=== PATIENT | male | born 1955 | race Two or more races ===

== ENCOUNTER 2020-05-23 16:06 | Outpatient (REF) | payer OTHER, SELFPAY ==
[2020-05-23 16:48] LABS: MANUAL DIFF FLAG NO
[2020-05-23 16:53] LABS: Basophils Absolute Auto 0.1 X10*3/uL (0.0-0.2); Basophils Percent Auto 0.4 % (0-2); Eosinophils Absolute Auto 0.1 X10*3/uL (0.0-0.4); Eosinophils Percent Auto 0.8 % (0-4); Hematocrit 44.2 % (42-52); Hemoglobin 14.9 g/dl (14.0-18.0); Imm Gran Abs Auto 0.06 X10*3/uL (0.00-0.03); Imm Gran Pct Auto 0.5 % (0.0-0.4); Lymphocytes Absolute Auto 2.3 X10*3/uL (1.2-4.9); Lymphocytes Percent Auto 17.1 % (20-40); Mean Corpuscular HGB Conc 33.7 g/dl (31.0-36.0); Mean Corpuscular Hemoglobin 30.5 pg (27.0-33.0); Mean Corpuscular Volume 90.4 fL (80-98); Mean Platelet Volume 10.2 fL (9.4-12.4); Monocytes Percent Auto 7.3 % (2-11); Neutrophils Absolute Auto 9.8 X10*3/uL (2.0-8.3); Neutrophils Percent Auto 73.9 % (45-73); Platelet Count 326 X10*3/uL (160-400); Red Blood Count 4.89 X10*6/uL (4.60-5.80); Red Cell Distribution Width 13.3 % (11.0-16.0); White Blood Count 13.2 X10*3/uL (4.8-10.8)
[2020-05-23 17:26] LABS: Alanine Aminotransferase 66 U/L (0-40); Albumin Level 4.1 g/dL (3.5-5.0); Alkaline Phosphatase 103 U/L (39-117); Anion Gap 11 (12-20); Aspartate Amino Transferase 59 U/L (5-37); Bilirubin Total 0.5 mg/dL (0.0-1.0); Blood Urea Nitrogen 14 mg/dL (9-16); Carbon Dioxide 25 mmol/L (22-29); Chloride 105 mmol/L (96-108); Cholesterol 221 mg/dL; Estimated Glomerular Filt Rate 52; Glucose Random 133 mg/dL (60-115); HDL Cholesterol 43 mg/dL; LDL Cholesterol Calculated 147 mg/dl; Potassium 4.6 mmol/l (3.3-5.1); Sodium 136 mmol/L (135-145); Total Protein 7.5 g/dL (6.5-8.0); Triglycerides 157 mg/dL
[2020-05-23 17:51] LABS: Estimated Average Glucose 137 mg/dL; Hemoglobin A1c % 6.4 %
== END 2020-05-23 16:07 | disposition home or self-care (01) ==
LOC: HO.LAB 16:06
PROVIDERS: PCP Internal Medicine Medical Oncology; Visit Provider Internal Medicine Medical Oncology
DX: E78.01 Familial hypercholesterolemia (principal); N40.1 Benign prostatic hyperplasia with lower urinary tract symptoms; E11.39 Type 2 diabetes mellitus with other diabetic ophthalmic complication; Z12.5 Encounter for screening for malignant neoplasm of prostate
CPT/HCPCS: 36415; 80053; 80061; 83036; 85025

== ENCOUNTER 2020-06-08 09:49 | Outpatient (REF) | payer OTHER, SELFPAY | END 2020-06-08 09:50 | disposition home or self-care (01) | LOC: HO.LAB 09:49 | PROVIDERS: Visit Provider Internal Medicine | DX: Z20.828 Contact with and (suspected) exposure to other viral communicable diseases (principal) | CPT/HCPCS: C9803; U0003 ==

== ENCOUNTER 2020-07-23 10:24 | Outpatient (REF) | payer OTHER, SELFPAY ==
[2020-07-23 11:50] LABS: MANUAL DIFF FLAG NO
[2020-07-23 11:52] LABS: Basophils Percent Auto 0.2 % (0-2); Eosinophils Absolute Auto 0.1 X10*3/uL (0.0-0.4); Eosinophils Percent Auto 0.4 % (0-4); Hematocrit 43.7 % (42-52); Hemoglobin 14.5 g/dl (14.0-18.0); Imm Gran Abs Auto 0.05 X10*3/uL (0.00-0.03); Imm Gran Pct Auto 0.4 % (0.0-0.4); Lymphocytes Absolute Auto 1.3 X10*3/uL (1.2-4.9); Lymphocytes Percent Auto 10.4 % (20-40); Mean Corpuscular HGB Conc 33.2 g/dl (31.0-36.0); Mean Corpuscular Volume 90.5 fL (80-98); Monocytes Absolute Auto 0.8 X10*3/uL (0.1-1.2); Monocytes Percent Auto 6.4 % (2-11); Neutrophils Absolute Auto 10.3 X10*3/uL (2.0-8.3); Neutrophils Percent Auto 82.2 % (45-73); Platelet Count 317 X10*3/uL (160-400); Red Blood Count 4.83 X10*6/uL (4.60-5.80); Red Cell Distribution Width 14.1 % (11.0-16.0); White Blood Count 12.6 X10*3/uL (4.8-10.8)
[2020-07-23 12:11] LABS: Estimated Average Glucose 137 mg/dL; Hemoglobin A1c % 6.4 %
[2020-07-23 12:16] LABS: Alanine Aminotransferase 76 U/L (0-40); Alkaline Phosphatase 87 U/L (39-117); Anion Gap 12 (12-20); Aspartate Amino Transferase 41 U/L (5-37); Bilirubin Total 0.5 mg/dL (0.0-1.0); Blood Urea Nitrogen 16 mg/dL (9-16); Calcium 9.7 mg/dL (8.4-10.2); Carbon Dioxide 28 mmol/L (22-29); Chloride 108 mmol/L (96-108); Cholesterol 202 mg/dL; Estimated Glomerular Filt Rate 60; Glucose Random 139 mg/dL (60-115); HDL Cholesterol 45 mg/dL; LDL Cholesterol Calculated 138 mg/dl; Potassium 4.8 mmol/l (3.3-5.1); Sodium 143 mmol/L (135-145); Total Protein 7.3 g/dL (6.5-8.0); Triglycerides 95 mg/dL
== END 2020-07-23 10:25 | disposition home or self-care (01) ==
LOC: HO.LAB 10:24
PROVIDERS: Absent Provider Internal Medicine Medical Oncology; PCP Internal Medicine Medical Oncology; Visit Provider Internal Medicine
DX: J44.9 Chronic obstructive pulmonary disease, unspecified (principal); G47.33 Obstructive sleep apnea (adult) (pediatric); E78.01 Familial hypercholesterolemia; N40.1 Benign prostatic hyperplasia with lower urinary tract symptoms; E11.39 Type 2 diabetes mellitus with other diabetic ophthalmic complication; Z87.891 Personal history of nicotine dependence; Z79.52 Long term (current) use of systemic steroids; Z79.899 Other long term (current) drug therapy
CPT/HCPCS: 36415; 80053; 80061; 83036; 85025; 99212

== ENCOUNTER → 2020-09-19 15:09 | Outpatient (BNVA) | payer OTHER, SELFPAY | PROVIDERS: PCP Internal Medicine Medical Oncology; Visit Provider Internal Medicine | DX: J44.9 Chronic obstructive pulmonary disease, unspecified (principal); J40 Bronchitis, not specified as acute or chronic; G47.33 Obstructive sleep apnea (adult) (pediatric); Z79.51 Long term (current) use of inhaled steroids; Z79.899 Other long term (current) drug therapy; Z87.891 Personal history of nicotine dependence | CPT/HCPCS: 99212 ==

== ENCOUNTER 2020-10-26 19:34 | Emergency (ER) | payer OTHER, SELFPAY ==
[2020-10-26 20:05] VITALS: BP 113/70; PULSE 60; RESP 24; TEMP 35.8; O2SAT 96; BMI 34.4
== END 2020-10-26 20:57 | disposition left against medical advice (07) ==
PROVIDERS: Emergency Provider Emergency Medicine; PCP Internal Medicine Medical Oncology
DX: R06.02 Shortness of breath (principal)
CPT/HCPCS: 99282

== ENCOUNTER 2020-11-01 16:50 | Emergency (ER) | payer OTHER, SELFPAY ==
--- NOTE | ~2020-11-01 | XR_ITS ---
EXAMINATION: XR CHEST CLINICAL INFORMATION: Shortness of breath COMPARISON: 06/09/2018 TECHNIQUE: Frontal view of the chest was obtained. FINDINGS: The lungs are mildly hypoinflated compared to the prior study. Some bibasilar atelectasis is seen. Heart size within normal limits. No consolidations or effusions or lung masses are seen. XR/XR chest 1V IMPRESSION: Mildly hypoinflated lungs with bibasilar atelectasis
[2020-11-01 17:07] VITALS: BP 131/51; PULSE 60; RESP 18; TEMP 36.6; O2SAT 96
[2020-11-01 17:26] VITALS: BP 114/64; PULSE 57; RESP 20; TEMP 36.7; O2SAT 95; BMI 36.1
[2020-11-01 17:34] LABS: Glucose, Whole Blood 194 mg/dL (60-115)
[2020-11-01 18:59] VITALS: BP 118/57; PULSE 55; RESP 15; TEMP 36.7; O2SAT 95
[2020-11-01 19:04] LABS: MANUAL DIFF FLAG NO
[2020-11-01 19:06] LABS: Basophils Percent Auto 0.2 % (0-2); Eosinophils Absolute Auto 0.3 X10*3/uL (0.0-0.4); Eosinophils Percent Auto 2.3 % (0-4); Hematocrit 43.3 % (42-52); Hemoglobin 14.7 g/dl (14.0-18.0); Imm Gran Abs Auto 0.05 X10*3/uL (0.00-0.03); Imm Gran Pct Auto 0.4 % (0.0-0.4); Lymphocytes Absolute Auto 3.3 X10*3/uL (1.2-4.9); Lymphocytes Percent Auto 26.1 % (20-40); Mean Corpuscular HGB Conc 33.9 g/dl (31.0-36.0); Mean Corpuscular Hemoglobin 29.7 pg (27.0-33.0); Mean Corpuscular Volume 87.5 fL (80-98); Mean Platelet Volume 10.1 fL (9.4-12.4); Monocytes Absolute Auto 1.1 X10*3/uL (0.1-1.2); Monocytes Percent Auto 8.8 % (2-11); Neutrophils Absolute Auto 7.9 X10*3/uL (2.0-8.3); Neutrophils Percent Auto 62.2 % (45-73); Platelet Count 305 X10*3/uL (160-400); Red Blood Count 4.95 X10*6/uL (4.60-5.80); Red Cell Distribution Width 13.7 % (11.0-16.0); White Blood Count 12.6 X10*3/uL (4.8-10.8)
[2020-11-01 19:07] LABS: Glucose Urine UA NEG (NEG); Leukocyte Esterase Urine NEG (NEG); Nitrite Urine NEG (NEG); Specific Gravity - Urine <= 1.005 (1.005-1.025); Urine Blood TRACE (NEG); Urine Ketones NEG (NEG); Urine Protein NEG (NEG-TRACE)
[2020-11-01 19:08] LABS: Appearance Urine CLEAR; Color Urine STRAW
[2020-11-01 19:18] LABS: RBC Urine 0-2 /HPF (0); Squamous Epithelial Cell Urine TRACE /LPF; WBC Urine 0-2 /HPF (0-4)
--- NOTE | 2020-11-01 19:19 | ED.GENADULT ---
HPI - General Adult General Chief complaint: General Medical Stated complaint: HBS - SOB Time Seen by Provider: 11/01/20 18:24 Source: patient Mode of arrival: ambulatory Limitations: no limitations History of Present Illness HPI narrative: Patient with multiple complaints complaining of cough shortness of breath sore throat headache body aches chest pain off and on joint pain back pain no fever no chills symptoms going on for last few days received 1 dose of COVID vaccine few weeks ago no other family member is sick Related Data Home Medications Medication Instructions Recorded Confirmed albuterol sulfate 90 mcg/actuation 2 puff PO Q6H PRN 03/31/20 aerosol inhaler fluticasone 500 mcg-salmeterol 50 ea INHALATION 03/31/20 mcg/dose blistr powdr for inhalation gabapentin 300 mg capsule 300 mg PO TID 03/31/20 ipratropium 0.5 mg-albuterol 3 mg 3 ml INHALATION TID PRN 03/31/20 (2.5 mg base)/3 mL nebulization soln sitagliptin 100 mg tablet 100 mg PO DAILY 03/31/20 tamsulosin 0.4 mg capsule 0.8 mg PO DAILY 03/31/20 trazodone 100 mg tablet 100 mg PO BEDTIME 03/31/20 azithromycin 250 mg tablet 250 mg PO .qod caplet 09/19/20 Previous Rx's Medication Instructions Recorded azithromycin 250 mg tablet 250 mg PO .on alternate days 30 09/19/20 Days #18 tab azithromycin [Zithromax] 250 mg PO DAILY 4 Days #4 tab 11/01/20 tramadol 50 mg PO Q6H PRN #20 tab 11/01/20 Allergies Allergy/AdvReac Type Severity Reaction Status Date / Time No Known Allergies Allergy Verified 09/19/20 15:20 [No Known Allergies*] Review of Systems Review of Systems: Constitutional : No Weight loss, No Fever, No Chills ENT/Mouth : No sore throat, No Rhinorrhea Eyes: No Eye Pain, No Swelling Cardiovascular : No Chest Pain, no palpitations Respiratory : ++ Cough, No Sputum, no shortness of breath Gastrointestinal : no Nausea, No Vomiting, No Diarrhea, No abdominal Pain, no black stools Genitourinary : No Dysuria, No Urinary Frequency Musculoskeletal : No joint pain, No Myalgias, No Joint Swelling Skin : No Skin Lesions, No rash Neuro : ++Weakness, No Numbness, No Dizziness, No Headache Psych : No Anxiety/Panic, No Depression Heme/Lymph: No Bruising, No Lymphadenopathy Endocrine : No Polyuria, No Polydipsia All other systems reviewed and are negative [facility] Past Medical History Medical History Asthma Bronchitis COPD (chronic obstructive pulmonary disease) TITUS (obstructive sleep apnea) Social History Social History Smoking Status: Former smoker Packs Per Day: 2 Cigarettes Per Day: 40 Years Smoked: 50 years Advance Directives: No Advance Directives Information Provided: Yes Physical Exam Vital Signs: Vital Signs: Last Vital Signs Temp 97.9 F 11/01/20 19:57 Pulse 52 11/01/20 19:57 Resp 16 11/01/20 19:57 BP 131/57 L 11/01/20 19:57 Pulse Ox 96 11/01/20 19:57 Body Mass Index 36.1 Appearance: Alert. Oriented X3. No acute distress. Eyes: PERRLA, No Nystagmus ENT: Pharynx normal. Oral Mucosa moist Neck: Normal inspection. Neck supple. CVS: Normal heart rate and rhythm. Pulses normal. Respiratory: No respiratory distress. Equal air entry bilateral, no wheezing/rales/rhonchi prolonged expiration Abdomen: Soft and nontender. Bowel sounds are present, no mass palpable, no CVA tenderness Skin: Skin warm and dry. Normal skin color. Normal skin turgor. Extremities: No lower extremity edema. No calf tenderness Neuro: Oriented X 3. No motor deficit. No sensory deficit.No cerebellar signs , cranial nerves II-XII intact Medical Decision Making MDM Narrative Medical decision making narrative: Patient nonspecific complaints COVID-19 negative lab workup also negative chest x-ray also negative for any acute infiltrate will discharge patient home on tramadol and Zithromax for bronchitis and myalgia Lab Data Lab results reviewed: Yes I reviewed the patient's lab results. Result diagrams: 11/01/20 18:56 11/01/20 18:56 Labs: Lab Results 11/01/20 11/01/20 11/01/20 Range/Units 17:25 18:56 18:56 WBC 12.6 H (4.8-10.8) X10*3/uL RBC 4.95 (4.60-5.80) X10*6/uL Hgb 14.7 (14.0-18.0) g/dl Hct 43.3 (42-52) % MCV 87.5 (80-98) fL MCH 29.7 (27.0-33.0) pg MCHC 33.9 (31.0-36.0) g/dl RDW 13.7 (11.0-16.0) % Plt Count 305 (160-400) X10*3/uL MPV 10.1 (9.4-12.4) fL Immature Gran % (Auto) 0.4 (0.0-0.4) % Neut % (Auto) 62.2 (45-73) % Lymph % (Auto) 26.1 (20-40) % [place] % (Auto) 8.8 (2-11) % Eos % (Auto) 2.3 (0-4) % Baso % (Auto) 0.2 (0-2) % Lymph # (Auto) 3.3 (1.2-4.9) X10*3/uL [place] # (Auto) 1.1 (0.1-1.2) X10*3/uL Eos # (Auto) 0.3 (0.0-0.4) X10*3/uL Baso # (Auto) 0.0 (0.0-0.2) X10*3/uL Abs Immat Gran (auto) 0.05 H (0.00-0.03) X10*3/uL Absolute Neuts (auto) 7.9 (2.0-8.3) X10*3/uL Absolute Nucleated RBC 0.000 (0.0-0.012) X10*3/uL Nucleated RBC % (auto) 0.0 (0.0-0.2) /100WBC Sodium 139 (135-145) mmol/L Potassium 5.0 (3.3-5.1) mmol/L Chloride 102 (96-108) mmol/L Carbon Dioxide 29 (22-29) mmol/L Anion Gap 13 (12-20) BUN 16 (9-16) mg/dL Creatinine 1.13 (0.5-1.4) mg/dL Estim Creat Clear Calc 67.3 Estimated GFR > 60 POC Glucose 194 H (60-115) mg/dL Random Glucose 141 H (60-115) mg/dL Calcium 9.7 (8.4-10.2) mg/dL Total Bilirubin 0.5 (0.0-1.0) mg/dL Direct Bilirubin 0.2 (0.0-0.5) mg/dL AST 26 (5-37) U/L ALT 28 (0-40) U/L Alkaline Phosphatase 108 D (39-117) U/L Total Protein 7.7 (6.5-8.0) g/dL Albumin 4.1 (3.5-5.0) g/dL Urine Color Urine Appearance Urine pH (5.0-8.0) Ur Specific [place] (1.005-1.025) Urine Protein (NEG-TRACE) MG/DL Urine Glucose (UA) (NEG) MG/DL Urine Ketones (NEG) MG/DL Urine Blood (NEG) Urine Nitrite (NEG) Ur Leukocyte Esterase (NEG) Urine RBC (0) /HPF Urine WBC (0-4) /HPF Ur Squamous Epith Cells /LPF Urine Bacteria /LPF COVID-19 ([facility]) (Negative) COVID-19 Clin Com 11/01/20 11/01/20 Range/Units 18:56 18:56 WBC (4.8-10.8) X10*3/uL RBC (4.60-5.80) X10*6/uL Hgb (14.0-18.0) g/dl Hct (42-52) % MCV (80-98) fL MCH (27.0-33.0) pg MCHC (31.0-36.0) g/dl RDW (11.0-16.0) % Plt Count (160-400) X10*3/uL MPV (9.4-12.4) fL Immature Gran % (Auto) (0.0-0.4) % Neut % (Auto) (45-73) % Lymph % (Auto) (20-40) % [place] % (Auto) (2-11) % Eos % (Auto) (0-4) % Baso % (Auto) (0-2) % Lymph # (Auto) (1.2-4.9) X10*3/uL [place] # (Auto) (0.1-1.2) X10*3/uL Eos # (Auto) (0.0-0.4) X10*3/uL Baso # (Auto) (0.0-0.2) X10*3/uL Abs Immat Gran (auto) (0.00-0.03) X10*3/uL Absolute Neuts (auto) (2.0-8.3) X10*3/uL Absolute Nucleated RBC (0.0-0.012) X10*3/uL Nucleated RBC % (auto) (0.0-0.2) /100WBC Sodium (135-145) mmol/L Potassium (3.3-5.1) mmol/L Chloride (96-108) mmol/L Carbon Dioxide (22-29) mmol/L Anion Gap (12-20) BUN (9-16) mg/dL Creatinine (0.5-1.4) mg/dL Estim Creat Clear Calc Estimated GFR POC Glucose (60-115) mg/dL Random Glucose (60-115) mg/dL Calcium (8.4-10.2) mg/dL Total Bilirubin (0.0-1.0) mg/dL Direct Bilirubin (0.0-0.5) mg/dL AST (5-37) U/L ALT (0-40) U/L Alkaline Phosphatase (39-117) U/L Total Protein (6.5-8.0) g/dL Albumin (3.5-5.0) g/dL Urine Color STRAW Urine Appearance CLEAR Urine pH 7.0 (5.0-8.0) Ur Specific [place] <= 1.005 (1.005-1.025) Urine Protein NEG (NEG-TRACE) MG/DL Urine Glucose (UA) NEG (NEG) MG/DL Urine Ketones NEG (NEG) MG/DL Urine Blood TRACE (NEG) Urine Nitrite NEG (NEG) Ur Leukocyte Esterase NEG (NEG) Urine RBC 0-2 (0) /HPF Urine WBC 0-2 (0-4) /HPF Ur Squamous Epith Cells TRACE /LPF Urine Bacteria NONE /LPF COVID-19 ([facility]) Negative (Negative) COVID-19 Clin Com See Note Discharge Plan Discharge Clinical Impression: Bronchitis, Myalgia Patient Disposition: Home, Self-Care Instructions: Acute Bronchitis (ED), Musculoskeletal Pain (ED) Additional Instructions: Take medication as prescribed follow with PCP if not better Prescriptions: New azithromycin [Zithromax] 250 mg tablet 250 mg PO DAILY 4 Days Qty: 4 RF: 0 tramadol 50 mg tablet 50 mg PO Q6H PRN (Reason: pain) Qty: 20 RF: 0 No Action azithromycin 250 mg tablet 250 mg PO .qod RF: 0 azithromycin 250 mg tablet 250 mg PO .on alternate days 30 Days Qty: 18 RF: 5 Januvia 100 mg tablet 100 mg PO DAILY RF: 0 trazodone 100 mg tablet 100 mg PO BEDTIME RF: 0 tamsulosin 0.4 mg capsule 0.8 mg PO DAILY RF: 0 fluticasone propion-salmeterol 500-50 mcg/dose blister with device inhalation RF: 0 albuterol sulfate 90 mcg/actuation HFA aerosol inhaler 2 puff PO Q6H PRNRF: 0 ipratropium-albuterol 0.5 mg-3 mg(2.5 mg base)/3 mL solution for nebulization 3 ml inhalation TID PRNRF: 0 gabapentin 300 mg capsule 300 mg PO TID RF: 0 Interventions: ED Discharge Assessment Last Done: 11/01/20 20:41 Discharge Date/Time: 11/01/20 20:52
[2020-11-01 19:22] LABS: COVID-19 Test Negative (Negative)
[2020-11-01 19:28] LABS: Alanine Aminotransferase 28 U/L (0-40); Albumin Level 4.1 g/dL (3.5-5.0); Alkaline Phosphatase 108 U/L (39-117); Anion Gap 13 (12-20); Aspartate Amino Transferase 26 U/L (5-37); Bilirubin Direct 0.2 mg/dL (0.0-0.5); Bilirubin Total 0.5 mg/dL (0.0-1.0); Blood Urea Nitrogen 16 mg/dL (9-16); Calcium 9.7 mg/dL (8.4-10.2); Carbon Dioxide 29 mmol/L (22-29); Chloride 102 mmol/L (96-108); Creatinine Clr Calc Pharmacy 67.3; Estimated Glomerular Filt Rate > 60; Glucose Random 141 mg/dL (60-115); Sodium 139 mmol/L (135-145); Total Protein 7.7 g/dL (6.5-8.0)
[2020-11-01 19:57] VITALS: BP 131/57; PULSE 52; RESP 16; TEMP 36.6; O2SAT 96
[2020-11-01] MEDS: traMADoL HCL 50 MG TABLET PO (20:15)
[2020-11-01] MEDS: Azithromycin 500 MG TABLET PO (20:45)
== END 2020-11-01 20:52 | disposition home or self-care (01) ==
PROVIDERS: Emergency Provider Internal Medicine; PCP Internal Medicine Medical Oncology
DX: J40 Bronchitis, not specified as acute or chronic (principal); M79.10 Myalgia, unspecified site; R06.02 Shortness of breath; Z20.822 Contact with and (suspected) exposure to COVID-19; Z79.899 Other long term (current) drug therapy; Z87.891 Personal history of nicotine dependence
CPT/HCPCS: 36415; 71045; 80048; 80076; 81001; 82947; 85025; 87635; 99284

== ENCOUNTER → 2020-11-20 14:44 | Outpatient (BNVA) | payer OTHER, SELFPAY | PROVIDERS: PCP Internal Medicine Medical Oncology; Visit Provider Internal Medicine | DX: J44.9 Chronic obstructive pulmonary disease, unspecified (principal); J40 Bronchitis, not specified as acute or chronic; G47.33 Obstructive sleep apnea (adult) (pediatric) | CPT/HCPCS: 99212 ==

== ENCOUNTER 2020-12-27 09:13 | Outpatient (REF) | payer OTHER, SELFPAY ==
[2020-12-27 09:54] LABS: MANUAL DIFF FLAG NO
[2020-12-27 10:26] LABS: Basophils Percent Auto 0.3 % (0-2); Eosinophils Absolute Auto 0.2 X10*3/uL (0.0-0.4); Hematocrit 44.2 % (42-52); Hemoglobin 14.9 g/dl (14.0-18.0); Imm Gran Abs Auto 0.06 X10*3/uL (0.00-0.03); Imm Gran Pct Auto 0.5 % (0.0-0.4); Lymphocytes Absolute Auto 2.5 X10*3/uL (1.2-4.9); Lymphocytes Percent Auto 21.3 % (20-40); Mean Corpuscular HGB Conc 33.7 g/dl (31.0-36.0); Mean Corpuscular Hemoglobin 28.8 pg (27.0-33.0); Mean Corpuscular Volume 85.5 fL (80-98); Mean Platelet Volume 10.3 fL (9.4-12.4); Monocytes Absolute Auto 0.9 X10*3/uL (0.1-1.2); Neutrophils Percent Auto 67.9 % (45-73); Platelet Count 291 X10*3/uL (160-400); Red Blood Count 5.17 X10*6/uL (4.60-5.80); Red Cell Distribution Width 14.6 % (11.0-16.0); White Blood Count 11.7 X10*3/uL (4.8-10.8)
[2020-12-27 10:31] LABS: Estimated Average Glucose 166 mg/dL; Hemoglobin A1c % 7.4 %
[2020-12-27 10:57] LABS: Alanine Aminotransferase 35 U/L (0-40); Albumin Level 4.1 g/dL (3.5-5.0); Alkaline Phosphatase 100 U/L (39-117); Anion Gap 12 (12-20); Aspartate Amino Transferase 31 U/L (5-37); Bilirubin Total 0.8 mg/dL (0.0-1.0); Blood Urea Nitrogen 14 mg/dL (9-16); Calcium 9.8 mg/dL (8.4-10.2); Carbon Dioxide 28 mmol/L (22-29); Chloride 102 mmol/L (96-108); Cholesterol 238 mg/dL; Estimated Glomerular Filt Rate > 60; Glucose Fasting 176 mg/dL (60-99); HDL Cholesterol 44 mg/dL; LDL Cholesterol Calculated 169 mg/dl; Potassium 4.4 mmol/L (3.3-5.1); Sodium 138 mmol/L (135-145); Total Protein 7.5 g/dL (6.5-8.0); Triglycerides 125 mg/dL
[2020-12-27 11:08] LABS: Prostate Specific Antigen 1.09 ng/mL (<0.05-4.0)
== END 2020-12-27 09:14 | disposition home or self-care (01) ==
LOC: HO.LAB 09:13
PROVIDERS: PCP Internal Medicine Medical Oncology; Visit Provider Internal Medicine Medical Oncology
DX: Z12.5 Encounter for screening for malignant neoplasm of prostate (principal); J44.9 Chronic obstructive pulmonary disease, unspecified; N40.1 Benign prostatic hyperplasia with lower urinary tract symptoms; R35.1 Nocturia; E11.39 Type 2 diabetes mellitus with other diabetic ophthalmic complication; E78.01 Familial hypercholesterolemia; M47.16 Other spondylosis with myelopathy, lumbar region; M54.17 Radiculopathy, lumbosacral region; M51.37 Other intervertebral disc degeneration, lumbosacral region; G89.4 Chronic pain syndrome
CPT/HCPCS: 36415; 80053; 80061; 83036; 84153; 85025; 99202

== ENCOUNTER 2020-12-28 09:16 | Outpatient (REF) | payer OTHER, SELFPAY | END 2020-12-28 09:17 | disposition home or self-care (01) | LOC: HO.LAB 09:16 | PROVIDERS: PCP Internal Medicine Medical Oncology; Visit Provider Anesthesiology | DX: Z13.89 Encounter for screening for other disorder (principal) ==

== ENCOUNTER → 2021-01-14 09:55 | Outpatient (BNVA) | payer OTHER, SELFPAY | PROVIDERS: PCP Internal Medicine Medical Oncology; Visit Provider Anesthesiology | DX: M47.16 Other spondylosis with myelopathy, lumbar region (principal); M54.17 Radiculopathy, lumbosacral region; M51.37 Other intervertebral disc degeneration, lumbosacral region; G89.4 Chronic pain syndrome | CPT/HCPCS: 99212 ==

== ENCOUNTER → 2021-03-25 15:07 | Outpatient (BNVA) | payer OTHER, SELFPAY | PROVIDERS: PCP Internal Medicine Medical Oncology; Visit Provider Internal Medicine | DX: J44.9 Chronic obstructive pulmonary disease, unspecified (principal); J40 Bronchitis, not specified as acute or chronic; G47.33 Obstructive sleep apnea (adult) (pediatric); G89.4 Chronic pain syndrome; M51.37 Other intervertebral disc degeneration, lumbosacral region; M54.17 Radiculopathy, lumbosacral region; M47.16 Other spondylosis with myelopathy, lumbar region; F17.210 Nicotine dependence, cigarettes, uncomplicated; Z79.899 Other long term (current) drug therapy | CPT/HCPCS: 99212 ==

== ENCOUNTER 2021-04-01 09:29 | Emergency (ER) | payer OTHER, SELFPAY ==
--- NOTE | ~2021-04-01 | XR_ITS ---
EXAMINATION: XR CHEST CLINICAL INFORMATION: Cough COMPARISON: Previous chest x-rays most recent October 2020 TECHNIQUE: Frontal view of the chest was obtained. FINDINGS: Exam is limited due to apical lordotic technique. Taking this into account, the cardiac and mediastinal contours are stable. There are bullous changes seen in the upper lobes, left greater than right. The lungs are otherwise clear. There is no pleural effusion or pneumothorax. No acute bone abnormality is seen. XR/XR chest 1V IMPRESSION: No evidence for acute disease in the chest. Bullous changes seen in the upper lobes.
[2021-04-01 09:41] VITALS: BP 134/76; PULSE 71; RESP 22; TEMP 36.6; BMI 36.8
--- NOTE | 2021-04-01 09:45 | ED.SOB ---
HPI - SOB/Dyspnea General Chief Complaint: Dyspnea Stated Complaint: COUGH Time Seen by Provider: 04/01/21 09:44 Source: patient Mode of arrival: ambulatory Limitations: no limitations History of Present Illness HPI Narrative: 66-year-old male past medical history of COPD, asthma, TITUS presents to the emergency department with 3 days of increasing shortness of breath, and productive cough. He states he has been short of breath, especially with exertion. He states he has been using his rescue inhaler 5 times a day atleast. He also states that his cough is productive of white sputum. He also reports loss of taste, and smell X2 days. He also reports a frontal headache, for the past 2 days, free of radiation.He is not a smoker. He has his COVID vaccine. He denies chest pain, dizziness, abdominal pain, nausea, vomiting, weakness. He has never been intubated MD elicited complaint: shortness of breath Pertinent past history: COPD and asthma Onset (ago): day(s) (3) Timing: constant Severity: mild Exacerbating factors: exertion, movement and coughing Relieving factors: nothing Known history of: COPD and asthma Associated symptoms: cough, sputum production and other (Hedache ) Treatment prior to arrival: none Related Data Home Medications Medication Instructions Recorded Confirmed gabapentin 300 mg capsule 300 mg PO TID 03/31/20 03/25/21 sitagliptin 100 mg tablet 100 mg PO DAILY 03/31/20 03/25/21 tamsulosin 0.4 mg capsule 0.8 mg PO DAILY 03/31/20 03/25/21 trazodone 100 mg tablet 100 mg PO BEDTIME 03/31/20 03/25/21 Previous Rx's Medication Instructions Recorded tramadol 50 mg tablet 50 mg PO Q6H PRN #20 tab 11/01/20 azithromycin 250 mg tablet 250 mg PO .QOD 30 Days #15 tab 12/05/20 (Zithromax) albuterol sulfate 90 mcg/actuation 2 puff PO Q6H PRN #8.5 g 03/06/21 aerosol inhaler ipratropium 0.5 mg-albuterol 3 mg 3 ml INHALATION TID PRN #180 ml 03/07/21 (2.5 mg base)/3 mL nebulization soln fluticasone 500 mcg-salmeterol 50 1 ea INHALATION BID #180 ea 03/21/21 mcg/dose blistr powdr for inhalation (Wixela Inhub) doxycycline monohydrate 100 mg 100 mg PO BID 7 Days #14 cap 04/01/21 capsule prednisone 20 mg tablet 60 mg PO DAILY 4 Days #12 tab 04/01/21 Allergies Allergy/AdvReac Type Severity Reaction Status Date / Time No Known Allergies Allergy Verified 03/25/21 15:08 [No Known Allergies*] Review of Systems Review of Systems: Constitutional : No Fever, No Chills ENT/Mouth : No Hoarseness, No sore throat, No Rhinorrhea Eyes: No Redness, No Discharge, No Vision Changes Cardiovascular : No Chest Pain, positive SOB, positive Dyspnea on Exertion, No Edema Respiratory : positive Cough, positive Sputum, No Wheezing, Gastrointestinal : No Nausea, No Vomiting, No Diarrhea, No abdominal Pain Genitourinary : No Dysuria, No Hematuria Musculoskeletal : No joint pain, No Myalgias Skin : No rash Neuro : No Weakness, No Numbness, Positive Headache All other systems reviewed and are negative [facility] Past Medical History Medical History (Updated 04/01/21 @ 11:22 by Sherice Hernandez DO) Asthma Bronchitis Chronic pain syndrome COPD (chronic obstructive pulmonary disease) Disc degeneration, lumbosacral TITUS (obstructive sleep apnea) Radiculopathy of lumbosacral region Spondylosis, lumbar, with myelopathy Social History Social History Patient Tobacco Use Status: Former Tobacco user Cigarette Packs Per Day: 2 Cigarettes Per Day: 40 Years Smoked: 50 years Use of substances other than those prescribed or required for medical reasons: No Advance Directives: No Advance Directives Information Provided: No Physical Exam Vital Signs: Vital Signs: Last Vital Signs Temp 97.7 F 04/01/21 10:57 Pulse 70 04/01/21 10:57 Resp 18 04/01/21 10:57 BP 136/78 04/01/21 10:57 Pulse Ox 98 04/01/21 10:57 Body Mass Index 36.8 Appearance: Alert. Oriented X3. No acute distress. Eyes: Pupils equal, round and reactive to light. ENT: Pharynx normal. Neck: Normal inspection. Neck supple. CVS: Normal heart rate and rhythm. Pulses normal. Respiratory: Mild respiratory distress. + Decreased Breath sounds b/l. Abdomen: Soft and nontender. Skin: Skin warm and dry. Normal skin color. Normal skin turgor. Extremities: No lower extremity edema. No calf ttp Neuro: Oriented X 3. No motor deficit. No sensory deficit. Course Course Course Narrative: Upon re-evaluation the patient, he is feeling better at this time, hes is still coughing . He is saturating 98% on room air, he is not tachycardic or tachypneic. He has gotten ceftriaxone 1 g, Hycodan, dexamethasone, and an albuterol inhaler. MDM - SOB/Dyspnea MDM Narrative Medical decision making narrative: 66-year-old male pmhx COPD, asthma, former smoker TITUS presenting to the emergency department with 3 days of increasing shortness of breath, and cough productive of white sputum. He also states he lost his sense of taste and smell two days ago. Denies fevers, chills, CP Based off patient's history, and physical examination findings likely this patient has COVID-19. Will rule out pneumonia. Plan- EKG, CBC, BNP,BMP. Mag, lactic, COVID, LDH, Liver, Trop, chest xray. Will give albuterol, Dexamethasone, and Hycodan Patient's x-ray shows no evidence of acute disease, bullous changes are noted to the upper lobes. Labs show no acute infection. Likely bronchitis. However based off patient's history, and physical exam patient was started on ceftriaxone 1 g, and was given Hycodan for his cough. Dexamethasone was also given. Patient feels better at this time. He is safe for discharge home. He will be sent home on p.o. antibiotics, sterouds and antitussive medication. Lab Data Result diagrams: 04/01/21 10:24 04/01/21 10:24 Labs: Lab Results 04/01/21 04/01/21 04/01/21 Range/Units 10:24 10:24 10:24 WBC 9.9 (4.8-10.8) X10*3/uL RBC 4.76 (4.60-5.80) X10*6/uL Hgb 14.4 (14.0-18.0) g/dl Hct 41.8 L (42-52) % MCV 87.8 (80-98) fL MCH 30.3 (27.0-33.0) pg MCHC 34.4 (31.0-36.0) g/dl RDW 14.2 (11.0-16.0) % Plt Count 285 (160-400) X10*3/uL MPV 9.9 (9.4-12.4) fL Immature Gran % (Auto) 0.6 H (0.0-0.4) % Neut % (Auto) 67.3 (45-73) % Lymph % (Auto) 15.1 L (20-40) % [place] % (Auto) 11.3 H (2-11) % Eos % (Auto) 5.1 H (0-4) % Baso % (Auto) 0.6 (0-2) % Lymph # (Auto) 1.5 (1.2-4.9) X10*3/uL [place] # (Auto) 1.1 (0.1-1.2) X10*3/uL Eos # (Auto) 0.5 H (0.0-0.4) X10*3/uL Baso # (Auto) 0.1 (0.0-0.2) X10*3/uL Abs Immat Gran (auto) 0.06 H (0.00-0.03) X10*3/uL Absolute Neuts (auto) 6.7 (2.0-8.3) X10*3/uL Absolute Nucleated RBC 0.000 (0.0-0.012) X10*3/uL Nucleated RBC % (auto) 0.0 (0.0-0.2) /100WBC Sodium 134 L (135-145) mmol/L Potassium 4.2 (3.3-5.1) mmol/L Chloride 103 (96-108) mmol/L Carbon Dioxide 24 (22-29) mmol/L Anion Gap 11 L (12-20) BUN 8 L (9-16) mg/dL Creatinine 1.02 (0.5-1.4) mg/dL Estim Creat Clear Calc 77.1 Estimated GFR > 60 Random Glucose 203 H D (60-115) mg/dL Lactic Acid 1.3 (0.5-2.0) mmol/L Calcium 8.6 D (8.4-10.2) mg/dL Magnesium 1.9 (1.6-2.6) mg/dL Total Bilirubin 0.5 (0.0-1.0) mg/dL Direct Bilirubin 0.2 (0.0-0.5) mg/dL AST 65 H (5-37) U/L ALT 73 H (0-40) U/L Alkaline Phosphatase 113 (39-117) U/L Lactate Dehydrogenase 195 (118-273) U/L Troponin I High Sens (<3.5-35.0) ng/L B-Natriuretic Peptide (<100) pg/mL Total Protein 7.0 (6.5-8.0) g/dL Albumin 3.6 (3.5-5.0) g/dL COVID-19 ([facility]) (Negative) COVID-19 Clin Com 04/01/21 04/01/21 Range/Units 10:24 10:24 WBC (4.8-10.8) X10*3/uL RBC (4.60-5.80) X10*6/uL Hgb (14.0-18.0) g/dl Hct (42-52) % MCV (80-98) fL MCH (27.0-33.0) pg MCHC (31.0-36.0) g/dl RDW (11.0-16.0) % Plt Count (160-400) X10*3/uL MPV (9.4-12.4) fL Immature Gran % (Auto) (0.0-0.4) % Neut % (Auto) (45-73) % Lymph % (Auto) (20-40) % [place] % (Auto) (2-11) % Eos % (Auto) (0-4) % Baso % (Auto) (0-2) % Lymph # (Auto) (1.2-4.9) X10*3/uL [place] # (Auto) (0.1-1.2) X10*3/uL Eos # (Auto) (0.0-0.4) X10*3/uL Baso # (Auto) (0.0-0.2) X10*3/uL Abs Immat Gran (auto) (0.00-0.03) X10*3/uL Absolute Neuts (auto) (2.0-8.3) X10*3/uL Absolute Nucleated RBC (0.0-0.012) X10*3/uL Nucleated RBC % (auto) (0.0-0.2) /100WBC Sodium (135-145) mmol/L Potassium (3.3-5.1) mmol/L Chloride (96-108) mmol/L Carbon Dioxide (22-29) mmol/L Anion Gap (12-20) BUN (9-16) mg/dL Creatinine (0.5-1.4) mg/dL Estim Creat Clear Calc Estimated GFR Random Glucose (60-115) mg/dL Lactic Acid (0.5-2.0) mmol/L Calcium (8.4-10.2) mg/dL Magnesium (1.6-2.6) mg/dL Total Bilirubin (0.0-1.0) mg/dL Direct Bilirubin (0.0-0.5) mg/dL AST (5-37) U/L ALT (0-40) U/L Alkaline Phosphatase (39-117) U/L Lactate Dehydrogenase (118-273) U/L Troponin I High Sens < 3.5 (<3.5-35.0) ng/L B-Natriuretic Peptide 103 H (<100) pg/mL Total Protein (6.5-8.0) g/dL Albumin (3.5-5.0) g/dL COVID-19 ([facility]) Negative (Negative) COVID-19 Clin Com See Note ECG Data Attestation: I personally reviewed and interpreted this ECG as follows: ECG interpretation date: 04/01/21 ECG interpretation time: 10:13 Prior ECG tracings: available for review Interpretation: Rate:71 Rhythm: normal sins [place]: norml Normal P waves. Normal ANGELITA. Normal QRS complex. ST T wave : no GIRISH or T wave inversions qTC: normal prior studies: No significant changes when compared to 02/10/2019 The study has been interpreted contemporaneously by me. . Discharge Plan Discharge Clinical Impression: Bronchitis, COPD (chronic obstructive pulmonary disease) Patient Disposition: Home, Self-Care Instructions: Acute Bronchitis (ED), COPD (Chronic Obstructive Pulmonary Disease) (ED) Additional Instructions: You have been prescribed antibiotics today. It is important that you take them all, do not skip any doses. You have tested negative for COVID-19 in the emergency department today Please follow-up with your primary care provider within the next 2 days Return to the emergency department with new or worsening symptoms Prescriptions: New doxycycline monohydrate 100 mg capsule 100 mg PO BID 7 Days Qty: 14 RF: 0 prednisone 20 mg tablet 60 mg PO DAILY 4 Days Qty: 12 RF: 0 No Action azithromycin [Zithromax] 250 mg tablet 250 mg PO .QOD 30 Days Qty: 15 RF: 2 albuterol sulfate 90 mcg/actuation HFA aerosol inhaler 2 puff PO Q6H PRN (Reason: for wheezing) Qty: 8.5 RF: 0 ipratropium-albuterol 0.5 mg-3 mg(2.5 mg base)/3 mL solution for nebulization 3 ml inhalation TID PRN (Reason: for wheezing) Qty: 180 RF: 2 fluticasone propion-salmeterol [Wixela Inhub] 500-50 mcg/dose blister with device 1 ea inhalation BID Qty: 180 RF: 3 tramadol 50 mg tablet 50 mg PO Q6H PRN (Reason: pain) Qty: 20 RF: 0 Januvia 100 mg tablet 100 mg PO DAILY RF: 0 trazodone 100 mg tablet 100 mg PO BEDTIME RF: 0 tamsulosin 0.4 mg capsule 0.8 mg PO DAILY RF: 0 gabapentin 300 mg capsule 300 mg PO TID RF: 0 Referrals: Chin Zepeda MD [Primary Care Provider] - 2 days Stand Alone Forms: Work/School Release
--- NOTE | 2021-04-01 09:50 | ECG_ITS ---
Test Reason : DYSPNEA Blood Pressure : / mmHG Vent. Rate : 071 BPM Atrial Rate : 071 BPM P-R Int : 136 ms QRS Dur : 090 ms QT Int : 356 ms P-R-T Axes : 018 040 055 degrees QTc Int : 386 ms Normal sinus rhythm Normal ECG When compared with ECG of 10-FEB-2019 14:13, No significant change was found Referred By: Sherice Hernandez Electronically Signed By:LUKASZ WEINSTEIN
[2021-04-01] MEDS: Albuterol Sulfate 90 MCG 8 GM INHALER 4 PUFF INHALE (10:11)
[2021-04-01 10:13] VITALS: PULSE 72; O2SAT 98
--- NOTE | 2021-04-01 10:15 | PC.NURSE ---
pt alert and oriented x4, vss. pt reports he has been feeling sob for about 3 days and it has been getting worse daily. He also states he has a productive cough-white sputum. His sob is especially worse with exertion. Pt has history of COPD and asthma. He denies chest pain, dizziness, abdominal pain, nausea, vomiting, weakness. Pt also reports loss of taste and smell.
[2021-04-01 10:33] LABS: MANUAL DIFF FLAG NO
[2021-04-01] MEDS: dexAMETHasone sod phosphate 4 MG/ML VIAL 6 MG IVPUSH (10:34)
[2021-04-01] MEDS: HYDROcodone/Homat 5/1.5/5 ML 5 ML SYRUP PO (10:34)
[2021-04-01] MEDS: cefTRIAXone sodium 1 GM in 0.9 % Sodium Chloride 50 ML IV (10:35)
[2021-04-01 10:36] LABS: Basophils Absolute Auto 0.1 X10*3/uL (0.0-0.2); Basophils Percent Auto 0.6 % (0-2); Eosinophils Absolute Auto 0.5 X10*3/uL (0.0-0.4); Eosinophils Percent Auto 5.1 % (0-4); Hematocrit 41.8 % (42-52); Hemoglobin 14.4 g/dl (14.0-18.0); Imm Gran Abs Auto 0.06 X10*3/uL (0.00-0.03); Imm Gran Pct Auto 0.6 % (0.0-0.4); Lymphocytes Absolute Auto 1.5 X10*3/uL (1.2-4.9); Lymphocytes Percent Auto 15.1 % (20-40); Mean Corpuscular HGB Conc 34.4 g/dl (31.0-36.0); Mean Corpuscular Hemoglobin 30.3 pg (27.0-33.0); Mean Corpuscular Volume 87.8 fL (80-98); Mean Platelet Volume 9.9 fL (9.4-12.4); Monocytes Absolute Auto 1.1 X10*3/uL (0.1-1.2); Monocytes Percent Auto 11.3 % (2-11); Neutrophils Absolute Auto 6.7 X10*3/uL (2.0-8.3); Neutrophils Percent Auto 67.3 % (45-73); Platelet Count 285 X10*3/uL (160-400); Red Blood Count 4.76 X10*6/uL (4.60-5.80); Red Cell Distribution Width 14.2 % (11.0-16.0); White Blood Count 9.9 X10*3/uL (4.8-10.8)
[2021-04-01 10:53] LABS: COVID-19 Test Negative (Negative)
[2021-04-01 10:57] VITALS: BP 136/78; PULSE 70; RESP 18; TEMP 36.5; O2SAT 98
[2021-04-01 10:57] LABS: Lactic Acid 1.3 mmol/L (0.5-2.0)
[2021-04-01 10:58] LABS: Alanine Aminotransferase 73 U/L (0-40); Albumin Level 3.6 g/dL (3.5-5.0); Alkaline Phosphatase 113 U/L (39-117); Anion Gap 11 (12-20); Aspartate Amino Transferase 65 U/L (5-37); Bilirubin Direct 0.2 mg/dL (0.0-0.5); Bilirubin Total 0.5 mg/dL (0.0-1.0); Blood Urea Nitrogen 8 mg/dL (9-16); Calcium 8.6 mg/dL (8.4-10.2); Carbon Dioxide 24 mmol/L (22-29); Chloride 103 mmol/L (96-108); Creatinine Clr Calc Pharmacy 77.1; Estimated Glomerular Filt Rate > 60; Glucose Random 203 mg/dL (60-115); Lactate Dehydrogenase 195 U/L (118-273); Magnesium 1.9 mg/dL (1.6-2.6); Potassium 4.2 mmol/L (3.3-5.1); Sodium 134 mmol/L (135-145)
[2021-04-01 11:00] LABS: B Type Natriuretic Peptide 103 pg/mL (<100); Troponin-I High Sensitivity < 3.5 ng/L (<3.5-35.0)
--- NOTE | 2021-04-01 11:21 | PC.NURSE ---
Pt seen by respiratory therapist, Pt noted to have dry non-productive cough. iv established, meds given as documented. vss.
== END 2021-04-01 11:43 | disposition home or self-care (01) ==
PROVIDERS: Emergency Provider Emergency Medicine; PCP Internal Medicine Medical Oncology
DX: J44.9 Chronic obstructive pulmonary disease, unspecified (principal); R06.02 Shortness of breath; R05 Cough; G47.33 Obstructive sleep apnea (adult) (pediatric); R51.9 Headache, unspecified; Z20.822 Contact with and (suspected) exposure to COVID-19; Z79.899 Other long term (current) drug therapy; Z87.891 Personal history of nicotine dependence
CPT/HCPCS: 36415; 71045; 80048; 80076; 83605; 83615; 83735; 83880; 84484; 85025; 87040; 87635; 93005; 94640; 96365; 96375; 99284; J0696; J1100

== ENCOUNTER 2021-04-19 16:28 | Emergency (ER) | payer OTHER, SELFPAY ==
[2021-04-19] VITALS (8 sets, daily range): BP systolic 102–185; BP diastolic 60–101; PULSE 103–118; RESP 16–20; TEMP 36.3–36.8; O2SAT 96–99; BMI 34.0
--- NOTE | ~2021-04-19 | XR_ITS ---
EXAMINATION: XR CHEST CLINICAL INFORMATION: Chest pain COMPARISON: Chest x-ray April 01, 2021 TECHNIQUE: Frontal view of the chest was obtained. 5:30 PM FINDINGS: No significant abnormality is noted involving the heart, lungs, mediastinum, bony thorax or soft tissues. XR/XR chest 1V IMPRESSION: Unremarkable examination.
--- NOTE | 2021-04-19 17:11 | ECG_ITS ---
Test Reason : CHEST PAIN Blood Pressure : / mmHG Vent. Rate : 109 BPM Atrial Rate : 109 BPM P-R Int : 120 ms QRS Dur : 088 ms QT Int : 338 ms P-R-T Axes : -16 020 037 degrees QTc Int : 455 ms Sinus tachycardia Nonspecific ST abnormality Abnormal ECG Heart rate has increased Nonspecific ST abnormality is new Referred By: Generic ED Physician Electronically Signed By:MODE SALAS MD
[2021-04-19 19:11] LABS: MANUAL DIFF FLAG NO
[2021-04-19 19:13] LABS: Basophils Percent Auto 0.3 % (0-2); Eosinophils Absolute Auto 0.1 X10*3/uL (0.0-0.4); Eosinophils Percent Auto 0.5 % (0-4); Hematocrit 44.1 % (42-52); Hemoglobin 15.7 g/dl (14.0-18.0); Imm Gran Abs Auto 0.03 X10*3/uL (0.00-0.03); Imm Gran Pct Auto 0.3 % (0.0-0.4); Lymphocytes Absolute Auto 2.4 X10*3/uL (1.2-4.9); Lymphocytes Percent Auto 20.4 % (20-40); Mean Corpuscular HGB Conc 35.6 g/dl (31.0-36.0); Mean Corpuscular Hemoglobin 30.3 pg (27.0-33.0); Mean Corpuscular Volume 85.1 fL (80-98); Mean Platelet Volume 10.3 fL (9.4-12.4); Monocytes Absolute Auto 0.9 X10*3/uL (0.1-1.2); Monocytes Percent Auto 7.6 % (2-11); Neutrophils Absolute Auto 8.5 X10*3/uL (2.0-8.3); Neutrophils Percent Auto 70.9 % (45-73); Platelet Count 320 X10*3/uL (160-400); Red Blood Count 5.18 X10*6/uL (4.60-5.80); Red Cell Distribution Width 13.6 % (11.0-16.0); White Blood Count 11.9 X10*3/uL (4.8-10.8)
--- NOTE | 2021-04-19 19:18 | ED_ITS ---
HPI - Nausea/Vomiting/Diarrhea General Chief complaint: Chest Pain Stated complaint: ?FB in throat Time Seen by Provider: 04/19/21 18:47 Source: patient Mode of arrival: ambulatory Limitations: no limitations History of Present Illness HPI Narrative: 66 yo male with DM, COPD, TITUS hx of bouts of feeling food get stuck he has never had to have endoscopy comes in tonight with c/o having taco meat get stuck since yesterday unable to eat drink keep his saliva down elicited complaint: nausea, vomiting and abdominal pain (feels something is stuck) Pertinent past history: other (hx of similar in the past but he can usually pass it t home) Onset (ago): day(s) (yesterday for dinner) Description of vomiting: watery Associated nausea: Yes Associated abdominal pain: Yes Location of pain: epigastric Radiation: chest Pain consistency: constant Severity: moderate Quality: cramping Exacerbating factors: eating Relieving factors: vomiting Context: other (started after going to food truck) Associated symptoms: loss of appetite and nausea/vomiting Related Data Home Medications Medication Instructions Recorded Confirmed gabapentin 300 mg capsule 300 mg PO TID 03/31/20 03/25/21 sitagliptin 100 mg tablet 100 mg PO DAILY 03/31/20 03/25/21 tamsulosin 0.4 mg capsule 0.8 mg PO DAILY 03/31/20 03/25/21 trazodone 100 mg tablet 100 mg PO BEDTIME 03/31/20 03/25/21 Previous Rx's Medication Instructions Recorded tramadol 50 mg tablet 50 mg PO Q6H PRN #20 tab 11/01/20 azithromycin 250 mg tablet 250 mg PO .QOD 30 Days #15 tab 12/05/20 (Zithromax) albuterol sulfate 90 mcg/actuation 2 puff PO Q6H PRN #8.5 g 03/06/21 aerosol inhaler ipratropium 0.5 mg-albuterol 3 mg 3 ml INHALATION TID PRN #180 ml 03/07/21 (2.5 mg base)/3 mL nebulization soln fluticasone 500 mcg-salmeterol 50 1 ea INHALATION BID #180 ea 03/21/21 mcg/dose blistr powdr for inhalation (Wixela Inhub) doxycycline monohydrate 100 mg 100 mg PO BID 7 Days #14 cap 04/01/21 capsule prednisone 20 mg tablet 60 mg PO DAILY 4 Days #12 tab 04/01/21 pantoprazole 40 mg tablet,delayed 40 mg PO BID 90 Days #180 tab 04/19/21 release benzonatate 100 mg capsule 100 mg PO BID PRN #20 cap 04/20/21 (Galilea Caceres) Allergies Allergy/AdvReac Type Severity Reaction Status Date / Time No Known Allergies Allergy Verified 04/19/21 17:01 [No Known Allergies*] Review of Systems Review of Systems: Constitutional : No Weight loss, No Fever, No Chills ENT/Mouth : No sore throat, No Rhinorrhea Eyes: No Swelling, No Redness Cardiovascular : pos Chest Pain, No SOB, NoEdema Respiratory : No Cough, No Sputum, No Wheezing Gastrointestinal : Positive Nausea, Positive Vomiting, no Diarrhea, positive abdominal Pain, No Hematochezia, No Melena Genitourinary : No Dysuria, No Urinary Frequency, No Hematuria, No Urgency Musculoskeletal : No joint pain, No Myalgias, No Joint Swelling Skin : No Skin Lesions, No rash Neuro : No Weakness, No Numbness, No Dizziness, No Headache Psych : No Anxiety/Panic, No Depression Heme/Lymph: No Bruising, No Lymphadenopathy Endocrine : No Polyuria, No Polydipsia All other systems reviewed and are negative. Gastrointestinal: Gastrointestinal: Reports nausea PMFSH Past Medical History Attestation statement: The following information was validated with the patient. Medical History Asthma Bronchitis Chronic pain syndrome COPD (chronic obstructive pulmonary disease) Disc degeneration, lumbosacral TITUS (obstructive sleep apnea) Radiculopathy of lumbosacral region Spondylosis, lumbar, with myelopathy Social History Social History Patient Tobacco Use Status: Former Tobacco user Cigarette Packs Per Day: 2 Cigarettes Per Day: 40 Years Smoked: 50 years Advance Directives: No Advance Directives Information Provided: No Physical Exam Vital Signs: Vital Signs: Last Vital Signs Temp 97.3 F 04/20/21 00:05 Pulse 108 H 04/20/21 00:05 Resp 20 04/20/21 00:05 BP 120/80 04/20/21 00:05 Pulse Ox 96 04/20/21 00:05 Body Mass Index 34.0 Appearance: Alert. Oriented X3. mild acute distress. Cannot tolerate saliva at this time vomiting Eyes: Pupils equal, round and reactive to light. ENT: Pharynx normal. Neck: Normal inspection. Neck supple. CVS: Normal heart rate and rhythm. Pulses normal. Respiratory: No respiratory distress. Breath sounds normal. Abdomen: Soft and nontender. Skin: Skin warm and dry. Normal skin color. Normal skin turgor. Extremities: No lower extremity edema. No calf ttp Neuro: Oriented X 3. No motor deficit. No sensory deficit. Course Course Course Narrative: failed treatments will contact GI - Dr. Rao nitro tab 10cc of water sip it monitor BP BMP corrected can be DC home, doing well post anesthesia MDM - Nausea/Vomiting/Diarrhea MDM Narrative Medical decision making narrative: 66 yo male with DM, COPD, TITUS here with c/o F B sensation and unable to eat/drink saliva post taco truck - hx of bouts in past that he can usually resolve at home. At this time will obtain basic labs, hydrate, IV insulin/fluids, glucagon in attempts to pass bolus. Dispo per results and findings. Lab Data Result diagrams: 04/19/21 19:04 04/20/21 00:56 Labs: Lab Results 04/19/21 04/19/21 04/19/21 Range/Units 19:04 19:04 19:04 WBC 11.9 H (4.8-10.8) X10*3/uL RBC 5.18 (4.60-5.80) X10*6/uL Hgb 15.7 (14.0-18.0) g/dl Hct 44.1 (42-52) % MCV 85.1 (80-98) fL MCH 30.3 (27.0-33.0) pg MCHC 35.6 (31.0-36.0) g/dl RDW 13.6 (11.0-16.0) % Plt Count 320 (160-400) X10*3/uL MPV 10.3 (9.4-12.4) fL Immature Gran % (Auto) 0.3 (0.0-0.4) % Neut % (Auto) 70.9 (45-73) % Lymph % (Auto) 20.4 (20-40) % [place] % (Auto) 7.6 (2-11) % Eos % (Auto) 0.5 (0-4) % Baso % (Auto) 0.3 (0-2) % Lymph # (Auto) 2.4 (1.2-4.9) X10*3/uL [place] # (Auto) 0.9 (0.1-1.2) X10*3/uL Eos # (Auto) 0.1 (0.0-0.4) X10*3/uL Baso # (Auto) 0.0 (0.0-0.2) X10*3/uL Abs Immat Gran (auto) 0.03 (0.00-0.03) X10*3/uL Absolute Neuts (auto) 8.5 H (2.0-8.3) X10*3/uL Absolute Nucleated RBC 0.000 (0.0-0.012) X10*3/uL Nucleated RBC % (auto) 0.0 (0.0-0.2) /100WBC PT (9.9-13.0) SEC INR (0.9-1.1) APTT (24.1-38.0) SEC Sodium 140 (135-145) mmol/L Potassium 5.0 (3.3-5.1) mmol/L Chloride 101 (96-108) mmol/L Carbon Dioxide 26 (22-29) mmol/L Anion Gap 18 (12-20) BUN 14 D (9-16) mg/dL Creatinine 1.63 H (0.5-1.4) mg/dL Estim Creat Clear Calc 46.2 Estimated GFR 43 POC Glucose (60-115) mg/dL Random Glucose 485 H* (60-115) mg/dL Calcium 10.1 D (8.4-10.2) mg/dL Magnesium 2.6 (1.6-2.6) mg/dL Total Bilirubin 1.5 H (0.0-1.0) mg/dL Direct Bilirubin 0.4 (0.0-0.5) mg/dL AST 49 H (5-37) U/L ALT 72 H (0-40) U/L Alkaline Phosphatase 130 H (39-117) U/L Troponin I High Sens 8.7 D (<3.5-35.0) ng/L Total Protein 8.7 H D (6.5-8.0) g/dL Albumin 4.5 D (3.5-5.0) g/dL Lipase 26 (8-78) U/L COVID-19 ([facility]) (Negative) COVID-19 Clin Com 04/19/21 04/19/21 04/19/21 Range/Units 21:41 22:03 23:52 WBC (4.8-10.8) X10*3/uL RBC (4.60-5.80) X10*6/uL Hgb (14.0-18.0) g/dl Hct (42-52) % MCV (80-98) fL MCH (27.0-33.0) pg MCHC (31.0-36.0) g/dl RDW (11.0-16.0) % Plt Count (160-400) X10*3/uL MPV (9.4-12.4) fL Immature Gran % (Auto) (0.0-0.4) % Neut % (Auto) (45-73) % Lymph % (Auto) (20-40) % [place] % (Auto) (2-11) % Eos % (Auto) (0-4) % Baso % (Auto) (0-2) % Lymph # (Auto) (1.2-4.9) X10*3/uL [place] # (Auto) (0.1-1.2) X10*3/uL Eos # (Auto) (0.0-0.4) X10*3/uL Baso # (Auto) (0.0-0.2) X10*3/uL Abs Immat Gran (auto) (0.00-0.03) X10*3/uL Absolute Neuts (auto) (2.0-8.3) X10*3/uL Absolute Nucleated RBC (0.0-0.012) X10*3/uL Nucleated RBC % (auto) (0.0-0.2) /100WBC PT 13.2 H (9.9-13.0) SEC INR 1.2 H (0.9-1.1) APTT 25.0 (24.1-38.0) SEC Sodium (135-145) mmol/L Potassium (3.3-5.1) mmol/L Chloride (96-108) mmol/L Carbon Dioxide (22-29) mmol/L Anion Gap (12-20) BUN (9-16) mg/dL Creatinine (0.5-1.4) mg/dL Estim Creat Clear Calc Estimated GFR POC Glucose 329 H (60-115) mg/dL Random Glucose (60-115) mg/dL Calcium (8.4-10.2) mg/dL Magnesium (1.6-2.6) mg/dL Total Bilirubin (0.0-1.0) mg/dL Direct Bilirubin (0.0-0.5) mg/dL AST (5-37) U/L ALT (0-40) U/L Alkaline Phosphatase (39-117) U/L Troponin I High Sens (<3.5-35.0) ng/L Total Protein (6.5-8.0) g/dL Albumin (3.5-5.0) g/dL Lipase (8-78) U/L COVID-19 ([facility]) Negative (Negative) COVID-19 Clin Com See Note 04/20/21 Range/Units 00:56 WBC (4.8-10.8) X10*3/uL RBC (4.60-5.80) X10*6/uL Hgb (14.0-18.0) g/dl Hct (42-52) % MCV (80-98) fL MCH (27.0-33.0) pg MCHC (31.0-36.0) g/dl RDW (11.0-16.0) % Plt Count (160-400) X10*3/uL MPV (9.4-12.4) fL Immature Gran % (Auto) (0.0-0.4) % Neut % (Auto) (45-73) % Lymph % (Auto) (20-40) % [place] % (Auto) (2-11) % Eos % (Auto) (0-4) % Baso % (Auto) (0-2) % Lymph # (Auto) (1.2-4.9) X10*3/uL [place] # (Auto) (0.1-1.2) X10*3/uL Eos # (Auto) (0.0-0.4) X10*3/uL Baso # (Auto) (0.0-0.2) X10*3/uL Abs Immat Gran (auto) (0.00-0.03) X10*3/uL Absolute Neuts (auto) (2.0-8.3) X10*3/uL Absolute Nucleated RBC (0.0-0.012) X10*3/uL Nucleated RBC % (auto) (0.0-0.2) /100WBC PT (9.9-13.0) SEC INR (0.9-1.1) APTT (24.1-38.0) SEC Sodium 140 (135-145) mmol/L Potassium 4.4 (3.3-5.1) mmol/L Chloride 108 (96-108) mmol/L Carbon Dioxide 24 (22-29) mmol/L Anion Gap 12 (12-20) BUN 15 (9-16) mg/dL Creatinine 1.31 (0.5-1.4) mg/dL Estim Creat Clear Calc 57.5 Estimated GFR 55 POC Glucose (60-115) mg/dL Random Glucose 328 H (60-115) mg/dL Calcium 8.5 D (8.4-10.2) mg/dL Magnesium (1.6-2.6) mg/dL Total Bilirubin (0.0-1.0) mg/dL Direct Bilirubin (0.0-0.5) mg/dL AST (5-37) U/L ALT (0-40) U/L Alkaline Phosphatase (39-117) U/L Troponin I High Sens (<3.5-35.0) ng/L Total Protein (6.5-8.0) g/dL Albumin (3.5-5.0) g/dL Lipase (8-78) U/L COVID-19 ([facility]) (Negative) COVID-19 Clin Com Critical Care Time Critical Care Time Critical Care Time: Yes Total Critical Care Time: 35 Attestation: IVF multiple medications, medical consult I attest to this time spent taking care of the patient Discharge Plan Discharge Clinical Impression: MIRIAM (acute kidney injury), Acute hyperglycemia Food impaction of esophagus Qualifiers: Encounter type: initial encounter Qualified Code(s): T18.128A - Food in esophagus causing other injury, initial encounter Patient Disposition: Home, Self-Care Instructions: Dehydration (ED), Diabetic Hyperglycemia (ED) Additional Instructions: return to ED for any worsening symptoms or concerns avoid acidic foods and spicy foods for 2 weeks Prescriptions: New pantoprazole 40 mg tablet,delayed release (DR/EC) 40 mg PO BID 90 Days Qty: 180 RF: 1 benzonatate [Tessalon Perles] 100 mg capsule 100 mg PO BID PRN (Reason: cough) Qty: 20 RF: 0 No Action azithromycin [Zithromax] 250 mg tablet 250 mg PO .QOD 30 Days Qty: 15 RF: 2 albuterol sulfate 90 mcg/actuation HFA aerosol inhaler 2 puff PO Q6H PRN (Reason: for wheezing) Qty: 8.5 RF: 0 ipratropium-albuterol 0.5 mg-3 mg(2.5 mg base)/3 mL solution for nebulization 3 ml inhalation TID PRN (Reason: for wheezing) Qty: 180 RF: 2 fluticasone propion-salmeterol [Wixela Inhub] 500-50 mcg/dose blister with device 1 ea inhalation BID Qty: 180 RF: 3 tramadol 50 mg tablet 50 mg PO Q6H PRN (Reason: pain) Qty: 20 RF: 0 doxycycline monohydrate 100 mg capsule 100 mg PO BID 7 Days Qty: 14 RF: 0 prednisone 20 mg tablet 60 mg PO DAILY 4 Days Qty: 12 RF: 0 Januvia 100 mg tablet 100 mg PO DAILY RF: 0 trazodone 100 mg tablet 100 mg PO BEDTIME RF: 0 tamsulosin 0.4 mg capsule 0.8 mg PO DAILY RF: 0 gabapentin 300 mg capsule 300 mg PO TID RF: 0 Referrals: Chin Zepeda MD [Primary Care Provider] - 2 days Stand Alone Forms: Work/School Release
[2021-04-19 19:29] LABS: Anion Gap 18 (12-20); Blood Urea Nitrogen 14 mg/dL (9-16); Calcium 10.1 mg/dL (8.4-10.2); Carbon Dioxide 26 mmol/L (22-29); Chloride 101 mmol/L (96-108); Creatinine Clr Calc Pharmacy 46.2; Estimated Glomerular Filt Rate 43; Glucose Random 485 mg/dL (60-115); Sodium 140 mmol/L (135-145)
[2021-04-19 19:31] LABS: Troponin-I High Sensitivity 8.7 ng/L (<3.5-35.0)
[2021-04-19 19:44] LABS: Alanine Aminotransferase 72 U/L (0-40); Albumin Level 4.5 g/dL (3.5-5.0); Alkaline Phosphatase 130 U/L (39-117); Aspartate Amino Transferase 49 U/L (5-37); Bilirubin Direct 0.4 mg/dL (0.0-0.5); Bilirubin Total 1.5 mg/dL (0.0-1.0); Lipase 26 U/L (8-78); Magnesium 2.6 mg/dL (1.6-2.6); Total Protein 8.7 g/dL (6.5-8.0)
[2021-04-19] MEDS: Morphine Sulfate 4 MG/ML CARTRIDGE IVPUSH (20:43)
[2021-04-19] MEDS: 0.9 % Sodium Chloride 1,000 ML 999 ML IVCONT ×2 (20:43→20:52)
[2021-04-19] MEDS: Insulin Regular, Human 100 UNIT/ML 3 ML VIAL IVPUSH (20:45)
[2021-04-19] MEDS: Nitroglycerin 0.4 MG TAB.SUBL SUBLINGUAL ×2 (21:16→21:37)
[2021-04-19 21:51] LABS: INTERNATIONAL NORM RATIO 1.2 (0.9-1.1); Prothrombin Time 13.2 SEC (9.9-13.0)
[2021-04-19 22:26] LABS: COVID-19 Test Negative (Negative)
--- NOTE | 2021-04-19 22:56 | P.CONAN_ITS ---
[facility] Active Problems Active Problems: All Active Problems (Updated 04/19/21 @ 21:10 by Sherice humphrey DO) Food impaction of esophagus (Acute) MIRIAM (acute kidney injury) (Acute) Acute hyperglycemia (Acute) Disc degeneration, lumbosacral (Acute) Chronic pain syndrome (Acute) Radiculopathy of lumbosacral region (Acute) Spondylosis, lumbar, with myelopathy (Acute) Bronchitis (Acute) TITUS (obstructive sleep apnea) (Acute) COPD (chronic obstructive pulmonary disease) (Acute) Past Medical History Medical History Asthma Bronchitis Chronic pain syndrome COPD (chronic obstructive pulmonary disease) Disc degeneration, lumbosacral TITUS (obstructive sleep apnea) Radiculopathy of lumbosacral region Spondylosis, lumbar, with myelopathy Social History Social History Patient Tobacco Use Status: Former Tobacco user Cigarette Packs Per Day: 2 Cigarettes Per Day: 40 Years Smoked: 50 years Advance Directives: No Advance Directives Information Provided: No Meds Allergies Allergy/AdvReac Type Severity Reaction Status Date / Time No Known Allergies Allergy Verified 04/19/21 17:01 [No Known Allergies*] Active Medications: Current Medications Sodium Chloride (Ns) 1,000 mls @ 125 mls/hr IVCONT .Q8H [facility] Home Medications Medication Instructions Recorded Confirmed Last Taken Type gabapentin 300 mg capsule 300 mg PO TID 03/31/20 03/25/21 Unknown History sitagliptin 100 mg tablet 100 mg PO DAILY 03/31/20 03/25/21 Unknown History tamsulosin 0.4 mg capsule 0.8 mg PO DAILY 03/31/20 03/25/21 Unknown History trazodone 100 mg tablet 100 mg PO BEDTIME 03/31/20 03/25/21 Unknown History Exam Exam Date and Time: April 19, [id number] Height,Weight and Vital Signs: Height 5 ft 4 in Weight 89.811 kg Last Vital Signs Temp 97.9 F 04/19/21 21:33 Pulse 108 H 04/19/21 21:50 Resp 18 04/19/21 21:50 BP 145/88 H 04/19/21 21:50 Pulse Ox 97 04/19/21 21:50 Pertinent Lab Results Pertinent Lab Results: Laboratory Tests 04/19/21 04/19/21 04/19/21 19:04 19:04 19:04 WBC 11.9 H RBC 5.18 Hgb 15.7 Hct 44.1 MCV 85.1 MCH 30.3 MCHC 35.6 RDW 13.6 Plt Count 320 MPV 10.3 Immature Gran % (Auto) 0.3 Neut % (Auto) 70.9 Lymph % (Auto) 20.4 [place] % (Auto) 7.6 Eos % (Auto) 0.5 Baso % (Auto) 0.3 Lymph # (Auto) 2.4 [place] # (Auto) 0.9 Eos # (Auto) 0.1 Baso # (Auto) 0.0 Abs Immat Gran (auto) 0.03 Absolute Neuts (auto) 8.5 H Absolute Nucleated RBC 0.000 Nucleated RBC % (auto) 0.0 PT INR APTT Sodium 140 Potassium 5.0 Chloride 101 Carbon Dioxide 26 Anion Gap 18 BUN 14 D Creatinine 1.63 H Estim Creat Clear Calc 46.2 Estimated GFR 43 Random Glucose 485 H* Calcium 10.1 D Magnesium 2.6 Total Bilirubin 1.5 H Direct Bilirubin 0.4 AST 49 H ALT 72 H Alkaline Phosphatase 130 H Troponin I High Sens 8.7 D Total Protein 8.7 H D Albumin 4.5 D Lipase 26 COVID-19 ([facility]) COVID-[facility] Com 04/19/21 04/19/21 21:41 22:03 WBC RBC Hgb Hct MCV MCH MCHC RDW Plt Count MPV Immature Gran % (Auto) Neut % (Auto) Lymph % (Auto) [place] % (Auto) Eos % (Auto) Baso % (Auto) Lymph # (Auto) [place] # (Auto) Eos # (Auto) Baso # (Auto) Abs Immat Gran (auto) Absolute Neuts (auto) Absolute Nucleated RBC Nucleated RBC % (auto) PT 13.2 H INR 1.2 H APTT 25.0 Sodium Potassium Chloride Carbon Dioxide Anion Gap BUN Creatinine Estim Creat Clear Calc Estimated GFR Random Glucose Calcium Magnesium Total Bilirubin Direct Bilirubin AST ALT Alkaline Phosphatase Troponin I High Sens Total Protein Albumin Lipase COVID-19 ([facility]) Negative COVID-19 Clin Com See Note Airway TM Dist: >3cm Neck ROM: Full
--- NOTE | 2021-04-19 23:08 | PM.GICN ---
History of Present Illness Data of Consult Service Date: 04/19/21 Requesting physician: Sherice Hernandez Primary Care Provider: Chin Zepeda MD HPI Reason for consult: food bolus impaction 66 yo male with DM, COPD, TITUS who I am seeing for assessment for food bolus impaction of esophagus. Patient had Taco last night and since then felt it stuck in the esophagus. he had difficulty drinking and managing to swallow saliva. He has some nausea, and discomfort from the sticking sensation. He has had similar episodes of food getting stuck but never as bad as this, normally drinks soda and it goes down. He has reflux sx at baseline never taken any PPI. He si ex smoker, drinks beers frequently Review of Systems Review of Systems: Constitutional : No Weight loss, No Fever, No Chills ENT/Mouth : No sore throat, No Rhinorrhea Eyes: No Swelling, No Redness Cardiovascular : pos Chest Pain, No SOB, NoEdema Respiratory : No Cough, No Sputum, No Wheezing Gastrointestinal : Positive Nausea, Positive Vomiting, no Diarrhea, positive abdominal Pain, No Hematochezia, No Melena Genitourinary : No Dysuria, No Urinary Frequency, No Hematuria, No Urgency Musculoskeletal : No joint pain, No Myalgias, No Joint Swelling Skin : No Skin Lesions, No rash Neuro : No Weakness, No Numbness, No Dizziness, No Headache Psych : No Anxiety/Panic, No Depression Heme/Lymph: No Bruising, No Lymphadenopathy Endocrine : No Polyuria, No Polydipsia All other systems reviewed and are negative. Gastrointestinal: Gastrointestinal: Reports nausea PMFSH Past Medical History Medical History Asthma Bronchitis Chronic pain syndrome COPD (chronic obstructive pulmonary disease) Disc degeneration, lumbosacral TITUS (obstructive sleep apnea) Radiculopathy of lumbosacral region Spondylosis, lumbar, with myelopathy Social History Social History Patient Tobacco Use Status: Former Tobacco user Cigarette Packs Per Day: 2 Cigarettes Per Day: 40 Years Smoked: 50 years Advance Directives: No Advance Directives Information Provided: No Meds Allergies Allergy/AdvReac Type Severity Reaction Status Date / Time No Known Allergies Allergy Verified 04/19/21 17:01 [No Known Allergies*] Active Medications: Current Medications Sodium Chloride (Ns) 1,000 mls @ 125 mls/hr IVCONT .Q8H GURINDER Lactated Ringer's (Lr) 1,000 mls @ 100 mls/hr IVCONT .Q10H [facility] Home Medications Medication Instructions Recorded Confirmed Last Taken Type gabapentin 300 mg capsule 300 mg PO TID 03/31/20 03/25/21 Unknown History sitagliptin 100 mg tablet 100 mg PO DAILY 03/31/20 03/25/21 Unknown History tamsulosin 0.4 mg capsule 0.8 mg PO DAILY 03/31/20 03/25/21 Unknown History trazodone 100 mg tablet 100 mg PO BEDTIME 03/31/20 03/25/21 Unknown History Physical Exam Vital Signs: Vital Signs: Last Vital Signs Temp 97.4 F 04/19/21 22:59 Pulse 103 H 04/19/21 22:59 Resp 16 04/19/21 22:59 BP 185/101 H 04/19/21 22:59 Pulse Ox 97 04/19/21 22:59 Body Mass Index 34.0 EXAM: GENERAL: The patient is well developed and nontoxic. VITAL SIGNS:see workflow HEENT: Nonicteric sclerae, PERRLA, EOMI. Oropharynx clear. Moist mucous membranes. Conjunctivae appear well perfused. No thyroid mass. mildly enlarged tonsils CHEST: Chest wall is nontender. HEART: Regular rate and rhythm without murmurs. LUNGS: Clear to auscultation bilaterally. ABDOMEN: Soft, positive bowel sounds, nontender, no organomegaly.no flank tenderness SKIN: No rash, no excessive bruising, petechiae, or purpura. NEUROLOGIC: Cranial nerves II-XII intact without motor/sensory deficit. Psych- nml affect MS: normal Results Labs CBC & Chem 7: 04/19/21 19:04 04/19/21 19:04 Labs: Short CBC 04/19/21 Range/Units 19:04 WBC 11.9 H (4.8-10.8) X10*3/uL Hgb 15.7 (14.0-18.0) g/dl Hct 44.1 (42-52) % Plt Count 320 (160-400) X10*3/uL BMP 04/19/21 19:04 Sodium 140 Potassium 5.0 Chloride 101 Carbon Dioxide 26 BUN 14 D Creatinine 1.63 H Calcium 10.1 D Liver Function 10/15/21 Range/Units 19:04 Total Bilirubin 1.5 H (0.0-1.0) mg/dL Direct Bilirubin 0.4 (0.0-0.5) mg/dL AST 49 H (5-37) U/L ALT 72 H (0-40) U/L Alkaline Phosphatase 130 H (39-117) U/L Albumin 4.5 D (3.5-5.0) g/dL CXR-- normal Assessment and Plan (1) Food impaction of esophagus: Qualifiers: Encounter type: initial encounter Qualified Code(s): T18.128A - Food in esophagus causing other injury, initial encounter Status: Acute 1/ Food impaction, esophagus, may have schatzki ring or EoE less likely neoplasia PLAN: 1/ EGD today for further assessment and disimpaction Procedures Date of Service Date of Service: 04/19/21
--- NOTE | 2021-04-19 23:09 | PC.NURSE ---
LABS WERE ORDER AT 2216 , I WAS TOLD BY RN MINDY NOT TO GET IT UNTIL PATIENT COME BACK FROM OR
--- NOTE | 2021-04-19 23:14 | MHC.SHP ---
Pre-Procedural Eval Section A Date of Service: 04/19/21 The patient is an INPATIENT: No The History & Physical has been completed within 30 days and I have reviewed it.: Yes Section B Chief Complaint: ?FB in throat Allergies: Allergies Allergy/AdvReac Type Severity Reaction Status Date / Time No Known Allergies Allergy Verified 04/19/21 17:01 [No Known Allergies*] Plan Diagnosis/Plan: Unchanged I have reviewed the history and physical and performed a pertinent physical examination on my patient. No changes have occurred unless specified.
--- NOTE | 2021-04-19 23:41 | PM.OP ---
Brief Operative Note Date of Service: 04/19/21 Pre-op diagnosis: food impaction Post-op diagnosis: same Procedure: see op note Surgeon: Hilary Rao MD Anesthesia: GETA Was an Super[employer] used for this Procedure?: No Estimated blood loss (mL): 0 Condition: stable Disposition: PACU
--- NOTE | 2021-04-19 23:41 | W.PM.OPN ---
Operative Note Operative Note Date of Service: 04/19/21 Narrative: Procedure Description: EGD FLEXIBLE TRANSORAL UPPER GASTROINTESTINAL ENDOSCOPY UPPER ENDOSCOPY Consent: Indications for the procedure and potential complications of bleeding, perforation, reaction to medications and missed diagnosis were discussed with the patient and informed consent was obtained. Instrument: Olympus GIF H 190 J mid size upper endoscope Monitoring: Vital signs and clinical assessment, continuous EKG monitoring, Pulse oximetry, Carbon Dioxide monitoring and blood pressure monitoring were done throughout the procedure. Procedure: The patient was placed in the left lateral decubitis position and pre-procedure medications were administered and a bite block was placed. The endoscope was inserted into the mouth and advanced under direct vision to the third part of duodenum. A careful inspection was made as the upper endoscope was withdrawn including a retroflexed examination of the proximal stomach; Findings and interventions are described below. Findings: Larynx:normal Esophagus: GE junction at 40 cm, diaphragm hiatus at 340 cm, food bolus noted in distal esophagus. This was pushed with gentle pressure into the stomach. The surrounding mucosa was macerated and inflammed. A schatzki ring was noted. Biospies taken from esophagus just above the traumatized area to check for EoE Stomach: Patchy gastric erythema. Grade 2 flap valve on retroflexed examination of the cardia. No esophageal masses seen Duodenum: Normal bulb and descending duodenum, Intervention: Biopsies as noted above, food bolus disimpaction Impression/Findings: schatzki ring esophagitis food bolus impaction PLAN: commence pantoprazole 40 mg BID for 3 months then titrate down give dose of carafate tonight before going home chew food thoroughly and drink plenty of fluids avoid hard meats and fruits repeat EGD in 3-4 months
[2021-04-19 23:56] LABS: Glucose, Whole Blood 329 mg/dL (60-115)
[2021-04-20] VITALS: BP 116/85; PULSE 108; RESP 20; O2SAT 96
[2021-04-20 00:05] VITALS: BP 120/80; PULSE 108; RESP 20; TEMP 36.3; O2SAT 96
[2021-04-20] MEDS: oxyCODONE HCl Immed Release 5 MG TABLET PO (00:13)
[2021-04-20] MEDS: ondansetron HCL 4 MG/2 ML VIAL IVPUSH (01:10)
[2021-04-20] MEDS: HYDROcodone/Homat 5/1.5/5 ML 5 ML SYRUP PO (01:11)
[2021-04-20] MEDS: Lactated Ringers 1,000 ML 100 ML IVCONT (01:12)
[2021-04-20 01:16] LABS: Anion Gap 12 (12-20); Blood Urea Nitrogen 15 mg/dL (9-16); Calcium 8.5 mg/dL (8.4-10.2); Carbon Dioxide 24 mmol/L (22-29); Chloride 108 mmol/L (96-108); Creatinine Clr Calc Pharmacy 57.5; Estimated Glomerular Filt Rate 55; Glucose Random 328 mg/dL (60-115); Potassium 4.4 mmol/L (3.3-5.1); Sodium 140 mmol/L (135-145)
[2021-04-20 01:27] VITALS: BP 122/61; PULSE 100; RESP 16; TEMP 36.8; O2SAT 99
[2021-04-20] MEDS: Sucralfate Oral Suspension 1 GM/10 ML ORAL.SUSP PO (01:33)
[2021-04-20 01:37] LABS: Glucose, Whole Blood 380 mg/dL (60-115)
== END 2021-04-20 01:45 | disposition home or self-care (01) ==
PROVIDERS: Internal Medicine Gastroenterology; Emergency Provider Emergency Medicine; PCP Internal Medicine Medical Oncology
PROC: 0DJ08ZZ Inspection of Upper Intestinal Tract, Via Natural or Artificial Opening Endoscopic (ICD-10-PCS; CPT 43235; principal; 2021-04-19 23:00)
DX: T18.128A Food in esophagus causing other injury, initial encounter (principal); X58.XXXA Exposure to other specified factors, initial encounter; Y93.89 Activity, other specified; Y92.89 Other specified places as the place of occurrence of the external cause; Y99.8 Other external cause status; K22.2 Esophageal obstruction; K20.80 Other esophagitis without bleeding; N17.9 Acute kidney failure, unspecified; G89.4 Chronic pain syndrome; E11.9 Type 2 diabetes mellitus without complications; K44.9 Diaphragmatic hernia without obstruction or gangrene; J44.9 Chronic obstructive pulmonary disease, unspecified; G47.33 Obstructive sleep apnea (adult) (pediatric); Z79.899 Other long term (current) drug therapy; Z87.891 Personal history of nicotine dependence; Z20.822 Contact with and (suspected) exposure to COVID-19
CPT/HCPCS: 43247; 43239; 36415; 71045; 80048; 80076; 82947; 83690; 83735; 84484; 85025; 85610; 85730; 87635; 88305; 88312; 93005; 96361; 96374; 96375; 96376; 99284; 99291; J0330; J1100; J1610; J2250; J2270; J2405

== ENCOUNTER 2021-05-10 10:24 | Outpatient (REF) | payer OTHER, SELFPAY ==
[2021-05-10 10:40] LABS: MANUAL DIFF FLAG NO
[2021-05-10 10:50] LABS: Basophils Percent Auto 0.4 % (0-2); Eosinophils Absolute Auto 0.2 X10*3/uL (0.0-0.4); Eosinophils Percent Auto 1.8 % (0-4); Hematocrit 44.5 % (42.0-52.0); Hemoglobin 15.2 g/dl (14.0-18.0); Imm Gran Abs Auto 0.03 X10*3/uL (0.00-0.03); Imm Gran Pct Auto 0.3 % (0.0-0.4); Lymphocytes Absolute Auto 2.4 X10*3/uL (1.2-4.9); Lymphocytes Percent Auto 21.8 % (20-40); Mean Corpuscular HGB Conc 34.2 g/dl (31.0-36.0); Mean Corpuscular Hemoglobin 29.7 pg (27.0-33.0); Mean Corpuscular Volume 87.1 fL (80.0-98.0); Mean Platelet Volume 11.2 fL (9.4-12.4); Monocytes Absolute Auto 0.9 X10*3/uL (0.1-1.2); Monocytes Percent Auto 8.4 % (2-11); Neutrophils Absolute Auto 7.5 x10*3/uL (2.0-8.3); Neutrophils Percent Auto 67.3 % (45-73); Platelet Count 348 X10*3/uL (160-400); Red Blood Count 5.11 X10*6/uL (4.60-5.80); Red Cell Distribution Width 12.8 % (11.0-16.0); White Blood Count 11.1 X10*3/uL (4.8-10.8)
[2021-05-10 11:06] LABS: Estimated Average Glucose 341 mg/dL; Hemoglobin A1c % 13.5 %
[2021-05-10 11:19] LABS: Alanine Aminotransferase 82 U/L (0-40); Albumin Level 4.1 g/dL (3.5-5.0); Alkaline Phosphatase 108 U/L (39-117); Anion Gap 13 (12-20); Aspartate Amino Transferase 63 U/L (5-37); Bilirubin Total 0.8 mg/dL (0.0-1.0); Blood Urea Nitrogen 13 mg/dL (9-16); Calcium 9.3 mg/dL (8.4-10.2); Carbon Dioxide 27 mmol/L (22-29); Chloride 99 mmol/L (96-108); Estimated Glomerular Filt Rate 53; Glucose Random 421 mg/dL (60-115); Potassium 4.9 mmol/L (3.3-5.1); Sodium 134 mmol/L (135-145); Total Protein 7.5 g/dL (6.5-8.0)
[2021-05-10 11:34] LABS: Prostate Specific Antigen 0.83 ng/mL (<0.05-4.0)
== END 2021-05-10 10:25 | disposition home or self-care (01) ==
LOC: HO.LAB 10:24
PROVIDERS: PCP Internal Medicine Medical Oncology; Visit Provider Internal Medicine Medical Oncology
DX: E11.9 Type 2 diabetes mellitus without complications (principal); Z12.5 Encounter for screening for malignant neoplasm of prostate
CPT/HCPCS: 36415; 80053; 83036; 84153; 85025

== ENCOUNTER → 2021-05-28 13:59 | Outpatient (BNVA) | payer OTHER, SELFPAY | PROVIDERS: PCP Internal Medicine Medical Oncology; Visit Provider Internal Medicine Gastroenterology | DX: Z13.89 Encounter for screening for other disorder (principal) | CPT/HCPCS: 99212 ==

== ENCOUNTER → 2021-06-24 15:14 | Outpatient (BNVA) | payer OTHER, SELFPAY | PROVIDERS: PCP Internal Medicine Medical Oncology; Visit Provider Internal Medicine | DX: G47.33 Obstructive sleep apnea (adult) (pediatric) (principal); J44.9 Chronic obstructive pulmonary disease, unspecified; J40 Bronchitis, not specified as acute or chronic | CPT/HCPCS: 99212 ==

== ENCOUNTER 2021-08-05 09:26 | Outpatient (REF) | payer OTHER, SELFPAY ==
[2021-08-05 09:55] LABS: MANUAL DIFF FLAG NO
[2021-08-05 10:16] LABS: Basophils Percent Auto 0.4 % (0-2); Eosinophils Absolute Auto 0.4 X10*3/uL (0.0-0.4); Hematocrit 44.5 % (42.0-52.0); Hemoglobin 14.6 g/dl (14.0-18.0); Imm Gran Abs Auto 0.03 X10*3/uL (0.00-0.03); Imm Gran Pct Auto 0.3 % (0.0-0.4); Lymphocytes Absolute Auto 2.2 X10*3/uL (1.2-4.9); Lymphocytes Percent Auto 23.8 % (20-40); Mean Corpuscular HGB Conc 32.8 g/dl (31.0-36.0); Mean Corpuscular Hemoglobin 29.9 pg (27.0-33.0); Mean Platelet Volume 10.1 fL (9.4-12.4); Monocytes Absolute Auto 0.8 X10*3/uL (0.1-1.2); Monocytes Percent Auto 8.4 % (2-11); Neutrophils Absolute Auto 5.7 x10*3/uL (2.0-8.3); Neutrophils Percent Auto 63.1 % (45-73); Platelet Count 320 X10*3/uL (160-400); Red Blood Count 4.89 X10*6/uL (4.60-5.80); Red Cell Distribution Width 14.5 % (11.0-16.0); White Blood Count 9.1 X10*3/uL (4.8-10.8)
[2021-08-05 10:51] LABS: Alanine Aminotransferase 68 U/L (0-40); Albumin Level 3.8 g/dL (3.5-5.0); Alkaline Phosphatase 77 U/L (39-117); Anion Gap 15 (12-20); Aspartate Amino Transferase 57 U/L (5-37); Bilirubin Total 0.7 mg/dL (0.0-1.0); Blood Urea Nitrogen 9 mg/dL (9-16); Calcium 9.5 mg/dL (8.4-10.2); Carbon Dioxide 23 mmol/L (22-29); Chloride 109 mmol/L (96-108); Cholesterol 203 mg/dL; Estimated Glomerular Filt Rate > 60; Glucose Fasting 112 mg/dL (60-99); HDL Cholesterol 31 mg/dL; LDL Cholesterol Calculated 145 mg/dl; Potassium 4.5 mmol/L (3.3-5.1); Sodium 142 mmol/L (135-145); Total Protein 7.7 g/dL (6.5-8.0); Triglycerides 135 mg/dL
[2021-08-05 11:39] LABS: Estimated Average Glucose 126 mg/dL
== END 2021-08-05 09:27 | disposition home or self-care (01) ==
LOC: HO.LAB 09:26
PROVIDERS: PCP Internal Medicine Medical Oncology; Visit Provider Internal Medicine Medical Oncology
DX: E78.01 Familial hypercholesterolemia (principal); E11.9 Type 2 diabetes mellitus without complications
CPT/HCPCS: 36415; 80053; 80061; 83036; 85025

== ENCOUNTER 2021-08-07 07:24 | Day surgery (SDC) | payer OTHER, SELFPAY ==
[2021-08-01 14:02] VITALS: BMI 34.2
--- NOTE | 2021-08-06 10:42 | P.CONAN_ITS ---
Documented by User: Abi Mares NP 08/06/21 10:43 HPI - Anesthesia Eval Consult details Narrative: 66yo M for Upper Endoscopy and Colonoscopy s/p food bolus 04/2021 with GA-ETT 7.5 PMFSH Active Problems Active Problems: All Active Problems (Updated 08/01/21 @ 13:44 by Denise Pham RN) Esophagitis (Acute) Disc degeneration, lumbosacral (Acute) Chronic pain syndrome (Acute) Radiculopathy of lumbosacral region (Acute) Spondylosis, lumbar, with myelopathy (Acute) Bronchitis (Acute) TITUS (obstructive sleep apnea) (Acute) COPD (chronic obstructive pulmonary disease) (Acute) Past Medical History Medical History Anxiety and depression Asthma Bronchitis Chronic pain syndrome COPD (chronic obstructive pulmonary disease) Diabetes mellitus Disc degeneration, lumbosacral Elevated cholesterol GERD (gastroesophageal reflux disease) TITUS (obstructive sleep apnea) Radiculopathy of lumbosacral region Spondylosis, lumbar, with myelopathy Surgical History Surgical History History of cystoscopy History of esophagogastroduodenoscopy (EGD) History of prostate surgery Hx of colonoscopy Social History Social History Are you a primary complex care nurse to a significant other at home: No Do you presently have visiting nurse or other home services: No Patient Tobacco Use Status: Former Tobacco user Quit Date: 2018 Tobacco use type: Cigarette Cigarette Packs Per Day: 2 Cigarettes Per Day: 40 Years Smoked: 50 years Have you been hit, kicked, punched, or otherwise hurt by someone within the past year? If so, by whom?: No Are you DNR?: No Advance Directives: Yes Advance Directives Information Provided: No Advance Directives on File: Yes Advance Directives Date on File: 10/13/16 Recently lost weight without trying: No Eating poorly because of decreased appetite: No Nutrition Risks: No Nutritional Risk Meds Allergies Allergy/AdvReac Type Severity Reaction Status Date / Time No Known Allergies Allergy Verified 08/07/21 08:04 [No Known Allergies*] Home Medications Medication Instructions Recorded Confirmed Last Taken Type gabapentin 300 mg 300 mg PO TID 03/31/20 08/01/21 Unknown History capsule sitagliptin 100 100 mg PO DAILY 03/31/20 08/01/21 Unknown History mg tablet tamsulosin 0.4 mg 0.8 mg PO DAILY 03/31/20 08/01/21 Unknown History capsule trazodone 100 mg 100 mg PO 03/31/20 08/01/21 Unknown History tablet BEDTIME insulin #10 ea 05/28/21 Unknown History syringe-needle U-100 1 mL 31 gauge x 5/16 (BD Insulin Syringe Ultra-Fine) lisinopril 2.5 mg 2.5 mg PO DAILY 05/28/21 08/01/21 Unknown History tablet metformin 850 mg 850 mg PO BID 05/28/21 08/01/21 Unknown History tablet montelukast 10 mg 10 mg PO DAILY 05/28/21 08/01/21 Unknown History tablet propranolol 20 mg 20 mg PO BID 05/28/21 08/01/21 Unknown History tablet Exam Exam Date and Time: August 06, 2021 1042 Height,Weight and Vital Signs: Height 5 ft 3 in Weight 87.543 kg Pertinent Lab Results Pertinent Lab Results: Laboratory Tests 08/05/21 08/05/21 09:53 09:53 WBC 9.1 Hgb 14.6 Hct 44.5 Plt Count 320 Sodium 142 Potassium 4.5 Chloride 109 H Carbon Dioxide 23 BUN 9 Creatinine 1.00 Narrative Narrative: EKG 04/2021 Vent. Rate : 109 BPM ? ? Atrial Rate : 109 BPM ?? P-R Int : 120 ms? QRS Dur : 088 ms ? ? QT Int : 338 ms ? ? ? P-R-T Axes : -16 020 037 degrees ?? QTc Int : 455 ms ? Sinus tachycardia Nonspecific ST abnormality Abnormal ECG Heart rate has increased Nonspecific ST abnormality is new Assessment and Plan Assessment Anesthesia Assessment: Chart Reviewed Documented by User: Shelly Singleton MD 08/07/21 08:13 [facility] Past Medical History Medical History Anxiety and depression Asthma Bronchitis Chronic pain syndrome COPD (chronic obstructive pulmonary disease) Diabetes mellitus Disc degeneration, lumbosacral Elevated cholesterol GERD (gastroesophageal reflux disease) TITUS (obstructive sleep apnea) Radiculopathy of lumbosacral region Spondylosis, lumbar, with myelopathy Surgical History Surgical History History of cystoscopy History of esophagogastroduodenoscopy (EGD) History of prostate surgery Hx of colonoscopy History of Problems with Anesthesia: No Social History Social History Are you a primary complex care nurse to a significant other at home: No Do you presently have visiting nurse or other home services: No Patient Tobacco Use Status: Former Tobacco user Quit Date: 2018 Tobacco use type: Cigarette Cigarette Packs Per Day: 2 Cigarettes Per Day: 40 Years Smoked: 50 years Have you been hit, kicked, punched, or otherwise hurt by someone within the past year? If so, by whom?: No Are you DNR?: No Advance Directives: Yes Advance Directives Information Provided: No Advance Directives on File: Yes Advance Directives Date on File: 10/13/16 Recently lost weight without trying: No Eating poorly because of decreased appetite: No Nutrition Risks: No Nutritional Risk Meds Allergies Allergy/AdvReac Type Severity Reaction Status Date / Time No Known Allergies Allergy Verified 08/07/21 08:04 [No Known Allergies*] Home Medications Medication Instructions Recorded Confirmed Last Taken Type gabapentin 300 mg 300 mg PO TID 03/31/20 08/01/21 Unknown History capsule sitagliptin 100 100 mg PO DAILY 03/31/20 08/01/21 Unknown History mg tablet tamsulosin 0.4 mg 0.8 mg PO DAILY 03/31/20 08/01/21 Unknown History capsule trazodone 100 mg 100 mg PO 03/31/20 08/01/21 Unknown History tablet BEDTIME insulin #10 ea 05/28/21 Unknown History syringe-needle U-100 1 mL 31 gauge x 5/16 (BD Insulin Syringe Ultra-Fine) lisinopril 2.5 mg 2.5 mg PO DAILY 05/28/21 08/01/21 Unknown History tablet metformin 850 mg 850 mg PO BID 05/28/21 08/01/21 Unknown History tablet montelukast 10 mg 10 mg PO DAILY 05/28/21 08/01/21 Unknown History tablet propranolol 20 mg 20 mg PO BID 05/28/21 08/01/21 Unknown History tablet Exam Airway Mallampati Class: II (Edentulous upper) TM Dist: >3cm Neck ROM: Full Loose/Missing/Broken Teeth: Yes and Upper Heart: RRR Lungs: CTA Assessment and Plan Assessment Anesthesia Assessment: Anesthesia Plan Discussed Final Anesthetic Review History of Problems with Anesthesia: No NPO: Yes ASA Class: III Final Preanesthetic Review: Meds/Allgs Chart Reviewed, Consent Obtained/Reviewed and Anes Risks/Benef Reviewed Patient Risk: Intermediate Procedure Risk: Intermediate Anesthetic Plan Anesthetic Plan: MAC: Disposition: Standard PACU
[2021-08-07 07:57] VITALS: BP 132/76; PULSE 79; RESP 22; TEMP 36.2; O2SAT 96
[2021-08-07 08:20] LABS: Glucose, Whole Blood 96 mg/dL (60-115)
[2021-08-07] MEDS: Lactated Ringers 1,000 ML 100 ML IVCONT (08:26)
--- NOTE | 2021-08-07 08:27 | P.HPSUR_ITS ---
Pre-Procedural Eval Section A Date of Service: 08/07/21 Section B Chief Complaint: Stricture and Stenosis of esophagus Details of Present Illness: colonoscopy screening Relevant Family History (Specify if Yes): No Relevant Social History: None (ex smoker) Present Medications: see Short Stay Collaborative assessment Medical History: Significant History (Anxiety and depression Asthma Bronchitis Chronic pain syndrome COPD (chronic obstructive pulmonary disease) Diabetes mellitus Disc degeneration, lumbosacral Elevated cholesterol GERD (gastroesophageal reflux disease) TITUS (obstructive sleep apnea) Radiculopathy of lumbosacral region Spondylosis, lumb) History of Previous Operations: Relevant previous surgery/procedure and date(s) (History of cystoscopy History of esophagogastroduodenoscopy (EGD) History of prostate surgery Hx of colonoscopy) Allergies: Allergies Allergy/AdvReac Type Severity Reaction Status Date / Time No Known Allergies Allergy Verified 08/07/21 08:04 [No Known Allergies*] Review of Systems Sugical H&P ROS: Negative: Constitution, Cardiovascular, Respiratory, Neurological, Psychiatric, Hem-Onc, Allergic/Immunologic, Gastrointestinal, Genitourinary, Musculoskeletal, Integumentary, Endocrine and E yes/Ears/Nose/Throat Exam Surgical H&P Exam: Normal: HEENT, Normal: Heart, Normal: Lungs, Normal: Extremities, Normal: Abdomen, Normal: Skin and Normal: Neurological Plan Diagnosis/Plan: Unchanged I have reviewed the history and physical and performed a pertinent physical examination on my patient. No changes have occurred unless specified.
--- NOTE | 2021-08-07 08:32 | P.OP_ITS ---
Operative Note Operative Note Date of Service: 08/07/21 Narrative: Operative Information Procedure Description: EGD, Colonoscopy FLEXIBLE TRANSORAL UPPER GASTROINTESTINAL ENDOSCOPY AND COLONOSCOPY PROCEDURE NOTE UPPER ENDOSCOPY Consent: Indications for the procedure and potential complications of bleeding, perforation, reaction to medications and missed diagnosis were discussed with the patient and informed consent was obtained. Instrument: Olympus GIF H 190 J mid size upper endoscope Monitoring: Vital signs and clinical assessment, continuous EKG monitoring, Pulse oximetry, Carbon Dioxide monitoring and blood pressure monitoring were done throughout the procedure. Procedure: The patient was placed in the left lateral decubitis position and pre-procedure medications were administered and a bite block was placed. The endoscope was inserted into the mouth and advanced under direct vision to the third part of duodenum. A careful inspection was made as the upper endoscope was withdrawn including a retroflexed examination of the proximal stomach; Findings and interventions are described below. Findings: Larynx:normal Esophagus: GE junction at 40 cm, diaphragm hiatus at 40 cm, few islands of salmon pink tissue and mild inflammation, bx taken from GEJ and random esophagus Stomach: Patchy erythema. Biopsies were obtained. Grade 2 flap valve on retroflexed examination of the cardia. Duodenum: Normal bulb and descending duodenum, Intervention: Biopsies as noted above COLONOSCOPY Instrument: Olympus variable stiffness pediatric scope 190L Colonoscopy Monitoring: Vital signs and clinical assessment, continuous EKG monitoring, Pulse oximetry, Carbon Dioxide monitoring and blood pressure monitoring were done throughout the procedure. Colon withdrawal time was 11 minutes. Procedure: The patient was placed in the left lateral decubitis position and pre-procedure medications were administered. After a digital rectal examination of the ano-rectum, the video colonoscope was inserted into the rectum and advanced through the colon to the cecum/TI. The colonoscope was slowly withdrawn in a retrograde panoramic fashion and the colon mucosa was carefully examined including a retroflexed view of the rectum. Findings and interventions are described below. Procedure Difficulty:easy Findings: Terminal Ileum-- erosive ileitis , bx taken Cecum:normal, bx taken Ascending Colon: normal, bx taken Transverse Colon -normal Descending Colon: 4-6 mm sessile polyp removed with forceps Sigmoid Colon:moderate severe diverticulosis Rectum: Retroflexion with small internal hemorrhoids, grade I Anorectum - normal Colon preparation: [place] Bowel Preparation Scale Right colon; 2 Transverse colon: 2 Left colon; 2 (0 = Unprepared colon segment with mucosa not seen due to solid stool that cannot be cleared. 1 = Portion of mucosa of the colon segment seen, but other areas of the colon segment not well seen due to staining, residual stool and/or opaque liquid. 2 = Minor amount of residual staining, small fragments of stool and/or opaque liquid, but mucosa of colon segment seen well. 3 = Entire mucosa of colon segment seen well with no residual staining, small fragments of stool or opaque liquid) Impression and Post Procedure Diagnosis: Endoscopy Findings: gastritis esophagitis Colonoscopy Findings: polyp internal hemorrhoids diverticular disease erosive ileitis Plan: Await Pathology results Repeat Colonoscopy in 10 years if hyperplastic, 5 yrs if adenomatous or earlier if clinically indicated High fiber diet leaflet avoid straining at stool, epsom salts and sitz bath, anusol supps or cream cont with PPI check nsaid hx, if neg then consider CTe and further w/u for IBD Above findings were reviewed with the patient and relevant handouts were provided if indicated.
--- NOTE | 2021-08-07 08:32 | PM.OP ---
Brief Operative Note Date of Service: 08/07/21 Pre-op diagnosis: hx of dysphagia, colon screening Post-op diagnosis: same Procedure: see op note Surgeon: Hilary Rao MD Anesthesia: MAC Was an Materials Director used for this Procedure?: No Estimated blood loss (mL): 0 Condition: stable Disposition: PACU
[2021-08-07 09:28] VITALS: BP 96/58; PULSE 75; RESP 20; TEMP 37.3; O2SAT 98
[2021-08-07 09:43] VITALS: BP 131/92; PULSE 78; RESP 20; TEMP 37; O2SAT 97
== END 2021-08-07 10:15 | disposition home or self-care (01) ==
PROVIDERS: PCP Internal Medicine Medical Oncology; Visit Provider Internal Medicine Gastroenterology
PROC: (CPT 45380; principal; 2021-08-07 08:30)
DX: Z12.11 Encounter for screening for malignant neoplasm of colon (principal); K63.5 Polyp of colon; K57.30 Diverticulosis of large intestine without perforation or abscess without bleeding; K64.0 First degree hemorrhoids; K52.89 Other specified noninfective gastroenteritis and colitis; K22.2 Esophageal obstruction; K44.9 Diaphragmatic hernia without obstruction or gangrene; K29.50 Unspecified chronic gastritis without bleeding; K20.90 Esophagitis, unspecified without bleeding; J44.9 Chronic obstructive pulmonary disease, unspecified; G47.33 Obstructive sleep apnea (adult) (pediatric); E11.9 Type 2 diabetes mellitus without complications; Z79.4 Long term (current) use of insulin; Z79.51 Long term (current) use of inhaled steroids; Z79.899 Other long term (current) drug therapy; Z87.891 Personal history of nicotine dependence
CPT/HCPCS: 45380; 43239; 82947; 88305; 88342

== ENCOUNTER → 2021-08-23 11:37 | Outpatient (BNVA) | payer OTHER, SELFPAY | PROVIDERS: PCP Internal Medicine Medical Oncology; Visit Provider Internal Medicine Gastroenterology | DX: K20.90 Esophagitis, unspecified without bleeding (principal); K42.9 Umbilical hernia without obstruction or gangrene | CPT/HCPCS: 99212 ==

== ENCOUNTER 2021-10-15 12:54 | Outpatient (REF) | payer OTHER, SELFPAY | END 2021-10-15 12:55 | disposition home or self-care (01) | LOC: HO.US 12:54 | PROVIDERS: PCP Internal Medicine Medical Oncology; Visit Provider Internal Medicine Gastroenterology | DX: Z13.89 Encounter for screening for other disorder (principal) ==

== ENCOUNTER 2021-11-11 10:56 | Outpatient (REF) | payer OTHER, SELFPAY ==
[2021-11-11 11:27] LABS: MANUAL DIFF FLAG NO
[2021-11-11 11:50] LABS: Basophils Absolute Auto 0.1 X10*3/uL (0.0-0.2); Basophils Percent Auto 0.5 % (0-2); Eosinophils Absolute Auto 0.4 X10*3/uL (0.0-0.4); Eosinophils Percent Auto 3.5 % (0-4); Hematocrit 45.1 % (42.0-52.0); Hemoglobin 15.3 g/dl (14.0-18.0); Imm Gran Abs Auto 0.06 X10*3/uL (0.00-0.03); Imm Gran Pct Auto 0.6 % (0.0-0.4); Lymphocytes Absolute Auto 3.2 X10*3/uL (1.2-4.9); Lymphocytes Percent Auto 30.1 % (20-40); Mean Corpuscular HGB Conc 33.9 g/dl (31.0-36.0); Mean Corpuscular Hemoglobin 29.7 pg (27.0-33.0); Mean Corpuscular Volume 87.4 fL (80.0-98.0); Mean Platelet Volume 9.7 fL (9.4-12.4); Monocytes Absolute Auto 0.7 X10*3/uL (0.1-1.2); Neutrophils Absolute Auto 6.1 x10*3/uL (2.0-8.3); Neutrophils Percent Auto 58.3 % (45-73); Platelet Count 348 X10*3/uL (160-400); Red Blood Count 5.16 X10*6/uL (4.60-5.80); Red Cell Distribution Width 14.3 % (11.0-16.0); White Blood Count 10.5 X10*3/uL (4.8-10.8)
[2021-11-11 12:12] LABS: Estimated Average Glucose 140 mg/dL; Hemoglobin A1c % 6.5 %
[2021-11-11 12:15] LABS: Alanine Aminotransferase 51 U/L (0-40); Albumin Level 3.7 g/dL (3.5-5.0); Alkaline Phosphatase 101 U/L (39-117); Anion Gap 12 (12-20); Aspartate Amino Transferase 41 U/L (5-37); Bilirubin Total 0.6 mg/dL (0.0-1.0); Blood Urea Nitrogen 10 mg/dL (9-16); Calcium 9.6 mg/dL (8.4-10.2); Carbon Dioxide 25 mmol/L (22-29); Chloride 105 mmol/L (96-108); Cholesterol 202 mg/dL; Estimated Glomerular Filt Rate > 60; Glucose Fasting 119 mg/dL (60-99); HDL Cholesterol 39 mg/dL; LDL Cholesterol Calculated 146 mg/dl; Potassium 5.1 mmol/L (3.3-5.1); Sodium 137 mmol/L (135-145); Total Protein 7.8 g/dL (6.5-8.0); Triglycerides 85 mg/dL
== END 2021-11-11 10:57 | disposition home or self-care (01) ==
LOC: HO.LAB 10:56
PROVIDERS: Absent Provider Internal Medicine Gastroenterology; PCP Internal Medicine Medical Oncology; Visit Provider Internal Medicine Medical Oncology
DX: E66.9 Obesity, unspecified (principal); E78.01 Familial hypercholesterolemia; E11.9 Type 2 diabetes mellitus without complications
CPT/HCPCS: 36415; 80053; 80061; 83036; 85025

== ENCOUNTER → 2021-12-25 10:14 | Outpatient (BNVA) | payer OTHER, SELFPAY | PROVIDERS: PCP Internal Medicine Medical Oncology; Visit Provider Internal Medicine | DX: J44.9 Chronic obstructive pulmonary disease, unspecified (principal); G47.33 Obstructive sleep apnea (adult) (pediatric) | CPT/HCPCS: 99212 ==

== ENCOUNTER 2022-01-18 11:06 | Emergency (ER) | payer OTHER, SELFPAY ==
[2022-01-18 11:35] VITALS: BP 151/64; PULSE 79; RESP 18; TEMP 36.6; O2SAT 96; BMI 34.0
--- NOTE | 2022-01-18 12:40 | ED_ITS ---
HPI - General Adult General Chief complaint: General Medical Stated complaint: sore throat Time Seen by Provider: 01/18/22 12:32 Source: patient Mode of arrival: ambulatory Limitations: no limitations History of Present Illness HPI narrative: Food stuck in the throat. 66-year-old male came in for evaluation of food stuck in esophagus, patient was eating rice and pork last night feeling piece of pork was stuck in the middle of his chest, patient is unable to drink or swallow his saliva. No respiratory distress no shortness of breath. Happen twice in the past require GI upper endoscopy to push it down. Related Data Home Medications Medication Instructions Recorded Confirmed gabapentin 300 mg capsule 300 mg PO TID 03/31/20 08/01/21 sitagliptin 100 mg tablet 100 mg PO DAILY 03/31/20 08/01/21 tamsulosin 0.4 mg capsule 0.8 mg PO DAILY 03/31/20 08/01/21 trazodone 100 mg tablet 100 mg PO BEDTIME 03/31/20 08/01/21 insulin syringe-needle U-100 1 mL #10 ea 05/28/21 31 gauge x 5/16 (BD Insulin Syringe Ultra-Fine) lisinopril 2.5 mg tablet 2.5 mg PO DAILY 05/28/21 08/01/21 metformin 850 mg tablet 850 mg PO BID 05/28/21 08/01/21 propranolol 20 mg tablet 20 mg PO BID 05/28/21 08/01/21 Previous Rx's Medication Instructions Recorded tramadol 50 mg tablet 50 mg PO Q6H PRN pain #20 tabs 11/01/20 ipratropium 0.5 mg-albuterol 3 mg 3 ml inhalation TID PRN for 03/07/21 (2.5 mg base)/3 mL nebulization wheezing #180 mL soln fluticasone 500 mcg-salmeterol 50 1 ea inhalation BID #180 ea 03/21/21 mcg/dose blistr powdr for inhalation ([place]) pantoprazole 40 mg tablet,delayed 40 mg PO BID 3 months #180 tabs 04/19/21 release albuterol sulfate 90 mcg/actuation 2 puff PO Q6H PRN for wheezing 05/07/21 aerosol inhaler #8.5 ea sucralfate 100 mg/mL oral 10 ml PO BID #400 mL 09/17/21 suspension (Carafate) Allergies Allergy/AdvReac Type Severity Reaction Status Date / Time No Known Allergies Allergy Verified 01/18/22 11:35 [No Known Allergies*] Review of Systems Review of Systems: All other systems are reviewed and are negative Constitutional: Reports as per HPI and Reports no additional constitutional complaints Eyes: Reports as per HPI and Reports no additional eye complaints Reports system reviewed and no additional complaints, except as documented Cardiovascular: Reports as per HPI and Reports no additional cardiovascular complaints Respiratory: Reports as per HPI and Reports no additional respiratory complaints Gastrointestinal: Reports as per HPI and Reports no additional gastrointestinal complaints Genitourinary: Reports no additional female genitourinary complaints Musculoskeletal: Reports no additional musculoskeletal complaints Skin/Breast: Reports system reviewed and no additional complaints, except as docu Psychiatric: Reports no additional psychiatric complaints Endocrine: Reports no additional endocrine complaints Hematologic/Lymphatic: Reports no additional hematologic/lymphatic complaints Allergic/Immunologic: Reports no additional allergic/immunologic complaints Reports system reviewed and no additional complaints, except as documented and Reports Abnormal speech present [facility] Past Medical History Medical History Anxiety and depression Asthma Bronchitis Chronic pain syndrome COPD (chronic obstructive pulmonary disease) Diabetes mellitus Disc degeneration, lumbosacral Elevated cholesterol GERD (gastroesophageal reflux disease) TITUS (obstructive sleep apnea) Radiculopathy of lumbosacral region Spondylosis, lumbar, with myelopathy Surgical History History of cystoscopy History of esophagogastroduodenoscopy (EGD) History of prostate surgery Hx of colonoscopy Social History Social History Are you a primary medicare sales representative to a significant other at home: No Do you presently have visiting nurse or other home services: No Patient Tobacco Use Status: Former Tobacco user Quit Date: 2018 Tobacco use type: Cigarette Cigarette Packs Per Day: 2 Cigarettes Per Day: 40 Years Smoked: 50 years Advance Directives: No Advance Directives Information Provided: No Advance Directives Date on File: 10/13/16 Physical Exam ED Vital Signs: Vital Signs - 24 hr 01/18/22 11:35 01/18/22 13:17 Temperature 97.9 F Pulse Rate 79 82 Respiratory Rate 18 20 Blood Pressure 151/64 H 135/81 Pulse Oximetry 96 Oxygen Delivery Method Room Air BMI result Body Mass Index 34.0 Vital signs have been reviewed as appeared to be correct. Blood pressure normal. Heart rate normal. Respiration rate normal. Temperature normal. Oxygen saturation normal. Appearance: Alert. Oriented X3. No acute distress. Head: Normal external exam. Normocephalic. Atraumatic. No Sorto signs noted. No raccoon eyes noted Eyes: PERRLA. EOMI. Conjunctiva and sclera normal. Eyelids normal. ENT: TM's Normal. Pharynx normal. Uvula midline. Moist mucous membranes. No trismus noted. No drooling noted. No muffled voice noted. Neck: Normal inspection. Neck supple. FROM. No adenopathy. Thyroid Normal. No meningeal signs. No neck mass noted. CVS: Normal heart rate and rhythm. Heart sound normal. No murmurs noted. Pulses normal throughout. Respiratory: No respiratory distress. Painless inspiration. Breath sounds normal. No wheezes/rales/rhonchi noted. Chest nontender. No accessory muscle usage noted or decreased air movement noted. Abdomen: Soft and nontender. Bowel sounds normal in all 4 quadrants. No dist ention noted. No organomegaly noted. No visible injury noted. Back: No CVA tenderness. Full range of motion noted. Skin: Skin warm and dry. Normal skin color. Normal skin turgor. No rashes/lesi ons/lacerations noted. Extremities: No lower extremity edema. Extremities exhibit normal range of motion. Extremities nontender. Neuro: Oriented X 3. Cranial nerve exam: II-XII are grossly intact No motor deficit. No sensory deficit. Reflexes normal. Course Course Course Narrative: 66 years old male with food impaction in the esophagus, nitroglycerin was tried in the emergency department with no relief of patient's symptoms, Dr. Rao was contacted who evaluated the patient at the bedside in the emergency department, patient will be going to the OR for upper EGD. Discharge Plan Discharge Clinical Impression: Esophagitis, Esophageal obstruction due to food impaction Patient Disposition: Admitted As Inpatient Prescriptions: No Action ipratropium-albuterol 0.5 mg-3 mg(2.5 mg base)/3 mL solution for nebulization 3 ml inhalation TID PRN (Reason: for wheezing) Qty: 180 2RF fluticasone propion-salmeterol [Wixela Inhub] 500-50 mcg/dose blister with device 1 ea inhalation BID Qty: 180 3RF albuterol sulfate 90 mcg/actuation HFA aerosol inhaler 2 puff PO Q6H PRN (Reason: for wheezing) Qty: 8.5 0RF sucralfate [Carafate] 100 mg/mL suspension 10 ml PO BID Qty: 400 0RF tramadol 50 mg tablet 50 mg PO Q6H PRN (Reason: pain) Qty: 20 0RF pantoprazole 40 mg tablet,delayed release (DR/EC) 40 mg PO BID 90 Days Qty: 180 1RF Januvia 100 mg tablet 100 mg PO DAILY trazodone 100 mg tablet 100 mg PO BEDTIME tamsulosin 0.4 mg capsule 0.8 mg PO DAILY gabapentin 300 mg capsule 300 mg PO TID (DME) insulin syringe-needle U-100 [BD Insulin Syringe Ultra-Fine] 1 mL 31 gauge x 5/16 syringe See Rx Instructions .ROUTE .MEDSUPPLY Qty: 10 Rx Instructions: As directed metformin 850 mg tablet 850 mg PO BID lisinopril 2.5 mg tablet 2.5 mg PO DAILY propranolol 20 mg tablet 20 mg PO BID
[2022-01-18] MEDS: Nitroglycerin 0.4 MG TAB.SUBL SUBLINGUAL ×2 (12:42→13:12)
[2022-01-18 13:17] VITALS: BP 135/81; PULSE 82; RESP 20
--- NOTE | 2022-01-18 13:36 | PM.GICN ---
History of Present Illness Data of Consult Service Date: 01/18/22 Requesting physician: Nicole Valencia Primary Care Provider: Chin Zepeda MD HPI Reason for consult: food impaction 6 yo male with DM, COPD, TITUS who I am seeing for assessment for food bolus impaction of esophagus. Patient had rice and pork last night and since then felt it stuck in the esophagus. he had difficulty drinking and managing to swallow saliva. He has some nausea, and discomfort from the sticking sensation. He has had similar episodes of food getting stuck and had an EGD for disimpaction ,04/25 Repeat EGD 08/27 with active esophagitis at [facility], no obvious stricture or masses He was doing well with PPI but has not been taking this for some time now. Review of Systems Review of Systems: Constitutional : No Weight loss, No Fever, No Chills ENT/Mouth : No sore throat, No Rhinorrhea Eyes: No Swelling, No Redness Cardiovascular : No Chest Pain, No SOB, No Edema Respiratory : No Cough, No Sputum, No Wheezing Gastrointestinal : see HPI Genitourinary : NO Dysuria, No Urinary Frequency, No Hematuria, No Urgency Musculoskeletal : No joint pain, No Myalgias, No Joint Swelling Skin : No Skin Lesions, No rash Neuro : No Weakness, No Numbness, No Dizziness, No Headache Psych : No Anxiety/Panic, No Depression Heme/Lymph: No Bruising, No Lymphadenopathy Endocrine : No Polyuria, No Polydipsia All other systems reviewed and are negative. [facility] Past Medical History Medical History Anxiety and depression Asthma Bronchitis Chronic pain syndrome COPD (chronic obstructive pulmonary disease) Diabetes mellitus Disc degeneration, lumbosacral Elevated cholesterol GERD (gastroesophageal reflux disease) TITUS (obstructive sleep apnea) Radiculopathy of lumbosacral region Spondylosis, lumbar, with myelopathy Family History Pertinent family history: no Fh of esophgeal cancer or masses Surgical History Surgical History History of cystoscopy History of esophagogastroduodenoscopy (EGD) History of prostate surgery Hx of colonoscopy Social History Social History Are you a primary healthcare economics consultant to a significant other at home: No Do you presently have visiting nurse or other home services: No Patient Tobacco Use Status: Former Tobacco user Quit Date: 2018 Tobacco use type: Cigarette Cigarette Packs Per Day: 2 Cigarettes Per Day: 40 Years Smoked: 50 years Advance Directives: No Advance Directives Information Provided: No Advance Directives Date on File: 10/13/16 Meds Allergies Allergy/AdvReac Type Severity Reaction Status Date / Time No Known Allergies Allergy Verified 01/18/22 11:35 [No Known Allergies*] Home Medications Medication Instructions Recorded Confirmed Last Taken Type gabapentin 300 mg capsule 300 mg PO TID 03/31/20 08/01/21 Unknown History sitagliptin 100 mg tablet 100 mg PO DAILY 03/31/20 08/01/21 Unknown History tamsulosin 0.4 mg capsule 0.8 mg PO DAILY 03/31/20 08/01/21 Unknown History trazodone 100 mg tablet 100 mg PO BEDTIME 03/31/20 08/01/21 Unknown History insulin syringe-needle U-100 1 mL #10 ea 05/28/21 Unknown History 31 gauge x 5/16 (BD Insulin Syringe Ultra-Fine) lisinopril 2.5 mg tablet 2.5 mg PO DAILY 05/28/21 08/01/21 Unknown History metformin 850 mg tablet 850 mg PO BID 05/28/21 08/01/21 Unknown History propranolol 20 mg tablet 20 mg PO BID 05/28/21 08/01/21 Unknown History Physical Exam Vital Signs: Vital Signs: Last Vital Signs Temp 97.9 F 01/18/22 11:35 Pulse 82 01/18/22 13:17 Resp 20 01/18/22 13:17 BP 135/81 01/18/22 13:17 Pulse Ox 96 01/18/22 11:35 O2 Del Method 01/18/22 11:35 BMI result Body Mass Index 34.0 EXAM: GENERAL: The patient is well developed and nontoxic, uncomfortable, spitting a lot VITAL SIGNS:see workflow HEENT: Nonicteric sclerae, PERRLA, EOMI. Oropharynx clear. Moist mucous membranes. Conjunctivae appear well perfused. No thyroid mass. CHEST: Chest wall is nontender. HEART: Regular rate and rhythm without murmurs. LUNGS: Clear to auscultation bilaterally. ABDOMEN: Soft, positive bowel sounds, nontender, no organomegaly.no flank tenderness SKIN: No rash, no excessive bruising, petechiae, or purpura. NEUROLOGIC: Cranial nerves II-XII intact without motor/sensory deficit. Psych --normal Assessment and Plan (1) Esophageal obstruction due to food impaction: Status: Acute Plan 1/ food impaction, due to stricture or esophagitis, has not been on PPI for a while but was helping, not responding to nitrate tab PLAN: 1/ EGD for disimpaction 2/ will need to restart PPI thereafter Procedures Date of Service Date of Service: 01/18/22
--- NOTE | 2022-01-18 14:57 | MHC.SHP ---
Pre-Procedural Eval Section A Date of Service: 01/18/22 The patient is an INPATIENT: Yes The History & Physical has been completed within 30 days and I have reviewed it.: Yes Section B Chief Complaint: sore throat Allergies: Allergies Allergy/AdvReac Type Severity Reaction Status Date / Time No Known Allergies Allergy Verified 01/18/22 11:35 [No Known Allergies*] Plan Diagnosis/Plan: Unchanged I have reviewed the history and physical and performed a pertinent physical examination on my patient. No changes have occurred unless specified.
--- NOTE | 2022-01-18 14:57 | W.PM.OPN ---
Operative Note Operative Note Date of Service: 01/18/22 Narrative: Procedure Description: EGD Indication: [] Anesthesia: MAC FLEXIBLE TRANSORAL UPPER GASTROINTESTINAL ENDOSCOPY UPPER ENDOSCOPY Consent: Indications for the procedure and potential complications of bleeding, perforation, reaction to medications and missed diagnosis were discussed with the patient and informed consent was obtained. Instrument: Olympus GIF H 190 J mid size upper endoscope Monitoring: Vital signs and clinical assessment, continuous EKG monitoring, Pulse oximetry, Carbon Dioxide monitoring and blood pressure monitoring were done throughout the procedure. Procedure: The patient was placed in the left lateral decubitis position and pre-procedure medications were administered and a bite block was placed. The endoscope was inserted into the mouth and advanced under direct vision to the third part of duodenum. A careful inspection was made as the upper endoscope was withdrawn including a retroflexed examination of the proximal stomach; Findings and interventions are described below. Findings: Larynx:normal Esophagus: GE junction at 40? cm, diaphragm hiatus at 40 cm, food bolus noted in distal esophagus. This was pushed with gentle pressure into the stomach. The surrounding mucosa was macerated and inflammed. Stomach: Patchy gastric erythema. Grade 2 flap valve on retroflexed examination of the cardia. No esophageal masses seen Duodenum: Normal bulb and descending duodenum, Intervention:food bolus disimpaction Impression/Findings: food bolus impaction esophagitis PLAN: needs to resume PPI, pantoprazole 40 mg BID can titrate down after 3 months f/u in office in few months chew food thoroughly
[2022-01-18 15:39] VITALS: BP 111/57; PULSE 86; RESP 18; TEMP 36.4; O2SAT 100
--- NOTE | 2022-01-18 15:42 | HO.ANESPROP2 ---
[facility] Active Problems Active Problems: All Active Problems (Updated 01/18/22 @ 13:37 by Nicole Valencia MD) Esophageal obstruction due to food impaction (Acute) Umbilical hernia (Acute) Esophagitis (Acute) Disc degeneration, lumbosacral (Acute) Chronic pain syndrome (Acute) Radiculopathy of lumbosacral region (Acute) Spondylosis, lumbar, with myelopathy (Acute) Bronchitis (Acute) TITUS (obstructive sleep apnea) (Acute) COPD (chronic obstructive pulmonary disease) (Acute) Past Medical History Medical History Anxiety and depression Asthma Bronchitis Chronic pain syndrome COPD (chronic obstructive pulmonary disease) Diabetes mellitus Disc degeneration, lumbosacral Elevated cholesterol GERD (gastroesophageal reflux disease) TITUS (obstructive sleep apnea) Radiculopathy of lumbosacral region Spondylosis, lumbar, with myelopathy Family History Family history of problems with anesthesia: No Surgical History Surgical History History of cystoscopy History of esophagogastroduodenoscopy (EGD) History of prostate surgery Hx of colonoscopy History of Problems with Anesthesia: No Social History Social History Are you a primary patient care provider to a significant other at home: No Do you presently have visiting nurse or other home services: No Patient Tobacco Use Status: Former Tobacco user Quit Date: 2018 Tobacco use type: Cigarette Cigarette Packs Per Day: 2 Cigarettes Per Day: 40 Years Smoked: 50 years Advance Directives: No Advance Directives Information Provided: No Advance Directives Date on File: 10/13/16 Meds Allergies Allergy/AdvReac Type Severity Reaction Status Date / Time No Known Allergies Allergy Verified 01/18/22 11:35 [No Known Allergies*] Home Medications Medication Instructions Recorded Confirmed Last Taken Type gabapentin 300 mg capsule 300 mg PO TID 03/31/20 08/01/21 Unknown History sitagliptin 100 mg tablet 100 mg PO DAILY 03/31/20 08/01/21 Unknown History tamsulosin 0.4 mg capsule 0.8 mg PO DAILY 03/31/20 08/01/21 Unknown History trazodone 100 mg tablet 100 mg PO BEDTIME 03/31/20 08/01/21 Unknown History insulin syringe-needle U-100 1 mL #10 ea 05/28/21 Unknown History 31 gauge x 5/16 (BD Insulin Syringe Ultra-Fine) lisinopril 2.5 mg tablet 2.5 mg PO DAILY 05/28/21 08/01/21 Unknown History metformin 850 mg tablet 850 mg PO BID 05/28/21 08/01/21 Unknown History propranolol 20 mg tablet 20 mg PO BID 05/28/21 08/01/21 Unknown History Exam Exam Date and Time: January 18, 2022 1542 Height,Weight and Vital Signs: Height 5 ft 3 in Weight 87.09 kg Last Vital Signs Temp 97.9 F 01/18/22 11:35 Pulse 82 01/18/22 13:17 Resp 20 01/18/22 13:17 BP 135/81 01/18/22 13:17 Pulse Ox 96 01/18/22 11:35 O2 Del Method 01/18/22 11:35 Airway Mallampati Class: II TM Dist: >3cm Neck ROM: Full Assessment and Plan Assessment Anesthesia Assessment: Anesthesia Plan Discussed, Smoking Cess. Discussed and Chart Reviewed Final Anesthetic Review Family History of Problems with Anesthesia: No History of Problems with Anesthesia: No NPO: Yes ASA Class: III and Emergency Final Preanesthetic Review: No Changes in Pt Med Stat, Meds/Allgs Chart Reviewed, Consent Obtained/Reviewed and Anes Risks/Benef Reviewed Patient Risk: Low Procedure Risk: Low Anesthetic Plan Anesthetic Plan: GA Disposition: Standard PACU
[2022-01-18 15:44] VITALS: BP 114/83; PULSE 87; RESP 20; O2SAT 96
[2022-01-18 15:49] VITALS: BP 118/74; PULSE 89; RESP 20; O2SAT 97
[2022-01-18 15:54] VITALS: BP 134/74; PULSE 80; RESP 20; TEMP 36.4; O2SAT 97
== END 2022-01-18 17:14 | disposition home or self-care (01) ==
PROVIDERS: Internal Medicine Gastroenterology; Emergency Provider Emergency Medicine; PCP Internal Medicine Medical Oncology
PROC: 0DJ08ZZ Inspection of Upper Intestinal Tract, Via Natural or Artificial Opening Endoscopic (ICD-10-PCS; CPT 43235; principal; 2022-01-18 14:40)
DX: T18.128A Food in esophagus causing other injury, initial encounter (principal); X58.XXXA Exposure to other specified factors, initial encounter; K20.90 Esophagitis, unspecified without bleeding; J02.9 Acute pharyngitis, unspecified; E11.9 Type 2 diabetes mellitus without complications; E78.5 Hyperlipidemia, unspecified; K21.9 Gastro-esophageal reflux disease without esophagitis; Z79.4 Long term (current) use of insulin; Z79.899 Other long term (current) drug therapy; Z87.891 Personal history of nicotine dependence; Y93.89 Activity, other specified; Y92.9 Unspecified place or not applicable; Y99.9 Unspecified external cause status
CPT/HCPCS: 43235; 99283; 99285; J1100; J2250; J2405

== ENCOUNTER 2022-03-13 09:35 | Outpatient (REF) | payer OTHER, SELFPAY ==
[2022-03-13 10:03] LABS: MANUAL DIFF FLAG NO
[2022-03-13 10:29] LABS: Basophils Absolute Auto 0.1 X10*3/uL (0.0-0.2); Basophils Percent Auto 0.5 % (0-2); Eosinophils Absolute Auto 0.3 X10*3/uL (0.0-0.4); Eosinophils Percent Auto 2.9 % (0-4); Hematocrit 45.7 % (42.0-52.0); Hemoglobin 15.5 g/dl (14.0-18.0); Imm Gran Abs Auto 0.06 X10*3/uL (0.00-0.03); Imm Gran Pct Auto 0.5 % (0.0-0.4); Lymphocytes Absolute Auto 3.3 X10*3/uL (1.2-4.9); Lymphocytes Percent Auto 27.8 % (20-40); Mean Corpuscular HGB Conc 33.9 g/dl (31.0-36.0); Mean Corpuscular Hemoglobin 29.1 pg (27.0-33.0); Mean Corpuscular Volume 85.9 fL (80.0-98.0); Mean Platelet Volume 10.2 fL (9.4-12.4); Monocytes Absolute Auto 0.9 X10*3/uL (0.1-1.2); Monocytes Percent Auto 7.3 % (2-11); Neutrophils Absolute Auto 7.2 x10*3/uL (2.0-8.3); Platelet Count 312 X10*3/uL (160-400); Red Blood Count 5.32 X10*6/uL (4.60-5.80); Red Cell Distribution Width 13.8 % (11.0-16.0); White Blood Count 11.8 X10*3/uL (4.8-10.8)
[2022-03-13 10:53] LABS: Estimated Average Glucose 160 mg/dL; Hemoglobin A1c % 7.2 %
[2022-03-13 11:20] LABS: Alanine Aminotransferase 68 U/L (0-40); Alkaline Phosphatase 105 U/L (39-117); Anion Gap 18 (12-20); Aspartate Amino Transferase 75 U/L (5-37); Bilirubin Total 0.8 mg/dL (0.0-1.0); Blood Urea Nitrogen 13 mg/dL (9-16); Calcium 9.5 mg/dL (8.4-10.2); Carbon Dioxide 22 mmol/L (22-29); Chloride 103 mmol/L (96-108); Estimated Glomerular Filt Rate > 60; Glucose Fasting 136 mg/dL (60-99); Potassium 4.4 mmol/L (3.3-5.1); Sodium 139 mmol/L (135-145); Total Protein 8.5 g/dL (6.5-8.0)
[2022-03-13 11:23] LABS: Erythrocyte Sedimentation Rate 25 MM/HR (0-15)
[2022-03-13 12:43] LABS: Creatinine Urine 202.33 mg/dL; Microalbum/Creatinine Ratio Ur 20.7 ug/mg cr
== END 2022-03-13 09:36 | disposition home or self-care (01) ==
LOC: HO.LAB 09:35
PROVIDERS: PCP Internal Medicine Medical Oncology; Visit Provider Internal Medicine Medical Oncology
DX: N40.1 Benign prostatic hyperplasia with lower urinary tract symptoms (principal); E11.9 Type 2 diabetes mellitus without complications; E78.01 Familial hypercholesterolemia
CPT/HCPCS: 36415; 80053; 82043; 83036; 85025; 85652

== ENCOUNTER 2022-03-21 09:20 | Outpatient (REF) | payer OTHER, SELFPAY ==
[2022-03-21 09:56] LABS: MANUAL DIFF FLAG NO
[2022-03-21 10:29] LABS: Basophils Absolute Auto 0.1 X10*3/uL (0.0-0.2); Basophils Percent Auto 0.5 % (0-2); Eosinophils Absolute Auto 0.3 X10*3/uL (0.0-0.4); Eosinophils Percent Auto 2.3 % (0-4); Hematocrit 44.9 % (42.0-52.0); Hemoglobin 15.4 g/dl (14.0-18.0); Imm Gran Abs Auto 0.04 X10*3/uL (0.00-0.03); Imm Gran Pct Auto 0.4 % (0.0-0.4); Lymphocytes Absolute Auto 2.6 X10*3/uL (1.2-4.9); Lymphocytes Percent Auto 24.3 % (20-40); Mean Corpuscular HGB Conc 34.3 g/dl (31.0-36.0); Mean Corpuscular Hemoglobin 29.4 pg (27.0-33.0); Mean Corpuscular Volume 85.7 fL (80.0-98.0); Monocytes Absolute Auto 0.8 X10*3/uL (0.1-1.2); Monocytes Percent Auto 7.9 % (2-11); Neutrophils Absolute Auto 6.9 x10*3/uL (2.0-8.3); Neutrophils Percent Auto 64.6 % (45-73); Platelet Count 320 X10*3/uL (160-400); Red Blood Count 5.24 X10*6/uL (4.60-5.80); Red Cell Distribution Width 13.8 % (11.0-16.0); White Blood Count 10.6 X10*3/uL (4.8-10.8)
[2022-03-21 10:40] LABS: Blood Urea Nitrogen 15 mg/dL (9-16); Estimated Glomerular Filt Rate > 60
[2022-03-21 10:43] LABS: Cholesterol 218 mg/dL; Gamma Glutamyl Transpeptidase 56 U/L (11-51); HDL Cholesterol 45 mg/dL; LDL Cholesterol Calculated 153 mg/dl; Triglycerides 104 mg/dL
[2022-03-24 14:56] LABS: Prot Elec - Alpha1 0.3 g/dL (0.2-0.3); Prot Elec - Alpha2 0.8 g/dL (0.5-0.9); Prot Elec - Beta 1 0.6 g/dL (0.4-0.6); Prot Elec - Beta 2 0.6 g/dL (0.2-0.5); Prot Elec - Gamma 1.5 g/dL (0.8-1.7); Prot Elec - Total Protein 7.7 g/dL (6.1-8.1)
[2022-03-25 16:36] LABS: IgA 677 mg/dL (70-320); IgG 1651 mg/dL (600-1540); IgM 47 mg/dL (50-300)
[2022-03-27 11:47] LABS: Testosterone, Total 354 ng/dL (250-1100)
== END 2022-03-21 09:21 | disposition home or self-care (01) ==
LOC: HO.LAB 09:20
PROVIDERS: Internal Medicine Gastroenterology; PCP Internal Medicine Medical Oncology; Visit Provider Internal Medicine Medical Oncology
DX: K20.90 Esophagitis, unspecified without bleeding (principal); K22.2 Esophageal obstruction; J44.9 Chronic obstructive pulmonary disease, unspecified; E66.9 Obesity, unspecified; E78.01 Familial hypercholesterolemia; N40.1 Benign prostatic hyperplasia with lower urinary tract symptoms; G47.30 Sleep apnea, unspecified; G47.00 Insomnia, unspecified
CPT/HCPCS: 36415; 80061; 82565; 82784; 82977; 84165; 84403; 84520; 85025; 86334

== ENCOUNTER → 2022-06-26 13:58 | Outpatient (BNVA) | payer OTHER, SELFPAY | PROVIDERS: PCP Internal Medicine Medical Oncology; Visit Provider Student in an Organized Health Care Education/Training Program | DX: M15.9 Polyosteoarthritis, unspecified (principal); M25.521 Pain in right elbow | CPT/HCPCS: 99202 ==

== ENCOUNTER 2022-07-28 08:53 | Outpatient (REF) | payer OTHER, SELFPAY ==
--- NOTE | ~2022-07-28 | XR_ITS ---
EXAMINATION: X-RAY RIGHT ELBOW X-RAY LEFT ELBOW CLINICAL INFORMATION: Pain. COMPARISON: No similar priors. TECHNIQUE: 3 views of each elbow. FINDINGS: Right elbow: No acute fracture or malalignment. No joint effusion. No significant soft tissue abnormality. Left elbow: No acute fracture or malalignment. No joint effusion. No significant soft tissue abnormality. XR/XR elbow RT min 3V IMPRESSION: No acute fracture or malalignment. No significant degenerative changes. No joint effusion.
--- NOTE | ~2022-07-28 | XR_ITS ---
EXAMINATION: X-RAY RIGHT ELBOW X-RAY LEFT ELBOW CLINICAL INFORMATION: Pain. COMPARISON: No similar priors. TECHNIQUE: 3 views of each elbow. FINDINGS: Right elbow: No acute fracture or malalignment. No joint effusion. No significant soft tissue abnormality. Left elbow: No acute fracture or malalignment. No joint effusion. No significant soft tissue abnormality. XR/XR elbow LT min 3V IMPRESSION: No acute fracture or malalignment. No significant degenerative changes. No joint effusion.
--- NOTE | ~2022-07-28 | XR_ITS ---
EXAMINATION: XR BOTH KNEES AP STANDING XR KNEE, LEFT XR KNEE, RIGHT CLINICAL INFORMATION: M17.0 - Bilateral primary osteoarthritis of knee COMPARISON: 08/13/2018 TECHNIQUE: Standing AP view of both knees and lateral and sunrise views of both knees. FINDINGS: LEFT KNEE: Ill-defined regions of sclerosis at the distal femoral and proximal tibial metaphyses demonstrated an undulating rim of sclerosis, most consistent with bone infarcts. These appear more pronounced as compared to prior. Osseous prominence at the medial femoral epicondyle may correspond to periosteal bone formation from an old MCL injury. Tiny patellar osteophytes. No fracture or joint effusion. Alignment is anatomic. Joint spaces are well maintained. No abnormal soft tissue calcification. RIGHT KNEE: Medullary bone infarcts at the distal femoral metaphysis and proximal tibial metaphysis appear slightly more pronounced as compared to the contralateral side. No fractures. No aggressive osseous lesions. Joint spaces appear well-preserved. No effusion. Tiny patellar osteophytes. Subtle articular cortical irregularity in the central trochlea on the sunrise view. XR/XR knee LT 3V IMPRESSION: 1. Bilateral medullary bone infarcts, slightly more pronounced as compared to prior. No acute osseous findings. 2. Minimal patellofemoral arthrosis in the knees, right greater than left. No significant joint space narrowing or joint effusion at either knee. 3. Probable old MCL injury at the left knee.
--- NOTE | ~2022-07-28 | XR_ITS ---
EXAMINATION: XR BOTH KNEES AP STANDING XR KNEE, LEFT XR KNEE, RIGHT CLINICAL INFORMATION: M17.0 - Bilateral primary osteoarthritis of knee COMPARISON: 08/13/2018 TECHNIQUE: Standing AP view of both knees and lateral and sunrise views of both knees. FINDINGS: LEFT KNEE: Ill-defined regions of sclerosis at the distal femoral and proximal tibial metaphyses demonstrated an undulating rim of sclerosis, most consistent with bone infarcts. These appear more pronounced as compared to prior. Osseous prominence at the medial femoral epicondyle may correspond to periosteal bone formation from an old MCL injury. Tiny patellar osteophytes. No fracture or joint effusion. Alignment is anatomic. Joint spaces are well maintained. No abnormal soft tissue calcification. RIGHT KNEE: Medullary bone infarcts at the distal femoral metaphysis and proximal tibial metaphysis appear slightly more pronounced as compared to the contralateral side. No fractures. No aggressive osseous lesions. Joint spaces appear well-preserved. No effusion. Tiny patellar osteophytes. Subtle articular cortical irregularity in the central trochlea on the sunrise view. XR/XR knee RT 3V IMPRESSION: 1. Bilateral medullary bone infarcts, slightly more pronounced as compared to prior. No acute osseous findings. 2. Minimal patellofemoral arthrosis in the knees, right greater than left. No significant joint space narrowing or joint effusion at either knee. 3. Probable old MCL injury at the left knee.
--- NOTE | ~2022-07-28 | XR_ITS ---
EXAMINATION: XR BOTH KNEES AP STANDING XR KNEE, LEFT XR KNEE, RIGHT CLINICAL INFORMATION: M17.0 - Bilateral primary osteoarthritis of knee COMPARISON: 08/13/2018 TECHNIQUE: Standing AP view of both knees and lateral and sunrise views of both knees. FINDINGS: LEFT KNEE: Ill-defined regions of sclerosis at the distal femoral and proximal tibial metaphyses demonstrated an undulating rim of sclerosis, most consistent with bone infarcts. These appear more pronounced as compared to prior. Osseous prominence at the medial femoral epicondyle may correspond to periosteal bone formation from an old MCL injury. Tiny patellar osteophytes. No fracture or joint effusion. Alignment is anatomic. Joint spaces are well maintained. No abnormal soft tissue calcification. RIGHT KNEE: Medullary bone infarcts at the distal femoral metaphysis and proximal tibial metaphysis appear slightly more pronounced as compared to the contralateral side. No fractures. No aggressive osseous lesions. Joint spaces appear well-preserved. No effusion. Tiny patellar osteophytes. Subtle articular cortical irregularity in the central trochlea on the sunrise view. XR/XR knee standing BI IMPRESSION: 1. Bilateral medullary bone infarcts, slightly more pronounced as compared to prior. No acute osseous findings. 2. Minimal patellofemoral arthrosis in the knees, right greater than left. No significant joint space narrowing or joint effusion at either knee. 3. Probable old MCL injury at the left knee.
--- NOTE | ~2022-07-28 | CT_ITS ---
EXAMINATION: CT ENTEROGRAPHY ABDOMEN AND PELVIS WITH CONTRAST CLINICAL INFORMATION: R10.33 - Periumbilical pain COMPARISON: CT abdomen without and with contrast 08/13/2017, CT abdomen and pelvis without and with contrast 11/21/2015. TECHNIQUE: Study performed with oral Breeza (1500 mL) and approximately 15 oz of water to distend the abdomen. The patient was injected with 100 mL Omnipaque 350 intravenous contrast which was administered without adverse effect. Coronal and sagittal reformatted images were obtained at the technologist's workstation. This CT examination was performed using dose optimization techniques as appropriate, variously including the following: *Automated exposure control *Adjustment of mA and/or kV according to patient size (this includes techniques or standardized protocols for targeted exams where dose is matched to indication/reason for exam; i.e. extremities or head) *Use of iterative reconstruction technique DLP: 536 mGy-cm FINDINGS: LUNG BASES: Dependent atelectasis. Cyst anterior medial left chest 3.7 x 8.8 cm and small subpleural cyst left posterior medial base 0.8 x 1.6 cm. LIVER, GALLBLADDER, AND BILIARY TREE: Normal in size and smooth in contour. Diffuse hepatic steatosis. No focal hepatic parenchymal lesion or intrahepatic ductal dilatation. The gallbladder is unremarkable with no evidence of radiopaque gallstones, gallbladder wall thickening, or obvious pericholecystic inflammatory changes. PANCREAS: Unremarkable. SPLEEN: Normal in size, homogeneous. Incidental splenules left upper quadrant again seen under 1 cm. ADRENAL GLANDS: Unremarkable. KIDNEYS AND URETERS: The kidneys are normal in size and enhance symmetrically. Right kidney has a 2 cm cyst mid to lower pole, water attenuation. Punctate lower pole cyst under 1 cm. No additional imaging follow-up recommended. There is a nonobstructing calculus under 5 mm right lower pole and smaller nonobstructing calculus left lower pole. No ureteral calculi or perinephric stranding. BLADDER: Unremarkable. GASTROINTESTINAL TRACT: No bowel obstruction or thickening of the small large bowel. Distal esophagus and stomach and duodenum unremarkable. No bowel thickening and pneumatosis or free air. No ascites or fluid collection. Appendix unremarkable. ABDOMINAL WALL: Small stable fat containing umbilical hernia, under 3 cm. Small stable bilateral fat-containing inguinal hernias. LYMPH NODES: There are several mildly enlarged nodes representing change from prior exams, largest portal caval space measuring 1.4 cm short axis; previous measurement 0.9 cm. There is a 0.7 cm node adjacent to the main portal vein and 2 mildly enlargement nodes around the proximal SMA measuring 0.8 and 0.7 cm short axis. No retroperitoneal, pelvic, or inguinal lymphadenopathy. VASCULAR: Unremarkable. PELVIC VISCERA: Unremarkable. OSSEUS STRUCTURES: There are chronic serpiginous sclerotic changes bilateral superior femoral heads, suspect avascular necrosis. No acute bony abnormality. CT/CT enterography IMPRESSION: -No bowel obstruction or bowel wall thickening. No ascites. -Nonspecific central right mesenteric/portal nodes, largest 1.4 cm short axis. 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
[2022-07-28] MEDS: Sorbitol/Mannit/Xanth Imaging 500 ML LIQUID 1500 ML PO (10:49)
[2022-07-28] MEDS: iohexoL 350 MG/ML 100 ML INFUS..BTL IV (10:50)
[2022-07-30 08:24] LABS: GFR POC > 60
== END 2022-07-28 08:54 | disposition home or self-care (01) ==
LOC: HO.CT 08:53
PROVIDERS: PCP Internal Medicine Medical Oncology; Visit Provider Internal Medicine Gastroenterology
DX: R10.33 Periumbilical pain (principal); M17.0 Bilateral primary osteoarthritis of knee; M25.521 Pain in right elbow; M25.522 Pain in left elbow
CPT/HCPCS: 73080; 73562; 73564; 73565; 74177; 82565; Q9967

== ENCOUNTER → 2022-11-20 10:41 | Outpatient (BNVA) | payer OTHER, SELFPAY | PROVIDERS: PCP Internal Medicine Medical Oncology; Visit Provider Internal Medicine | DX: J44.9 Chronic obstructive pulmonary disease, unspecified (principal); G47.33 Obstructive sleep apnea (adult) (pediatric); Z87.891 Personal history of nicotine dependence | CPT/HCPCS: 99212 ==

== ENCOUNTER 2022-11-21 09:11 | Outpatient (REF) | payer OTHER, SELFPAY ==
[2022-11-21 10:42] LABS: MANUAL DIFF FLAG NO
[2022-11-21 10:51] LABS: Basophils Percent Auto 0.3 % (0-2); Eosinophils Absolute Auto 0.2 X10*3/uL (0.0-0.4); Eosinophils Percent Auto 1.6 % (0-4); Hemoglobin 14.7 g/dl (14.0-18.0); Imm Gran Abs Auto 0.08 X10*3/uL (0.00-0.03); Imm Gran Pct Auto 0.6 % (0.0-0.4); Lymphocytes Percent Auto 23.4 % (20-40); Mean Corpuscular HGB Conc 33.4 g/dl (31.0-36.0); Mean Corpuscular Hemoglobin 29.2 pg (27.0-33.0); Mean Corpuscular Volume 87.3 fL (80.0-98.0); Mean Platelet Volume 10.2 fL (9.4-12.4); Monocytes Percent Auto 7.5 % (2-11); Neutrophils Absolute Auto 8.4 x10*3/uL (2.0-8.3); Neutrophils Percent Auto 66.6 % (45-73); Platelet Count 351 X10*3/uL (160-400); Red Blood Count 5.04 X10*6/uL (4.60-5.80); Red Cell Distribution Width 14.8 % (11.0-16.0); White Blood Count 12.6 X10*3/uL (4.8-10.8)
[2022-11-21 11:00] LABS: Estimated Average Glucose 151 mg/dL; Hemoglobin A1c % 6.9 %
[2022-11-21 11:12] LABS: Alanine Aminotransferase 71 U/L (0-40); Albumin Level 3.9 g/dL (3.5-5.0); Alkaline Phosphatase 87 U/L (39-117); Anion Gap 11 (12-20); Aspartate Amino Transferase 57 U/L (5-37); Bilirubin Total 0.9 mg/dL (0.0-1.0); Blood Urea Nitrogen 17 mg/dL (9-16); Calcium 9.9 mg/dL (8.4-10.2); Carbon Dioxide 29 mmol/L (22-29); Chloride 106 mmol/L (96-108); Cholesterol 181 mg/dL; Estimated Glomerular Filt Rate > 60; Glucose Fasting 107 mg/dL (60-99); HDL Cholesterol 44 mg/dL; LDL Cholesterol Calculated 121 mg/dl; Potassium 4.6 mmol/L (3.3-5.1); Sodium 141 mmol/L (135-145); Total Protein 7.2 g/dL (6.5-8.0); Triglycerides 81 mg/dL
[2022-11-21 11:13] LABS: Creatinine Urine 147.42 mg/dL; Microalbum/Creatinine Ratio Ur 12.2 ug/mg cr
== END 2022-11-21 09:12 | disposition home or self-care (01) ==
LOC: HO.10HDL 09:11
PROVIDERS: Visit Provider Internal Medicine Medical Oncology
DX: E11.9 Type 2 diabetes mellitus without complications (principal); E78.2 Mixed hyperlipidemia; I48.20 Chronic atrial fibrillation, unspecified
CPT/HCPCS: 36415; 80053; 80061; 82043; 83036; 85025

== ENCOUNTER 2023-02-19 11:35 | Outpatient (REF) | payer OTHER, SELFPAY ==
[2023-02-19 12:00] LABS: MANUAL DIFF FLAG NO
[2023-02-19 12:20] LABS: Basophils Absolute Auto 0.1 X10*3/uL (0.0-0.2); Basophils Percent Auto 0.4 % (0-2); Eosinophils Absolute Auto 0.4 X10*3/uL (0.0-0.4); Eosinophils Percent Auto 3.4 % (0-4); Hematocrit 43.8 % (42.0-52.0); Hemoglobin 14.8 g/dl (14.0-18.0); Imm Gran Abs Auto 0.05 X10*3/uL (0.00-0.03); Imm Gran Pct Auto 0.4 % (0.0-0.4); Lymphocytes Absolute Auto 2.7 X10*3/uL (1.2-4.9); Mean Corpuscular HGB Conc 33.8 g/dl (31.0-36.0); Mean Corpuscular Hemoglobin 28.8 pg (27.0-33.0); Mean Corpuscular Volume 85.4 fL (80.0-98.0); Mean Platelet Volume 9.8 fL (9.4-12.4); Monocytes Absolute Auto 0.9 X10*3/uL (0.1-1.2); Monocytes Percent Auto 7.5 % (2-11); Neutrophils Absolute Auto 7.3 x10*3/uL (2.0-8.3); Neutrophils Percent Auto 64.3 % (45-73); Platelet Count 329 X10*3/uL (160-400); Red Blood Count 5.13 X10*6/uL (4.60-5.80); Red Cell Distribution Width 14.2 % (11.0-16.0); White Blood Count 11.3 X10*3/uL (4.8-10.8)
[2023-02-19 12:31] LABS: Estimated Average Glucose 137 mg/dL; Hemoglobin A1c % 6.4 %
[2023-02-19 13:14] LABS: Alanine Aminotransferase 53 U/L (0-40); Albumin Level 3.8 g/dL (3.5-5.0); Alkaline Phosphatase 85 U/L (39-117); Anion Gap 11 (12-20); Aspartate Amino Transferase 58 U/L (5-37); Bilirubin Total 0.7 mg/dL (0.0-1.0); Blood Urea Nitrogen 10 mg/dL (9-16); Calcium 9.5 mg/dL (8.4-10.2); Carbon Dioxide 24 mmol/L (22-29); Chloride 108 mmol/L (96-108); Cholesterol 147 mg/dL; Estimated Glomerular Filt Rate > 60; Glucose Fasting 119 mg/dL (60-99); HDL Cholesterol 41 mg/dL; LDL Cholesterol Calculated 91 mg/dl; Potassium 4.2 mmol/L (3.3-5.1); Sodium 139 mmol/L (135-145); Total Protein 7.6 g/dL (6.5-8.0); Triglycerides 76 mg/dL
== END 2023-02-19 11:36 | disposition home or self-care (01) ==
LOC: HO.LAB 11:35
PROVIDERS: PCP Internal Medicine Medical Oncology; Visit Provider Internal Medicine Medical Oncology
DX: J44.9 Chronic obstructive pulmonary disease, unspecified (principal); E66.9 Obesity, unspecified; E78.01 Familial hypercholesterolemia; N40.1 Benign prostatic hyperplasia with lower urinary tract symptoms; E11.9 Type 2 diabetes mellitus without complications
CPT/HCPCS: 36415; 80053; 80061; 83036; 85025

== ENCOUNTER 2023-05-20 11:20 | Outpatient (REF) | payer MEDICARE, MEDICAID, SELFPAY ==
--- NOTE | ~2023-05-20 | XR_ITS ---
EXAMINATION: XR CHEST CLINICAL INFORMATION: Chronic obstructive pulmonary disease COMPARISON: 04/19/2021, 04/01/2021 and 07/23/2017 chest radiographs. TECHNIQUE: 2 views of the chest were obtained. FINDINGS: The lungs are well-inflated. There is no gross pneumothorax. Cardiac silhouette is borderline enlarged with similar cardiac contour. Mild biapical bullous changes. Mild bibasilar linear opacities redemonstrated, likely representing subsegmental atelectasis/scar versus less likely pneumonia. Mild degenerative changes in the thoracic spine. XR/XR chest 2V IMPRESSION: Mild bibasilar linear opacities redemonstrated, likely representing subsegmental atelectasis/scar versus less likely pneumonia. This study was presented today May 20, 2023 at 1:01 PM for interpretation. Stat results provided at this time as requested by referring provider.
== END 2023-05-20 11:21 | disposition home or self-care (01) ==
LOC: HO.XRAY 11:20
PROVIDERS: PCP Internal Medicine Medical Oncology; Visit Provider Internal Medicine Medical Oncology
DX: J44.9 Chronic obstructive pulmonary disease, unspecified (principal); R06.02 Shortness of breath
CPT/HCPCS: 71046

== ENCOUNTER 2023-05-21 10:24 | Outpatient (AMB) | payer MEDICARE, MEDICAID, SELFPAY ==
--- NOTE | 2023-05-21 10:30 | MHC.OFFVIS ---
Intake Vital Signs 05/21/23 10:31 Height 5 ft 3 in Weight 201 lb 11.567 oz BMI 35.7 BP 110/70 Blood Pressure Location Lt brachial Pulse 80 Pulse Source Pulse Oximeter Pulse Oximetry (%) 94 Oxygen Delivery Method Room Air Intake Visit Reasons: copd Intake Note: pt is here for follow up and states his breathing is not good, coughing, up all night with coughing, using inhaler a lot during the night and daytime. pt is also using his nebulizer prior to going to bed but still not much help, advair hfa is not helping either. Allergies No Known Allergies [No Known Allergies*] Allergy (Verified 05/21/23 10:55) Medication List - Last Reconciled 05/21/23 by Asher Tuttle MD albuterol sulfate 90 mcg/actuation 2 puffs PO Q6H PRN bupropion HCl 100 mg PO QAM diclofenac sodium 1% 4 grams topical QID fluticasone propion-salmeterol 115-21 mcg/actuation (Advair HFA) 2 puffs inhalation Q12H 30 days gabapentin 600 mg PO TID ipratropium-albuterol 0.5 mg-3 mg(2.5 mg base)/3 mL 3 mL inhalation TID PRN lisinopril 2.5 mg PO DAILY metformin 850 mg PO BID pantoprazole 40 mg PO BID propranolol 20 mg PO BID sitagliptin phosphate 100 mg PO DAILY sucralfate 10 mL PO BID tamsulosin 0.8 mg PO DAILY Do you need a note to return to daycare/school/sports/work: No HPI copd HPI Details This 68 years old gentleman, with chronic bronchial asthma/COPD. Has past history of smoking but quit since 4 years ago. After quitting smoking his respiratory symptoms were down to minimal. He also was found to have sleep apnea but could not use the CPAP so returned the device. He was sleeping good . Now since about 1 month he is having increased cough with wheezing, and has to use. The nebulizer sometime during the night He has had no fever or chills. No recent infection. Had a chest x-ray on , and it did not show any infiltrates or masses [facility] Medical History Left elbow pain Right tennis elbow Diabetes mellitus GERD (gastroesophageal reflux disease) Anxiety and depression Elevated cholesterol Disc degeneration, lumbosacral Chronic pain syndrome Radiculopathy of lumbosacral region Spondylosis, lumbar, with myelopathy Asthma Bronchitis TITUS (obstructive sleep apnea) COPD (chronic obstructive pulmonary disease) Surgical History History of cystoscopy History of prostate surgery Hx of colonoscopy History of esophagogastroduodenoscopy (EGD) Family History Mother Hypertension Father Medical history unknown Social History Are you a primary home health care case manager to a significant other at home: No Do you presently have visiting nurse or other home services: No Alcohol intake: current Alcohol intake frequency: a few times a month Alcohol type: beer Patient Tobacco Use Status: Former Tobacco user Quit Date: 2018 Tobacco use type: Cigarette Cigarette Packs Per Day: 2 Cigarettes Per Day: 40 Years Smoked: 50 years Advance Directives Date on File: 10/13/16 Current occupational status: retired Current occupation: [employer] Review of Systems Const All systems reviewed & are unremarkable except as noted in HPI and below Reports headache(s) Eyes Reports no additional complaints ENT Reports headache(s) and Reports hoarseness Card Reports chest pain and Reports dyspnea Resp Reports dyspnea and Reports wheezing GI Reports heartburn Reports nocturia Musc Reports arthralgias, Reports joint swelling and Reports muscle weakness Neuro Reports headache(s) Psych Reports abnormal sleep pattern, Reports anxiety and Reports depression Endo Reports polydipsia Aller/Immun Reports wheezing Physical Exam Vital Signs: Last Vital Signs Pulse 80 05/21/23 10:31 BP 110/70 05/21/23 10:31 Pulse Ox 94 05/21/23 10:31 Oxygen Delivery Method Room Air 05/21/23 10:31 BMI result Body Mass Index 35.7 Const General: no acute distress, alert, awake and other (Continues to have frequent cough during conversation) Orientation/consciousness: patient oriented x3 HEENT Head: Yes normal to inspection General nose exam: No nasal polyps present and No nasal discharge present Face and sinus: Yes sinuses nontender Mouth: oropharynx abnormals (There is no obvious infection are any white spots in the throat.) Throat: Yes posterior oropharynx normal Eyes General: appearance normal, both eyes and all related structures Neck Neck: Yes normal visual inspection, Yes no lymphadenopathy, Yes trachea midline and Yes no JVD Thyroid: Thyroid normal Chest Chest palpation & inspection: normal inspection of the chest, normal palpation of entire chest wall and no tenderness Resp Other: Breath sounds are distant with prolonged expiratory phase. He has inspiratory and expiratory wheezes more so on the right side. And some on the left side as well. Cardio Palpation: normal PMI Rate: regular rate Rhythm: regular rhythm Heart sounds: no gallops and no murmurs Peripheral pulses: Peripheral pulses 2+ throughout GI Palpation (GI): Soft to palpation, nontender, No hepatosplenomegaly present and no masses Auscultation: normal bowel sounds Back/Spine/Pelvis Thoracic/Lumbar Spine: thoracic and lumbar spine normal to inspection and thoraco-lumbar ROM limited Skin General skin exam: no rashes or lesions noted Neuro General: patient oriented x3 and no focal motor deficits Cranial nerves: Yes CN's II-XII intact bilaterally Extrem General: Yes normal to inspection, Yes no clubbing, cyanosis or edema and Yes no calf tenderness Psych Appearance: grossly normal and well kempt Speech and movement: Normal speech and movement present Office Procedures Spirometry Testing Spirometry Comments: pre and post bronchodilator spirometry done in the office. Dr. Tuttle has the results results scanned to his chart. Test performed by Radha Alvarenga [employer] SAL[employer] REPRESENTATIVE [id number]- Spirometry Results Reviewed Results Reviewed: CHEST XRAY on 05/20/23 Mild bibasilar linear opacities redemonstrated, likely representing subsegmental atelectasis/scar versus less likely pneumonia. SPIROMETRY in office FVC FEV1 FEVI/FVC FEF 25-75 PRE 61 % 47 % 60 24 % POST ( NO IMPROVEMENT ) Assessment & Plan Assessment & Plan (1) COPD (chronic obstructive pulmonary disease): Comment: He has chronic and very severe degree of COPD/asthma. Has been relatively stable since he quit smoking. Advised that he should cont. using his meds regularly , ADVAIR 115-21 ONE INH BID Duo neb udS Q 6 HRS W/A (TID ) and PRN if he wakes up during the night . . Albuterol HFA 2 puffs q . hrs only PRN . AT PRESENT HE SEEMS TO HAVE MILD ACUTE EXACERBATION. TX : PREDNISONE 5 MG DAILY UNTIL NEXT VISIT Azithromycin 250 mg daily UNTILL NEXT VISIT Code(s): J44.9 - Chronic obstructive pulmonary disease, unspecified (2) TITUS (obstructive sleep apnea): Comment: He was not able to use the CPAP so had returned his CPAP device . He claims that he sleeps okay without CPAP Code(s): G47.33 - Obstructive sleep apnea (adult) (pediatric) (3) Bronchitis: Comment: He has had chronic and recurrent bronchitis as part of his COPD. PREVIOUSLY HE HAS BEEN TREATED WITH AZITHROMYCIN 250 MG FOR 3 DAYS A WEEK. I think his increased cough is due to recurrence of chronic bronchitis. I have prescribed azithromycin 250 mg daily for 1 week and then go back to Thursday and Fridays, as before. Code(s): J40 - Bronchitis, not specified as acute or chronic Orders: Orders AMB Spirometry Testing Today J44.9 - Chronic obstructive pulmonary disease, unspecified Medications: New prednisone 5 mg PO DAILY 30 days 30 tabs 2RF ASTHMA/COPD azithromycin 250 mg PO QDAY 30 days 30 tabs 0RF BRONCHITIS Coding Level of Care Code Est Pt Level 4 (80940) Diagnoses COPD (chronic obstructive pulmonary disease) J44.9 TITUS (obstructive sleep apnea) G47.33 Bronchitis J40 CPT Codes Spirometry - CPT: 97514- Spirometry ([id number])
[2023-05-21 10:31] VITALS: BP 110/70; PULSE 80; O2SAT 94; BMI 35.7
== END 2023-05-21 11:41 | disposition home or self-care (01) ==
PROVIDERS: PCP Internal Medicine Medical Oncology; Visit Provider Internal Medicine
DX: J44.9 Chronic obstructive pulmonary disease, unspecified (principal); G47.33 Obstructive sleep apnea (adult) (pediatric); J40 Bronchitis, not specified as acute or chronic
CPT/HCPCS: 94010; 99214

== ENCOUNTER → 2023-05-21 10:24 | Outpatient (BNVA) | payer MEDICARE, MEDICAID, SELFPAY | PROVIDERS: PCP Internal Medicine Medical Oncology; Visit Provider Internal Medicine | DX: J44.9 Chronic obstructive pulmonary disease, unspecified (principal); G47.33 Obstructive sleep apnea (adult) (pediatric); J40 Bronchitis, not specified as acute or chronic | CPT/HCPCS: 94010; 99212 ==

== ENCOUNTER 2023-08-14 08:25 | Outpatient (REF) | payer OTHER, SELFPAY | END 2023-08-14 08:26 | disposition home or self-care (01) | LOC: HO.LAB 08:25 | PROVIDERS: PCP Internal Medicine Medical Oncology; Visit Provider Physician Assistant Surgical | DX: Z13.89 Encounter for screening for other disorder (principal) ==

== ENCOUNTER 2023-08-20 08:43 | Outpatient (AMB) | payer OTHER, SELFPAY ==
--- NOTE | 2023-08-20 08:52 | A.OFFVIS_ITS ---
Intake Vital Signs 08/20/23 08:55 Height 5 ft 3 in Weight 201 lb 6 oz BMI 35.7 BP 126/80 Blood Pressure Location Lt brachial Position Sitting Respiration 18 Pulse 72 Pulse Source Pulse Oximeter Pulse Oximetry (%) 93 Oxygen Delivery Method Room Air Intake Visit Reasons: Back & Knee Pain Allergies No Known Allergies [No Known Allergies*] Allergy (Verified 08/20/23 08:51) HPI HPI Comments History of Present Illness Details Patient is a pleasant 68 years old male presents today for follow up for chronic low back pain and bilateral knee pain. He was last seen in our office by Dr. Heller in January 2021. Patient denies any recent trauma, injury or falls. He also reports multiple joint pain, including his bilateral elbow and hips and bilateral foot numbness and tingling due to diabetic neuropathy. Patient used to get oxycontin by his PCP and was referred to us in 2020 for pain management at which point he was entered into our opioid program but failed UDS screening. I have informed patient today that our opioid program is on hold and given last evaluation, he is not candidate for opioid program. Back pain is axial and also extends to his sacral and lateral hip regions. Pain is worse with movements, especially with lumbar extension. Bilateral knee pain, left worse than right, is worse with ascending and descending stairs and cold weather. He ambulates with cane. Patient has significant abdominal obesity. Patient denies previous spine surgery or injections but reports he received bilateral knee steroid injections x3 which provided him less than 3 days of pain relief. He has tried Tylenol, NSAIDs oral and topical, heat and ice applications with minimal pain relief. He was taking gabapentin last for the past 2 years but run out of refills. Patient reports gabapentin has been effective for his knee and diabetic neuropathy pain. Pain affects his daily functioning, mobility, sleep and quality of life. He is hesitant towards interventional treatments at this time, but is interested in peripheral nerve stimulation trial for his low back pain after course of physical therapy. I have informed patient for need of diagnostic lumbar medial branch blocks prior to Sprint PNS trial, patient states he will think about it. Denies any fever, abdominal or groin pain, foot drop, weakness, bladder or bowerl dysfunction or saddle anesthesia. PRIOR 01/14/21 Dr. Heller: Juan Diego is very pleasant 65 years old gentleman who presents in my office with complains on low back pain bilateral knees pain shoulder pain and neck pain. He reports that the pain in the lower lumbar spine radiates into the left lower extremity all the way down to his foot. he reports that he is suffering from this pains for 11 years. He was under care of primary care physician and he received OxyContin and tramadol. He reports that his last dose of OxyContin was 4 months ago. He reports that his last dose of tramadol was 3 weeks ago. He reports that he cannot sleep normally because of her pain cannot do activities of daily living cannot take care of himself and he cannot function normally. He reports that weather changes in movements aggravate his pain and nothing helps his pain. She reports that his pain is 10/10. He reports his pain is most severe when he wakes up. He reports his pain in terms of tissue damage is stabbing and sharp. He had an MRI of the lumbar spine which was done 2017. He was sent by me to perform urine drug screen a and his urine drug screen was positive for small concentration of fentanyl. Because this patient cannot bring any evidence that within the week before the date of UDS of any surgical or interventional procedure which might possibly involve fentanyl administration I would have to presume that the fentanyl is from illicit sources. He reports that he occasionally smokes cannabis which his son acquires illicitly. I explained to him that I cannot possibly consider prescribing opioids for him this is against the rule of established opioid program. I offered him 3 options. 1. we can try some injections for him in the attempt to alleviate his pain. He adamantly refused this option. 2. we can try some nonopioid medications including muscle relaxants tricyclic antidepressants, SSRIs, SNRIs, anti seizure medications. He refused to hear my explanations on this matter. 3. I told him that we can send him for Suboxone program with Dr. Rollins provided that Suboxone will be the only medicine this patient will receive. [facility] Medical History Left elbow pain Right tennis elbow Diabetes mellitus GERD (gastroesophageal reflux disease) Anxiety and depression Elevated cholesterol Disc degeneration, lumbosacral Chronic pain syndrome Radiculopathy of lumbosacral region Spondylosis, lumbar, with myelopathy Asthma Bronchitis TITUS (obstructive sleep apnea) COPD (chronic obstructive pulmonary disease) Surgical History History of cystoscopy History of prostate surgery Hx of colonoscopy History of esophagogastroduodenoscopy (EGD) Family History Mother Hypertension Father Medical history unknown Social History Are you a primary cardiac care unit nurse to a significant other at home: No Do you presently have visiting nurse or other home services: No Alcohol intake: current Alcohol intake frequency: a few times a month Alcohol type: beer Comment: medicated in pacu Patient Tobacco Use Status: Former Tobacco user Quit Date: 2018 Tobacco use type: Cigarette Cigarette Packs Per Day: 2 Cigarettes Per Day: 40 Years Smoked: 50 years Advance Directives Date on File: 10/13/16 Current occupational status: retired Current occupation: [employer] Review of Systems Const All systems reviewed & are unremarkable except as noted in HPI and below Physical Exam Vital Signs: Last Vital Signs Pulse 72 08/20/23 08:55 Resp 18 08/20/23 08:55 BP 126/80 08/20/23 08:55 Pulse Ox 93 08/20/23 08:55 Oxygen Delivery Method Room Air 08/20/23 08:55 BMI result Body Mass Index 35.7 General: Appears afebrile. Alert and oriented. Mood and affect appropriate. Follows and participates in conversation appropriately. Respiratory effort is unlabored. No cough. Able to transition from sit to stand unassisted. Uses cane with ambulation. Ambulates with bilaterally normal heel strike and toe off. Back/Spine/Pelvis Other: Limited lumbosacral ROM due to pain. Antalgic gait with mild limping. Can flex forward to 60-65 degrees and extend to 5-10 degrees before experiencing lumbar pain. Demonstrates 5/5 strength of quadriceps bilaterally as well as flexion/dorsiflexion of bilateral feet against resistance. 2+ pedal pulses bilaterally. Seated straight leg rise with dorsiflexion negative bilaterally. Diminished patellar and achilles reflexes bilaterally. Facet loading test positive bilaterally. La sign, Tj?s, Pelvic compression and Stinchfield tests are positive bilaterally. No groin pain with I/E hip rotations. Mild TTP to bilateral GTB. Valsalva maneuver negative. Cervical Spine: cervical ROM normal and No Cervical spine tenderness Thoracic/Lumbar Spine: thoracic and lumbar spine normal to inspection, No Thoracic/lumbar spine scar(s), Lasegue's sign negative, straight leg raise negative bilaterally, pain with thoraco-lumbar ROM, paraspinal muscle tenderness, thoraco-lumbar ROM limited, No thoracic spinal tenderness and lumbar spinal tenderness (L3-S1) Sacroiliac joints: bilaterally tender to palpation Skin General skin exam: no scars Lesions: no lesions Rashes: no rashes Trauma: abrasion (low back, midline, patient reports scratching it) Extrem General: Yes capillary refill normal, Yes no clubbing, cyanosis or edema and Yes no calf tenderness Right lower extremity: knee (Limited ROM due to pain.) Details: tenderness Location: of the patella and of the medial joint line and crepitus; no ecchymosis and no unusual warmth Left lower extremity: knee (limited ROM due to pain.) Details: tenderness Location: of the patella, of the medial joint line and of the lateral joint line and crepitus; no ecchymosis and no unusual warmth Results Reviewed Results Reviewed: MRI of the lumbar spine 06/24/2018 Findings: Vertebral bodies in paraspinal structures: 5 lumbar type vertebral bodies are present normal in height alignment in marrow signal. The previously noted do rotation of the right ureter is no longer identified. Right kidney is only partially included in the images. No gross right hydronephrosis. Conus medullaris and cauda equina normal terminating at the level T12. Spinal levels: N48-M5-L0-I9 L2-L3-L3-L4 and L4-5 normal. L5-S1 minimal left parasagittal disc protrusion is present measuring less than 3 mm in radial extension. No associated nerve root impingement is present. Moderate concentric lipomatosis is present at this level and results in mild central stenosis and mild posterior displacement of the left and right S1 nerve root unchanged compared to 11/06/2015. XR BOTH KNEES AP STANDING XR KNEE, LEFT XR KNEE, RIGHT 07/28/22 CLINICAL INFORMATION: M17.0 - Bilateral primary osteoarthritis of knee COMPARISON: 08/13/2018 FINDINGS: LEFT KNEE: Ill-defined regions of sclerosis at the distal femoral and proximal tibial metaphyses demonstrated an undulating rim of sclerosis, most consistent with bone infarcts. These appear more pronounced as compared to prior. Osseous prominence at the medial femoral epicondyle may correspond to periosteal bone formation from an old MCL injury. Tiny patellar osteophytes. No fracture or joint effusion. Alignment is anatomic. Joint spaces are well maintained. No abnormal soft tissue calcification. RIGHT KNEE: Medullary bone infarcts at the distal femoral metaphysis and proximal tibial metaphysis appear slightly more pronounced as compared to the contralateral side. No fractures. No aggressive osseous lesions. Joint spaces appear well-preserved. No effusion. Tiny patellar osteophytes. Subtle articular cortical irregularity in the central trochlea on the sunrise view. IMPRESSION: 1. Bilateral medullary bone infarcts, slightly more pronounced as compared to prior. No acute osseous findings. 2. Minimal patellofemoral arthrosis in the knees, right greater than left. No significant joint space narrowing or joint effusion at either knee. 3. Probable old MCL injury at the left knee. Assessment & Plan Assessment & Plan (1) Disc degeneration, lumbosacral: Code(s): M51.37 - Other intervertebral disc degeneration, lumbosacral region (2) Bilateral primary osteoarthritis of knee: Code(s): M17.0 - Bilateral primary osteoarthritis of knee (3) Bilateral knee pain: Code(s): M25.561 - Pain in right knee; M25.562 - Pain in left knee (4) Chronic painful diabetic neuropathy: Code(s): E11.40 - Type 2 diabetes mellitus with diabetic neuropathy, unspecified (5) Chronic pain syndrome: Code(s): G89.4 - Chronic pain syndrome (6) Low back pain: Code(s): M54.50 - Low back pain, unspecified Plan Lumbar spine imaging to assess degree of degenerative changes, any subluxation, listhesis, compression fractures or pars defects. Discussed interventional treatments for low back pain and bilateral knee pain. Patient is interested in Sprint PNS trial for low back pain after PT course. Script for PT provided today. He is hesitant towards diagnostic injections, but will consider this. Informational pamphlet provided. Orthopedic Referral for bilateral knee pain. PT script submitted today. Recent knee xray report as noted above. Refill provided for gabapentin. Side effects and precautions reviewed with patient. Script sent for lidocaine patches as well. All questions and concerns have been answered and patient agreed with the plan. Follow up for xray results/after PT and sooner if needed. Orders: Orders XR lumbar spine 6V w bending Today M51.37 - Other intervertebral disc degeneration, lumbosacral region, M54.17 - Radiculopathy, lumbosacral region PT Evaluation and Treatment Today M17.0 - Bilateral primary osteoarthritis of knee, M25.561 - Pain in right knee, M25.562 - Pain in left knee, M51.37 - Other intervertebral disc degeneration, lumbosacral region, M54.50 - Low back pain, u nspecified Referrals Orthopedics Referral M17.0 - Bilateral primary osteoarthritis of knee, M25.561 - Pain in right knee, M25.562 - Pain in left knee Medications: New lidocaine 5% 2 patches topical DAILY 30 days 60 ea 3RF pain M25.561 - Pain in right knee, M25.562 - Pain in left knee, M51.37 - Other intervertebral disc degeneration, lumbosacral region Changed From gabapentin 600 mg PO TID E11.40 - Type 2 diabetes mellitus with diabetic neuropathy, unspecified, G89.4 - Chronic pain syndrome To gabapentin 600 mg PO TID 30 days 90 tabs 0RF pain E11.40 - Type 2 diabetes mellitus with diabetic neuropathy, unspecified, G89.4 - Chronic pain syndrome Coding Level of Care Code Est Pt Level 4 (06269) Diagnoses Disc degeneration, lumbosacral M51.37 Bilateral primary osteoarthritis of knee M17.0 Bilateral knee pain M25.561; M25.562 Chronic painful diabetic neuropathy E11.40 Chronic pain syndrome G89.4 Low back pain M54.50
[2023-08-20 08:55] VITALS: BP 126/80; PULSE 72; RESP 18; O2SAT 93; BMI 35.7
== END 2023-08-20 09:08 | disposition home or self-care (01) ==
PROVIDERS: PCP Internal Medicine Medical Oncology; Referring Provider Internal Medicine Medical Oncology; Visit Provider Nurse Practitioner Family
DX: M25.562 Pain in left knee (principal); E11.40 Type 2 diabetes mellitus with diabetic neuropathy, unspecified; G89.4 Chronic pain syndrome; M54.50 Low back pain, unspecified
CPT/HCPCS: 99214

== ENCOUNTER → 2023-08-20 08:43 | Outpatient (BNVA) | payer OTHER, SELFPAY | PROVIDERS: PCP Internal Medicine Medical Oncology; Referring Provider Internal Medicine Medical Oncology; Visit Provider Nurse Practitioner Family | DX: M51.37 Other intervertebral disc degeneration, lumbosacral region (principal); M17.0 Bilateral primary osteoarthritis of knee; M25.561 Pain in right knee; M25.562 Pain in left knee; M54.50 Low back pain, unspecified; E11.40 Type 2 diabetes mellitus with diabetic neuropathy, unspecified; G89.4 Chronic pain syndrome | CPT/HCPCS: 99212 ==

== ENCOUNTER 2023-09-02 09:23 | Outpatient (REF) | payer OTHER, SELFPAY ==
[2023-09-02 09:46] LABS: MANUAL DIFF FLAG NO
[2023-09-02 10:28] LABS: Basophils Absolute Auto 0.1 X10*3/uL (0.0-0.2); Basophils Percent Auto 0.4 % (0-2); Eosinophils Absolute Auto 0.2 X10*3/uL (0.0-0.4); Eosinophils Percent Auto 1.6 % (0-4); Hematocrit 43.6 % (42.0-52.0); Imm Gran Pct Auto 0.7 % (0.0-0.4); Lymphocytes Absolute Auto 3.6 X10*3/uL (1.2-4.9); Mean Corpuscular HGB Conc 34.4 g/dl (31.0-36.0); Mean Corpuscular Hemoglobin 29.2 pg (27.0-33.0); Mean Platelet Volume 10.9 fL (9.4-12.4); Monocytes Absolute Auto 1.2 X10*3/uL (0.1-1.2); Monocytes Percent Auto 8.6 % (2-11); Neutrophils Absolute Auto 8.3 x10*3/uL (2.0-8.3); Neutrophils Percent Auto 61.7 % (45-73); Platelet Count 337 X10*3/uL (160-400); Red Blood Count 5.13 X10*6/uL (4.60-5.80); Red Cell Distribution Width 14.4 % (11.0-16.0); White Blood Count 13.4 X10*3/uL (4.8-10.8)
[2023-09-02 11:04] LABS: Alanine Aminotransferase 41 U/L (0-40); Alkaline Phosphatase 79 U/L (39-117); Anion Gap 12 (12-20); Aspartate Amino Transferase 41 U/L (5-37); Bilirubin Total 0.6 mg/dL (0.0-1.0); Blood Urea Nitrogen 16 mg/dL (9-16); Calcium 9.7 mg/dL (8.4-10.2); Carbon Dioxide 28 mmol/L (22-29); Chloride 102 mmol/L (96-108); Cholesterol 193 mg/dL (<200); Estimated Glomerular Filt Rate > 60; Glucose Fasting 101 mg/dL (60-99); HDL Cholesterol 46 mg/dL (>40); LDL Cholesterol Calculated 122 mg/dL (<100); Potassium 4.1 mmol/L (3.3-5.1); Sodium 138 mmol/L (135-145); Total Protein 7.8 g/dL (6.5-8.0); Triglycerides 125 mg/dL (<150)
[2023-09-02 11:13] LABS: Creatinine Urine 86.78 mg/dL; Microalbum/Creatinine Ratio Ur 10.3 ug/mg cr (<30)
[2023-09-02 12:05] LABS: Estimated Average Glucose 134 mg/dL; Hemoglobin A1c % 6.3 % (<6.0)
== END 2023-09-02 09:24 | disposition home or self-care (01) ==
LOC: HO.LAB 09:23
PROVIDERS: PCP Internal Medicine Medical Oncology; Visit Provider Internal Medicine Medical Oncology
DX: E66.9 Obesity, unspecified (principal); E78.01 Familial hypercholesterolemia; E11.9 Type 2 diabetes mellitus without complications
CPT/HCPCS: 36415; 80053; 80061; 82043; 82570; 83036; 85025

== ENCOUNTER 2023-09-08 14:18 | Outpatient (AMB) | payer MEDICARE, MEDICAID, SELFPAY ==
--- NOTE | 2023-09-08 14:22 | MHC.OFFVIS ---
Intake Vital Signs 09/08/23 14:23 Height 5 ft 3 in Weight 199 lb BMI 35.2 BP 122/60 Blood Pressure Location Lt brachial Position Sitting Pulse 75 Pulse Source Doppler Pulse Oximetry (%) 96 Oxygen Delivery Method Room Air Intake Visit Reasons: copd Intake Note: Patient is here for a follow up on COPD, patient c/o SOB on exertion Allergies No Known Allergies [No Known Allergies*] Allergy (Verified 09/08/23 14:29) Medication List - Last Reconciled 09/08/23 by Asher Tuttle MD albuterol sulfate 90 mcg/actuation 2 puffs PO Q6H PRN azithromycin 250 mg PO QDAY 30 days bupropion HCl 100 mg PO QAM diclofenac sodium 1% 4 grams topical QID fluticasone propion-salmeterol 115-21 mcg/actuation (Advair HFA) 2 puffs inhalation Q12H gabapentin 600 mg PO TID 30 days ipratropium-albuterol 0.5 mg-3 mg(2.5 mg base)/3 mL 3 mL inhalation TID PRN lidocaine 5% 2 patches topical DAILY 30 days lisinopril 2.5 mg PO DAILY metformin 850 mg PO BID pantoprazole 40 mg PO BID prednisone 5 mg PO DAILY 30 days propranolol 20 mg PO BID sitagliptin phosphate 100 mg PO DAILY sucralfate 10 mL PO BID tamsulosin 0.8 mg PO DAILY HPI copd HPI Details THIS 68 YEARS OLD GENTLEMAN IS HERE FOR FOLLOW-UP. SINCE HIS LAST VISIT AFTER TREATMENT WITH A COURSE OF Z-DENNYS AND PREDNISONE HIS BREATHING HAS BECOME MUCH BETTER, AND BACK TO HIS BASELINE. HE STILL HAS INTERMITTENT. COUGH BUT NOT MUCH EXPECTORATION DOES NOT HAVE ANY WHEEZING BUT HE DOES GET SHORT OF BREATH ON CLIMBING STAIRS OR WALKING FAST. HE DENIES ANY SMOKING. HE USES ADVAIR HFA, TWICE A DAY BUT ALSO MISSES USING IT ON SOME DAYS. HE IS USING VENTOLIN WHEN OUTDOORS AND DUONEB UPDRAFTS WHEN IN THE HOUSE BUT ONLY NEEDED. [facility] Medical History Left elbow pain Right tennis elbow Diabetes mellitus GERD (gastroesophageal reflux disease) Anxiety and depression Elevated cholesterol Disc degeneration, lumbosacral Chronic pain syndrome Radiculopathy of lumbosacral region Spondylosis, lumbar, with myelopathy Asthma Bronchitis ITTUS (obstructive sleep apnea) COPD (chronic obstructive pulmonary disease) Surgical History History of cystoscopy History of prostate surgery Hx of colonoscopy History of esophagogastroduodenoscopy (EGD) Family History Mother Hypertension Father Medical history unknown Social History Are you a primary critical care transport nurse to a significant other at home: No Do you presently have visiting nurse or other home services: No Alcohol intake: current Alcohol intake frequency: a few times a month Alcohol type: beer Comment: medicated in pacu Patient Tobacco Use Status: Former Tobacco user Quit Date: 2018 Tobacco use type: Cigarette Cigarette Packs Per Day: 2 Cigarettes Per Day: 40 Years Smoked: 50 years Advance Directives Date on File: 10/13/16 Current occupational status: retired Current occupation: [employer] Review of Systems Const All systems reviewed & are unremarkable except as noted in HPI and below Reports headache(s) Eyes Reports no additional complaints ENT Reports headache(s) and Reports hoarseness Card Reports chest pain and Reports dyspnea Resp Reports dyspnea and Reports wheezing GI Reports heartburn Reports nocturia Musc Reports arthralgias, Reports joint swelling and Reports muscle weakness Neuro Reports headache(s) Psych Reports abnormal sleep pattern, Reports anxiety and Reports depression Endo Reports polydipsia Aller/Immun Reports wheezing Physical Exam Vital Signs: Last Vital Signs Pulse 75 09/08/23 14:23 BP 122/60 09/08/23 14:23 Pulse Ox 96 09/08/23 14:23 Oxygen Delivery Method Room Air 09/08/23 14:23 BMI result Body Mass Index 35.2 Const General: no acute distress, alert, awake and other (Continues to have frequent cough during conversation) Orientation/consciousness: patient oriented x3 HEENT Head: Yes normal to inspection General nose exam: No nasal polyps present and No nasal discharge present Face and sinus: Yes sinuses nontender Mouth: oropharynx abnormals (There is no obvious infection are any white spots in the throat.) Throat: Yes posterior oropharynx normal Eyes General: appearance normal, both eyes and all related structures Neck Neck: Yes normal visual inspection, Yes no lymphadenopathy, Yes trachea midline and Yes no JVD Thyroid: Thyroid normal Chest Chest palpation & inspection: normal inspection of the chest, normal palpation of entire chest wall and no tenderness Resp Other: Percussion note is resonant. Breath sounds are distant with prolonged expiratory phase. No wheezes or crepitations are heard today. Cardio Palpation: normal PMI Rate: regular rate Rhythm: regular rhythm Heart sounds: no gallops and no murmurs Peripheral pulses: Peripheral pulses 2+ throughout GI Palpation (GI): Soft to palpation, nontender, No hepatosplenomegaly present and no masses Auscultation: normal bowel sounds Back/Spine/Pelvis Thoracic/Lumbar Spine: thoracic and lumbar spine normal to inspection and thoraco-lumbar ROM limited Skin General skin exam: no rashes or lesions noted Neuro General: patient oriented x3 and no focal motor deficits Cranial nerves: Yes CN's II-XII intact bilaterally Extrem General: Yes normal to inspection, Yes no clubbing, cyanosis or edema and Yes no calf tenderness Psych Appearance: grossly normal and well kempt Speech and movement: Normal speech and movement present Assessment & Plan Assessment & Plan (1) COPD (chronic obstructive pulmonary disease): Comment: He has chronic and very severe degree of COPD/asthma. Has been relatively stable since he quit smoking. He is doing well except for his complaint of dyspnea on exertion. Code(s): J44.9 - Chronic obstructive pulmonary disease, unspecified Plan: TX : ADVAIR 115-21 ONE INH BID Duo neb udS Q 6 HRS W/A (TID ) and PRN if he wakes up during the night . . Albuterol HFA 2 puffs q . hrs only PRN . (2) TITUS (obstructive sleep apnea): Comment: He was not able to use the CPAP so had returned his CPAP device . He claims that he sleeps okay without CPAP Code(s): G47.33 - Obstructive sleep apnea (adult) (pediatric) Plan: Sleep hygiene measures explained (3) Bronchitis: Comment: Acute bronchitis for which patient was seen on last visit is gone, Today his lungs are clear though his breath sounds are distant due to COPD. Code(s): J40 - Bronchitis, not specified as acute or chronic Plan: Will need to be treated with a short course of prednisone and Z-Dennys when he gets acute bronchitis Coding Level of Care Code Est Pt Level 3 (47396) Diagnoses COPD (chronic obstructive pulmonary disease) J44.9 TITUS (obstructive sleep apnea) G47.33 Bronchitis J40
[2023-09-08 14:23] VITALS: BP 122/60; PULSE 75; O2SAT 96; BMI 35.2
== END 2023-09-08 14:35 | disposition home or self-care (01) ==
PROVIDERS: PCP Internal Medicine Medical Oncology; Visit Provider Internal Medicine
DX: J44.9 Chronic obstructive pulmonary disease, unspecified (principal); G47.33 Obstructive sleep apnea (adult) (pediatric); J40 Bronchitis, not specified as acute or chronic
CPT/HCPCS: 99213

== ENCOUNTER → 2023-09-08 14:18 | Outpatient (BNVA) | payer MEDICARE, MEDICAID, SELFPAY | PROVIDERS: PCP Internal Medicine Medical Oncology; Visit Provider Internal Medicine | DX: J44.9 Chronic obstructive pulmonary disease, unspecified (principal); J40 Bronchitis, not specified as acute or chronic; G47.33 Obstructive sleep apnea (adult) (pediatric) | CPT/HCPCS: 99212 ==

== ENCOUNTER 2023-10-02 09:36 | Outpatient (REF) | payer MEDICARE, MEDICAID, SELFPAY | END 2023-10-02 09:37 | disposition home or self-care (01) | LOC: HO.HOSX 09:36 | PROVIDERS: Visit Provider Orthopaedic Surgery | DX: Z13.89 Encounter for screening for other disorder (principal) ==

== ENCOUNTER 2024-02-02 09:30 | Outpatient (AMB) | payer MEDICARE, MEDICAID, SELFPAY ==
[2024-02-02 09:42] VITALS: BP 130/68; PULSE 90; O2SAT 95; BMI 35.8
--- NOTE | 2024-02-02 09:42 | A.OFFVIS_ITS ---
Vital Signs 02/02/24 09:42 Height 5 ft 3 in Weight 202 lb BMI 35.8 BP 130/68 Blood Pressure Location Lt brachial Position Sitting Pulse 90 Pulse Source Pulse Oximeter Pulse Oximetry (%) 95 Oxygen Delivery Method Room Air Intake Visit Reasons: COPD Intake Note: pt is here for follow up and states he is having issues with his breathing, and needs a replacement for his everyday inhaler, all he has is the emergency inhaler. Joint Yarner Required: No Allergies No Known Allergies [No Known Allergies*] Allergy (Verified 02/02/24 09:54) Medication List - Last Reconciled 02/02/24 by Asher Tuttle MD albuterol sulfate 90 mcg/actuation 2 puffs PO Q6H PRN azithromycin 250 mg PO QDAY 30 days bupropion HCl SR 100 mg PO QAM diclofenac sodium 1% 4 grams topical QID fluticasone propion-salmeterol 115-21 mcg/actuation (Advair HFA) 2 puffs inhalation Q12H gabapentin 600 mg PO TID 30 days ipratropium-albuterol 0.5 mg-3 mg(2.5 mg base)/3 mL 3 mL inhalation TID PRN lidocaine 5% 2 patches topical DAILY 30 days lisinopril 2.5 mg PO DAILY metformin 850 mg PO BID pantoprazole 40 mg PO BID prednisone 5 mg PO DAILY 30 days propranolol 20 mg PO BID sitagliptin phosphate 100 mg PO DAILY sucralfate 10 mL PO BID tamsulosin 0.8 mg PO DAILY Do you need a note to return to daycare/school/sports/work: No HPI HPI COPD: Details: MARILEE MISSED A FEW APPOINTMENTS BUT HAS COME TODAY FOR FOLLOW-UP. HE SAY IS THAT HE FORGETS ABOUT HIS APPOINTMENTS, AND NOW WILL WRITE IT DOWN. HE IS HAVING INCREASED BOUTS OF COUGH AND WHEEZING, SINCE HE IS OUT OF ADVAIR. HE IS NOT TAKING ANY PREDNISONE OR AZITHROMYCIN AT THIS TIME. HE SAY IS HE FEELS BETTER WHEN HE IS TAKING AZITHROMYCIN AND PREDNISONE. DENIES SMOKING FOR. THE LAST 5 YEARS HE DOES USE MARIJUANA ONLY ONCE IN A WHILE. [facility] Medical History (Updated 02/02/24 @ 10:12 by Asher Tuttle MD) Asthma-COPD overlap syndrome Left elbow pain Right tennis elbow Diabetes mellitus GERD (gastroesophageal reflux disease) Anxiety and depression Elevated cholesterol Disc degeneration, lumbosacral Chronic pain syndrome Radiculopathy of lumbosacral region Spondylosis, lumbar, with myelopathy Asthma Bronchitis TITUS (obstructive sleep apnea) COPD (chronic obstructive pulmonary disease) Surgical History History of cystoscopy History of prostate surgery Hx of colonoscopy History of esophagogastroduodenoscopy (EGD) Family History Mother Hypertension Father Medical history unknown Social History Are you a primary gericare aide to a significant other at home: No Do you presently have visiting nurse or other home services: No Alcohol intake: current Alcohol intake frequency: a few times a month Alcohol type: beer Comment: medicated in pacu Patient Tobacco Use Status: Former Tobacco user Tobacco use type: Cigarette Cigarette Packs Per Day: 2 Cigarettes Per Day: 40 Years Smoked: 50 years Advance Directives Date on File: 10/13/16 Current occupational status: retired Current occupation: [employer] Review of Systems Const All systems reviewed & are unremarkable except as noted in HPI and below Reports headache(s) Eyes Reports no additional complaints ENT Reports headache(s) and Reports hoarseness Card Reports chest pain and Reports dyspnea Resp Reports dyspnea and Reports wheezing GI Reports heartburn Reports nocturia Musc Reports arthralgias, Reports joint swelling and Reports muscle weakness Neuro Reports headache(s) Psych Reports abnormal sleep pattern, Reports anxiety and Reports depression Endo Reports polydipsia Aller/Immun Reports wheezing Physical Exam Vital Signs: Last Vital Signs Pulse 90 02/02/24 09:42 BP 130/68 02/02/24 09:42 Pulse Ox 95 02/02/24 09:42 Oxygen Delivery Method Room Air 02/02/24 09:42 BMI result Body Mass Index 35.8 Const General: no acute distress, alert, awake and other (Continues to have frequent cough during conversation) Orientation/consciousness: patient oriented x3 HEENT Head: Yes normal to inspection General nose exam: No nasal polyps present and No nasal discharge present Face and sinus: Yes sinuses nontender Mouth: oropharynx abnormals (There is no obvious infection are any white spots in the throat.) Throat: Yes posterior oropharynx normal Eyes General: appearance normal, both eyes and all related structures Neck Neck: Yes normal visual inspection, Yes no lymphadenopathy, Yes trachea midline and Yes no JVD Thyroid: Thyroid normal Chest Chest palpation & inspection: normal inspection of the chest, normal palpation of entire chest wall and no tenderness Resp Other: Percussion note is resonant. Breath sounds are distant with prolonged expiratory phase. Has a few scattered wheezes on both sides, no crepitations. Cardio Palpation: normal PMI Rate: regular rate Rhythm: regular rhythm Heart sounds: no gallops and no murmurs Peripheral pulses: Peripheral pulses 2+ throughout GI Palpation (GI): Soft to palpation, nontender, No hepatosplenomegaly present and no masses Auscultation: normal bowel sounds Back/Spine/Pelvis Thoracic/Lumbar Spine: thoracic and lumbar spine normal to inspection and thoraco-lumbar ROM limited Skin General skin exam: no rashes or lesions noted Neuro General: patient oriented x3 and no focal motor deficits Cranial nerves: Yes CN's II-XII intact bilaterally Extrem General: Yes normal to inspection, Yes no clubbing, cyanosis or edema and Yes no calf tenderness Psych Appearance: grossly normal and well kempt Speech and movement: Normal speech and movement present Assessment & Plan Assessment & Plan (1) Asthma-COPD overlap syndrome: Comment: MARILEE HAS CHRONIC ASTHMA/COPD SYNDROME. HE IS PRONE TO HAVE FREQUENT ACUTE EXACERBATIONS. HE HAS BEEN RELATIVELY STABLE SINCE HE QUIT SMOKING A FEW YEARS AGO. HE HAS BEEN DEPENDENT ON ORAL PREDNISONE FOR MANY YEARS BUT NOW WE HAVE BEEN ABLE TO TAKE HIM OFF THAT. Code(s): J44.89 - Other specified chronic obstructive pulmonary disease Category: Medical Plan: CONTINUE TO USE ADVAIR HFA 115-212 PUFFS B.I.D. IPRATROPIUM-ALBUTEROL SOLUTION IN THE NEBULIZER Q 4-6 HOURS P.R.N., WHEN AT HOME VENTOLIN HFA 2 PUFFS Q 4-6 HOURS P.R.N. WHEN OUTDOORS. (2) Bronchitis: Comment: NO ACTIVE BRONCHITIS AT THIS TIME. BUT HE IS PRONE TO HAVE FREQUENT ACUTE BOUTS OF BRONCHITIS/CAUSING ACUTE EXACERBATION. Code(s): J40 - Bronchitis, not specified as acute or chronic Category: Medical Plan: HE SHOULD BE ON AZITHROMYCIN 250 MG P.O. 3 TIMES A WEEK ON AN ONGOING BASIS. USE OF DUONEB UPDRAFTS AND VENTOLIN NOTED ABOVE ABOVE (3) TITUS (obstructive sleep apnea): Comment: He was not able to use the CPAP so had returned his CPAP device . He claims that he sleeps okay without CPAP Code(s): G47.33 - Obstructive sleep apnea (adult) (pediatric) Category: Medical Plan: NO FURTHER ACTION, BUT I STRESS THAT HE NEEDS TO KEEP HIS WEIGHT UNDER CONTROL Medications: New azithromycin 250 mg PO 3XW 6 tabs 4RF ASTHMA/COPD 14 days J40 - Bronchitis, not specified as acute or chronic, J44.89 - Other specified chronic obstructive pulmonary disease Changed From fluticasone propion-salmeterol 115-21 mcg/actuation (Advair HFA) 2 puffs inhalation Q12H 12 ea 5RF J44.89 - Other specified chronic obstructive pulmonary disease To fluticasone propion-salmeterol 115-21 mcg/actuation (Advair HFA) 2 puffs inhalation Q12H 12 ea 5RF ASTHMA/COPD 30 days J44.89 - Other specified chronic obstructive pulmonary disease Coding Level of Care Code Est Pt Level 3 (14388) Diagnoses Asthma-COPD overlap syndrome J44.89 Bronchitis J40 TITUS (obstructive sleep apnea) G47.33
== END 2024-02-02 10:05 | disposition home or self-care (01) ==
PROVIDERS: PCP Internal Medicine Medical Oncology; Visit Provider Internal Medicine
DX: J44.89 Other specified chronic obstructive pulmonary disease (principal); J40 Bronchitis, not specified as acute or chronic; G47.33 Obstructive sleep apnea (adult) (pediatric)
CPT/HCPCS: 99213

== ENCOUNTER → 2024-02-02 09:30 | Outpatient (BNVA) | payer MEDICARE, MEDICAID, SELFPAY | PROVIDERS: PCP Internal Medicine Medical Oncology; Visit Provider Internal Medicine | DX: J44.89 Other specified chronic obstructive pulmonary disease (principal); J40 Bronchitis, not specified as acute or chronic; G47.33 Obstructive sleep apnea (adult) (pediatric) | CPT/HCPCS: 99212 ==

== ENCOUNTER 2024-02-09 11:09 | Outpatient (REF) | payer MEDICARE, MEDICAID, SELFPAY ==
--- NOTE | ~2024-02-09 | XR_ITS ---
EXAMINATION: XR FOREARM, LEFT CLINICAL INFORMATION: Pain COMPARISON: Left elbow 07/28/2022 TECHNIQUE: AP and lateral views of the left forearm were obtained. FINDINGS: The bones and soft tissues are normal. No fracture. Imaged portions of the elbow and wrist are unremarkable. XR/XR forearm LT 2V IMPRESSION: Normal left forearm.
[2024-02-09 11:23] LABS: MANUAL DIFF FLAG NO
[2024-02-09 11:43] LABS: Basophils Percent Auto 0.4 % (0-2); Eosinophils Absolute Auto 0.3 X10*3/uL (0.0-0.4); Hemoglobin 15.4 g/dl (14.0-18.0); Imm Gran Abs Auto 0.04 X10*3/uL (0.00-0.03); Imm Gran Pct Auto 0.4 % (0.0-0.4); Lymphocytes Absolute Auto 2.2 X10*3/uL (1.2-4.9); Lymphocytes Percent Auto 22.8 % (20-40); Mean Corpuscular HGB Conc 34.2 g/dl (31.0-36.0); Mean Corpuscular Hemoglobin 29.7 pg (27.0-33.0); Mean Corpuscular Volume 86.9 fL (80.0-98.0); Mean Platelet Volume 9.9 fL (9.4-12.4); Monocytes Absolute Auto 0.7 X10*3/uL (0.1-1.2); Monocytes Percent Auto 7.3 % (2-11); Neutrophils Absolute Auto 6.4 x10*3/uL (2.0-8.3); Neutrophils Percent Auto 66.1 % (45-73); Platelet Count 328 X10*3/uL (160-400); Red Blood Count 5.18 X10*6/uL (4.60-5.80); Red Cell Distribution Width 14.3 % (11.0-16.0); White Blood Count 9.6 X10*3/uL (4.8-10.8)
[2024-02-09 11:58] LABS: Estimated Average Glucose 148 mg/dL; Hemoglobin A1c % 6.8 % (<6.0)
[2024-02-09 12:12] LABS: Alanine Aminotransferase 35 U/L (0-40); Albumin Level 4.1 g/dL (3.5-5.0); Alkaline Phosphatase 83 U/L (39-117); Anion Gap 13 (12-20); Aspartate Amino Transferase 27 U/L (5-37); Bilirubin Total 0.5 mg/dL (0.0-1.0); Blood Urea Nitrogen 11 mg/dL (9-16); Calcium 9.6 mg/dL (8.4-10.2); Carbon Dioxide 29 mmol/L (22-29); Chloride 102 mmol/L (96-108); Cholesterol 217 mg/dL (<200); Estimated Glomerular Filt Rate > 60; Glucose Fasting 176 mg/dL (60-99); HDL Cholesterol 38 mg/dL (>40); LDL Cholesterol Calculated 149 mg/dL (<100); Potassium 4.4 mmol/L (3.3-5.1); Sodium 140 mmol/L (135-145); Total Protein 7.7 g/dL (6.5-8.0); Triglycerides 153 mg/dL (<150)
[2024-02-09 14:13] LABS: Creatinine Urine 145.71 mg/dL; Microalbum/Creatinine Ratio Ur 11.6 ug/mg cr (<30)
== END 2024-02-09 11:10 | disposition home or self-care (01) ==
LOC: HO.XRAY 11:09
PROVIDERS: PCP Internal Medicine Medical Oncology; Visit Provider Internal Medicine Medical Oncology
DX: E11.9 Type 2 diabetes mellitus without complications (principal); E66.9 Obesity, unspecified; E78.01 Familial hypercholesterolemia; M79.602 Pain in left arm
CPT/HCPCS: 36415; 73090; 80053; 80061; 82043; 82570; 83036; 85025

== ENCOUNTER 2024-03-23 08:57 | Outpatient (AMB) | payer MEDICARE, MEDICAID, SELFPAY ==
--- NOTE | 2024-03-23 09:05 | MHC.OFFVIS ---
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 Patient reports ongoing pain for 3 - 4 months, no hx of injury. He states that his elbow pain is tender to touch. Patient mentions that he has a numb sensation on his elbow that causes him to have a lot of pain. Pain is worse when he is laying down and brushing his arm up against an object. Patient hasn't tried any pain medications. [facility] Messenger Services: Court Messenger Offered & Declined Allergies No Known Allergies [No Known Allergies*] Allergy (Verified 03/23/24 09:10) Medication List - Last Reconciled 03/23/24 by Hyacinth Castañeda PA-C albuterol sulfate 90 mcg/actuation 2 puffs PO Q6H PRN azithromycin 250 mg PO 3XW 14 days azithromycin 250 mg PO QDAY 30 days bupropion HCl SR 100 mg PO QAM diclofenac sodium 1% 4 grams topical QID fluticasone propion-salmeterol 115-21 mcg/actuation (Advair HFA) 2 puffs inhalation Q12H 30 days fluticasone propion-salmeterol 250-50 mcg/dose (Wixela Inhub) 1 inh inhalation BID 30 days gabapentin 600 mg PO TID 30 days ipratropium-albuterol 0.5 mg-3 mg(2.5 mg base)/3 mL 3 mL inhalation TID PRN lidocaine 5% 2 patches topical DAILY 30 days lisinopril 2.5 mg PO DAILY metformin 850 mg PO BID pantoprazole 40 mg PO BID prednisone 5 mg PO DAILY 30 days propranolol 20 mg PO BID sitagliptin phosphate 100 mg PO DAILY sucralfate 10 mL PO BID tamsulosin 0.8 mg PO DAILY HPI HPI 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 He states the pain has been going on since 3-4 months and denies any injury or trauma. He did x-rays of the forearm, which did not show any injury. He gets some numbness in the elbow, which causes a lot of pain. His pain is worse while lying down or hitting against any object. He denies taking any medication for the pain. [facility] Medical History (Updated 03/23/24 @ 09:26 by Hyacinth Castañeda PA-C) Asthma-COPD overlap syndrome Left elbow pain Right tennis elbow Diabetes mellitus GERD (gastroesophageal reflux disease) Anxiety and depression Elevated cholesterol Disc degeneration, lumbosacral Chronic pain syndrome Radiculopathy of lumbosacral region Spondylosis, lumbar, with myelopathy Asthma Bronchitis TITUS (obstructive sleep apnea) COPD (chronic obstructive pulmonary disease) Surgical History History of cystoscopy History of prostate surgery Hx of colonoscopy History of esophagogastroduodenoscopy (EGD) Family History Mother Hypertension Father Medical history unknown Social History Are you a primary day care supervisor to a significant other at home: No Do you presently have visiting nurse or other home services: No Alcohol intake: current Alcohol intake frequency: a few times a month Alcohol type: beer Comment: medicated in pacu Patient Tobacco Use Status: Former Tobacco user Tobacco use type: Cigarette Cigarette Packs Per Day: 2 Cigarettes Per Day: 40 Years Smoked: 50 years Advance Directives Date on File: 10/13/16 Current occupational status: retired Current occupation: [employer] Review of Systems Const All systems reviewed & are unremarkable except as noted in HPI and below Physical Exam Vital Signs: BMI result Body Mass Index 35.8 Const General: cooperative and no acute distress Orientation/consciousness: patient oriented x3 Resp Effort & Inspection: normal respiratory effort and able to speak in complete sentences Cardio Peripheral pulses: Peripheral pulses 2+ throughout Neuro General: patient oriented x3 Extrem Other: Left elbow: Skin intact. No erythema or swelling. ROM full without pain. Tenderness over the lateral epicondyle and pain with resisted wrist extension. NVI. Assessment & Plan Assessment & Plan (1) Left lateral epicondylitis: Code(s): M77.12 - Lateral epicondylitis, left elbow Category: Medical Plan We discussed options which include PT, NSAIDs and injections. The patient will defer on the injection today and proceed with PT and NSAIDs. If symptoms persist, he will contact me for an injection, otherwise, PRN. I aso encouraged he void lifting or doing repetitive motions to help with resolution of symptoms. Scribed for Hyacinth Castañeda PA-C, by Kwabena Guerra medical radiation dosimetrist, on 03/23/2024 at 9:15 AM EST. I, Hyacinth Castañeda PA-C, have personally reviewed and agree with the information entered by the scribe. Orders: Orders OT Evaluation and Treatment Today M77.12 - Lateral epicondylitis, left elbow Coding Level of Care Code New Pt Level 3 (40621) Complex EM visit Add On G2211 Diagnoses Left lateral epicondylitis M77.12
[2024-03-23 09:11] VITALS: BMI 35.8
== END 2024-03-23 09:40 | disposition home or self-care (01) ==
PROVIDERS: PCP Internal Medicine Medical Oncology; Visit Provider Physician Assistant
DX: M77.12 Lateral epicondylitis, left elbow (principal)
CPT/HCPCS: 99203; G2211

== ENCOUNTER → 2024-03-23 08:57 | Outpatient (BNVA) | payer MEDICARE, MEDICAID, SELFPAY | PROVIDERS: PCP Internal Medicine Medical Oncology; Visit Provider Physician Assistant | DX: M77.12 Lateral epicondylitis, left elbow (principal) | CPT/HCPCS: 99202 ==

== ENCOUNTER 2024-04-05 09:39 | Outpatient (AMB) | payer MEDICARE, MEDICAID, SELFPAY ==
[2024-04-05 09:44] VITALS: BP 130/68; PULSE 66; O2SAT 93; BMI 35.7
--- NOTE | 2024-04-05 09:44 | MHC.OFFVIS ---
Vital Signs 04/05/24 09:44 Height 5 ft 3 in Weight 201 lb 11.567 oz BMI 35.7 BP 130/68 Blood Pressure Location Lt brachial Position Sitting Pulse 66 Pulse Source Pulse Oximeter Pulse Oximetry (%) 93 Oxygen Delivery Method Room Air Intake Visit Reasons: COPD Intake Note: pt is here for follow up and states only short of breath with stairs, Health Equipment Servicer Required: No Allergies No Known Allergies [No Known Allergies*] Allergy (Verified 04/05/24 09:49) Medication List - Last Reconciled 04/05/24 by Asher Tuttle MD albuterol sulfate 90 mcg/actuation 2 puffs PO Q6H PRN bupropion HCl SR 100 mg PO QAM diclofenac sodium 1% 4 grams topical QID fluticasone propion-salmeterol 250-50 mcg/dose (Wixela Inhub) 1 inh inhalation BID 30 days gabapentin 600 mg PO TID 30 days ipratropium-albuterol 0.5 mg-3 mg(2.5 mg base)/3 mL 3 mL inhalation TID PRN lidocaine 5% 2 patches topical DAILY 30 days lisinopril 2.5 mg PO DAILY metformin 850 mg PO BID pantoprazole 40 mg PO BID propranolol 20 mg PO BID sitagliptin phosphate 100 mg PO DAILY sucralfate 10 mL PO BID tamsulosin 0.8 mg PO DAILY Do you need a note to return to daycare/school/sports/work: No HPI HPI COPD: Details: Carroll 69 years old gentleman is doing fairly well at this time. He has usual intermittent cough mostly dry. He has had no wheezing attacks. Gets short of breath if he walks up hill or climbs stairs but not at rest. He is no longer taking azithromycin and has had no respiratory infection. HE IS NOT SMOKING. [facility] Medical History (Updated 04/05/24 @ 09:58 by Asher Tuttle MD) Current non-smoker but past smoking history unknown Asthma-COPD overlap syndrome Left elbow pain Right tennis elbow Diabetes mellitus GERD (gastroesophageal reflux disease) Anxiety and depression Elevated cholesterol Disc degeneration, lumbosacral Chronic pain syndrome Radiculopathy of lumbosacral region Spondylosis, lumbar, with myelopathy Asthma Bronchitis TITUS (obstructive sleep apnea) COPD (chronic obstructive pulmonary disease) Surgical History History of cystoscopy History of prostate surgery Hx of colonoscopy History of esophagogastroduodenoscopy (EGD) Family History Mother Hypertension Father Medical history unknown Social History Are you a primary intensive care specialist to a significant other at home: No Do you presently have visiting nurse or other home services: No Alcohol intake: current Alcohol intake frequency: a few times a month Alcohol type: beer Comment: medicated in pacu Patient Tobacco Use Status: Former Tobacco user Tobacco use type: Cigarette Cigarette Packs Per Day: 2 Cigarettes Per Day: 40 Years Smoked: 50 years Advance Directives Date on File: 10/13/16 Current occupational status: retired Current occupation: [employer] Review of Systems Const All systems reviewed & are unremarkable except as noted in HPI and below Reports headache(s) Eyes Reports no additional complaints ENT Reports headache(s) and Reports hoarseness Card Reports chest pain and Reports dyspnea Resp Reports dyspnea and Reports wheezing GI Reports heartburn Reports nocturia Musc Reports arthralgias, Reports joint swelling and Reports muscle weakness Neuro Reports headache(s) Psych Reports abnormal sleep pattern, Reports anxiety and Reports depression Endo Reports polydipsia Aller/Immun Reports wheezing Physical Exam Vital Signs: Last Vital Signs Pulse 66 04/05/24 09:44 BP 130/68 04/05/24 09:44 Pulse Ox 93 04/05/24 09:44 Oxygen Delivery Method Room Air 04/05/24 09:44 BMI result Body Mass Index 35.7 Const General: no acute distress, alert, awake and other (Continues to have frequent cough during conversation) Orientation/consciousness: patient oriented x3 HEENT Head: Yes normal to inspection General nose exam: No nasal polyps present and No nasal discharge present Face and sinus: Yes sinuses nontender Mouth: oropharynx abnormals (There is no obvious infection are any white spots in the throat.) Throat: Yes posterior oropharynx normal Eyes General: appearance normal, both eyes and all related structures Neck Neck: Yes normal visual inspection, Yes no lymphadenopathy, Yes trachea midline and Yes no JVD Thyroid: Thyroid normal Chest Chest palpation & inspection: normal inspection of the chest, normal palpation of entire chest wall and no tenderness Resp Other: Percussion note is resonant. Breath sounds are distant with prolonged expiratory phase. Has no crepitations or wheezes. Cardio Palpation: normal PMI Rate: regular rate Rhythm: regular rhythm Heart sounds: no gallops and no murmurs Peripheral pulses: Peripheral pulses 2+ throughout GI Palpation (GI): Soft to palpation, nontender, No hepatosplenomegaly present and no masses Auscultation: normal bowel sounds Back/Spine/Pelvis Thoracic/Lumbar Spine: thoracic and lumbar spine normal to inspection and thoraco-lumbar ROM limited Skin General skin exam: no rashes or lesions noted Neuro General: patient oriented x3 and no focal motor deficits Cranial nerves: Yes CN's II-XII intact bilaterally Extrem General: Yes normal to inspection, Yes no clubbing, cyanosis or edema and Yes no calf tenderness Psych Appearance: grossly normal and well kempt Speech and movement: Normal speech and movement present Assessment & Plan Assessment & Plan (1) Asthma-COPD overlap syndrome: Comment: MARILEE HAS CHRONIC ASTHMA/COPD SYNDROME. HE IS PRONE TO HAVE FREQUENT ACUTE EXACERBATIONS BUT NOT LATELY . HE HAS BEEN RELATIVELY STABLE SINCE HE QUIT SMOKING A FEW YEARS AGO. HE HAS BEEN DEPENDENT ON ORAL PREDNISONE FOR MANY YEARS BUT NOW WE HAVE BEEN ABLE TO TAKE HIM OFF THAT. Code(s): J44.89 - Other specified chronic obstructive pulmonary disease Category: Medical Plan: CONTINUE THE PRESENT REGIMEN WHICH IS FOLLOWS: WIXELA 250-51 INHALATION B.I.D.. IPRATROPIUM-ALBUTEROL SOLUTION IN THE NEBULIZER Q 6 HOURS WHILE AWAKE. VENTOLIN HFA 2 PUFFS Q 4-6 HOURS P.R.N. WHEN OUTDOORS. (2) TITUS (obstructive sleep apnea): Comment: He was not able to use the CPAP so had returned his CPAP device . He claims that he sleeps okay without CPAP Code(s): G47.33 - Obstructive sleep apnea (adult) (pediatric) Category: Medical Plan: CAUTIONED THAT HE SHOULD MAKE SURE NOT TO GAIN ANY WEIGHT. SLEEP HYGIENE EXPLAINED. (3) Current non-smoker but past smoking history unknown: Comment: PATIENT IS DETERMINED NOT TO GO BACK TO SMOKING. Code(s): Z78.9 - Other specified health status Category: Social Hx Plan: COMMENDED FOR NOT SMOKING. Coding Level of Care Code Est Pt Level 3 (07604) Diagnoses Asthma-COPD overlap syndrome J44.89 TITUS (obstructive sleep apnea) G47.33 Current non-smoker but past smoking history unknown Z78.9
== END 2024-04-05 09:54 | disposition home or self-care (01) ==
PROVIDERS: PCP Internal Medicine Medical Oncology; Visit Provider Internal Medicine
DX: J44.89 Other specified chronic obstructive pulmonary disease (principal); G47.33 Obstructive sleep apnea (adult) (pediatric); Z78.9 Other specified health status
CPT/HCPCS: 99213

== ENCOUNTER → 2024-04-05 09:39 | Outpatient (BNVA) | payer MEDICARE, MEDICAID, SELFPAY | PROVIDERS: PCP Internal Medicine Medical Oncology; Visit Provider Internal Medicine | DX: J44.89 Other specified chronic obstructive pulmonary disease (principal); G47.33 Obstructive sleep apnea (adult) (pediatric); Z78.9 Other specified health status; Z87.891 Personal history of nicotine dependence | CPT/HCPCS: 99212 ==

== ENCOUNTER 2024-06-16 11:47 | Outpatient (REF) | payer MEDICARE, MEDICAID, SELFPAY ==
[2024-06-16 12:01] LABS: MANUAL DIFF FLAG NO
[2024-06-16 12:22] LABS: Basophils Absolute Auto 0.1 X10*3/uL (0.0-0.2); Basophils Percent Auto 0.7 % (0-2); Eosinophils Absolute Auto 0.3 X10*3/uL (0.0-0.4); Eosinophils Percent Auto 2.8 % (0-4); Hematocrit 48.3 % (42.0-52.0); Hemoglobin 16.5 g/dl (14.0-18.0); Imm Gran Abs Auto 0.05 X10*3/uL (0.00-0.03); Imm Gran Pct Auto 0.4 % (0.0-0.4); Lymphocytes Absolute Auto 2.9 X10*3/uL (1.2-4.9); Lymphocytes Percent Auto 25.3 % (20-40); Mean Corpuscular HGB Conc 34.2 g/dl (31.0-36.0); Mean Corpuscular Hemoglobin 29.2 pg (27.0-33.0); Mean Corpuscular Volume 85.5 fL (80.0-98.0); Mean Platelet Volume 9.8 fL (9.4-12.4); Monocytes Absolute Auto 0.9 X10*3/uL (0.1-1.2); Neutrophils Absolute Auto 7.3 x10*3/uL (2.0-8.3); Neutrophils Percent Auto 62.8 % (45-73); Platelet Count 366 X10*3/uL (160-400); Red Blood Count 5.65 X10*6/uL (4.60-5.80); Red Cell Distribution Width 14.4 % (11.0-16.0); White Blood Count 11.6 X10*3/uL (4.8-10.8)
[2024-06-16 12:31] LABS: Estimated Average Glucose 120 mg/dL; Hemoglobin A1c % 5.8 % (<6.0); Total Hemoglobin (HGBA1C) 4115.7134 umol/L
[2024-06-16 12:38] LABS: Creatinine Urine 136.46 mg/dL; Microalbum/Creatinine Ratio Ur 11.7 ug/mg cr (<30)
[2024-06-16 12:49] LABS: Alanine Aminotransferase 63 U/L (0-40); Albumin Level 4.1 g/dL (3.5-5.0); Alkaline Phosphatase 87 U/L (39-117); Anion Gap 13 (12-20); Aspartate Amino Transferase 63 U/L (5-37); Bilirubin Total 0.8 mg/dL (0.0-1.0); Blood Urea Nitrogen 13 mg/dL (9-16); Calcium 10.1 mg/dL (8.4-10.2); Carbon Dioxide 29 mmol/L (22-29); Chloride 105 mmol/L (96-108); Cholesterol 207 mg/dL (<200); Estimated Glomerular Filt Rate > 60; Glucose Fasting 90 mg/dL (60-99); HDL Cholesterol 37 mg/dL (>40); LDL Cholesterol Calculated 147 mg/dL (<100); Potassium 4.5 mmol/L (3.3-5.1); Sodium 142 mmol/L (135-145); Triglycerides 116 mg/dL (<150)
== END 2024-06-16 11:48 | disposition home or self-care (01) ==
LOC: HO.LAB 11:47
PROVIDERS: PCP Internal Medicine Medical Oncology; Visit Provider Internal Medicine Medical Oncology
DX: E11.9 Type 2 diabetes mellitus without complications (principal); E66.9 Obesity, unspecified; E78.01 Familial hypercholesterolemia
CPT/HCPCS: 36415; 80053; 80061; 82043; 82570; 83036; 85025

== ENCOUNTER 2024-08-03 13:13 | Outpatient (AMB) | payer MEDICARE, MEDICAID, SELFPAY ==
[2024-08-03 13:18] VITALS: BP 130/64; PULSE 82; O2SAT 95; BMI 33.3
--- NOTE | 2024-08-03 13:18 | A.OFFVIS_ITS ---
Vital Signs 08/03/24 13:18 Height 5 ft 3 in Weight 188 lb BMI 33.3 BP 130/64 Blood Pressure Location Lt brachial Position Sitting Pulse 82 Pulse Source Pulse Oximeter Pulse Oximetry (%) 95 Oxygen Delivery Method Room Air Intake Visit Reasons: COPD Intake Note: pt is here for follow up and states he is feeling good, only short of breath with stairs. Pediatric Neurologist Required: No Allergies No Known Allergies [No Known Allergies*] Allergy (Verified 08/03/24 13:37) Medication List - Last Reconciled 08/03/24 by Asher Tuttle MD albuterol sulfate 90 mcg/actuation 2 puffs PO Q6H PRN bupropion HCl SR 100 mg PO QAM diclofenac sodium 1% 4 grams topical QID fluticasone propion-salmeterol 250-50 mcg/dose (Wixela Inhub) 1 inh inhalation BID 30 days gabapentin 600 mg PO TID 30 days ipratropium-albuterol 0.5 mg-3 mg(2.5 mg base)/3 mL 3 mL inhalation TID PRN lidocaine 5% 2 patches topical DAILY 30 days lisinopril 2.5 mg PO DAILY metformin 850 mg PO BID pantoprazole 40 mg PO BID propranolol 20 mg PO BID sitagliptin phosphate 100 mg PO DAILY sucralfate 10 mL PO BID tamsulosin 0.8 mg PO DAILY Do you need a note to return to daycare/school/sports/work: No HPI HPI COPD: Details: 69 years old gentleman is here for routine follow-up. During the last 3 months he just had flu symptoms at 1 time but has had no persistent respiratory infection. He has not smoked since 5 years ago He does have sleep apnea but has not been able to use CPAP. He has been serious about losing weight and since his last visit he has lost about 11 lb. He claims that he sleeps good at least for 5-6 hours every night. No daytime sleepiness. [facility] Medical History Current non-smoker but past smoking history unknown Asthma-COPD overlap syndrome Left elbow pain Right tennis elbow Diabetes mellitus GERD (gastroesophageal reflux disease) Anxiety and depression Elevated cholesterol Disc degeneration, lumbosacral Chronic pain syndrome Radiculopathy of lumbosacral region Spondylosis, lumbar, with myelopathy Asthma Bronchitis TITUS (obstructive sleep apnea) COPD (chronic obstructive pulmonary disease) Surgical History History of cystoscopy History of prostate surgery Hx of colonoscopy History of esophagogastroduodenoscopy (EGD) Family History Mother Hypertension Father Medical history unknown Social History Are you a primary health care liaison to a significant other at home: No Do you presently have visiting nurse or other home services: No Alcohol intake: current Alcohol intake frequency: a few times a month Alcohol type: beer Comment: medicated in pacu Patient Tobacco Use Status: Former Tobacco user Tobacco use type: Cigarette Cigarette Packs Per Day: 2 Cigarettes Per Day: 40 Years Smoked: 50 years Advance Directives Date on File: 10/13/16 Current occupational status: retired Current occupation: [employer] Review of Systems Const All systems reviewed & are unremarkable except as noted in HPI and below Reports headache(s) Eyes Reports no additional complaints ENT Reports headache(s) and Reports hoarseness Card Reports chest pain and Reports dyspnea Resp Reports dyspnea and Reports wheezing GI Reports heartburn Reports nocturia Musc Reports arthralgias, Reports joint swelling and Reports muscle weakness Neuro Reports headache(s) Psych Reports abnormal sleep pattern, Reports anxiety and Reports depression Endo Reports polydipsia Aller/Immun Reports wheezing Physical Exam Vital Signs: Last Vital Signs Pulse 82 08/03/24 13:18 BP 130/64 08/03/24 13:18 Pulse Ox 95 08/03/24 13:18 Oxygen Delivery Method Room Air 08/03/24 13:18 BMI result Body Mass Index 33.3 Const General: no acute distress, alert, awake and other (Continues to have frequent cough during conversation) Orientation/consciousness: patient oriented x3 HEENT Head: Yes normal to inspection General nose exam: No nasal polyps present and No nasal discharge present Face and sinus: Yes sinuses nontender Mouth: oropharynx abnormals (There is no obvious infection are any white spots in the throat.) Throat: Yes posterior oropharynx normal Eyes General: appearance normal, both eyes and all related structures Neck Neck: Yes normal visual inspection, Yes no lymphadenopathy, Yes trachea midline and Yes no JVD Thyroid: Thyroid normal Chest Chest palpation & inspection: normal inspection of the chest, normal palpation of entire chest wall and no tenderness Resp Other: Percussion note is resonant. Breath sounds are distant with prolonged expiratory phase. Has no crepitations or wheezes. Cardio Palpation: normal PMI Rate: regular rate Rhythm: regular rhythm Heart sounds: no gallops and no murmurs Peripheral pulses: Peripheral pulses 2+ throughout GI Palpation (GI): Soft to palpation, nontender, No hepatosplenomegaly present and no masses Auscultation: normal bowel sounds Back/Spine/Pelvis Thoracic/Lumbar Spine: thoracic and lumbar spine normal to inspection and thora co-lumbar ROM limited Skin General skin exam: no rashes or lesions noted Neuro General: patient oriented x3 and no focal motor deficits Cranial nerves: Yes CN's II-XII intact bilaterally Extrem General: Yes normal to inspection, Yes no clubbing, cyanosis or edema and Yes no calf tenderness Psych Appearance: grossly normal and well kempt Speech and movement: Normal speech and movement present Assessment & Plan Assessment & Plan (1) Asthma-COPD overlap syndrome: Comment: MARILEE HAS CHRONIC ASTHMA/COPD SYNDROME. HE IS PRONE TO HAVE FREQUENT ACUTE EXACERBATIONS BUT NOT LATELY . HE HAS BEEN RELATIVELY STABLE SINCE HE QUIT SMOKING 5 years AGO. HE HAS BEEN DEPENDENT ON ORAL PREDNISONE FOR MANY YEARS BUT NOW DOING OKAY WITHOUT PREDNISONE. Code(s): J44.89 - Other specified chronic obstructive pulmonary disease Category: Medical Plan: CONTINUE WIXELA 250-51 INHALATION B.I.D.. IPRATROPIUM-ALBUTEROL SOLUTION IN THE NEBULIZER Q.4-6 HOURS P.R.N.. ALBUTEROL HFA 2 PUFFS Q 4-6 HOURS P.R.N. WHEN OUTDOORS (2) TITUS (obstructive sleep apnea): Comment: HE DID HAVE OBSTRUCTIVE SLEEP APNEA, BUT WAS NOT ABLE TO USE CPAP SO HE RETURNED THE DEVICE. HE IS NOTED TO BE MORE SERIOUS ABOUT WEIGHT LOSS AND HAS LOST ABOUT 11 LB SINCE LAST VISIT. HE CLAIMS THAT HE SLEEPS GOOD WITHOUT MUCH PROBLEM. Code(s): G47.33 - Obstructive sleep apnea (adult) (pediatric) Category: Medical Plan: COMMENDED FOR LOSING WEIGHT AND ENCOURAGED TO KEEP ON LOSING WEIGHT AT A SLOW PACE (3) Bronchitis: Comment: NO ACTIVE BRONCHITIS AT THIS TIME. BUT HE IS PRONE TO HAVE FREQUENT ACUTE BOUTS OF BRONCHITIS/CAUSING ACUTE EXACERBATION. Code(s): J40 - Bronchitis, not specified as acute or chronic Category: Medical Plan: NEEDS TO BE MONITORED CLOSELY Coding Level of Care Code Est Pt Level 3 (89763) Diagnoses Asthma-COPD overlap syndrome J44.89 TITUS (obstructive sleep apnea) G47.33 Bronchitis J40
--- OUTSIDE RECORDS SUMMARY | 2024-08-03 15:18 | XMS_ITS | Clinical Summary ---
Author Organization [employer] [facility] Address [address] [place] [address] [address] [place] [address] Care Team Providers Care Setter Cold Rolling Machine Name Role Phone Unavailable Primary Care Provider Unavailabl e Allergies No known active allergies Medications No known medications Active Problems Problem Noted Date Diagnosed Date Periodontal disease 02/20/2023 Immunizations Name Administration Dates Next Due Influenza High-dose Quadrivalent Preservative Fr ee 03/28/2022 Influenza Injectable Quadriv alant Preservative Free IIV4 MDCK 04/20/2019 Influenza injectable quadrivalent preservative f ree 03/08/2021,03/09/2020 Influenza, IIV3, injectable 03/10/2017, 6 Pfizer Covid-19 Vaccine 12+ 09/06/2021 Pfizer Covid-19 Vaccine 12+ Bivalent 07/22/2022 Pneumococcal Polysaccharide PPSV23 06/24/2016 Zoster, Recombinant 03/09/2020 Social History Tobacco Use Types Packs/Day Years Used Date Smoking Tobacco: Never Passive Smoke Exposure: Never Smokeless Tobacco: Never Tobacco Cessation:Counseling Given: Not Answered Alcohol Use Standard Drinks/Week Comments Never 0 (1 standard drink = 0.6 oz pur e alcohol) Sex and Gender Information Value Date Recorded Sex Assigned at Male 05/05/2022 10:16 AM EDT Legal Sex Male 10:16 AM EDT Gender Identity Male 05/05/2022 10:16 AM EDT Sexual Orientation Don't know 05/05/2022 10 :16 AM EDT Plan of Treatment Health Maintenance Due Date Last Done Comments CT Colonography 1957 Colonoscopy 1957 Colorectal Cancer Screening 1955 Dental Prophylaxis 1957 Dental X-Ray: Bitewings 1957 Depression Screening 1955 FIT DNA/Cologuard 1957 FIT 1957 FOBT 1957 Lipid Panel 1957 SDOH Screening 1957 Sigmoidoscopy 1957 Alcohol/Substance Use Screening 1969 Hepatitis C Screening 1975 DTaP/Tdap/Td Vaccines (1 - Tdap) 1976 Zoster Vaccines (2 of 2) 05/04/2020 03/09/2020 Dental Oral Exam 10/01/2021 04/02/2021 Pneumococcal Vaccine: 50+ Years (2 of 2 - PCV) 2022 06/24/2016 Tobacco Screening 02/21/2024 02/20/2023 COVID-19 Vaccine ( season) 2024 07/22/2022, 09/06/2021, 10/02/2020, Additional history exists Influenza Vaccine (#1) 2024 , 03/28/2022, 03/08/2021, Additional history exists Dental X-Ray: Full Mouth 04/03/2024 04/02/2021 RSV Patients and Patients Aged 60 years or older (1 - 1-dose 75+ series) 2032 HIB Vaccines Aged Out No longer eligi ble based on patient's age to complete this topic HPV Vaccines Aged Out No longer eligi ble based on patient's age to complete this topic Hepatitis A Vaccines Aged Out No long er eligible based on patient's age to complete this topic Hepatitis B Vaccines Aged Out No long er eligible based on patient's age to complete this topic IPV Vaccines Aged Out No longer eligi ble based on patient's age to complete this topic Meningococcal Vaccine Aged Out No katelin julian eligible based on patient's age to complete this topic RSV under 20 months Aged Out No longe r eligible based on patient's age to complete this topic Rotavirus Vaccines Aged Out No longer eligible based on patient's age to complete this topic Procedures Procedure Name Priority Date/Time Associated Diagnosis Comments PANORAMIC RADIOGRAPHIC IMAGE Routine 04/02/2021 12:00 AM EDT COMPREHENSIVE ORAL EVALUATION - NEW OR ESTABLISHED PATIENT Routine 04/02/2021 12:00 AM EDT from Last 3 Months or Most Recently Relevant to Health Maintenance Insurance [facility] - [facility]
--- OUTSIDE RECORDS SUMMARY | 2024-08-03 15:18 | XMS_ITS ---
Author Organization Chin Zepeda III, MD Address [address] [place] [address] [place] [address] Care Team Providers Care Sales Enablement Lead Name Role Phone Chin Zepeda Primary Care Provider Medications Medication SIG (Take, Route, Frequency, Duration) Notes Start Date End Date Status Guaiatussin AC 100-10 MG/5ML 5 mL as needed Orally every 4 hrs for 7 days 07/12/2024 07/26/2024 Active Social History Sex Assigned At : Social History Observation Description Sex Assigned At Male Encounters Encounter Location Date Provider Diagnosis Chin Zepeda III, MD [address] [place] [address] [place] [address] 07/12/2024 Chin Zepeda Plan Of Treatment Medication Medication Name Sig Start Date Stop Date Notes Guaiatussin AC 100-10 MG/5ML 5 mL as nee ded Orally every 4 hrs for 7 days 07/12/2024 07/26/2024 Next Appt Details Provider Name:Chin Zepeda, 09/14/2024 11:00:00 AM, [address] [place] [address] [place], [address], Provider Name:Chin Zepeda, 11/14/2024 11:00:00 AM, [address] [place] [address] [place], [address], Progress Notes * Juan Diego BARRAZA ADOB:[birth year] (69 yo M)Acc No.[id number]:07/12/2024 Patient:?Juan Diego BARRAZA :1955???Age:69 Y???Sex:Male Address:[address] [place] [address], [place], [address] * Refills? Start Guaiatussin AC Syrup, 100-10 MG/5ML, Orally, 210 ML, 5 mL as needed, every 4 hrs, 7 days, Refills=1 * true * Date:? Generated for Alex crocker/Miguel A/eTransmitting on:?08/03/2024 03:18 PM EST
--- OUTSIDE RECORDS SUMMARY | 2024-08-03 15:19 | XMS_ITS | Patient Health Record ---
Author Organization [facility] Address [address] [place] [address] Care Team Providers Care Fuel Quality Tech Name Role Phone Chin Zepeda MD Primary Care Provider Unavailab Mauro Church Unavailable [phone] Allergies No Known Allergies Reason For Referral No Information Medications Medication SIG (Take, Route, Frequency, Duration) Notes Start Date End Date Status buPROPion HCl ER (SR) 200 MG 1 tablet in the morning Orally Once a day Active Extra Depth Orthopedic Shoes (1 Pair) with Customized Heat Molded Multidensity Innersoles (3 Pair) as directed Dx: NIDDM/Polyneuropathy (E11.42), Hammertoe Foot Deformity (M20.41,M20.42), Preulcerative Skin Lesion(s) (L85.1 02/08/2024 Active Albuterol Sulfate HFA 108 (90 Base) MCG/ACT 1 puff as needed Inhalation every 4 hrs Active Januvia 100 MG 1 tablet Orally Once a day Active Gabapentin 600 MG 1 tablet Orally Once a day Active predniSONE 5 MG 1 tablet Orally Once a day Active metFORMIN HCl 850 MG 1 tablet with a lakshmi l Orally Once a day Active Melatonin 5 MG 1 tablet in the even ing Orally Once a day Active Lisinopril 2.5 MG 1 tablet Orally Once a day Active Lantus SoloStar 100 UNIT/ML as directed Subcutaneous Act ladi Social History Tobacco Use: Social History Observation Description Date Details (start date - stop date) Never Smoker NA - NA Alcohol Screen Question Answer Notes Did you have a drink containing alcohol in the p ast year? Yes Points 0 Interpretation Negative Tobacco use other than smoking: Question Answer Notes Are you an other tobacco user? No Tobacco Control (Standard) Question Answer Notes Tobacco use: Nonsmoker Problems Problem Type SNOMED Code ICD Code Onset Dates Problem Status W/U Status Risk Notes Problem Acquired hammer toe of right foot (8741538072932917 ) Other hammer toe(s) (acquired), right foot (M20.41) Active confirmed Problem Acquired hammer toe of left foot (3140190928320829 ) Other hammer toe(s) (acquired), left foot (M20.42) Active confirmed Problem Polyneuropathy due to type 2 diabetes mellitus (590297021) Type 2 diabetes mellitus with diabetic polyneuropathy (E11.42) Active confirmed Vital Signs Height 5ft 3 in in 02/08/2024 Weight 201 lbs 02/08/2024 BMI 35.6 kg/m2 02/08/2024 Procedures Procedure Date Ordered Date Performed Result Body Sit e 22744-KZYBMFQ NAIL, 1-5 02/08/2024 N/A 04732-Cvaeugld Plate 02/08/2024 N/A 70388-AAZU SKIN LESIONS, OVER 4 02/08/2024 N/A [id number] DYSTROPHIC NAILS ANY # 02/08/2024 N/A Encounters Encounter Location Date Provider Diagnosis [facility] [address] 02/08/2024 Mauro Spangler Tinea unguium B35.1 ; Type 2 diabetes mellitus with diabetic polyneuropathy E11.42 ; Ingrown nail L60.0 ; Other hammer toe(s) (acquired), right foot M20.41 and Other hammer toe(s) (acquired), left foot M20.[address] [facility] [address] 05/09/2024 Mauro Spangler Assessments Encounter Date Diagnosis (ICD Code) Assessment Notes Treatment Notes Treatment Clinical Notes Section Notes 02/08/2024 Tinea unguium (ICD-10 - B35.1) 02/08/2024 Type 2 diabetes mellitus with diabetic polyneuropathy (ICD-10 - E11.42) 02/08/2024 Ingrown nail (ICD-10 - L60.0) 02/08/2024 Other hammer toe(s) (acquired), right foot (ICD-10 - M20.41) Patient Educated with: DIABETIC FOOT CARE INSTRUCTIONS. pdf (DIABETIC FOOT CARE INSTRUCTIONS. pdf) 02/08/2024 Other hammer toe(s) (acquired), left foot (ICD-10 - M20.42) Plan Of Treatment Pending Test Test Name Order Date [id number] NAIL, 1-5 02/08/2024 08290-Fwpfymcg Plate 02/08/2024 06628-PUWJ SKIN LESIONS, OVER 4 02/08/20 24 [id number] DYSTROPHIC NAILS ANY # Insurance Providers Payer Name Payer Address Payer Phone Subscriber Number Group Number Insured Name Patient Relationship to Insured Coverage Start Date Coverage End Date Medicare [employer] [address] [facility] [place] [address] [id number] Juan Diego Hogue Self - patient is the insured Medical (General) History Medical History History ICD Code Anxiety Arthritis asthma Back,Hip,and Knee pain Chicken pox covid-19 Depression Diabetes mellitus Numbness Hypertension Reflux ( GERD) Warts COPD Plantar fasciitis Prostate conditions Esophageal obstruction
--- OUTSIDE RECORDS SUMMARY | 2024-08-03 15:20 | XMS_ITS ---
Author Organization [facility] milagros [place] Address [address] [place] [address] Care Team Providers Care Chemical Radiation Technician Name Role Phone Chin Zepeda MD Primary Care Provider Unavailab Mauro Church Unavailable [phone] Allergies No Known Allergies REASON FOR VISIT At Risk Footcare, Toe Irritation, Ingrown nail(s) Medications Medication SIG (Take, Route, Frequency, Duration) Notes Start Date End Date Status Extra Depth Orthopedic Shoes (1 Pair) with Customized Heat Molded Multidensity Innersoles (3 Pair) as directed Dx: NIDDM/Polyneuropathy (E11.42), Hammertoe Foot Deformity (M20.41,M20.42), Preulcerative Skin Lesion(s) (L85.1 02/08/2024 Active predniSONE 5 MG 1 tablet Orally Once a day Active metFORMIN HCl 850 MG 1 tablet with a lakshmi l Orally Once a day Active Melatonin 5 MG 1 tablet in the even ing Orally Once a day Active Lisinopril 2.5 MG 1 tablet Orally Once a day Active buPROPion HCl ER (SR) 200 MG 1 tablet in the morning Orally Once a day Active Albuterol Sulfate HFA 108 (90 Base) [...] Problem Acquired hammer toe of right foot (4549108875914607 ) Other hammer toe(s) (acquired), right foot (M20.41) Active confirmed Problem Acquired hammer toe of left foot (2505410153725322 ) Other hammer toe(s) (acquired), left foot (M20.42) Active confirmed Problem Polyneuropathy due to type 2 diabetes mellitus (461103048) Type 2 diabetes mellitus with diabetic polyneuropathy (E11.42) Active confirmed Vital Signs Height 5ft 3 in in 02/08/2024 Weight 201 lbs 02/08/2024 BMI 35.6 kg/m2 02/08/2024 Procedures Procedure Date Ordered Date Performed Result Body Sit e 57199-RJPMSQK NAIL, 1-5 02/08/2024 N/A 98741-Spjmscsc Plate 02/08/2024 N/A 74777-NDDL SKIN LESIONS, OVER 4 02/08/2024 N/A U0527-IFOOLIHK DYSTROPHIC NAILS ANY # 02/08/2024 N/A Encounters Encounter Location Date Provider Diagnosis [facility] [address] [address] 02/08/2024 Mauro Spangler Tinea unguium B35.1 ; Type 2 diabetes mellitus with diabetic polyneuropathy E11.42 ; Ingrown nail L60.0 ; Other hammer toe(s) (acquired), right foot M20.41 and Other hammer toe(s) (acquired), left foot M20.42 Assessments Encounter Date Diagnosis (ICD Code) Assessment [...] foot (ICD-10 - M20.42) Plan Of Treatment Medication Medication Name Sig Start Date Stop Date Notes Extra Depth Orthopedic Shoes (1 Pair) with Customized Heat Molded Multidensity Innersoles (3 Pair) as directed Dx: NIDDM/Polyneuropathy (E11.42), Hammertoe Foot Deformity (M20.41,M20.42), Preulcerative Skin Lesion(s) (L85.1 02/08/2024 Treatment Notes Assessment Notes Other hammer toe(s) (acquired), right fo ot Patient Educated with: DIABETIC FOOT CARE INSTRUCTIONS.pdf (DIABETIC FOOT CARE INSTRUCTIONS.pdf) Pending Test Test Name Order Date 81069-IRBVWWQ NAIL, 1-5 02/08/2024 83069-Wlwjguto Plate 02/08/2024 70858-HDKN SKIN LESIONS, OVER 4 02/08/20 24 S2213-NZVEXUQO DYSTROPHIC NAILS ANY # Next Appt Details Follow Up: prn, Reason: Procedure Notes * Category Sub-Category Detail Notes Nail Avulsion Procedure A fine sterile e levator was placed between the eponychium, nail fold, and nail plate to separate the structures. A sterile nail splitter, and/or sterile 316 blade, was then used to longitudinally section the nail along its entire length through the eponychium to the area under the nail fold. The offending portion of nail was from the nail bed with a rolling action and then removed with a hemostat. No underlying bone was identified. There was minimal bleeding as hemostasis was achieved through the temporary use of either a digital tourniquet or the aforementioned local with epinephrine. A bacitracin sterile dressing was applied. Local wound aftercare instructions were discussed and dispensed. The patient was informed of both conservative and future surgical procedures to prevent recurrence. Tylenol or Motrin was recommended for pain or discomfort (29237) , DIABETES: Pt was advised as to the risk of delayed or nonhealing due to diabetes. Pt is to call the office with any questions, concerns, or complications Anesthesia was deferred - NEURO BEATRIZ: patient has medically documented neuropathic condition affecting sensation Location Medial nail border , T5 Keratoma Treatment Parring or Cutting o f Benign Hyperkeratotic Lesion(s) (-57) More than 4 Lesions - Due to the a t risk nature of the patients medical condition as documented in the exam findings, performance of this keratoderma treatment is medically necessary as its management by an unskilled/untrained nonprofessional would put this patients foot and overall health at risk. Therefore, the benign hyperkeratotic lesions, ( 8) in total, locations as stated and described in the exam ( Medial plantar , MTH (s) , 1 , B/L , SUB MTH (s) , 2 , B/L , SUB MTH (s) , 5 , B/L , Plantar, Heel(s) , B/L), were pared, and/or cut utilizing a sterile 15 blade, tissue nippers, and/or power dremel instrumentation by the physician of record - 40724 Debride Nails 1-5 Procedure: Due to the cli nical pathology outlined in the exam findings, performance of this nail treatment is medically necessary as its management by an unskilled/untrained nonprofessional would put this patients foot and overall health at risk. Therefore, debridement to affected nail(s), as described in exam ( TA , T5 ), was performed exclusively by the physician of record to reduce/remove overall nail length, girth, thickness, subungual debris, and necrotic tissue, by manual and/or electrical means through the use of a nail nipper and/or dremel stylegrinder, to a more viable healthy nail plate or bed tissue 5 nails or fewer in number. Silver nitrate was used for any petechial bleeding as necessary. Definitive antifungal treatment options, both pharmaceutical and surgical, have been reviewed and discussed with the patient. The patient solely prefers the use of intermittent/as needed professional debridement services for their nail condition and understands that additional periodic treatments may be required as necessary to maintain effective symptomatic relief - 59127 Nail Reduction Nail Reduction (-27) Trimming o f all dystrophic nails - Due to the at risk nature of the patients medical condition as documented in the exam findings, performance of this nail treatment is medically necessary as its management by an unskilled/untrained nonprofessional would put this patients foot and overall health at risk. Therefore, the dystrophic nails, in locations as stated and described in the exam ( T1, T2, T3, T4, T6, T7, T8, T9), were [facility] to reduce/remove overall nail length and girth, by manual and electrical means with use of a nail nipper and/or dremel, to more viable healthy nail plate or bed tissue - G0127 Progress Notes * Juan Diego BARRAZA JrDOB: (69 yo M)Acc No.[id number]:02/08/2024 Progress Notes Patient:?Juan Diego BARRAZA Jr Provider:?Mauro Spangler DPM :1955???Age:68 Y???Sex:Male Nicolas e:02/08/2024 Address:[address] [place], [place] [id number] Pcp:Chin Zepeda MD Subjective: * Chief Complaints: * ???At Risk FootcareToe Irrit ationIngrown nail(s) * HPI: ???At Risk footcare:?Pt States Last PCP Visit:?Date?11/12/2023 ???Toe pain:?Location:?B/L feet.?Duration:?several years.?Course:?worse.?Aggravated by:?shoes, any pressure.?Treatments:?change in shoes.? * ROS:?General/Constitutional:?Nausea?denies.?Vomiting?denies.?Hunger Thirst?denies.?Loss appetite?denies.?Chills?denies.?Fatigue?denies.?Fever?denies.?Night Sweats?denies.?Unexplained weight loss?denies.?Unexplained weight gain?denies.?HEENTM:?Dentures?admits.?Dizziness?denies.?Glasses/contacts?denies.?Retinopathy?de nies.?Blurred/double vision?denies.?TMJ?denies.?Discharge/drainage?denies.?Implants?denies.?Sore throat?denies.?Dental implants?denies.?Hard of hearing ?denies.?Difficulty chewing/swallowing/speaking?admits.?Nose bleeds?denies.?Sore mouth?denies.?Respiratory:?On Oxygen?denies.?Pneumonia/pleurisy?denies.?Bronchitis?admits.?Emphysema?denies.?C oughing?admits.?Cough blood?denies.?Shortness of breath?admits.?Wheezing?admits.?Cardiovascular:?Pacemaker?denies.?MVP?denies.?WPW?denies.?CHF?denies.?Heart attack?denies.?Septal defect?denies.?Rapid beat?denies.?Chest pain ?denies.?Atrial Fib.?denies.?Murmur/Palpitations?denies.?Gastrointestinal:?Hemorrhoids?denies.?Stomach/Abdominal pain?denies.?Dark blood stool?denies.?Irritable bowel ?denies.?Constipation?denies.?Diarrhea?denies.?Hematology:?Swelling?denies.?Clots?denies.?Varicose Veins?denies.?Bruising?denies.?Bleeding problem?denies.?Genitourinary:?Blood urine?denies.?Frequent/Painfu/urination/bladder control?admits.?Kidney stones?denies.?Infection (UTI)?denies.?Nephropathy?admits.?sex trans dis (STD)?denies.?Prostate?admits.?Musculoskeletal:?Hammertoes?admits.?Bunions?denies.?Back Pain?admits.?Muscle Cramps/ Resting?denies.?Muscle cramps / walking?denies.?Generalized aches and pains?admits.?Weakness?denies.?Integ.:?Rushing?denies.?Scars?denies.?Corns/calluses?admits.?Ingrown nails?admits.?Painful nails?denies.?Open Sores?denies.?Rashes?denies.?Neurologic:?Difficulty sleeping?admits.?Brain disorder?denies.?Numbness?admits.?Balance trouble?denies.?Confusion?denies.?Fainting/blackouts?denies.?Tingling?admits.?Tr emors?denies.? * Medical History:? * Surgical History:?No Surgica l History documented. * Hospitalization/Major Diagno stic Procedure:?No Hospitalization History. * Family History:?Mother: kimmie humphrey, Pacemaker, diagnosed with Family history of arthritis, Unspecified heart disease.?Father: alive.? * Social History:?Tobacco Use:?Tobacco use other than smoking?Are you an other tobacco user??No ?Tobacco Control (Standard)?Tobacco use:?Nonsmoker ???Drugs/Alcohol:?Drugs?Have you used drugs other than those for medical reasons in the past 12 months??No ?Alcohol Screen?Did you have a drink containing alcohol in the past year??Yes ?Points?0 ?Interpretation?Negative ???Miscellaneous:?Caffeine: yes, frequency:. ?Marital status: single. ?Occupation: Disabled. * Medications:?TakingAlbuterol Sulfate HFA 108 (90 Base) MCG/ACT Aerosol Solution 1 puff as needed Inhalation every 4 hrs buPROPion HCl ER (SR) 200 MG Tablet Extended Release 12 Hour 1 tablet in the morning Orally Once a day Gabapentin 600 MG Tablet 1 tablet Orally Once a day Januvia 100 MG Tablet 1 tablet Orally Once a day Lantus SoloStar 100 UNIT/ML Solution Pen-injector as directed Subcutaneous Lisinopril 2.5 MG Tablet 1 tablet Orally Once a day Melatonin 5 MG Tablet 1 tablet in the evening Orally Once a day metFORMIN HCl 850 MG Tablet 1 tablet with a meal Orally Once a day predniSONE 5 MG Tablet 1 tablet Orally Once a day Medication List reviewed and reconciled with the patientTaking Albuterol Sulfate HFA 108 (90 Base) MCG/ACT Aerosol Solution 1 puff as needed Inhalation every 4 hrs Taking buPROPion HCl ER (SR) 200 MG Tablet Extended Release 12 Hour 1 tablet in the morning Orally Once a day Taking Gabapentin 600 MG Tablet 1 tablet Orally Once a day Taking Januvia 100 MG Tablet 1 tablet Orally Once a day Taking Lantus SoloStar 100 UNIT/ML Solution Pen- injector as directed Subcutaneous Taking Lisinopril 2.5 MG Tablet 1 tablet Orally Once a day Taking Melatonin 5 MG Tablet 1 tablet in the evening Orally Once a day Taking metFORMIN HCl 850 MG Tablet 1 tablet with a meal Orally Once a day Taking predniSONE 5 MG Tablet 1 tablet Orally Once a day Medication List reviewed and reconciled with the patient * Allergies:?N.K.D.A.yes[Aller gabriel Verified] Objective: * Vitals:?Ht:5ft 3 in, Wt:201, BMI:35.6, Shoe size:7, BS:170, Ht-cm: 160.02 cm, Wt-k.17 kg. * Examination: ???Neurological: ?SENSORY:?Neurological exam reveals intact sensorium, pain sensation normal, vibration sensation intact, pinprick sensation is normal in the lower extremities, Pt denies, anesthesia, burning, paresthesia, tingling, B/L , Neurological exam demonstrates, reduced light touch sensation, reduced sharp/dull discrimination , reduced vibration sensation, in a stocking fashion, B/L, 5.07 monofilament test performed at plantar aspects of 5 varied sites per foot shows sensation, reduced, B/L.?Nails: ?NAILS are:?Elongated, overgrown, dystrophic, lytic, greater than 3mm thick, discolored and friable with crumbly malodorous subungual debris , TA , T5 , all other nails not described with characteristics as possessing mycosis are elongated, overgrown, and dystrophic ( T1, T2, T3, T4, T6, T7, T8, T9?).?Ingrown Nail: ?INSPECTION:?Reveals nail incurvation, dull pain on palpation due to neuropathy, groove hypertrophy , Medial nail border , T5.?Dermatologic: ?SKIN FINDINGS:?Skin exam reveals Keratotic lesion(s) located at , Medial plantar , MTH (s) , 1 , B/L , SUB MTH (s) , 2 , B/L , SUB MTH (s) , 5 , B/L , Plantar, Heel(s) , B/L.?Orthopedic: ?MUSCLE STRENGTH:?5/5 all groups in a symmetrical fashion, B/L.?FOOT MORPHOLOGY:?(-) Charcot collapse/destruction noted at MTJ.?DIGITAL DEFORMITIES:?Digital contracture, PIPJ, 2-5 B/L, incompl-reducible to push-up test, no over, nor underlapping, with evidence of shoe producing skin irritation.?FOOTWEAR:?worn, non-supportive, shoe gear properties exacerbate patient's foot/toe deformity.?Vascular: ?DP PULSES (B):?2/4, B/L.?PT PULSES (B):?2/4, B/L.?CAPILLARY FILL TIME:?immediate, all digits, B/L.?TROPHIC CONDITION-TEXTURE/ELASTICITY/TURGOR/HAIR GROWTH (B):?normal, B/L.?TEMPERTURE GRADIENT (C):?normal, warm to cool, proximal to distal, B/L, B/L.?PIGMENTATION:?normal, B/L.?EDEMA (C):?absent, B/L.?CLAUDICATION (C):?denies, B/L.?REST PAIN:?denies, B/L.?Ophthalmology Referral: ?DIABETES EYE EXAM?General Examination: ?GENERAL APPEARANCE:?Reveals a pleasant, alert, well nourished, well- developed, well hydrated individual, who demonstrates proper attention to hygiene/body habitus, and is in no acute distress, Pt serves as own historian for office visit today.?ORIENTED:?person, place, and time.?FOOT EXAM:?Footwear Evaluation? Assessment: * Assessment: 1.?Tinea unguium - B35.1???2 .?Type 2 diabetes mellitus with diabetic polyneuropathy - E11.42???3.?Ingrown nail - L60.0???Specify :Medial nail border , T5???4.?Other hammer toe(s) (acquired), right foot - M20.41???Specify :Chronic problem, Worse (4),Rx Management (4)???5.?Other hammer toe(s) (acquired), left foot - M20.42???Specify :Chronic problem, Worse (4),Rx Management (4)??? Plan: * Treatment: 2.?Type 2 diabetes mellitus with diabetic polyneuropathy?Procedure: 78134-LDVP SKIN LESIONS, OVER 4 ?Procedure: J8528-ZKARICWR DYSTROPHIC NAILS ANY # 3.?Ingrown nail?Procedure: 44654-Ntxvzgqd Plate 4.?Other hammer toe(s) (acqu ired), right foot? Start Extra Depth Orthopedic Shoes (1 Pair) with Customized Heat Molded Multidensity Innersoles (3 Pair), as directed, Dx: NIDDM/Polyneuropathy (E11.42), Hammertoe Foot Deformity (M20.41,M20.42), Preulcerative Skin Lesion(s) (L85.1, 1, Refills 0.?? Notes: Patient Educated with: DIABETIC FOOT CARE INSTRUCTIONS.pdf (DIABETIC FOOT CARE INSTRUCTIONS.pdf)?? * Procedures:?Debride Nails 1-5:?Procedure:?Due to the clinical pathology outlined in the exam findings, performance of this nail treatment is medically necessary as its management by an unskilled/untrained nonprofessional would put this patients foot and overall health at risk. Therefore, debridement to affected nail(s), as described in exam (?TA?,?T5?), was performed exclusively by the physician of record to reduce/remove overall nail length, girth, thickness, subungual debris, and necrotic tissue, by manual and/or electrical means through the use of a nail nipper and/or dremel stylegrinder, to a more viable healthy nail plate or bed tissue 5 nails or fewer in number. Silver nitrate was used for any petechial bleeding as necessary. Definitive antifungal treatment options, both pharmaceutical and surgical, have been reviewed and discussed with the patient. The patient solely prefers the use of intermittent/as needed professional debridement services for their nail condition and understands that additional periodic treatments may be required as necessary to maintain effective symptomatic relief - 66190.?Keratoma Treatment:?Parring or Cutting of Benign Hyperkeratotic Lesion(s)?(-57) More than 4 Lesions - Due to the at risk nature of the patients medical condition as documented in the exam findings, performance of this keratoderma treatment is medically necessary as its management by an unskilled/untrained nonprofessional would put this patients foot and overall health at risk. Therefore, the benign hyperkeratotic lesions, ( 8) in total, locations as stated and described in the exam (?Medial plantar?,?MTH (s)?,?1?,?B/L?,?SUB MTH (s)?,?2?,?B/L?,?SUB MTH (s)?,?5?,?B/L?,?Plantar,?Heel(s)?,?B/L), were pared, and/or cut utilizing a sterile 15 blade, tissue nippers, and/or power dremel instrumentation by the physician of record - 83798.?Nail Avulsion:?Location?Medial nail border?,?T5.?Anesthesia?was deferred - NEUROPATHY: patient has medically documented neuropathic condition affecting sensation.?Procedure?A fine sterile elevator was placed between the eponychium, nail fold, and nail plate to separate the structures. A sterile nail splitter, and/or sterile 316 blade, was then used to longitudinally section the nail along its entire length through the eponychium to the area under the nail fold. The offending portion of nail was from the nail bed with a rolling action and then removed with a hemostat. No underlying bone was identified. There was minimal bleeding as hemostasis was achieved through the temporary use of either a digital tourniquet or the aforementioned local with epinephrine. A bacitracin sterile dressing was applied. Local wound aftercare instructions were discussed and dispensed. The patient was informed of both conservative and future surgical procedures to prevent recurrence. Tylenol or Motrin was recommended for pain or discomfort (26737) , DIABETES: Pt was advised as to the risk of delayed or nonhealing due to diabetes. Pt is to call the office with any questions, concerns, or complications.?Nail Reduction:?Nail Reduction?(-27) Trimming of all dystrophic nails - Due to the at risk nature of the patients medical condition as documented in the exam findings, performance of this nail treatment is medically necessary as its management by an unskilled/untrained nonprofessional would put this patients foot and overall health at risk. Therefore, the dystrophic nails, in locations as stated and described in the exam (?T1, T2, T3, T4, T6, T7, T8, T9), were debrided by the phisician of record to reduce/remove overall nail length and girth, by manual and electrical means with use of a nail nipper and/or dremel, to more viable healthy nail plate or bed tissue - G0127.? * Procedure Codes:?03312 Avuls ion Plate, Modifiers: XS , L424002 DEBRIDE NAIL, 1- 5, Modifiers: XS 68788 TRIM SKIN LESIONS, OVER 4, Modifiers: XS G0127 TRIMMING DYSTROPHIC NAILS ANY #, Modifiers: XS * Preventive Medicine:? ??Counseling:?BMI Care goal follow-up plan:?BMI counseling provided to patient:?Lifestyle education ?Discussion:?-04: Office or other outpatient visit for the evaluation and management of a new patient, which required a medically appropriate history and/or examination and MODERATE level of DECISION MAKING for: 1 OR MORE CHRONIC PROBLEM(S) THATS WORSENING, 2 STABLE CHRONIC PROBLEMS, A NEWLY DIAGNOSED PROBLEM WITH UNCERTAIN PROGNOSIS, AN ACUTE COMPLICATED INJURY WITH MULTIPLE TREATMENT OPTIONS, OR AN ACUTE PROBLEM WITH ACCOMPANYING SYSTEMIC SYMPTOMS, THAT POSE(S) A MODERATE RISK OF MORBIDITY. THIS CONDITION MAY ALSO INCLUDE RX DRUG MANAGEMENT, OR A DECISON FOR MINOR SURGERY. The visit on the day of the encounter encompassed interpreting the data and educating the patient as to the nature of their condition, treatment options available according to their individual PMH, meds, allergies, and overall health/living conditions, as well as any potential risks or complications that may occur from a failure to adhere to, and participate in, the recommended course of therapy. The discussion included a complete verbal, and/or written explanation of the examination results, any x-rays taken, the proposed diagnosis, and outline of the treatment plan. A schedule for future care needs was also explained. The patient verbalized an understanding of the instructions at this time and agreed to be an active participant in their treatment. If the patient should think of any questions or concerns after the visit, I have encouraged the patient to call the office.?Digital Surgery:?Digital surgery was discussed with the patient, We elected to try conservative treatment at the present time, due to the patients medical history and increased asssociated post-operative risks.?Digital Treatment:?HT- I explained to the patient the possible etiologies of Hammertoes, including genetics/foot type/shoegear/activity level/exercise routine and the risks/benefits of all the different treatment options for their pain including: No treatment at all, Rest, Ice, New/supportive/wider/deeper Shoegear, Digital Padding/Strapping/Taping/Bracing/Gel protective sleeves, Foot/Ankle AFO Bracing, Stretching exercises, Deep Tissue Massage, Arch support/shoe inserts with splay metatarsal padding, and Custom orthoses. I insisted that any digital devices be removed daily and not worn overnight for safety. The patient is to carefully examine the toes daily for any skin irritation while using any splinting or padding device. The advantages and disadvantages of each option were discussed and the patients questions re: shoegear, padding, custom vs prefabricated inserts, activity level, and consistency in home treatment regimens for optimal success were answered to their verbally confirmed satisfaction.?Shoe Gear Counseling:?SHOE Rx - The patient was counseled in great detail on their muscoloskeletal foot and toe deformities which coincided with the dermatological presentations visualized on exam. We discussed how their deformities put the integrity of their feet at risk for potential pedal complications which makes the accomidative diabetic shoes and cutomizable inserts medically necessary. We discussed the different shoe and insert treatment types and options, as well as the important advantages for adhering to regularly wearing these accomidative devices daily. The patient was made aware of the fact that a failure to abide by these recommedations may be deleterious to their foot health as they are able to prevent many pedal complications such as skin irritation, skin ulceration, infection, and even loss of toe/foot/leg/or life. Time was also spent with the patient dispensing and discussing proper diabetic footcare techniques including daily skin moisturization, daily foot inspection for any interruption in skin integrity including open lesions, or sign of infection such as redness/malodor/drainage/swelling. Also discussed and recommended were procedures regarding daily shoe inspection for the presence of internal foreign bodies as well as any visualized irregular shoe or insert wear. Patient questions re: shoes, inserts, and self foot inspections were answered to their satisfaction as the patient verbally confirmed a full understanding of the above information. A Rx for Extra Depth Orthopedic Shoes with 3 pair of custom heat-molded inserts was dispensed.? ??Screening/Special Tests:?Fall Risk?Screening:?No falls in the past year ?FALLS: Screening for Future Fall Risk?Have you had any falls with injury in the past year??No * Follow Up:?prn * Images: * Sign off status: Completed true * Provider:?Mauro Spangler DPM Date:?2023 Generated for Alex crocker/Miguel A/Sia on:?08/03/2024 03:20 PM EST History and Physical Notes * HPI (History of Present Illness) Category Sub-Category Detail Notes Category Not es Toe pain Location: B/L feet Duration: several years Course: worse Aggravated by: shoes, any pressure Treatments: change in shoes At Risk footcare Pt States Last PCP Visit: Date: Examination Category Sub-Category Detail Notes Category Not es Ingrown Nail INSPECTION: Reveals nail inc urvation, dull pain on palpation due to neuropathy, groove hypertrophy , Medial nail border , T5 Neurological SENSORY: Neurological exa m reveals intact sensorium, pain sensation normal, vibration sensation intact, pinprick sensation is normal in the lower extremities, Pt denies, anesthesia, burning, paresthesia, tingling, B/L , Neurological exam demonstrates, reduced light touch sensation, reduced sharp/dull discrimination , reduced vibration sensation, in a stocking fashion, B/L, 5.07 monofilament test performed at plantar aspects of 5 varied sites per foot shows sensation, reduced, B/L Dermatologic SKIN FINDINGS: Skin exam reveal s Keratotic lesion(s) located at , Medial plantar , MTH (s) , 1 , B/L , SUB MTH (s) , 2 , B/L , SUB MTH (s) , 5 , B/L , Plantar, Heel(s) , B/L Orthopedic FOOT MORPHOLOGY: (-) 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 FOOTWEAR: worn, non-supportive , shoe gear properties exacerbate patient's foot/toe deformity DIGITAL DEFORMITIES: Digital contracture , PIPJ, 2-5 B/L, incompl-reducible to push-up test, no over, nor underlapping, with evidence of shoe producing skin irritation MUSCLE STRENGTH: 5/5 all groups in a symmetrical fashion, B/L General Examination GENERAL APPEARANCE: Reveals a pleasant, alert, well nourished, well-developed, well hydrated individual, who demonstrates proper attention to hygiene/body habitus, and is in no acute distress, Pt serves as own historian for office visit today FOOT EXAM: Lower Extremity Neurological Exa m performed:: Yes Visual exam of foot performed:: Yes Date: 02/08/2024 ORIENTED: person, place, and t willie Footwear Evaluation Footwear Evaluation performe d:: Yes Ophthalmology Referral DIABETES EYE EXAM Procedure Perform ed:: No Eye Exam not performed:: No reason speci fied Diabetic Retinopathy Screening:: No Vascular DP PULSES (B): 2/4, B/L PT PULSES (B): 2/4, B/L CAPILLARY FILL TIME: immediate, all digi ts, B/L TEMPERTURE GRADIENT (C): normal, warm to cool, proximal to distal, B/L, B/L TROPHIC CONDITION-TEXTURE/ELASTICITY/TURGOR/HAIR GROWTH (B): normal, B/L EDEMA (C): absent, B/L CLAUDICATION (C): denies, B/L REST PAIN: denies, B/L PIGMENTATION: normal, B/L Nails NAILS are: Elongated, overg rown, dystrophic, lytic, greater than 3mm thick, discolored and friable with crumbly malodorous subungual debris , TA , T5 , all other nails not described with characteristics as possessing mycosis are elongated, overgrown, and dystrophic ( T1, T2, T3, T4, T6, T7, T8, T9 )
--- OUTSIDE RECORDS SUMMARY | 2024-08-03 15:20 | XMS_ITS ---
Author Organization [facility] Address [address] [place] [address] Care Team Providers Care Box Toe Cementer Name Role Phone Katelyn HUA, Chin Primary Care Provider Unavailab Mauro Church Unavailable [phone] Encounters Encounter Location Date Provider [facility] [address] [address] 05/09/2024 Mauro Spangler Plan Of Treatment No Information Progress Notes * Juan Diego BARRAZA JrDOB: (69 yo M)Acc No.[id number]:05/09/2024 Progress Note Patient:Juan Diego TOLENTINO Jr Provider:?Mauro Spangler DPM :1955???Age:69 Y???Sex:Male Nicolas e:05/09/2024 Address:[address] [place] [address], [address] , [place], [place] Pcp:Chin Zepeda MD Subjective: * Chief Complaints: * ??? * Medical History:? Objective: * Vitals:? Assessment: Plan: * Treatment: * Images: * The named appointment provid er may or may not be the originator of this progress note, and it is not deemed complete until electronically signed by the appointment provider. Sign off status: Pending * Provider:?Mauro Spangler DPM Date:?2023 Generated for Alex crocker/Miguel A/eTransmitting on:?08/03/2024 03:19 PM EST
--- OUTSIDE RECORDS SUMMARY | 2024-08-03 15:20 | XMS_ITS ---
Author Organization Chin Zepeda III, MD Address [address] [place] [address] [place] [address] Care Team Providers Care Cpa Tax Name Role Phone Chin Zepeda Primary Care Provider [phone] Medications Medication SIG (Take, Route, Frequency, Duration) Notes Start Date End Date Status Dextromethorphan-guaiFENe sin 30-200 MG/5ML 5 mL as needed Orally every 8 hrs for 7 days 07/12/2024 08/09/2024 Active Social History Sex Assigned At : Social History Observation Description Sex Assigned At Male Encounters Encounter Location Date Provider Diagnosis Chin Zepeda III, MD [address] [place] [address] [place] [address] 07/12/2024 Chin Zepeda Plan Of Treatment Medication Medication Name Sig Start Date Stop Date Notes Dextromethorphan-guaiFENesin 30-200 MG/5ML 5 mL as needed Orally every 8 hrs for 7 days 07/12/2024 08/09/2024 Next Appt Details Provider Name:Chin Zepeda, 09/14/2024 11:00:00 AM, [address] [facility] [place], [address], Provider Name:Chin Zepeda, 11/14/2024 11:00:00 AM, [address] [place] [address] [place], [address], Progress Notes * Juan Diego BARRAZA ADOB:[birth year] (69 yo M)Acc No.[id number]:07/12/2024 Patient:?uJan Diego BARRAZA :1955???Age:69 Y???Sex:Male Address:[address] [place] [address], [place], [address] * Refills? Start Dextromethorphan-guaiFENesin Liquid, 30-200 MG/5ML, Orally, 105 ML, 5 mL as needed, every 8 hrs, 7 days, Refills=3 * true * Date:? Generated for Alex crocker/Miguel A/eTransmitting on:?08/03/2024 03:20 PM EST
--- OUTSIDE RECORDS SUMMARY | 2024-08-03 15:20 | XMS_ITS ---
Author Organization Chin Zepeda III, MD Address [address] [place] [address] [place] [address] Care Team Providers Care Radiation Oncologist Name Role Phone Chin Zepeda Primary Care Provider Medications Medication SIG (Take, Route, Frequency, Duration) Notes Start Date End Date Status Dextromethorphan-guaiFENe sin 10-100 MG/5ML 10 mL as needed Orally every 4 hrs for 7 days 07/12/2024 07/26/2024 Active Social History Sex Assigned At : Social History Observation Description Sex Assigned At Male Encounters Encounter Location Date Provider Diagnosis Chin Zepeda III, MD [address] [place] [address] [place] [address] 07/12/2024 Chin Zepeda Plan Of Treatment Medication Medication Name Sig Start Date Stop Date Notes Dextromethorphan-guaiFENesin 10-100 MG/5ML 10 mL as needed Orally every 4 hrs for 7 days 07/12/2024 07/26/2024 Next Appt Details Provider Name:Chin Zepeda, 09/14/2024 11:00:00 AM, [address] [facility], [address], Provider Name:Chin Zepeda, 11/14/2024 11:00:00 AM, [address] [place] [address] [place], [address], Progress Notes * Juan Diego BARRAZA ADOB:[birth year] (69 yo M)Acc No.[id number]:07/12/2024 Patient:?Juan Diego BARRAZA :1955???Age:69 Y???Sex:Male Address:[address] [place] [address], [place], [address] * Refills? Start Dextromethorphan-guaiFENesin Liquid, 10-100 MG/5ML, Orally, 420 ML, 10 mL as needed, every 4 hrs, 7 days, Refills=1 * true * Date:? Generated for Alex crocker/Migue lA/eTransmitting on:?08/03/2024 03:19 PM EST
--- OUTSIDE RECORDS SUMMARY | 2024-08-03 15:20 | XMS_ITS ---
[facility] Address [address] [place] [address] Care Team Providers Care Bilingual Hr Generalist Name Role Phone Chin Zepeda MD Primary Care Provider Unavailab Mauro Church Unavailable [phone] REASON FOR VISIT NS to 05/09/24 appt Encounters Encounter Location Date Provider Diagnosis [facility] [address] [address] 05/09/2024 Mauro Spangler Plan Of Treatment No Information Progress Notes * Juan Diego BARRAZA JrDOB: (69 yo M)Acc No.[id number]:05/09/2024 Patient:?Juan Diego BARRAZA Jr :1955???Age:69 Y???Sex:Male Address:[address] [place] [address], [address] , [place] [address] * true * Date:? Generated for Bennyi lizzette/Miguel A/eTransmitting on:?08/03/2024 03:19 PM EST
== END 2024-08-03 13:37 | disposition home or self-care (01) ==
PROVIDERS: PCP Internal Medicine Medical Oncology; Visit Provider Internal Medicine
DX: J44.89 Other specified chronic obstructive pulmonary disease (principal); G47.33 Obstructive sleep apnea (adult) (pediatric); J40 Bronchitis, not specified as acute or chronic
CPT/HCPCS: 99213

== ENCOUNTER → 2024-08-03 13:13 | Outpatient (BNVA) | payer MEDICARE, MEDICAID, SELFPAY | PROVIDERS: PCP Internal Medicine Medical Oncology; Visit Provider Internal Medicine | DX: J44.89 Other specified chronic obstructive pulmonary disease (principal); G47.33 Obstructive sleep apnea (adult) (pediatric); J40 Bronchitis, not specified as acute or chronic; Z87.891 Personal history of nicotine dependence | CPT/HCPCS: 99212 ==

== ENCOUNTER 2024-11-30 12:58 | Outpatient (AMB) | payer MEDICARE, MEDICAID, SELFPAY ==
[2024-11-30 13:24] VITALS: BP 130/62; PULSE 62; O2SAT 97; BMI 34.7
--- NOTE | 2024-11-30 13:24 | A.OFFVIS_ITS ---
Vital Signs 11/30/24 13:24 Height 5 ft 3 in Weight 196 lb BMI 34.7 BP 130/62 Blood Pressure Location Lt brachial Position Sitting Pulse 62 Pulse Source Pulse Oximeter Pulse Oximetry (%) 97 Oxygen Delivery Method Room Air Intake Visit Reasons: COPD Intake Note: pt is here for follow up, states some coughing Outpatient Admitting Clerk Required: No Allergies No Known Allergies [No Known Allergies*] Allergy (Verified 11/30/24 13:28) Medication List - Last Reconciled 11/30/24 by Asher Tuttle MD albuterol sulfate 90 mcg/actuation 2 puffs PO Q6H PRN bupropion HCl SR 100 mg PO QAM diclofenac sodium 1% 4 grams topical QID fluticasone propion-salmeterol 250-50 mcg/dose (Wixela Inhub) 1 ea PO BID gabapentin 600 mg PO TID 30 days ipratropium-albuterol 0.5 mg-3 mg(2.5 mg base)/3 mL 3 mL inhalation TID PRN lidocaine 5% 2 patches topical DAILY 30 days lisinopril 2.5 mg PO DAILY metformin 850 mg PO BID pantoprazole 40 mg PO BID propranolol 20 mg PO BID sitagliptin phosphate 100 mg PO DAILY sucralfate 10 mL PO BID tamsulosin 0.8 mg PO DAILY Do you need a note to return to daycare/school/sports/work: No HPI HPI COPD: Details: 69 YEARS OLD 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 HE HAS STAYED VERY WELL ON HIS CURRENT. REGIMEN WITHOUT ANY ACUTE EXACERBATION THIS IS ALL BECAUSE HE QUIT SMOKING, AND OTHER ILLICIT DRUGS, ALSO HE LOST SOME WEIGHT HIS SLEEP GOT BETTER AND HE DID NOT NEED TO USE THE CPAP. [facility] Medical History Current non-smoker but past smoking history unknown Asthma-COPD overlap syndrome Left elbow pain Right tennis elbow Diabetes mellitus GERD (gastroesophageal reflux disease) Anxiety and depression Elevated cholesterol Disc degeneration, lumbosacral Chronic pain syndrome Radiculopathy of lumbosacral region Spondylosis, lumbar, with myelopathy Asthma Bronchitis TITUS (obstructive sleep apnea) COPD (chronic obstructive pulmonary disease) Surgical History History of cystoscopy History of prostate surgery Hx of colonoscopy History of esophagogastroduodenoscopy (EGD) Family History Mother Hypertension Father Medical history unknown Social History Are you a primary healthcare translator to a significant other at home: No Do you presently have visiting nurse or other home services: No Alcohol intake: current Alcohol intake frequency: a few times a month Alcohol type: beer Comment: medicated in pacu Patient Tobacco Use Status: Former Tobacco user Tobacco use type: Cigarette Cigarette Packs Per Day: 2 Cigarettes Per Day: 40 Years Smoked: 50 years Advance Directives Date on File: 10/13/16 Current occupational status: retired Current occupation: [employer] Review of Systems Const All systems reviewed & are unremarkable except as noted in HPI and below Reports headache(s) Eyes Reports no additional complaints ENT Reports headache(s) and Reports hoarseness Card Reports chest pain and Reports dyspnea Resp Reports dyspnea and Reports wheezing GI Reports heartburn Reports nocturia Musc Reports arthralgias, Reports joint swelling and Reports muscle weakness Neuro Reports headache(s) Psych Reports abnormal sleep pattern, Reports anxiety and Reports depression Endo Reports polydipsia Aller/Immun Reports wheezing Physical Exam Vital Signs: Last Vital Signs Pulse 62 11/30/24 13:24 BP 130/62 11/30/24 13:24 Pulse Ox 97 11/30/24 13:24 Oxygen Delivery Method Room Air 11/30/24 13:24 BMI result Body Mass Index 34.7 Const General: no acute distress, alert, awake and other (Continues to have frequent cough during conversation) Orientation/consciousness: patient oriented x3 HEENT Head: Yes normal to inspection General nose exam: No nasal polyps present and No nasal discharge present Face and sinus: Yes sinuses nontender Mouth: oropharynx abnormals (There is no obvious infection are any white spots in the throat.) Throat: Yes posterior oropharynx normal Eyes General: appearance normal, both eyes and all related structures Neck Neck: Yes normal visual inspection, Yes no lymphadenopathy, Yes trachea midline and Yes no JVD Thyroid: Thyroid normal Chest Chest palpation & inspection: normal inspection of the chest, normal palpation of entire chest wall and no tenderness Resp Other: Percussion note is resonant. Breath sounds are distant with prolonged expiratory phase. Has no crepitations or wheezes. Cardio Palpation: normal PMI Rate: regular rate Rhythm: regular rhythm Heart sounds: no gallops and no murmurs Peripheral pulses: Peripheral pulses 2+ throughout GI Palpation (GI): Soft to palpation, nontender, No hepatosplenomegaly present and no masses Auscultation: normal bowel sounds Back/Spine/Pelvis Thoracic/Lumbar Spine: thoracic and lumbar spine normal to inspection and thoraco-lumbar ROM limited Skin General skin exam: no rashes or lesions noted Neuro General: patient oriented x3 and no focal motor deficits Cranial nerves: Yes CN's II-XII intact bilaterally Extrem General: Yes normal to inspection, Yes no clubbing, cyanosis or edema and Yes no calf tenderness Psych Appearance: grossly normal and well kempt Speech and movement: Normal speech and movement present Assessment & Plan Assessment & Plan (1) TITUS (obstructive sleep apnea): Comment: HE DID HAVE OBSTRUCTIVE SLEEP APNEA, BUT WAS NOT ABLE TO USE CPAP SO HE RETURNED THE DEVICE. HE IS NOTED TO BE MORE SERIOUS ABOUT WEIGHT. HE CLAIMS THAT HE SLEEPS GOOD WITHOUT MUCH PROBLEM. Code(s): G47.33 - Obstructive sleep apnea (adult) (pediatric) Category: Medical Plan: I STRESSED THAT HE HAS TO KEEP ON LOSING WEIGHT. SLEEP HYGIENE EXPLAINED. (2) Asthma-COPD overlap syndrome: Comment: MARILEE HAS CHRONIC ASTHMA/COPD SYNDROME. HE IS PRONE TO HAVE FREQUENT ACUTE EXACERBATIONS BUT NOT LATELY . HE HAS BEEN RELATIVELY STABLE SINCE HE QUIT SMOKING 5 years AGO. HE HAS BEEN DEPENDENT ON ORAL PREDNISONE FOR MANY YEARS BUT NOW DOING OKAY WITHOUT PREDNISONE. Code(s): J44.89 - Other specified chronic obstructive pulmonary disease Category: Medical Plan: CONTINUE TO USE WIXELA 250-51 INHALATION B.I.D. IPRATROPIUM-ALBUTEROL SOLUTION IN THE NEBULIZER Q 6 HOURS P.R.N. BUT NO MORE THAN 3 TIMES A DAY ALBUTEROL HFA 2 PUFFS Q 4-6 HOURS P.R.N. WHEN OUTDOORS (3) Current non-smoker but past smoking history unknown: Comment: NOTED ABOVE HE QUIT SMOKING MORE THAN 5 YEARS AGO. STILL SMOKES 1 OR 2 CIGARETTES A DAY EVERY NOW AND THEN. ON THE WHOLE HE IS DETERMINED NOT TO GO BACK TO SMOKING. Code(s): Z78.9 - Other specified health status Category: Social Hx Plan: AGAIN STRESS THAT HE SHOULD NOT GO BACK TO SMOKING AT ALL . Coding Level of Care Code Est Pt Level 3 (02606) Diagnoses TITUS (obstructive sleep apnea) G47.33 Asthma-COPD overlap syndrome J44.89 Current non-smoker but past smoking history unknown Z78.9
--- OUTSIDE RECORDS SUMMARY | 2024-11-30 13:42 | XMS_ITS | Clinical Summary ---
Author Organization [email or web address] Address [address] [place] [address] 7 [place] [address] Care Team Providers Care Solution Professional Name Role Phone Unavailable Primary Care Provider Unavailabl e Allergies No known active allergies Medications No known medications Active Problems Problem Noted Date Diagnosed Date Periodontal disease 02/20/2023 Immunizations Immunization Administration Dates Next Due Influenza High-dose Quadrivalent [...] 1975 DTaP/Tdap/Td Vaccines (1 - Tdap) 1976 Pneumococcal Vaccine: 50+ Years (2 of 2 - PCV) 06/24/2017 06/24/2016 Zoster Vaccines (2 of 2) 05/04/2020 03/09/2020 Dental Oral Exam 10/01/2021 04/02/2021 Tobacco Screening 02/21/2024 02/20/2023 COVID-19 Vaccine ( [...] patient's age to complete this topic Meningococcal B Vaccine Aged Out No l onger eligible based on patient's age to complete [...] Most Recently Relevant to Health Maintenance Insurance [facility] OPTIONS (HMO D-SNP) [facility]
== END 2024-11-30 13:42 | disposition home or self-care (01) ==
LOC: HO.HPS 12:59
PROVIDERS: PCP Internal Medicine Medical Oncology; Visit Provider Internal Medicine
DX: G47.33 Obstructive sleep apnea (adult) (pediatric) (principal); J44.89 Other specified chronic obstructive pulmonary disease; Z78.9 Other specified health status
CPT/HCPCS: 99213

== ENCOUNTER → 2024-11-30 12:58 | Outpatient (BNVA) | payer MEDICARE, MEDICAID, SELFPAY | PROVIDERS: PCP Internal Medicine Medical Oncology; Visit Provider Internal Medicine | DX: G47.33 Obstructive sleep apnea (adult) (pediatric) (principal); J44.89 Other specified chronic obstructive pulmonary disease; Z78.9 Other specified health status | CPT/HCPCS: 99212 ==

== ENCOUNTER 2024-12-07 09:00 | Outpatient (REF) | payer MEDICARE, MEDICAID, SELFPAY ==
[2024-12-07 09:11] LABS: MANUAL DIFF FLAG NO
--- OUTSIDE RECORDS SUMMARY | 2024-12-07 09:25 | XMS_ITS | Clinical Summary ---
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
[2024-12-07 09:39] LABS: Basophils Percent Auto 0.4 % (0-2); Eosinophils Absolute Auto 0.5 X10*3/uL (0.0-0.4); Eosinophils Percent Auto 4.7 % (0-4); Hematocrit 42.6 % (42.0-52.0); Hemoglobin 15.2 g/dl (14.0-18.0); Imm Gran Abs Auto 0.03 X10*3/uL (0.00-0.03); Imm Gran Pct Auto 0.3 % (0.0-0.4); Lymphocytes Absolute Auto 3.2 X10*3/uL (1.2-4.9); Lymphocytes Percent Auto 30.6 % (20-40); Mean Corpuscular HGB Conc 35.7 g/dl (31.0-36.0); Mean Corpuscular Hemoglobin 29.5 pg (27.0-33.0); Mean Corpuscular Volume 82.6 fL (80.0-98.0); Mean Platelet Volume 9.5 fL (9.4-12.4); Monocytes Percent Auto 9.8 % (2-11); Neutrophils Absolute Auto 5.7 x10*3/uL (2.0-8.3); Neutrophils Percent Auto 54.2 % (45-73); Platelet Count 325 X10*3/uL (160-400); Red Blood Count 5.16 X10*6/uL (4.60-5.80); Red Cell Distribution Width 14.6 % (11.0-16.0); White Blood Count 10.5 X10*3/uL (4.8-10.8)
[2024-12-07 09:40] LABS: Estimated Average Glucose 160 mg/dL; Hemoglobin A1c % 7.2 % (<6.0); Total Hemoglobin (HGBA1C) 3866.8715 umol/L
[2024-12-07 10:06] LABS: Creatinine Urine 138.38 mg/dL; Microalbum/Creatinine Ratio Ur 7.9 ug/mg cr (<30)
[2024-12-07 10:52] LABS: Alanine Aminotransferase 65 U/L (0-40); Albumin Level 4.2 g/dL (3.5-5.0); Anion Gap 12 (12-20); Aspartate Amino Transferase 58 U/L (5-37); Blood Urea Nitrogen 14 mg/dL (9-16); Calcium 9.5 mg/dL (8.4-10.2); Carbon Dioxide 28 mmol/L (22-29); Chloride 105 mmol/L (96-108); Cholesterol 212 mg/dL (<200); Estimated Glomerular Filt Rate > 60; Glucose Fasting 96 mg/dL (60-99); HDL Cholesterol 36 mg/dL (>40); LDL Cholesterol Calculated 152 mg/dL (<100); Potassium 4.3 mmol/L (3.3-5.1); Sodium 141 mmol/L (135-145); Total Protein 7.8 g/dL (6.5-8.0); Triglycerides 122 mg/dL (<150)
[2024-12-07 13:10] LABS: Alkaline Phosphatase 85 U/L (39-117)
== END 2024-12-07 09:01 | disposition home or self-care (01) ==
LOC: HO.LAB 09:00
PROVIDERS: PCP Internal Medicine Medical Oncology; Visit Provider Internal Medicine Medical Oncology
DX: E11.9 Type 2 diabetes mellitus without complications (principal); E78.01 Familial hypercholesterolemia; J44.9 Chronic obstructive pulmonary disease, unspecified
CPT/HCPCS: 36415; 80053; 80061; 82043; 82570; 83036; 85025

== ENCOUNTER 2025-05-26 10:25 | Emergency (ER) | payer MEDICARE, MEDICAID, SELFPAY ==
--- OUTSIDE RECORDS SUMMARY | 2024-05-09 06:15 | XMS_ITS ---
Author Organization [facility] Address [address] [place] [address] Care Team Providers Care Machine Set Up Technician Name Role Phone Katelyn HUA, Chin Primary Care Provider Unavailab Mauro Church Unavailable [phone] Encounters Encounter Location Date Provider Diagnosis [facility] [address] [address] 05/09/2024 Mauro Spangler Plan Of Treatment No Information Progress Notes * Juan Diego BARRAZA JrDOB: (70 yo M)Acc No.[id number]:05/09/2024 Progress Note Patient: Juan Diego PALOMARES Jr Provider: Hyacinth Spangler DPM :1955 A ge:69 Y S ex:Male Date:05/09/2024 Address:[address] [place] [address], [address] , [place], [place] Pcp:Chin Zepeda MD Subjective: * Chief Complaints: * * Medical History: Objective: * Vitals: Assessment: Plan: * Treatment: * Images: * The named appointment provid er may or may not be the originator of this progress note, and it is not deemed complete until electronically signed by the appointment provider. Sign off status: Pending * Provider: Hyacinth Spangler DPM Date: 07/09/2023 Generated for Bennyi lizzette/Miguel A/eTransmitting on: 07/26/2024 12:07 PM EST
--- OUTSIDE RECORDS SUMMARY | 2024-08-08 06:41 | XMS_ITS ---
Author Organization Chin Zepeda III, MD Address [address] [place] [address] [place] [address] Care Team Providers Care Dishwashing Machine Repairer Name Role Phone Dr. Chin Zepeda III Primary Care Provider [phone] REASON FOR VISIT Message Medications Medication SIG (Take, Route, Frequency, Duration) Notes Start Date End Date Status Basaglar KwikPen 100 UNIT/ML 35 units daily Subcutaneous use 35 units daily for 90 days DX: Diabetes E11.9 08/08/2024 Active Social History Sex Assigned At : Social History Observation Description Sex Assigned At Male Encounters Encounter Location Date Provider Diagnosis Chin Zepeda III, MD [address] [place] [address] [place] [address] 08/08/2024 Chin Zepeda Plan Of Treatment Medication Medication Name Sig Start Date Stop Date Notes Lantus SoloStar 100 UNIT/ML as directed Subcutaneous 35 units once a day 10/19/2023 Basaglar KwikPen 100 UNIT/ML 35 units daily Subcutaneous use 35 units daily for 90 days 08/08/2024 DX: Diabetes E11 .9 Next Appt Details Provider Name:Chin Zepeda , 07/17/2025 02:00:00 PM, [address] [place] [address] [place], [address], Provider Name:Chin Zepeda , 12/29/2025 02:00:00 PM, [address] [place] [address] [place], [address], Progress Notes * Juan Diego BARRAZA ADOB:[birth year] (69 yo M)Acc No.[id number]:08/08/2024 Patient: Juan Diego PALOMARES :1955 A ge:69 Y S ex:Male Address:[address] [place] [address], [address] * Refills Stop Lantus SoloStar Solution Pen-injector, 100 UNIT/ML, Subcutaneous, as directed, 35 units once a day Start Basaglar KwikPen Solution Pen-injector, 100 UNIT/ML, Subcutaneous, 40 Milliliter, 35 units daily, use 35 units daily, 90 days, Refills=3 Subjective: * Chief Complaints: * M essage * Medical History: * Surgical History: * Hospitalization/Major Diagno stic Procedure: * Medications: Objective: * Vitals: * Physical Examination: Assessment: Plan: * Treatment: * Procedure Codes: * true * Date: Generated for Alex crocker/Miguel A/Sia on: 07/26/2024 12:07 PM EST
--- OUTSIDE RECORDS SUMMARY | 2024-09-14 06:00 | XMS_ITS ---
Author Organization Chin Zepeda III, MD Address [address] [place] [address] [place] [address] Care Team Providers Care Pathology Tech Name Role Phone Dr. Chin Zepeda III Primary Care Provider [phone] Allergies Allergen (clinical drug ingredient) Drug/Non Drug Allergy documented on EMR Reaction Allergy Type Onset Date Status No Known Drug Allergy Unknown Drug Allergy Active REASON FOR VISIT COPD, Obesity, Sleep apnea, Depression, Lumbar radiculopathyHyperlipidemia, Asthma, Insulin-dependent diabetes, Chronic pain Medications Medication SIG (Take, Route, Frequency, Duration) Notes Start Date End Date Status buPROPion HCl ER (SR) 100 MG TAKE 1 TABLET BY MOUTH EVERY DAY IN THE MORNING Active metFORMIN HCl 850 MG TAKE 1 TABLET BY MOUTH TWICE A DAY Active Tadalafil 20 MG 1 tablet as needed Orally Once a day Active traZODone HCl 50 MG 1 tablet at bedtime as needed Orally Once a day 08/04/2023 Active Triamcinolone Acetonide 0.1 % 1 application Externally Twice a day 04/01/2022 Active Wixela Inhub 500-50 MCG/DOSE INHALE 1 PUFF TWICE A DAY Inhalation Active FreeStyle Lite - as directed as directed to use to test blood sugars three a day 05/01/2021 Active Albuterol Sulfate (2.5 MG/3ML) 0.083% 3 ml as needed Inhalation every 4 hrs 11/05/2022 Active Pantoprazole Sodium 40 MG 1 tablet Orally Once a day Active Atorvastatin Calcium 10 MG 1 tablet Orally Once a day 11/19/2022 Active Melatonin 5 MG 1 tablet in the evening Orally Once a day 11/19/2022 Active Albuterol Sulfate HFA 108 (90 Base) MCG/ACT 1 puff as needed Inhalation every 4 hrs 11/05/2022 Active Januvia 100 MG 1 tablet Orally Once a day 05/27/2022 Active Azithromycin 250 MG as directed Orally 2 tablets the first day, 1 tablet the other days 03/11/2024 Active Proventil HFA 108 (90 Base) MCG/ACT 1 puff as needed Inhalation every 4 hrs 08/03/2023 Active Basaglar KwikPen 100 UNIT/ML 35 units daily Subcutaneous use 35 units daily DX: Diabetes E11.9 08/08/2024 Active Triamcinolone Acetonide 0.1 % 1 application Externally Two times a day 06/16/2024 Active Alcohol Prep Pads 70 % as directed Externally 3 times a day 05/16/2021 Active Ozempic (0.25 or 0.5 MG/DOSE) 2 MG/3ML 0.25 mg as directed Subcutaneous weekly 02/16/2024 Active Lisinopril 2.5 MG TAKE 1 TABLET BY MOUTH EVERY DAY Active FreeStyle Lite Test - as directed In Vit ro 3 times a day Active Gabapentin 600 MG 1 tablet Orally three times a day 05/27/2022 Active FreeStyle Lancets - as directed as directed use to check blood sugars three times a day 05/01/2021 Active Lantus 100 UNIT/ML as directed Subcutaneous 35 Units once a day E11.9 DM (diabetes mellitus) Active buPROPion HCl ER (SR) 200 MG 1 tablet Orally Once a day 11/18/2023 Active Social History Tobacco Use: Social History Observation Description Date Details (start date - stop date) Former Smoker NA - NA Sex Assigned At : Social History Observation Description Sex Assigned At Male Tobacco Use/Smoking Question Answer Notes Patient is a former smoker How long has it been since you last smoked? 1-5 years Additional Findings: Tobacco Non-User Ex-cigaret te smoker Vital Signs Temperature 97.2 degrees Fahrenheit 09/15/19 25 Blood pressure systolic 130 mm Hg 09/15/19 25 Blood pressure diastolic 74 mm Hg 025 Heart Rate 77 /min 09/14/2024 Height 64 in 09/14/2024 Weight 190 lbs 09/14/2024 BMI 32.61 kg/m2 09/14/2024 Encounters Encounter Location Date Provider Diagnosis Chin Zepeda III, MD [address] [place] [address] [place] [id number] 09/14/2024 Chin Zepeda Chronic obstructive pulmonary disease, unspecified COPD type J44.9 ; Obesity (BMI 30.0-34.9) E66.9 ; Hyperlipidemia type II E78.01 ; Benign prostatic hyperplasia with lower urinary tract symptoms N40.1 ; Sleep apnea in adult G47.30 ; Insomnia, unspecified type G47.00 ; Other chronic pain G89.29 ; Intermittent asthma without complication, unspecified asthma severity J45.20 ; Schatzki's ring K22.2 ; DM (diabetes mellitus) E11.9 and Former smoker Z87.891 Assessments Encounter Date Diagnosis (ICD Code) Assessment Notes Treat ment Notes Treatment Clinical Notes 09/14/2024 Chronic obstructive pulmonary disease, unspecified COPD type (ICD-10 - J44.9) He is no longer smoking. He is comfortable at rest. He has very diminished lung sounds on examination, but he is not in respiratory distress on room air. 09/14/2024 Obesity (BMI 30.0-34.9) (ICD-10 - E66.9) He has lost 12 pounds on the Ozempic, No change in the dose was made today. We have discussed diet and nutrition and lifestyle modification. We made a plan to lose weight at a rate of one half of a pound per week. 09/14/2024 Hyperlipidemia type II (ICD-10 - E78.01) His fasting lipid profile shows cholesterol 207 In June 2024.. No change in his medication was made today.Strongly recommended adherence to a diabetic diet and aggressive weight loss. 09/14/2024 Benign prostatic hyperplasia with lower urinary tract symptoms (ICD-10 - N40.1) He rises from sleep twice a night to urinate. We discussed lifestyle modification as a way to reduce nocturia. He did not wish to take additional medication. 09/14/2024 Sleep apnea in adult (ICD-10 - G47.30) He no longer uses his CPAP machine as he is not convinced it is working. I recommended he take it back to his environmental communications specialist for calibration. 09/14/2024 Insomnia, unspecifie d type (ICD-10 - G47.00) He reports that he is sleeping somewhat better lately. 09/14/2024 Other chronic pain (ICD-10 - G89.29) His current regimen was continued without change. He will see pain management in the near future to 09/14/2024 Intermittent asthma without complication, unspecified asthma severity (ICD-10 - J45.20) 2. Wheezing is improved but still present. He was advised to avoid exposure to pollen and tobacco smoke. He will take the prednisone another 7 days. 09/14/2024 Schatzki's ring (ICD-10 - K22.2) He denies any dysphagia at this time. 09/14/2024 DM (diabetes mellitus) (ICD-10 - E11.9) He has been compliant with his medication and reports his glucose levels have been about 150. A comprehensive set of labs were ordered today which will include microalbumin and hemoglobin A1c and fasting glucose and cholesterol.In June 2024 is hemoglobin A1c which had been 6.8 was 5.8. He has lost 3 pounds. 09/14/2024 Former smoker (ICD-1 0 - Z87.891) We discussed a plan to prevent relapse in times of illness or stress Plan Of Treatment Medication Medication Name Sig Start Date Stop Date Notes buPROPion HCl ER (SR) 100 MG TAKE 1 TABLET BY MOUTH EVERY DAY IN THE MORNING metFORMIN HCl 850 MG TAKE 1 TABLET BY MO UT TWICE A DAY Tadalafil 20 MG 1 tablet as needed Orally Once a day traZODone HCl 50 MG 1 tablet at bedtime as needed Orally Once a day 08/04/2023 Triamcinolone Acetonide 0.1 % 1 application Externally Twice a day 04/01/2022 Wixela Inhub 500-50 MCG/DOSE INHALE 1 PUFF TWICE A DAY Inhalation FreeStyle Lite - as directed as directed to use to test blood sugars three a day 05/01/2021 Albuterol Sulfate (2.5 MG/3ML) 0.083% 3 ml as needed Inhalation every 4 hrs 11/05/2022 Pantoprazole Sodium 40 MG 1 tablet Orally Once a day Atorvastatin Calcium 10 MG 1 tablet Orally Once a day 11/19/2022 Melatonin 5 MG 1 tablet in the evening Orally Once a day 11/19/2022 Albuterol Sulfate HFA 108 (90 Base) MCG/ACT 1 puff as needed Inhalation every 4 hrs 11/05/2022 Januvia 100 MG 1 tablet Orally Once a day 05/27/2022 Azithromycin 250 MG as directed Orally 2 tablets the first day, 1 tablet the other days 03/11/2024 Proventil HFA 108 (90 Base) MCG/ACT 1 puff as needed Inhalation every 4 hrs 08/03/2023 Basaglar KwikPen 100 UNIT/ML 35 units daily Subcutaneous use 35 units daily 08/08/2024 DX: Diabetes E11.9 Triamcinolone Acetonide 0.1 % 1 application Externally Two times a day 06/16/2024 Alcohol Prep Pads 70 % as directed Exter christine 3 times a day 05/16/2021 Ozempic (0.25 or 0.5 MG/DOSE) 2 MG/3ML 0.25 mg as directed Subcutaneous weekly 02/16/2024 Lisinopril 2.5 MG TAKE 1 TABLET BY RON TH EVERY DAY FreeStyle Lite Test - as directed In Vit ro 3 times a day Gabapentin 600 MG 1 tablet Orally thre e times a day 05/27/2022 FreeStyle Lancets - as directed as directed use to check blood sugars three times a day 05/01/2021 Lantus 100 UNIT/ML as directed Subcutaneous 35 Units once a day E11.9 DM (diabetes mellitus) buPROPion HCl ER (SR) 200 MG 1 tablet Orally Once a day 11/18/2023 Next Appt Details Follow Up: as scheduled November, Reason: annual exam review labs Provider Name:Chin Zepeda , 07/17/2025 02:00:00 PM, [address] [place] [address] [address], [place], [id number], Provider Name:Chin Zepeda , 12/29/2025 02:00:00 PM, [address] [place] [address] [address], [place], [id number], Progress Notes * Juan Diego BARRAZA ADOB:[birth year] (69 yo M)Acc No.[id number]:09/14/2024 Progress Notes Patient: Juan Diego PALOMARES Provider: Yousif Zepeda MD :[id number] A ge:69 Y S ex:Male Date:09/14/2024 Address:[address] [place], [place] [address], [id number] Subjective: * Chief Complaints: * C OPDObesitySleep apneaDepressionLumbar radiculopathyHyperlipidemiaAsthmaInsulin-dependent diabetesChronic pain * HPI: C OVID-19 Screening: Duncan humphrey returns to the office for a periodic skin shoulder visit to manage his numerous medical issues. His fasting glucoses morning was 122. He has lost 3 pounds. He says his breathing has become better recently. He is trying to lose weight and consume a healthy diabetic diet. He is testing his morning fasting glucose levels. They have been satisfactory.No recent blood work is available. Comprehensive blood work was ordered today. He agreed to do so in the next week. He is up-to-date with pulmonary having seen them in July 2024. He has been compliant with all of his medications. He continues to have lower extremity paresthetic pain. He continues to take gabapentin. Questions H ave you had any new onset fever, chills, cough, congestion, sore throat, shortness of breath, muscle aches? N o * ROS: G eneral/Constitutional: pain L ow back down both legs. C hills d enies.?Fatigue a dmits. F ever d enies. E NT: Decreased hearing m ild. R espiratory: Cough d enies. C ardiovascular: Chest pain with exertion d enies. D yspnea on exertion?denies. S hortness of breath w ith exertion. G astrointestinal: Constipation o ccasional. D ecreased appetite d enies. D iarrhea d enies. H eartburn d enies. N ausea d enies. R ectal bleeding d enies. V omiting d enies. H ematology: bruising d enies. p etechiae d enies. S wollen glands n one have been noted. G enitourinary: Frequent urination o nce a night. M usculoskeletal: Muscle aches d enies. P ainful joints d enies. S ciatica d enies. W eakness d enies. S kin: Itching d enies. R shayla d enies. S kin lesion(s)?denies. N eurologic: Difficulty speaking d enies. D izziness d enies.?Headache d enies. L ow back pain t hat is chronic. P sychiatric: Depressed mood d enies. * Medical History: * Surgical History: b roken right leg left shoulder No history * Hospitalization/Major Diagno stic Procedure: a sthma 06/2018headache,body pain and bronchitis 10/2020No history * Family History: F ather: alive 80 yrs, diagnosed with Hyperlipidemia. M other: alive 76 yrs, diagnosed with Hyperlipidemia. C hildren: alive. 4 brother(s) , 1 sister(s) . 1 son(s) , 1 daughter(s) - healthy. . No one in his immediate family had cancer. There are members of the extended family that did. He is not aware of any inherited family cancer syndromes. His siblings and children are healthy and well. He has a personal history of depression and tobacco use disorder. He is not aware of any other family history of mental illness or substance use disorder or addiction. * Social History: T obacco Use: T obacco Use/Smoking P atient is a f ormer smoker H ow long has it been since you last smoked??1-5 years A dditional Findings: Tobacco Non-User E x-cigarette smoker * Medications: T akingAzithromycin 250 MG Tablet as directed Orally 2 tablets the first day, 1 tablet the other days Proventil HFA 108 (90 Base) MCG/ACT Aerosol Solution 1 puff as needed Inhalation every 4 hrs Albuterol Sulfate HFA 108 (90 Base) MCG/ACT Aerosol Solution 1 puff as needed Inhalation every 4 hrs Januvia 100 MG Tablet 1 tablet Orally Once a day Melatonin 5 MG Tablet 1 tablet in the evening Orally Once a day Atorvastatin Calcium 10 MG Tablet 1 tablet Orally Once a day Albuterol Sulfate (2.5 MG/3ML) 0.083% Nebulization Solution 3 ml as needed Inhalation every 4 hrs Pantoprazole Sodium 40 MG Tablet Delayed Release 1 tablet Orally Once a day Wixela Inhub 500-50 MCG/DOSE Aerosol Powder Breath Activated INHALE 1 PUFF TWICE A DAY Inhalation FreeStyle Lite - Device as directed as directed to use to test blood sugars three a day Triamcinolone Acetonide 0.1 % Cream 1 application Externally Twice a day Tadalafil 20 MG Tablet 1 tablet as needed Orally Once a day traZODone HCl 50 MG Tablet 1 tablet at bedtime as needed Orally Once a day buPROPion HCl ER (SR) 100 MG Tablet Extended Release 12 Hour TAKE 1 TABLET BY MOUTH EVERY DAY IN THE MORNING metFORMIN HCl 850 MG Tablet TAKE 1 TABLET BY MOUTH TWICE A DAY Lantus 100 UNIT/ML Solution as directed Subcutaneous 35 Units once a day , Notes to Pharmacist: E11.9 DM (diabetes mellitus)buPROPion HCl ER (SR) 200 MG Tablet Extended Release 12 Hour 1 tablet Orally Once a day Gabapentin 600 MG Tablet 1 tablet Orally three times a day FreeStyle Lancets - Miscellaneous as directed as directed use to check blood sugars three times a day FreeStyle Lite Test - Strip as directed In Vitro 3 times a day Alcohol Prep Pads 70 % Miscellaneous as directed Externally 3 times a day Ozempic (0.25 or 0.5 MG/DOSE) 2 MG/3ML Solution Pen-injector 0.25 mg as directed Subcutaneous weekly Triamcinolone Acetonide 0.1 % Cream 1 application Externally Two times a day Lisinopril 2.5 MG Tablet TAKE 1 TABLET BY MOUTH EVERY DAY Basaglar KwikPen 100 UNIT/ML Solution Pen-injector 35 units daily Subcutaneous use 35 units daily , Notes to Pharmacist: DX: Diabetes E11.9Medication List reviewed and reconciled with the patientTaking Azithromycin 250 MG Tablet as directed Orally 2 tablets the first day, 1 tablet the other days Taking Proventil HFA 108 (90 Base) MCG/ACT Aerosol Solution 1 puff as needed Inhalation every 4 hrs Taking Albuterol Sulfate HFA 108 (90 Base) MCG/ACT Aerosol Solution 1 puff as needed Inhalation every 4 hrs Taking Januvia 100 MG Tablet 1 tablet Orally Once a day Taking Melatonin 5 MG Tablet 1 tablet in the evening Orally Once a day Taking Atorvastatin Calcium 10 MG Tablet 1 tablet Orally Once a day Taking Albuterol Sulfate (2.5 MG/3ML) 0.083% Nebulization Solution 3 ml as needed Inhalation every 4 hrs Taking Pantoprazole Sodium 40 MG Tablet Delayed Release 1 tablet Orally Once a day Taking Wixela Inhub 500-50 MCG/DOSE Aerosol Powder Breath Activated INHALE 1 PUFF TWICE A DAY Inhalation Taking FreeStyle Lite - Device as directed as directed to use to test blood sugars three a day Taking Triamcinolone Acetonide 0.1 % Cream 1 application Externally Twice a day Taking Tadalafil 20 MG Tablet 1 tablet as needed Orally Once a day Taking traZODone HCl 50 MG Tablet 1 tablet at bedtime as needed Orally Once a day Taking buPROPion HCl ER (SR) 100 MG Tablet Extended Release 12 Hour TAKE 1 TABLET BY MOUTH EVERY DAY IN THE MORNING Taking metFORMIN HCl 850 MG Tablet TAKE 1 TABLET BY MOUTH TWICE A DAY Taking Lantus 100 UNIT/ML Solution as directed Subcutaneous 35 Units once a day , Notes to Pharmacist: E11.9 DM (diabetes mellitus)Taking buPROPion HCl ER (SR) 200 MG Tablet Extended Release 12 Hour 1 tablet Orally Once a day Taking Gabapentin 600 MG Tablet 1 tablet Orally three times a day Taking FreeStyle Lancets - Miscellaneous as directed as directed use to check blood sugars three times a day Taking FreeStyle Lite Test - Strip as directed In Vitro 3 times a day Taking Alcohol Prep Pads 70 % Miscellaneous as directed Externally 3 times a day Taking Ozempic (0.25 or 0.5 MG/DOSE) 2 MG/3ML Solution Pen-injector 0.25 mg as directed Subcutaneous weekly Taking Triamcinolone Acetonide 0.1 % Cream 1 application Externally Two times a day Taking Lisinopril 2.5 MG Tablet TAKE 1 TABLET BY MOUTH EVERY DAY Taking Basaglar KwikPen 100 UNIT/ML Solution Pen-injector 35 units daily Subcutaneous use 35 units daily , Notes to Pharmacist: DX: Diabetes E11.9Medication List reviewed and reconciled with the patient * Allergies: N o Known Drug Allergyno[Allergies Verified] Objective: * Vitals: H t: 64, Wt:190, BMI:32.61, BP:130/74, HR:77, Temp:97.2, Ht-cm: 162.56, Wt-k.18. * P ast Orders: Lab:Complete Blood Count Aut o Diff * Collection Date 06/16/2024 02/09/2024 09/02/2023 Collection Time 11:59 AM 11:20 AM 09:44 AM Order Date 06/16/2024 02/09/2024 09/02/2023 White Blood Count 11.6 H (Ref Range: 4.8-10.8 X10*3/uL) 9.6 (Ref Range: 4.8-10.8 X10*3/uL) 13.4 H (Ref Range: 4.8-10.8 X10*3/uL) Red Blood Count 5.65 (Ref Range: 4.60-5.80 X10*6/uL) 5.18 (Ref Range: 4.60-5.80 X10*6/uL) 5.13 (Ref Range: 4.60-5.80 X10*6/uL) Hemoglobin 16.5 (Ref Range: 14.0-18.0 g/dl) 15.4 (Ref Range: 14.0-18.0 g/dl) 15.0 (Ref Range: 14.0-18.0 g/dl) Hematocrit 48.3 (Ref Range: 42.0-52.0 %) 45.0 (Ref Range: 42.0-52.0 %) 43.6 (Ref Range: 42.0-52.0 %) Mean Corpuscular Volume 85.5 (Ref Range: 80.0-98.0 fL) 86.9 (Ref Range: 80.0-98.0 fL) 85.0 (Ref Range: 80.0-98.0 fL) Mean Corpuscular Hemoglobin 29.2 (Ref Range: 27.0-33.0 pg) 29.7 (Ref Range: 27.0-33.0 pg) 29.2 (Ref Range: 27.0-33.0 pg) Mean Corpuscular HGB Conc 34.2 (Ref Range: 31.0-36.0 g/dl) 34.2 (Ref Range: 31.0-36.0 g/dl) 34.4 (Ref Range: 31.0-36.0 g/dl) Red Cell Distribution Width 14.4 (Ref Range: 11.0-16.0 %) 14.3 (Ref Range: 11.0-16.0 %) 14.4 (Ref Range: 11.0-16.0 %) Platelet Count 366 (Ref Range: 160-400 X10*3/uL) 328 (Ref Range: 160-400 X10*3/uL) 337 (Ref Range: 160-400 X10*3/uL) Mean Platelet Volume 9.8 (Ref Range: 9.4-12.4 fL) 9.9 (Ref Range: 9.4-12.4 fL) 10.9 (Ref Range: 9.4-12.4 fL) Neutrophils Percent Auto 62.8 (Ref Range: 45-73 %) 66.1 (Ref Range: 45-73 %) 61.7 (Ref Range: 45-73 %) Imm Gran Pct Auto 0.4 (Ref Range: 0.0-0.4 %) 0.4 (Ref Range: 0.0-0.4 %) 0.7 H (Ref Range: 0.0-0.4 %) Lymphocytes Percent Auto 25.3 (Ref Range: 20-40 %) 22.8 (Ref Range: 20-40 %) 27.0 (Ref Range: 20-40 %) Monocytes Percent Auto 8.0 (Ref Range: 2-11 %) 7.3 (Ref Range: 2-11 %) 8.6 (Ref Range: 2-11 %) Eosinophils Percent Auto 2.8 (Ref Range: 0-4 %) 3.0 (Ref Range: 0-4 %) 1.6 (Ref Range: 0-4 %) Basophils Percent Auto 0.7 (Ref Range: 0-2 %) 0.4 (Ref Range: 0-2 %) 0.4 (Ref Range: 0-2 %) NRBC Pct Auto 0.0 (Ref Range: 0.0-0.2 /100WBC) 0.0 (Ref Range: 0.0-0.2 /100WBC) 0.0 (Ref Range: 0.0-0.2 /100WBC) Neutrophils Absolute Auto 7.3 (Ref Range: 2.0-8.3 x10*3/uL) 6.4 (Ref Range: 2.0-8.3 x10*3/uL) 8.3 (Ref Range: 2.0-8.3 x10*3/uL) Imm Gran Abs Auto 0.05 H (Ref Range: 0.00-0.03 X10*3/uL) 0.04 H (Ref Range: 0.00-0.03 X10*3/uL) 0.10 H (Ref Range: 0.00-0.03 X10*3/uL) Lymphocytes Absolute Auto 2.9 (Ref Range: 1.2-4.9 X10*3/uL) 2.2 (Ref Range: 1.2-4.9 X10*3/uL) 3.6 (Ref Range: 1.2-4.9 X10*3/uL) Monocytes Absolute Auto 0.9 (Ref Range: 0.1-1.2 X10*3/uL) 0.7 (Ref Range: 0.1-1.2 X10*3/uL) 1.2 (Ref Range: 0.1-1.2 X10*3/uL) Eosinophils Absolute Auto 0.3 (Ref Range: 0.0-0.4 X10*3/uL) 0.3 (Ref Range: 0.0-0.4 X10*3/uL) 0.2 (Ref Range: 0.0-0.4 X10*3/uL) Basophils Absolute Auto 0.1 (Ref Range: 0.0-0.2 X10*3/uL) 0.0 (Ref Range: 0.0-0.2 X10*3/uL) 0.1 (Ref Range: 0.0-0.2 X10*3/uL) NRBC Abs Auto 0.000 (Ref Range: 0.0-0.012 X10*3/uL) 0.000 (Ref Range: 0.0-0.012 X10*3/uL) 0.000 (Ref Range: 0.0-0.012 X10*3/uL) * Lab:Amy Tello * Collection Date 06/16/2024 02/09/2024 09/02/2023 Collection Time 11:59 AM 11:20 AM 09:44 AM Order Date 06/16/2024 02/09/2024 09/02/2023 Sodium 142 (Ref Range: 135-145 mmol/L) 140 (Ref Range: 135-145 mmol/L) 138 (Ref Range: 135-145 mmol/L) Bilirubin Total 0.8 (Ref Range: 0.0-1.0 mg/dL) 0.5 (Ref Range: 0.0-1.0 mg/dL) 0.6 (Ref Range: 0.0-1.0 mg/dL) Aspartate Amino Transferase 63 H (Ref Range: 5-37 U/L) 27 (Ref Range: 5-37 U/L) 41 H (Ref Range: 5-37 U/L) Alanine Aminotransferase 63 H (Ref Range: 0-40 U/L) 35 (Ref Range: 0-40 U/L) 41 H (Ref Range: 0-40 U/L) Total Protein 8.0 (Ref Range: 6.5-8.0 g/dL) 7.7 (Ref Range: 6.5-8.0 g/dL) 7.8 (Ref Range: 6.5-8.0 g/dL) Albumin Level 4.1 (Ref Range: 3.5-5.0 g/dL) 4.1 (Ref Range: 3.5-5.0 g/dL) 4.0 (Ref Range: 3.5-5.0 g/dL) Alkaline Phosphatase 87 (Ref Range: 39-117 U/L) 83 (Ref Range: 39-117 U/L) 79 (Ref Range: 39-117 U/L) Potassium 4.5 (Ref Range: 3.3-5.1 mmol/L) 4.4 (Ref Range: 3.3-5.1 mmol/L) 4.1 (Ref Range: 3.3-5.1 mmol/L) Chloride 105 (Ref Range: 96-108 mmol/L) 102 (Ref Range: 96-108 mmol/L) 102 (Ref Range: 96-108 mmol/L) Carbon Dioxide 29 (Ref Range: 22-29 mmol/L) 29 (Ref Range: 22-29 mmol/L) 28 (Ref Range: 22-29 mmol/L) Anion Gap 13 (Ref Range: 12-20) 13 (Ref Range: 12-20) 12 (Ref Range: 12-20) Blood Urea Nitrogen 13 (Ref Range: 9-16 mg/dL) 11 (Ref Range: 9-16 mg/dL) 16 (Ref Range: 9-16 mg/dL) Creatinine 1.04 (Ref Range: 0.5-1.4 mg/dL) 1.07 (Ref Range: 0.5-1.4 mg/dL) 1.02 (Ref Range: 0.5-1.4 mg/dL) Estimated Glomerular Filt Rate > 60 > 60 > 60 Glucose Fasting 90 (Ref Range: 60-99 mg/dL) 176 H (Ref Range: 60-99 mg/dL) 101 H (Ref Range: 60-99 mg/dL) Calcium 10.1 (Ref Range: 8.4-10.2 mg/dL) 9.6 (Ref Range: 8.4-10.2 mg/dL) 9.7 (Ref Range: 8.4-10.2 mg/dL) * Lab:Lipid Panel * Collection Date 06/16/2024 02/09/2024 09/02/2023 Collection Time 11:59 AM 11:20 AM 09:44 AM Order Date 06/16/2024 02/09/2024 09/02/2023 Triglycerides 116 (Ref Range: <150 mg/dL) 153 H (Ref Range: <150 mg/dL) 125 (Ref Range: <150 mg/dL) Cholesterol 207 H (Ref Range: <200 mg/dL) 217 H (Ref Range: <200 mg/dL) 193 (Ref Range: <200 mg/dL) LDL Cholesterol Calculated 147 H (Ref Range: <100 mg/dL) 149 H (Ref Range: <100 mg/dL) 122 H (Ref Range: <100 mg/dL) HDL Cholesterol 37 L (Ref Range: >40 mg/dL) 38 L (Ref Range: >40 mg/dL) 46 (Ref Range: >40 mg/dL) Clinical Info: Please fast for 12-1 4 hours prior to having this labwork done. You may have black coffee or tea with no milk or sugar. May have water,PLEASE FAX COMPLETED RESULTS TO [phone] Please have this testing 1 week prior to your next appointment * Lab:Microalbumin, Random * Collection Date 06/16/2024 02/09/2024 09/02/2023 Collection Time 11:55 AM 11:20 AM 09:30 AM Order Date 06/16/2024 02/09/2024 09/02/2023 Creatinine Urine 136.46 (Ref Range: mg/dL) 145.71 (Ref Range: mg/dL) 86.78 (Ref Range: mg/dL) Microalbumin Urine 16.0 (Ref Range: mg/L) 17.0 (Ref Range: mg/L) 9.0 (Ref Range: mg/L) Microalbum Creatinine Ratio Ur 11.7 (Ref Range: <30 ug/mg cr) 11.6 (Ref Range: <30 ug/mg cr) 10.3 (Ref Range: <30 ug/mg cr) Clinical Info: Please fast for 12-1 4 hours prior to having this labwork done. You may have black coffee or tea with no milk or sugar. May have water,PLEASE FAX COMPLETED RESULTS TO [phone] Please have this testing 1 week prior to your next appointment * Lab:Hemoglobin A1c * Collection Date 06/16/2024 02/09/2024 09/02/2023 Collection Time 11:59 AM 11:20 AM 09:44 AM Order Date 06/16/2024 02/09/2024 09/02/2023 Hemoglobin A1c % 5.8 (Ref Range: <6.0 %) 6.8 H (Ref Range: <6.0 %) 6.3 H (Ref Range: <6.0 %) Estimated Average Glucose 120 (Ref Range: mg/dL) 148 (Ref Range: mg/dL) 134 (Ref Range: mg/dL) Clinical Info: Please fast for 12-1 4 hours prior to having this labwork done. You may have black coffee or tea with no milk or sugar. May have water,PLEASE FAX COMPLETED RESULTS TO [phone] Please have this testing 1 week prior to your next appointment * Examination: G eneral Examination: GENERAL APPEARANCE: p leasant, well nourished, well developed, in no acute distress, calm and relaxed, obese, man. HEAD: a traumatic, normocephalic. EYES: e neda, perrla, anicteric, conjugate. EARS: n ormal. NOSE: s eptum intact. ORAL CAVITY: n ormal, unremarkable. NECK/THYROID: n o jugular venous distention, no carotid bruit, thyroid normal. LYMPH NODES: n o enlarged lymph nodes,spleen normal. SKIN: n o suspicious lesions, anicteric. HEART: n o clicks, gallops, murmurs, or rubs, regular rhythm, S1, S2 normal, no s3, or vascular bruits. LUNGS: , diminished breath sounds throughout, rhonchi on the RIGHT, rhonchi on the LEFT. BREASTS: no masses palpable bilaterally. ABDOMEN: b owel sounds normal, no ascites, no organomegaly, no mass, centripital obesity. RECTAL EXAM: n ot examined. MUSCULOSKELETAL: e xtremities unremarkable, no clubbing, cyanosis or edema, Decreased range of motion lumbar spine. PERIPHERAL PULSES: n ormal. NEUROLOGIC: a lert and oriented, cranial nerves 2-12 grossly intact, deep tendon reflexes 2+ symmetrical, motor strength normal upper and lower extremities, sensory exam intact. PSYCH: a lert, oriented. Assessment: * Assessment: 1. C hronic obstructive pulmonary disease, unspecified COPD type - J44.9 (Primary) ?Notes :He is no longer smoking. He is comfortable at rest. He has very diminished lung sounds on examination, but he is not in respiratory distress on room air. 2 . O besity (BMI 30.0-34.9) - E66.9 N otes :He has lost 12 pounds on the Ozempic, No change in the dose was made today. We have discussed diet and nutrition and lifestyle modification. We made a plan to lose weight at a rate of one half of a pound per week. 3 . H yperlipidemia type II - E78.01 N otes :His fasting lipid profile shows cholesterol 207 In June 2024.. No change in his medication was made today.Strongly recommended adherence to a diabetic diet and aggressive weight loss. 4 . B enign prostatic hyperplasia with lower urinary tract symptoms - N40.1? Notes :He rises from sleep twice a night to urinate. We discussed lifestyle modification as a way to reduce nocturia. He did not wish to take additional medication. 5 . S leep apnea in adult - G47.30 N otes :He no longer uses his CPAP machine as he is not convinced it is working. I recommended he take it back to his environmental communications specialist for calibration. 6 . I nsomnia, unspecified type - G47.00 N otes :He reports that he is sleeping somewhat better lately. 7 . O ther chronic pain - G89.29 N otes :His current regimen was continued without change. He will see pain management in the near future to 8 . I ntermittent asthma without complication, unspecified asthma severity - J45.20 N otes :2. Wheezing is improved but still present. He was advised to avoid exposure to pollen and tobacco smoke. He will take the prednisone another 7 days. 9 . S chatzki's ring - K22.2 N otes :He denies any dysphagia at this time. 1 0. D M (diabetes mellitus) - E11.9 N otes :He has been compliant with his medication and reports his glucose levels have been about 150. A comprehensive set of labs were ordered today which will include microalbumin and hemoglobin A1c and fasting glucose and cholesterol.In June 2024 is hemoglobin A1c which had been 6.8 was 5.8. He has lost 3 pounds. 1 1. F ormer smoker - Z87.891 N otes :We discussed a plan to prevent relapse in times of illness or stress Plan: * Treatment: 2. H yperlipidemia type II L AB: PROFILE, FASTING (COMPREHENSIVE METABOLIC) L AB: CBC w DIFF L AB: Lipid Panel L AB: Microalbumin, Random L AB: Hemoglobin A1c 3. D M (diabetes mellitus) L AB: PROFILE, FASTING (COMPREHENSIVE METABOLIC) L AB: CBC w DIFF L AB: Lipid Panel L AB: Microalbumin, Random L AB: Hemoglobin A1c 4. O thers Continue Basaglar KwikPen Solution Pen-injector, 100 UNIT/ML, 35 units daily, Subcutaneous, use 35 units daily, Notes to Pharmacist: DX: Diabetes E11.9; C ontinue Lisinopril Tablet, 2.5 MG, TAKE 1 TABLET BY MOUTH EVERY DAY; C ontinue Azithromycin Tablet, 250 MG, as directed, Orally, 2 tablets the first day, 1 tablet the other days; C ontinue Proventil HFA Aerosol Solution, 108 (90 Base) MCG/ACT, 1 puff as needed, Inhalation, every 4 hrs; C ontinue buPROPion HCl ER (SR) Tablet Extended Release 12 Hour, 100 MG, TAKE 1 TABLET BY MOUTH EVERY DAY IN THE MORNING; C ontinue metFORMIN HCl Tablet, 850 MG, TAKE 1 TABLET BY MOUTH TWICE A DAY; C ontinue Lantus Solution, 100 UNIT/ML, as directed, Subcutaneous, 35 Units once a day, Notes to Pharmacist: E11.9 DM (diabetes mellitus); C ontinue buPROPion HCl ER (SR) Tablet Extended Release 12 Hour, 200 MG, 1 tablet, Orally, Once a day. * Procedure Codes: * Preventive Medicine: Counseling: C are goal follow-up plan: Counseling for abnormal BMI given Y es Above Normal BMI Follow-up D ietary management education, guidance, and counseling, Dietary needs education, Exercise promotion: strength training, Exercise promotion: stretching, Feeding regime, Giving encouragement to exercise, Lifestyle education regarding diet, Nutrition / feeding management, Nutrition therapy, Prescribed activity/exercise education, Prescribed diet education, Prescribed dietary intake, Special diet education, Weight monitoring , Intervention, Order not done: Medical or Other reason not done S moking/Tobacco Use Patient counseled on the dangers of tobacco use and urged to quit. 0 09/14/2024 DM Care Plan: P atient Lifestyle Goals P atient wants to be able to manage diabetes without too much effort. T reatment Goals B lood Sugars less than < 115, HbA1C < 7.0. B arriers n o barriers. S elf-Managment Goals W ork on weight loss, with a goal of losing 1 lb per week. * Follow Up: a s scheduled November (Reason: annual exam review labs) * Images: * Sign off status: Completed true * Provider: Yousif Zepeda MD Date: 0 09/14/2024 Generated for Alex crocker/Miguel A/eTransmitting on: 1 07/26/2024 12:07 PM EST History and Physical Notes * HPI (History of Present Illness) Category Sub-Category Detail Notes COVID-19 Screening Questions Have you had any new onset fever, chills, cough, congestion, sore throat, shortness of breath, muscle aches?: No Examination Category Sub-Category Detail Notes General Examination GENERAL APPEARANCE: pleasant , well nourished, well developed, in no acute distress, calm and relaxed, obese, man HEAD: atraumatic, normocep halic EYES: eomi, perrla, anicte dalton, conjugate EARS: normal NOSE: septum intact NECK/THYROID: no jugular venous di stention, no carotid bruit, thyroid normal HEART: no clicks, gallops, murmurs, or rubs, regular rhythm, S1, S2 normal, no s3, or vascular bruits LUNGS: , diminished breath sounds throughout, rhonchi on the RIGHT, rhonchi on the LEFT ABDOMEN: bowel sounds normal, no ascites, no organomegaly, no mass, centripital obesity NEUROLOGIC: alert and oriented, cranial nerves 2-12 grossly intact, deep tendon reflexes 2+ symmetrical, motor strength normal upper and lower extremities, sensory exam intact SKIN: no suspicious lesion s, anicteric PERIPHERAL PULSES: normal BREASTS: no masses palpable b ilaterally MUSCULOSKELETAL: extremities unremark able, no clubbing, cyanosis or edema, Decreased range of motion lumbar spine LYMPH NODES: no enlarged lymph no bowen,spleen normal RECTAL EXAM: not examined PSYCH: alert, oriented ORAL CAVITY: normal, unremarkable
--- OUTSIDE RECORDS SUMMARY | 2024-09-20 06:30 | XMS_ITS ---
Author Organization Chin Zepeda III, MD Address [address] [place] [address] [place] [address] Care Team Providers Care Pumper Helper Name Role Phone Dr. Chin Zepeda III Primary Care Provider [phone] Allergies Allergen (clinical drug ingredient) Drug/Non Drug Allergy documented on EMR Reaction Allergy Type Onset Date Status No Known Drug Allergy Unknown Drug Allergy Active REASON FOR VISIT Acute constipation, Bereavement, COPD, Benign prostatic hypertrophy, Sleep apnea Medications Medication SIG (Take, Route, Frequency, Duration) Notes Start Date End Date Status Ozempic (0.25 or 0.5 MG/DOSE) 2 MG/3ML 0.25 mg as directed Subcutaneous weekly 02/16/2024 Active FreeStyle Lite Test - as directed In Vit ro 3 times a day Active Alcohol Prep Pads 70 % as directed Externally 3 times a day 05/16/2021 Active FreeStyle Lancets - as directed as directed use to check blood sugars three times a day 05/01/2021 Active Triamcinolone Acetonide 0.1 % 1 application Externally Two times a day 06/16/2024 Active Gabapentin 600 MG 1 tablet Orally three times a day 05/27/2022 Active Lantus 100 UNIT/ML as directed Subcutaneous 35 Units once a day E11.9 DM (diabetes mellitus) Active buPROPion HCl ER (SR) 200 MG 1 tablet Orally Once a day 11/18/2023 Active buPROPion HCl ER (SR) 100 MG TAKE 1 TABLET BY MOUTH EVERY DAY IN THE MORNING Active metFORMIN HCl 850 MG TAKE 1 TABLET BY MOUTH TWICE A DAY Active Triamcinolone Acetonide 0.1 % 1 application Externally Twice a day 04/01/2022 Active Tadalafil 20 MG 1 tablet as needed Orally Once a day Active Wixela Inhub 500-50 MCG/DOSE INHALE 1 PUFF TWICE A DAY Inhalation Active FreeStyle Lite - as directed as directed to use to test blood sugars three a day 05/01/2021 Active traZODone HCl 50 MG 1 tablet at bedtime as needed Orally Once a day 08/04/2023 Active buPROPion HCl ER (SR) 200 MG TAKE 1 TABLET BY MOUTH EVERY DAY FOR 30 DAYS Active Albuterol Sulfate (2.5 MG/3ML) 0.083% 3 ml as needed Inhalation every 4 hrs 11/05/2022 Active Pantoprazole Sodium 40 MG 1 tablet Orally Once a day Active Senna 8.6 MG 1 tablet at bedtime as needed Orally Once a day for 30 days 09/20/2024 11/19/2024 Active Atorvastatin Calcium 10 MG 1 tablet Orally Once a day 11/19/2022 Active metFORMIN HCl 850 MG TAKE 1 TABLET BY MOUTH TWICE A DAY Active buPROPion HCl ER (SR) 100 MG 1 tablet Orally Once a day Active Melatonin 5 MG 1 tablet in the evening Orally Once a day 11/19/2022 Active Albuterol Sulfate HFA 108 (90 Base) MCG/ACT 1 puff as needed Inhalation every 4 hrs 11/05/2022 Active Januvia 100 MG 1 tablet Orally Once a day 05/27/2022 Active Proventil HFA 108 (90 Base) MCG/ACT 1 puff as needed Inhalation every 4 hrs 08/03/2023 Active Lisinopril 2.5 MG TAKE 1 TABLET BY MOUTH EVERY DAY Active Azithromycin 250 MG as directed Orally 2 tablets the first day, 1 tablet the other days 03/11/2024 Active Basaglar KwikPen 100 UNIT/ML 35 units daily Subcutaneous use 35 units daily DX: Diabetes E11.9 08/08/2024 Active Social History Tobacco Use: Social History Observation Description Date Details (start date - stop date) Former Smoker NA - NA Sex Assigned At : Social History Observation Description Sex Assigned At Male Tobacco Use/Smoking Question Answer Notes Patient is a former smoker How long has it been since you last smoked? 1-5 years Additional Findings: Tobacco Non-User Ex-cigaret te smoker Problems Problem Type SNOMED Code ICD Code Onset Dates Problem Status W/U Status Risk Notes Problem [id number] Acute constipation (K59.00) Active confirmed I recommended her regimen of MiraLAX 17 g daily with senna 6 mg twice a day. If his bowels do not move in another 48 hours he will come to the office for evaluation. He will notify me at once if he has any hematochezia. Vital Signs Height 64 in 09/20/2024 Weight 190 lbs 09/20/2024 BMI 32.61 kg/m2 09/20/2024 Encounters Encounter Location Date Provider Diagnosis Chin Zepeda III, MD [address] [place] [address] [place] [address] 09/20/2024 Chin Zepeda Chronic obstructive pulmonary disease, unspecified COPD type J44.9 ; Obesity (BMI 30.0-34.9) E66.9 ; Former smoker Z87.891 ; Other depression F32.89 ; Sleep apnea in adult G47.30 ; Benign prostatic hyperplasia with lower urinary tract symptoms N40.1 ; Lumbago with sciatica, unspecified side M54.40 ; Intermittent asthma without complication, unspecified asthma severity J45.20 ; Schatzki's ring K22.2 ; Insomnia, unspecified type G47.00 ; Acute constipation K59.00 and DM (diabetes mellitus) E11.9 Assessments Encounter Date Diagnosis (ICD Code) Assessment Notes Treatment Notes Treatment Clinical Notes 09/20/2024 Chronic obstructive pulmonary disease, unspecified COPD type (ICD-10 - J44.9) He is no longer smoking. He is comfortable at rest. He has very diminished lung sounds on examination, but he is not in respiratory distress on room air. 09/20/2024 Obesity (BMI 30.0-34.9) (ICD-10 - E66.9) He has lost 12 pounds on the Ozempic, No change in the dose was made today. We have discussed diet and nutrition and lifestyle modification. We made a plan to lose weight at a rate of one half of a pound per week. 09/20/2024 Former smoker (ICD-10 - Z87.891) We discussed a plan to prevent relapse in times of illness or stress 09/20/2024 Other depression (ICD-10 - F32.89) His depression is currently low-grade and stable and chronic. No change in his regimen was needed. 09/20/2024 Sleep apnea in adult (ICD-10 - G47.30) He no longer uses his CPAP machine as he is not convinced it is working. I recommended he take it back to his hearing instrument specialist for calibration. 09/20/2024 Benign prostatic hyperplasia with lower urinary tract symptoms (ICD-10 - N40.1) He rises from sleep twice a night to urinate. We discussed lifestyle modification as a way to reduce nocturia. He did not wish to take additional medication. 09/20/2024 Lumbago with sciatica, unspecified side (ICD-10 - M54.40) His back pain is still present but has diminished and he is able to walk without difficulty. He does not require narcotic analgesics at this time. 09/20/2024 Intermittent asthma without complication, unspecified asthma severity (ICD-10 - J45.20) 2. Wheezing is improved but still present. He was advised to avoid exposure to pollen and tobacco smoke. He will take the prednisone another 7 days. 09/20/2024 Schatzki's ring (ICD-10 - K22.2) He denies any dysphagia at this time. 09/20/2024 Insomnia, unspecified type (ICD-10 - G47.00) He reports that he is sleeping somewhat better lately. 09/20/2024 Acute constipation (ICD-10 - K59.00) I recommended her regimen of MiraLAX 17 g daily with senna 6 mg twice a day. If his bowels do not move in another 48 hours he will come to the office for evaluation. He will notify me at once if he has any hematochezia. 09/20/2024 DM (diabetes mellitus) (ICD-10 - E11.9) He has been compliant with his medication and reports his glucose levels have been about 150. A comprehensive set of labs were ordered today which will include microalbumin and hemoglobin A1c and fasting glucose and cholesterol.In June 2024 is hemoglobin A1c which had been 6.8 was 5.8. He has lost 3 pounds. Plan Of Treatment Medication Medication Name Sig Start Date Stop Date Notes Ozempic (0.25 or 0.5 MG/DOSE) 2 MG/3ML 0.25 mg as directed Subcutaneous weekly 02/16/2024 FreeStyle Lite Test - as directed In Vit ro 3 times a day Alcohol Prep Pads 70 % as directed Exter christine 3 times a day 05/16/2021 FreeStyle Lancets - as directed as directed use to check blood sugars three times a day 05/01/2021 Triamcinolone Acetonide 0.1 % 1 application Externally Two times a day 06/16/2024 Gabapentin 600 MG 1 tablet Orally thre e times a day 05/27/2022 Lantus 100 UNIT/ML as directed Subcutaneous 35 Units once a day E11.9 DM (diabetes mellitus) buPROPion HCl ER (SR) 200 MG 1 tablet Orally Once a day 11/18/2023 buPROPion HCl ER (SR) 100 MG TAKE 1 TABLET BY MOUTH EVERY DAY IN THE MORNING metFORMIN HCl 850 MG TAKE 1 TABLET BY [facility] TWICE A DAY Triamcinolone Acetonide 0.1 % 1 application Externally Twice a day 04/01/2022 Tadalafil 20 MG 1 tablet as needed Orally Once a day Wixela Inhub 500-50 MCG/DOSE INHALE 1 PUFF TWICE A DAY Inhalation FreeStyle Lite - as directed as directed to use to test blood sugars three a day 05/01/2021 traZODone HCl 50 MG 1 tablet at bedtime as needed Orally Once a day 08/04/2023 buPROPion HCl ER (SR) 200 MG TAKE 1 TABLET BY MOUTH EVERY DAY FOR 30 DAYS Albuterol Sulfate (2.5 MG/3ML) 0.083% 3 ml as needed Inhalation every 4 hrs 11/05/2022 Pantoprazole Sodium 40 MG 1 tablet Orally Once a day Senna 8.6 MG 1 tablet at bedtime as needed Orally Once a day for 30 days 09/20/2024 11/19/2024 Atorvastatin Calcium 10 MG 1 tablet Orally Once a day 11/19/2022 metFORMIN HCl 850 MG TAKE 1 TABLET BY [facility] TWICE A DAY buPROPion HCl ER (SR) 100 MG 1 tablet Orally Once a day Melatonin 5 MG 1 tablet in the evening Orally Once a day 11/19/2022 Albuterol Sulfate HFA 108 (90 Base) MCG/ACT 1 puff as needed Inhalation every 4 hrs 11/05/2022 Januvia 100 MG 1 tablet Orally Once a day 05/27/2022 Proventil HFA 108 (90 Base) MCG/ACT 1 puff as needed Inhalation every 4 hrs 08/03/2023 Lisinopril 2.5 MG TAKE 1 TABLET BY RON TH EVERY DAY Azithromycin 250 MG as directed Orally 2 tablets the first day, 1 tablet the other days 03/11/2024 Basaglar KwikPen 100 UNIT/ML 35 units daily Subcutaneous use 35 units daily 08/08/2024 DX: Diabetes E11.9 Next Appt Details Follow Up: SCHEDULED, Joyce son: OV Provider Name:Chin Zepeda , 07/17/2025 02:00:00 PM, [address] [place] [address] [address], [place], [address], Provider Name:Chin Zepeda , 12/29/2025 02:00:00 PM, [address] [place] [address] [address], [place], [address], Progress Notes * Juan Diego BARRAZA ADOB:[birth year] (69 yo M)Acc No.[id number]:09/20/2024 Patient: Duncan JOHNSONJuan Diego PEDERSON Provider: Yousif Zepeda MD :[id number] A ge:69 Y S ex:Male Date:09/20/2024 Address:[address] [place], [place] [id number] Subjective: * Chief Complaints: * A cute constipationBereavementCOPDBenign prostatic hypertrophySleep apnea * HPI: * : This telehealth visit took place over 15 minutes with the patient at home and me in my office. He gave consent for billing. He reports 48 hours without a bowel movement. He has had no rectal bleeding and continues to strain at stool. He has a supply of MiraLAX at home but has not taken it. We discussed his situation and made a plan too include bran cereal in breakfasts, MiraLAX 17 g once a day. I have prescribed senna twice a day until he moves his bowels and then once a day. He reports that his brother a couple of days ago of an illness. He is upset and grieving. He continues to report back pain down his leg. His current medical regimen was continued and he was urged to take the gabapentin as ordered. Telehealth L ocation of provider rendering services: { ...} [address] [facility] [address] L ocation of patient: yevgeniy finley listed in demographics for today's visit P atient identification confirmed using: LYLY Dunne ame elehealth method: T elephone only. Patient not visible to care provider. C onsent: P atient verbally consented to treatment, Patient verbally consented to billing insurance company, Patient informed of any privacy concerns related to method of visit T otal time spent with patient (mins) 1 5 * ROS: G eneral/Constitutional: pain L umbar spine occasionally radiant down legs. C hills d enies. F atigue a dmits. F ever d enies. E NT: Decreased hearing d enies. R espiratory: Cough d enies. C ardiovascular: Chest pain with exertion d enies. D yspnea on exertion?denies. S hortness of breath w ith exertion. G astrointestinal: Constipation a ssociated with perianal discomfort. D ecreased appetite d enies. D iarrhea [...] hat is chronic. P sychiatric: Depressed mood w hich is mild. * Medical History: * Surgical History: b roken right leg left shoulder No history * Hospitalization/Major Diagno stic Procedure: a sthma 06/2018headache,body pain and bronchitis 10/2020No history * Family History: F ather: alive 80 yrs, diagnosed with Hyperlipidemia. M other: alive 76 yrs, diagnosed with Hyperlipidemia. Tim rubio: alive. 4 brother(s) , 1 sister(s) . [...] Non-User E x-cigarette smoker * Medications: T akingBasaglar KwikPen 100 UNIT/ML Solution Pen-injector 35 units daily Subcutaneous use 35 units daily , Notes to Pharmacist: DX: Diabetes E11.9Lisinopril 2.5 MG Tablet TAKE 1 TABLET BY MOUTH EVERY DAY Azithromycin 250 MG Tablet as directed Orally [...] 1 application Externally Two times a day Medication List reviewed and reconciled with the patientTaking Basaglar KwikPen 100 UNIT/ML Solution Pen-injector 35 units daily Subcutaneous use 35 units daily , Notes to Pharmacist: DX: Diabetes E11.9Taking Lisinopril 2.5 MG Tablet TAKE 1 TABLET BY MOUTH EVERY DAY Taking Azithromycin 250 MG Tablet as directed Orally [...] 1 application Externally Two times a day Medication List reviewed and reconciled with the patient * Allergies: N o Known Drug Allergyno[Allergies Verified] Objective: * Vitals: H t: 64, Wt:190, BMI:32.61, Ht-cm: 162.56, Wt-k.18. Assessment: * Assessment: 1. C hronic obstructive [...] of a pound per week. 3 . F ormer smoker - Z87.891 N otes :We discussed a plan to prevent relapse in times of illness or stress 4 . O ther depression - F32.89 N otes :His depression is currently low-grade and stable and chronic. No change in his regimen was needed. 5 . S leep apnea in adult - G47.30 N otes :He no longer uses his CPAP machine as he is not convinced it is working. I recommended he take it back to his hearing instrument specialist for calibration. 6 . B enign prostatic hyperplasia with lower urinary tract symptoms - N40.1? Notes :He rises from sleep twice a night to urinate. We discussed lifestyle modification as a way to reduce nocturia. He did not wish to take additional medication. 7 . L ana with sciatica, unspecified side - M54.40 N otes :His back pain is still present but has diminished and he is able to walk without difficulty. He does not require narcotic analgesics at this time. 8 . I ntermittent asthma without complication, unspecified asthma severity - J45.20 N otes :2. Wheezing is improved but still present. He was advised to avoid exposure to pollen and tobacco smoke. He will take the prednisone another 7 days. 9 . S chatzki's ring - K22.2 N otes :He denies any dysphagia at this time. 1 0. I nsomnia, unspecified type - G47.00 N otes :He reports that he is sleeping somewhat better lately. 1 1. A cute constipation - K59.00 N otes :I recommended her regimen of MiraLAX 17 g daily with senna 6 mg twice a day. If his bowels do not move in another 48 hours he will come to the office for evaluation. He will notify me at once if he has any hematochezia. 1 2. D M (diabetes mellitus) - E11.9 N otes :He has been compliant with his medication and reports his glucose levels have been about 150. A comprehensive set of labs were ordered today which will include microalbumin and hemoglobin A1c and fasting glucose and cholesterol.In June 2024 is hemoglobin A1c which had been 6.8 was 5.8. He has lost 3 pounds. Plan: * Treatment: 2. O thers Continue Basaglar KwikPen Solution Pen-injector, [...] tobacco use and urged to quit. 0 09/20/2024 DM Care Plan: P atient Lifestyle Goals P atient wants to be able to manage diabetes without too much effort. T reatment Goals B lood Sugars less than < 115.? B arriers n o barriers. S elf-Managment Goals W ork on weight loss, with a goal of losing 1 lb per week. COPD Care Plan: P atient Lifestyle Goals R educe number of ED and hospitalizations, Relieve symptoms and improve quality of life, Be able to be more active with friends and family. T reatment Goals E xercise to help whole body, including lungs, Eat a nutritious diet and increase water consumption to 6-8 glasses a day. B arriers n o barriers. S elf-Managment Goals G et an air purifier for the rooms you are in the most, Eat a healthy diet. * Follow Up: A S SCHEDULED (Reason: OV) * Images: * Sign off status: Completed true * Provider: Yousif Zepeda MD Date: 0 09/20/2024 Generated for Alex crocker/Miguel A/eTransmitting on: 1 07/26/2024 12:07 PM EST History and Physical Notes * HPI (History of Present Illness) Category Sub-Category Detail Notes Telehealth Location of [facility] rendering services:: {...} [address] [facility] [address] Location of patient:: address listed in demographics for today's visit Patient identification confirmed using:: Name, Telehealth method:: Telephone only. Aidee ent not visible to care provider. Consent:: Patient verbally c onsented to treatment, Patient verbally consented to billing insurance company, Patient informed of any privacy concerns related to method of visit Total time spent with patient (mins): 15
--- OUTSIDE RECORDS SUMMARY | 2024-11-14 06:00 | XMS_ITS ---
Author Organization Chin Zepeda III, MD Address [address] [place] [address] [place] [address] Care Team Providers Care Learning Strategist Name Role Phone Dr. Chin Zepeda III Primary Care Provider Allergies Allergen (clinical drug ingredient) Drug/Non Drug Allergy documented on EMR Reaction Allergy Type Onset Date Status No Known Drug Allergy Unknown Drug Allergy Active REASON FOR VISIT Annual Exam Medications Medication SIG (Take, Route, Frequency, Duration) Notes Start Date End Date Status FreeStyle Lite Test - as directed In Vit ro 3 times a day Active Senna 8.6 MG 1 tablet at bedtime as needed Orally Once a day 09/20/2024 Active Ozempic (0.25 or 0.5 MG/DOSE) 2 MG/3ML 0.25 mg as directed Subcutaneous weekly 02/16/2024 Active Triamcinolone Acetonide 0.1 % 1 application Externally Two times a day 06/16/2024 Active Alcohol Prep Pads 70 % as directed Externally 3 times a day 05/16/2021 Active FreeStyle Lancets - as directed as directed use to check blood sugars three times a day 05/01/2021 Active Lantus 100 UNIT/ML as directed Subcutaneous 35 Units once a day E11.9 DM (diabetes mellitus) Active Gabapentin 600 MG 1 tablet Orally three times a day 05/27/2022 Active Tadalafil 20 MG 1 tablet as needed Orally Once a day Active traZODone HCl 50 MG 1 tablet at bedtime as needed Orally Once a day 08/04/2023 Active FreeStyle Lite - as directed as directed to use to test blood sugars three a day 05/01/2021 Active Triamcinolone Acetonide 0.1 % 1 application Externally Twice a day 04/01/2022 Active Pantoprazole Sodium 40 MG 1 tablet Orally Once a day Active Wixela Inhub 500-50 MCG/DOSE INHALE 1 PUFF TWICE A DAY Inhalation Active Albuterol Sulfate (2.5 MG/3ML) 0.083% 3 ml as needed Inhalation every 4 hrs 11/05/2022 Active Melatonin 5 MG 1 tablet in the evening Orally Once a day 11/19/2022 Active Atorvastatin Calcium 10 MG 1 tablet Orally Once a day 11/19/2022 Active Proventil HFA 108 (90 Base) MCG/ACT 1 puff as needed Inhalation every 4 hrs 08/03/2023 Active Januvia 100 MG 1 tablet Orally Once a day 05/27/2022 Active Azithromycin 250 MG as directed Orally 2 tablets the first day, 1 tablet the other days 03/11/2024 Active Lisinopril 2.5 MG TAKE 1 TABLET BY MOUTH EVERY DAY Active buPROPion HCl ER (SR) 200 MG TAKE 1 TABLET BY MOUTH EVERY DAY FOR 30 DAYS Active Basaglar KwikPen 100 UNIT/ML 35 units daily Subcutaneous use 35 units daily DX: Diabetes E11.9 08/08/2024 Active metFORMIN HCl 850 MG TAKE 1 TABLET BY MOUTH TWICE A DAY Active buPROPion HCl ER (SR) 100 MG 1 tablet Orally Once a day Active Albuterol Sulfate HFA 108 (90 Base) MCG/ACT 1 puff as needed Inhalation every 4 hrs Active Social History Tobacco Use: Social History Observation Description Date Details (start date - stop date) Former Smoker NA - NA Sex Assigned At : Social History Observation Description Sex Assigned At Male Tobacco Use/Smoking Question Answer Notes Patient is a former smoker How long has it been since you last smoked? 1-5 years Additional Findings: Tobacco Non-User Ex-cigaret te smoker Encounters Encounter Location Date Provider Diagnosis Chin Zepeda III, MD [address] [place] [address] [place] [address] 11/14/2024 Chin Zepeda Chronic obstructive pulmonary disease, unspecified COPD type J44.9 Assessments Encounter Date Diagnosis (ICD Code) Assessment Notes Treat ment Notes Treatment Clinical Notes 11/14/2024 Chronic obstructive pulmonary disease, unspecified COPD type (ICD-10 - J44.9) Plan Of Treatment Medication Medication Name Sig Start Date Stop Date Notes FreeStyle Lite Test - as directed In Vit ro 3 times a day Senna 8.6 MG 1 tablet at bedtime as needed Orally Once a day 09/20/2024 Ozempic (0.25 or 0.5 MG/DOSE) 2 MG/3ML 0.25 mg as directed Subcutaneous weekly 02/16/2024 Triamcinolone Acetonide 0.1 % 1 application Externally Two times a day 06/16/2024 Alcohol Prep Pads 70 % as directed Exter christine 3 times a day 05/16/2021 FreeStyle Lancets - as directed as directed use to check blood sugars three times a day 05/01/2021 Lantus 100 UNIT/ML as directed Subcutaneous 35 Units once a day E11.9 DM (diabetes mellitus) Gabapentin 600 MG 1 tablet Orally thre e times a day 05/27/2022 Tadalafil 20 MG 1 tablet as needed Orally Once a day traZODone HCl 50 MG 1 tablet at bedtime as needed Orally Once a day 08/04/2023 FreeStyle Lite - as directed as directed to use to test blood sugars three a day 05/01/2021 Triamcinolone Acetonide 0.1 % 1 application Externally Twice a day 04/01/2022 Pantoprazole Sodium 40 MG 1 tablet Orally Once a day Wixela Inhub 500-50 MCG/DOSE INHALE 1 PUFF TWICE A DAY Inhalation Albuterol Sulfate (2.5 MG/3ML) 0.083% 3 ml as needed Inhalation every 4 hrs 11/05/2022 Melatonin 5 MG 1 tablet in the evening Orally Once a day 11/19/2022 Atorvastatin Calcium 10 MG 1 tablet Orally Once a day 11/19/2022 Proventil HFA 108 (90 Base) MCG/ACT 1 puff as needed Inhalation every 4 hrs 08/03/2023 Januvia 100 MG 1 tablet Orally Once a day 05/27/2022 Azithromycin 250 MG as directed Orally 2 tablets the first day, 1 tablet the other days 03/11/2024 Lisinopril 2.5 MG TAKE 1 TABLET BY [facility]ON [facility] EVERY DAY buPROPion HCl ER (SR) 200 MG TAKE 1 TABLET BY MOUTH EVERY DAY FOR 30 DAYS Basaglar KwikPen 100 UNIT/ML 35 units daily Subcutaneous use 35 units daily 08/08/2024 DX: Diabetes E11.9 metFORMIN HCl 850 MG TAKE 1 TABLET [facility] TWICE A DAY buPROPion HCl ER (SR) 100 MG 1 tablet Orally Once a day Albuterol Sulfate HFA 108 (90 Base) MCG/ACT 1 puff as needed Inhalation every 4 hrs Next Appt Details Provider Name:Chin Zepeda , 07/17/2025 02:00:00 PM, [address] [place] [address] [address], [place], [id number], Provider Name:Chin Zepeda , 12/29/2025 02:00:00 PM, [address] [place] [address] [address], [place], [phone], Progress Notes * Juan Diego BARRAZA ADOB:[birth year] (70 yo M)Acc No.[id number]:11/14/2024 Progress Notes Patient: Juan Diego PALOMARES Provider: Yousif Zepeda MD :1955 A ge:69 Y S ex:Male Date:11/14/2024 Address:[address] [place], [place] [id number] Subjective: * Chief Complaints: * 1 . Annual Exam. * HPI: C OVID-19 Screening: Questions H ave you had any new onset fever, chills, cough, congestion, sore throat, shortness of breath, muscle aches? N o * ROS: G eneral/Constitutional: pain o nly normal aches and pains. C hills d enies.?Fatigue a dmits. F ever d enies. E NT: Decreased hearing d enies. R espiratory: Cough d enies. C ardiovascular: Chest pain with exertion d enies. D yspnea on exertion?denies. S hortness of breath d enies. G astrointestinal: Constipation d enies. D ecreased appetite d enies.?Diarrhea d enies. H eartburn d enies. N ausea d enies. R ectal bleeding?denies. V omiting d enies. H ematology: bruising d enies. p etechiae d enies. S wollen glands n one have been noted. G enitourinary: Frequent urination d enies. M usculoskeletal: Muscle aches d enies. P ainful joints d enies. S ciatica d enies. W eakness d enies. S kin: Itching d enies. R shayla d enies. S kin lesion(s)?denies. N eurologic: Difficulty speaking d enies. D izziness d enies.?Headache d enies. L ow back pain d enies. P sychiatric: Depressed mood d enies. * Medical History: O besity, unspecified, Chronic obstructive pulmonary disease, unspecified COPD type, Hyperlipidemia, unspecified hyperlipidemia type, Anxiety, Knee pain, unspecified chronicity, unspecified laterality, Depression, unspecified depression type, Asthma, unspecified asthma severity, unspecified whether complicated, unspecified whether persistent, Prostatism, Low back pain, unspecified back pain laterality, unspecified chronicity, with sciatica presence unspecified, Sleep apnea, unspecified type, Igy-teueeyq-mioxppwhd diabetes mellitus, History of hydroureter on the right, Erectile dysfunction, Former smoker. * Surgical History: b roken right leg , left shoulder , No history . * Hospitalization/Major Diagno stic Procedure: a sthma 06/2018, headache,body pain and bronchitis 10/2020, No history . * Family History: F ather: alive 80 [...] Non-User E x-cigarette smoker * Medications: T aking Basaglar KwikPen 100 UNIT/ML Solution Pen-injector 35 units daily Subcutaneous use 35 units daily , Notes to Pharmacist: DX: Diabetes E11.9, Taking Lisinopril 2.5 MG Tablet TAKE 1 TABLET BY MOUTH EVERY DAY , Taking Azithromycin 250 MG Tablet as directed Orally 2 tablets the first day, 1 tablet the other days , Taking Proventil HFA 108 (90 Base) MCG/ACT Aerosol Solution 1 puff as needed Inhalation every 4 hrs , Taking Januvia 100 MG Tablet 1 tablet Orally Once a day , Taking Melatonin 5 MG Tablet 1 tablet in the evening Orally Once a day , Taking Atorvastatin Calcium 10 MG Tablet 1 tablet Orally Once a day , Taking Albuterol Sulfate (2.5 MG/3ML) 0.083% Nebulization Solution 3 ml as needed Inhalation every 4 hrs , Taking Pantoprazole Sodium 40 MG Tablet Delayed Release 1 tablet Orally Once a day , Taking Wixela Inhub 500-50 MCG/DOSE Aerosol Powder Breath Activated INHALE 1 PUFF TWICE A DAY Inhalation , Taking FreeStyle Lite - Device as directed as directed to use to test blood sugars three a day , Taking Triamcinolone Acetonide 0.1 % Cream 1 application Externally Twice a day , Taking Tadalafil 20 MG Tablet 1 tablet as needed Orally Once a day , Taking traZODone HCl 50 MG Tablet 1 tablet at bedtime as needed Orally Once a day , Taking Lantus 100 UNIT/ML Solution as directed Subcutaneous 35 Units once a day , Notes to Pharmacist: E11.9 DM (diabetes mellitus), Taking Gabapentin 600 MG Tablet 1 tablet Orally three times a day , Taking FreeStyle Lancets - Miscellaneous as directed as directed use to check blood sugars three times a day , Taking FreeStyle Lite Test - Strip as directed In Vitro 3 times a day , Taking Alcohol Prep Pads 70 % Miscellaneous as directed Externally 3 times a day , Taking Ozempic (0.25 or 0.5 MG/DOSE) 2 MG/3ML Solution Pen-injector 0.25 mg as directed Subcutaneous weekly , Taking Triamcinolone Acetonide 0.1 % Cream 1 application Externally Two times a day , Taking Senna 8.6 MG Tablet 1 tablet at bedtime as needed Orally Once a day , stop date 11/19/2024, Taking metFORMIN HCl 850 MG Tablet TAKE 1 TABLET BY MOUTH TWICE A DAY , Taking buPROPion HCl ER (SR) 200 MG Tablet Extended Release 12 Hour TAKE 1 TABLET BY MOUTH EVERY DAY FOR 30 DAYS , Taking buPROPion HCl ER (SR) 100 MG Tablet Extended Release 12 Hour 1 tablet Orally Once a day , Taking Albuterol Sulfate HFA 108 (90 Base) MCG/ACT Aerosol Solution 1 puff as needed Inhalation every 4 hrs , Medication List reviewed and reconciled with the patient * Allergies: N o Known Drug Allergy. Objective: * Vitals: * Examination: G eneral Examination: GENERAL APPEARANCE: p leasant, well nourished, well developed, in no acute distress, calm and relaxed. HEAD: a traumatic, normocephalic. EYES: e neda, [...] normal, no s3, or vascular bruits. LUNGS: c lear to auscultation . BREASTS: no masses palpable bilaterally. ABDOMEN: b owel sounds normal, no ascites, no organomegaly, no mass. RECTAL EXAM: n ot examined. MUSCULOSKELETAL: e xtremities unremarkable, no clubbing, cyanosis or edema. PERIPHERAL PULSES: n ormal. NEUROLOGIC: a lert and oriented, cranial nerves 2-12 grossly intact, deep tendon reflexes 2+ symmetrical, motor strength normal upper and lower extremities, sensory exam intact. PSYCH: a lert, oriented. Assessment: * Assessment: 1. C hronic obstructive pulmonary disease, unspecified COPD type - J44.9 Plan: * Treatment: 2. O thers Continue buPROPion HCl ER (SR) Tablet Extended Release 12 Hour, 100 MG, 1 tablet, Orally, Once a day; C ontinue metFORMIN HCl Tablet, 850 MG, TAKE 1 TABLET BY MOUTH TWICE A DAY; C ontinue buPROPion HCl ER (SR) Tablet Extended Release 12 Hour, 200 MG, TAKE 1 TABLET BY MOUTH EVERY DAY FOR 30 DAYS; C ontinue Basaglar KwikPen Solution Pen-injector, 100 UNIT/ML, 35 [...] needed, Inhalation, every 4 hrs; C ontinue Lantus Solution, 100 UNIT/ML, as directed, Subcutaneous, 35 Units once a day, Notes to Pharmacist: E11.9 DM (diabetes mellitus). * Images: * The named appointment provid er may or may not be the originator of this progress note, and it is not deemed complete until electronically signed by the appointment provider. Sign off status: Pending * Provider: Yousif Zepeda MD Date: 0 11/14/2024 Generated for Bennyi lizzette/Miguel A/Jacquelynsmitting on: 07/26/2024 12:06 PM EST History and Physical Notes * HPI (History of Present Illness) Category Sub-Category Detail Notes COVID-19 Screening Questions Have you had any new onset fever, chills, cough, congestion, sore throat, shortness of breath, muscle aches?: No Examination Category Sub-Category Detail Notes General Examination GENERAL APPEARANCE: pleasant , well nourished, well developed, in no acute distress, calm and relaxed HEAD: atraumatic, normocep halic EYES: eomi, perrla, anicte dalton, conjugate EARS: normal NOSE: septum intact NECK/THYROID: no jugular venous di stention, no carotid bruit, thyroid normal HEART: no clicks, gallops, murmurs, or rubs, regular rhythm, S1, S2 normal, no s3, or vascular bruits LUNGS: clear to auscultatio n ABDOMEN: bowel sounds normal, no ascites, no organomegaly, no mass NEUROLOGIC: alert and oriented, cranial nerves 2-12 grossly intact, deep tendon reflexes 2+ symmetrical, motor strength normal upper and lower extremities, sensory exam intact SKIN: no suspicious lesion s, anicteric PERIPHERAL PULSES: normal BREASTS: no masses palpable b ilaterally MUSCULOSKELETAL: extremities unremark able, no clubbing, cyanosis or edema LYMPH NODES: no enlarged lymph no bowen,spleen normal RECTAL EXAM: not examined PSYCH: alert, oriented ORAL CAVITY: normal, unremarkable
--- OUTSIDE RECORDS SUMMARY | 2024-11-15 12:30 | XMS_ITS ---
Author Organization Chin Zepeda III, MD Address [address] [place] [address] [place] [address] Care Team Providers Care Maple Products Maker Name Role Phone Dr. Chin Zepeda III Primary Care Provider Allergies Allergen (clinical drug ingredient) Drug/Non Drug Allergy documented on EMR Reaction Allergy Type Onset Date Status No Known Drug Allergy Unknown Drug Allergy Active REASON FOR VISIT Pre-Op Medications Medication SIG (Take, Route, Frequency, Duration) Notes Start Date End Date Status Lantus 100 UNIT/ML as directed Subcutaneous 35 Units once a day E11.9 DM (diabetes mellitus) Active Gabapentin 600 MG 1 tablet Orally three times a day 05/27/2022 Active traZODone HCl 50 MG 1 tablet at bedtime as needed Orally Once a day 08/04/2023 Active FreeStyle Lancets - as directed as directed use to check blood sugars three times a day 05/01/2021 Active FreeStyle Lite Test - as directed In Vit ro 3 times a day Active Tadalafil 20 MG 1 tablet as needed Orally Once a day Active FreeStyle Lite - as directed as directed to use to test blood sugars three a day 05/01/2021 Active Triamcinolone Acetonide 0.1 % 1 application Externally Twice a day 04/01/2022 Active Wixela Inhub 500-50 MCG/DOSE INHALE 1 PUFF TWICE A DAY Inhalation Active Pantoprazole Sodium 40 MG 1 tablet Orally Once a day Active Proventil HFA 108 (90 Base) MCG/ACT 1 puff as needed Inhalation every 4 hrs 08/03/2023 Active Januvia 100 MG 1 tablet Orally Once a day 05/27/2022 Active Albuterol Sulfate (2.5 MG/3ML) 0.083% 3 ml as needed Inhalation every 4 hrs 11/05/2022 Active Melatonin 5 MG 1 tablet in the evening Orally Once a day 11/19/2022 Active Atorvastatin Calcium 10 MG 1 tablet Orally Once a day 11/19/2022 Active Lisinopril 2.5 MG TAKE 1 TABLET BY MOUTH EVERY DAY Active Basaglar KwikPen 100 UNIT/ML 35 units daily Subcutaneous use 35 units daily DX: Diabetes E11.9 08/08/2024 Active metFORMIN HCl 850 MG TAKE 1 TABLET BY MOUTH TWICE A DAY Active buPROPion HCl ER (SR) 200 MG TAKE 1 TABLET BY MOUTH EVERY DAY FOR 30 DAYS Active buPROPion HCl ER (SR) 100 MG 1 tablet Orally Once a day Active Senna 8.6 MG 1 tablet at bedtime as needed Orally Once a day 09/20/2024 Active Triamcinolone Acetonide 0.1 % 1 application Externally Two times a day 06/16/2024 Active Albuterol Sulfate HFA 108 (90 Base) MCG/ACT 1 puff as needed Inhalation every 4 hrs Active Ozempic (0.25 or 0.5 MG/DOSE) 2 MG/3ML 0.25 mg as directed Subcutaneous weekly 02/16/2024 Active Alcohol Prep Pads 70 % as directed Externally 3 times a day 05/16/2021 Active Social History Tobacco Use: Social History [...] Date Provider Diagnosis Chin Zepeda III, MD [address] [place] [address] [place], [place] [phone] 11/15/2024 Chin Zepeda Chronic obstructive pulmonary disease, unspecified COPD type J44.9 Assessments Encounter Date Diagnosis (ICD Code) Assessment Notes Treat ment Notes Treatment Clinical Notes 11/15/2024 Chronic obstructive pulmonary disease, unspecified COPD type (ICD-10 - J44.9) Plan Of Treatment Medication Medication Name Sig Start Date Stop Date Notes Lantus 100 UNIT/ML as directed Subcutaneous 35 Units once a day E11.9 DM (diabetes mellitus) Gabapentin 600 MG 1 tablet Orally thre e times a day 05/27/2022 traZODone HCl 50 MG 1 tablet at bedtime as needed Orally Once a day 08/04/2023 FreeStyle Lancets - as directed as directed use to check blood sugars three times a day 05/01/2021 FreeStyle Lite Test - as directed In Vit ro 3 times a day Tadalafil 20 MG 1 tablet as needed Orally Once a day FreeStyle Lite - as directed as directed to use to test blood sugars three a day 05/01/2021 Triamcinolone Acetonide 0.1 % 1 application Externally Twice a day 04/01/2022 Wixela Inhub 500-50 MCG/DOSE INHALE 1 PUFF TWICE A DAY Inhalation Pantoprazole Sodium 40 MG 1 tablet Orally Once a day Proventil HFA 108 (90 Base) MCG/ACT 1 puff as needed Inhalation every 4 hrs 08/03/2023 Januvia 100 MG 1 tablet Orally Once a day 05/27/2022 Albuterol Sulfate (2.5 MG/3ML) 0.083% 3 ml as needed Inhalation every 4 hrs 11/05/2022 Melatonin 5 MG 1 tablet in the evening Orally Once a day 11/19/2022 Atorvastatin Calcium 10 MG 1 tablet Orally Once a day 11/19/2022 Lisinopril 2.5 MG TAKE 1 TABLET BY [facility] EVERY DAY Basaglar KwikPen 100 UNIT/ML 35 units daily Subcutaneous use 35 units daily 08/08/2024 DX: Diabetes E11.9 metFORMIN HCl 850 MG TAKE 1 TABLET BY [facility] TWICE A DAY buPROPion HCl ER (SR) 200 MG TAKE 1 TABLET BY MOUTH EVERY DAY FOR 30 DAYS buPROPion HCl ER (SR) 100 MG 1 tablet Orally Once a day Senna 8.6 MG 1 tablet at bedtime as needed Orally Once a day 09/20/2024 Triamcinolone Acetonide 0.1 % 1 application Externally Two times a day 06/16/2024 Albuterol Sulfate HFA 108 (90 Base) MCG/ACT 1 puff as needed Inhalation every 4 hrs Ozempic (0.25 or 0.5 MG/DOSE) 2 MG/3ML 0.25 mg as directed Subcutaneous weekly 02/16/2024 Alcohol Prep Pads 70 % as directed Exter christine 3 times a day 05/16/2021 Next Appt Details Provider Name:Chin Zepeda , 07/17/2025 02:00:00 PM, [address] [place] [address] [address], [place], [id number], Provider Name:Chin Zepeda , 12/29/2025 02:00:00 PM, [address] [place] [address] [address], [place], [phone], Progress Notes * Juan Diego BARRAZA ADOB:[birth year] (70 yo M)Acc No.[id number]:11/15/2024 Patient: Juan Diego PALOMARES Provider: Yousif Zepeda MD :1955 A ge:69 Y S ex:Male Date:11/15/2024 Address:[address] [place], [place] [id number] Subjective: * Chief Complaints: * 1 . Pre-Op. * HPI: C OVID-19 Screening: Questions H [...] sciatica presence unspecified, Sleep apnea, unspecified type, Vtc-hoafrcp-avalevklu diabetes mellitus, History of hydroureter on the [...] E x-cigarette smoker * Medications: T aking Albuterol Sulfate HFA 108 (90 Base) MCG/ACT Aerosol Solution 1 puff as needed Inhalation every 4 hrs , Taking buPROPion HCl ER (SR) 100 MG Tablet Extended Release 12 Hour 1 tablet Orally Once a day , Taking metFORMIN HCl 850 MG Tablet TAKE 1 TABLET BY MOUTH TWICE A DAY , Taking buPROPion HCl ER (SR) 200 MG Tablet Extended Release 12 Hour TAKE 1 TABLET BY MOUTH EVERY DAY FOR 30 DAYS , Taking Basaglar KwikPen 100 UNIT/ML Solution Pen-injector 35 units daily Subcutaneous use 35 units daily , Notes to Pharmacist: DX: Diabetes E11.9, Taking Lisinopril 2.5 MG Tablet TAKE 1 TABLET BY MOUTH EVERY DAY , Taking Proventil HFA 108 (90 Base) [...] as needed Orally Once a day , Discontinued Azithromycin 250 MG Tablet as directed Orally 2 tablets the first day, 1 tablet the other days , Medication List reviewed and reconciled with [...] TABLET BY MOUTH EVERY DAY; C ontinue Proventil HFA Aerosol Solution, 108 (90 Base) MCG/ACT, 1 puff as needed, Inhalation, every 4 hrs; C ontinue Lantus Solution, 100 UNIT/ML, as directed, Subcutaneous, 35 Units once a day, Notes to Pharmacist: E11.9 DM (diabetes mellitus). ? * Images: * The named appointment provid er may or may not be the originator of this progress note, and it is not deemed complete until electronically signed by the appointment provider. Sign off status: Pending * Provider: Yousif Zepeda MD Date: 0 11/15/2024 Generated for Bennyi lizzette/Miguel A/eTransmitting on: 07/26/2024 12:06 PM EST History and [...]
--- OUTSIDE RECORDS SUMMARY | 2024-12-28 05:30 | XMS_ITS ---
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 Chin Zepeda III Primary Care Provider [phone] Allergies Allergen (clinical drug ingredient) Drug/Non Drug Allergy documented on EMR Reaction Allergy Type Onset Date Status No Known Drug Allergy Unknown Drug Allergy Active No Known Food Allergy Unknown Drug Allergy Active Results Component Value Reference Range Notes URINE DIP STICK Reviewed date:12/28/2024 01:15:40 PM Interpretation: Performing Lab: Notes/Report: SG 1.025 1.005 - 1.025 pH 5.0 5.0 - 9.0 HI 15 (+) (-) Negative - NIT Negative Negative - PRO 15 Negative - Trace GLU Negative Negative - KET 5 Negative - UBG 0.2 0.1 - 1.8 ZACHARY 1 0.2 - 1.3 BLD Negative Negative - REASON FOR VISIT Annual Exam Medications Medication SIG (Take, Route, Frequency, Duration) Notes Start Date End Date Status traZODone HCl 50 MG 1 tablet at bedtime as needed Orally Once a day 08/04/2023 Active Lantus 100 UNIT/ML as directed Subcutaneous 35 Units once a day E11.9 DM (diabetes mellitus) Active FreeStyle Lancets - as directed as directed use to check blood sugars three times a day 05/01/2021 Active FreeStyle Lite Test - as directed In Vit ro 3 times a day Active Gabapentin 600 MG 1 tablet Orally three times a day 05/27/2022 Active Triamcinolone Acetonide 0.1 % 1 application [...] tablet Orally Once a day 11/19/2022 Active Januvia 100 MG 1 tablet Orally Once a day 05/27/2022 Active Lisinopril 2.5 MG TAKE 1 TABLET BY MOUTH EVERY DAY Active Proventil HFA 108 (90 Base) MCG/ACT 1 puff as needed Inhalation every 4 hrs 08/03/2023 Active buPROPion HCl ER (SR) 200 MG TAKE 1 TABLET BY MOUTH EVERY DAY FOR 30 DAYS Active Basaglar KwikPen 100 UNIT/ML 35 units daily Subcutaneous use 35 units daily DX: Diabetes E11.9 08/08/2024 Active buPROPion HCl ER (SR) 100 MG 1 tablet Orally Once a day Active metFORMIN HCl 850 MG TAKE 1 TABLET BY MOUTH TWICE A DAY Active Albuterol Sulfate HFA 108 (90 Base) MCG/ACT 1 puff as needed Inhalation every 4 hrs Active Basaglar KwikPen 100 UNIT/ML 35 units Subcutaneous daily Active Triamcinolone Acetonide 0.1 % 1 application Externally Two times a day 06/16/2024 Active Senna 8.6 MG 1 tablet at bedtime as needed Orally Once a day 09/20/2024 Active Alcohol Prep Pads 70 % as directed Externally 3 times a day 05/16/2021 Active Ozempic (0.25 or 0.5 MG/DOSE) 2 MG/3ML 0.25 mg as directed Subcutaneous weekly 02/16/2024 Active Social History Tobacco Use: Social History Observation Description Date Details (start date - stop date) Former Smoker NA - NA Sex Assigned At : Social History Observation Description Sex Assigned At Male Tobacco Control (Standard) Question Answer Notes Tobacco use: Former smoker How long has it been since you last smoked? 1-5 years Additional Findings: Tobacco non-user Ex-cigaret te smoker AUDIT-C (Standard) Question Answer Notes Did you have a drink contain ing alcohol in the past year? Yes How often did you have six o r more drinks on one occasion in the past year? 4 or more times a week (4 points) How many drinks did you have on a typical day when you were drinking in the past year? 1 or 2 drinks (0 point) How often did you have a dri nk containing alcohol in the past year? Never (0 point) Points 4 Interpretation Positive Vital Signs Temperature 97.1 degrees Fahrenheit 12/29/19 25 Blood pressure systolic 126 mm Hg 12/29/19 Blood pressure diastolic 67 mm Hg 025 Heart Rate 77 /min 12/28/2024 Height 64 in 12/28/2024 Weight 192 lbs 12/28/2024 BMI 32.95 kg/m2 12/28/2024 Encounters Encounter Location Date Provider Diagnosis Chin Zepeda III, MD [address] [place] [address] [address] [facility] [place] [address] 12/28/2024 Chin Zepeda Hyperlipidemia type II E78.01 ; Sleep apnea in adult G47.30 ; Obesity (BMI 30.0-34.9) E66.9 ; Lumbago with sciatica, unspecified side M54.40 ; Intermittent asthma without complication, unspecified asthma severity J45.20 ; Insomnia, unspecified type G47.00 ; DM (diabetes mellitus) E11.9 and 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 No change in his medication was made today.Strongly recommended adherence to a diabetic diet and aggressive weight loss. 12/28/2024 Sleep apnea in adult (ICD-10 - G47.30) He no longer uses his CPAP machine as he is not convinced it is working. I recommended he take it back to his crop specialist for calibration. 12/28/2024 Obesity (BMI 30.0-34.9) (ICD-10 - E66.9) He has lost 12 pounds on the Ozempic, No change in the dose was made today. We have discussed diet and nutrition and lifestyle modification. We made a plan to lose weight at a rate of one half of a pound per week.He has gained 2 pounds since his last visit so we reviewed how to use this a pound . We reviewed his diet and is eating habits. 12/28/2024 Lumbago with sciatica, unspecified side (ICD-10 - M54.40) His back pain is still present but has diminished and he is able to walk without difficulty. He does not require narcotic analgesics at this time. 12/28/2024 Intermittent asthma without complication, unspecified asthma severity (ICD-10 - J45.20) 2. Wheezing is improved but still present. He was advised to avoid exposure to pollen and tobacco smoke. He will take the prednisone another 7 days. 12/28/2024 Insomnia, unspecifie d type (ICD-10 - G47.00) He reports that he is sleeping somewhat better lately. 12/28/2024 DM (diabetes mellitus) (ICD-10 - E11.9) His hemoglobin A1c is now 7.2. We reviewed his diabetic diet and his weight loss strategy. No change in his medication was made. He was continued on the Ozempic. 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 (ICD-10 - Z79.4) Plan Of Treatment Medication Medication Name Sig Start Date Stop Date Notes traZODone HCl 50 MG 1 tablet at bedtime as needed Orally Once a day 08/04/2023 Lantus 100 UNIT/ML as directed Subcutaneous 35 Units once a day E11.9 DM (diabetes mellitus) FreeStyle Lancets - as directed as directed use to check blood sugars three times a day 05/01/2021 FreeStyle Lite Test - as directed In Vit ro 3 times a day Gabapentin 600 MG 1 tablet Orally thre e times a day 05/27/2022 Triamcinolone Acetonide 0.1 % 1 application Externally [...] 1 tablet Orally Once a day 11/19/2022 Januvia 100 MG 1 tablet Orally Once a day 05/27/2022 Lisinopril 2.5 MG TAKE 1 TABLET BY RON EVERY DAY Proventil HFA 108 (90 Base) MCG/ACT 1 puff as needed Inhalation every 4 hrs 08/03/2023 buPROPion HCl ER (SR) 200 MG TAKE 1 TABLET BY MOUTH EVERY DAY FOR 30 DAYS Basaglar KwikPen 100 UNIT/ML 35 units daily Subcutaneous use 35 units daily 08/08/2024 DX: Diabetes E11.9 buPROPion HCl ER (SR) 100 MG 1 tablet Orally Once a day metFORMIN HCl 850 MG TAKE 1 TABLET BY MO UTH TWICE A DAY Albuterol Sulfate HFA 108 (90 Base) MCG/ACT 1 puff as needed Inhalation every 4 hrs Basaglar KwikPen 100 UNIT/ML 35 units Subcutaneous daily Triamcinolone Acetonide 0.1 % 1 application Externally Two times a day 06/16/2024 Senna 8.6 MG 1 tablet at bedtime as needed Orally Once a day 09/20/2024 Alcohol Prep Pads 70 % as directed Exter christine 3 times a day 05/16/2021 Ozempic (0.25 or 0.5 MG/DOSE) 2 MG/3ML 0.25 mg as directed Subcutaneous weekly 02/16/2024 Pending Test Test Name Order Date PROFILE, FASTING (COMPREHENSIVE METABOLI C) 12/28/2024 PSA, TOTAL 12/28/2024 CBC w DIFF 12/28/2024 Lipid Panel 12/28/2024 Microalbumin, Random 12/28/2024 Hemoglobin A1c 12/28/2024 Next Appt Details Follow Up: 3 Months, Reason: OV Provider Name:Chin Zepeda , 07/17/2025 02:00:00 PM, [address] [place] [address] GIRISH NUNEZ, [place], [id number], Provider Name:Chin Zepeda , 12/29/2025 02:00:00 PM, [address] [place] [address] GIRIHS NUNEZ, [place], [phone], Progress Notes * Juan Diego BARRAZA ADOB:[birth year] (69 yo M)Acc No.[id number]:12/28/2024 Progress Notes Patient: Juan Diego PALOMARES Provider: Yousif Zepeda MD :[id number] A ge:69 Y S ex:Male Date:12/28/2024 Address:[address] [place], [place] [id number] Subjective: * Chief Complaints: * A nnual Exam * HPI: D epression Screening: He returns to the office at the age of 69 for his annual physical examination. He continues to complain of pain in both legs below knees with numbness. He has some mild low back pain. His depression is unchanged. He has sleep apnea but is not using his CPAP machine.? He rises from sleep about twice a night to urinate. He is currently breathing comfortably without any exacerbation of the COPD.He continues his efforts at weight loss. He is no longer smoking tobacco.He had a recent diabetic eye exam and was told everything was satisfactory. PHQ-9 L ittle interest or pleasure in doing things?More than half the days F eeling down, depressed, or hopeless M ore than half the days T rouble falling or staying asleep, or sleeping too much N early every day F eeling tired or having little energy N early every day P oor appetite or overeating M ore than half the days F eeling bad about yourself or that you are a failure, or have let yourself or your family down N ot at all T rouble concentrating on things, such as reading the newspaper or watching television N ot at all M oving or speaking so slowly that other people could have noticed; or the opposite, being so fidgety or restless that you have been moving around a lot more than usual N ot at all T houghts that you would be better off or of hurting yourself in some way N ot at all T otal Score 1 2 I nterpretation M oderate Depression C OVID-19 Screening: cant sleep lantus 25, doesnt use cpcp, noct x 3, no asthma os fidel 93, brother of mi, cancelled cat surg. Questions H ave you had any new onset fever, chills, cough, congestion, sore throat, shortness of breath, muscle aches? N o F all Risk Screening: Fall History H ave you had any falls with injury in the past year? N o H ave you had two or more falls in the past year? N o F all Risk Assessment: N o falls in the past year S DAKOTAH Questions: SDOH Questions I n the past year have you been worried about losing your housing? N o I n the past year have you or any family members you live with been unable to get any of the following when it was really needed? Check all that apply: U tilities * ROS: G eneral/Constitutional: pain F or instance name pain below his knees. C hills?denies. F atigue a dmits. F ever d enies. E NT: Decreased hearing m ild. R espiratory: Cough d enies. C ardiovascular: Chest pain with exertion d enies. D yspnea on exertion?denies. S hortness of breath d enies. G astrointestinal: Constipation o ccasional. D ecreased [...] pain d enies. P sychiatric: Depressed mood w hich is mild. * Medical History: * Surgical History: b roken right leg left shoulder * Hospitalization/Major Diagno stic Procedure: a sthma 06/2018headache,body pain and bronchitis 10/2020 * Family History: F ather: alive 80 [...] illness or substance use disorder or addiction. Younger brother of a heart attack. * Social History: T obacco Use: T obacco Control (Standard) T obacco use: F ormer smoker H ow long has it been since you last smoked??1-5 years A dditional Findings: Tobacco non-user E x-cigarette smoker D rugs/Alcohol: D rugs H ave you used drugs other than those for medical reasons in the past 12 months? N o D rug/Alcohol: A EJ-C (Standard) D id you have a drink containing alcohol in the past year? Y es H ow often did you have six or more drinks on one occasion in the past year? 4 or more times a week (4 points) H ow many drinks did you have on a typical day when you were drinking in the past year? 1 or 2 drinks (0 point) H ow often did you have a drink containing alcohol in the past year? N ever (0 point) P oints 4 I nterpretation P ositive * Medications: T akingAlbuterol Sulfate HFA 108 (90 Base) MCG/ACT Aerosol Solution 1 puff as needed Inhalation every 4 hrs buPROPion HCl ER (SR) 100 MG Tablet Extended Release 12 Hour 1 tablet Orally Once a day metFORMIN HCl 850 MG Tablet TAKE 1 TABLET BY MOUTH TWICE A DAY buPROPion HCl ER (SR) 200 MG Tablet Extended Release 12 Hour TAKE 1 TABLET BY MOUTH EVERY DAY FOR 30 DAYS Lisinopril 2.5 MG Tablet TAKE 1 TABLET BY MOUTH EVERY DAY Proventil HFA 108 (90 Base) MCG/ACT Aerosol Solution 1 puff as needed Inhalation every 4 hrs Januvia 100 MG Tablet 1 tablet Orally Once a day Atorvastatin [...] tablet as needed Orally Once a day Lantus 100 UNIT/ML Solution as directed Subcutaneous 35 Units once a day , Notes to Pharmacist: E11.9 DM (diabetes mellitus)Gabapentin 600 MG Tablet 1 tablet Orally three [...] 1 application Externally Two times a day Senna 8.6 MG Tablet 1 tablet at bedtime as needed Orally Once a day Taking Albuterol Sulfate HFA 108 (90 Base) MCG/ACT Aerosol Solution 1 puff as needed Inhalation every 4 hrs Taking buPROPion HCl ER (SR) 100 MG Tablet Extended Release 12 Hour 1 tablet Orally Once a day Taking metFORMIN HCl 850 MG Tablet TAKE 1 TABLET BY MOUTH TWICE A DAY Taking buPROPion HCl ER (SR) 200 MG Tablet Extended Release 12 Hour TAKE 1 TABLET BY MOUTH EVERY DAY FOR 30 DAYS Taking Lisinopril 2.5 MG Tablet TAKE 1 TABLET BY MOUTH EVERY DAY Taking Proventil HFA 108 (90 Base) MCG/ACT Aerosol Solution 1 puff as needed Inhalation every 4 hrs Taking Januvia 100 MG Tablet 1 tablet Orally Once a day Taking Atorvastatin Calcium [...] as needed Orally Once a day Taking Lantus 100 UNIT/ML Solution as directed Subcutaneous 35 Units once a day , Notes to Pharmacist: E11.9 DM (diabetes mellitus)Taking Gabapentin 600 MG Tablet 1 tablet Orally [...] application Externally Two times a day Taking Senna 8.6 MG Tablet 1 tablet at bedtime as needed Orally Once a day DiscontinuedBasaglar KwikPen 100 UNIT/ML Solution Pen-injector 35 units daily Subcutaneous use 35 units daily , Notes to Pharmacist: DX: Diabetes E11.9Melatonin 5 MG Tablet 1 tablet in the evening Orally Once a day traZODone HCl 50 MG Tablet 1 tablet at bedtime as needed Orally Once a day Basaglar KwikPen 100 UNIT/ML Solution Pen-injector 35 units Subcutaneous daily Medication List reviewed and reconciled with the patientDiscontinued Basaglar KwikPen 100 UNIT/ML Solution Pen-injector 35 units daily Subcutaneous use 35 units daily , Notes to Pharmacist: DX: Diabetes E11.9Discontinued Melatonin 5 MG Tablet 1 tablet in the evening Orally Once a day Discontinued traZODone HCl 50 MG Tablet 1 tablet at bedtime as needed Orally Once a day Discontinued Basaglar KwikPen 100 UNIT/ML Solution Pen-injector 35 units Subcutaneous daily Medication List reviewed and reconciled with the patient * Allergies: N o Known Drug AllergyNo Known Food Allergyno[Allergies Verified] Objective: * Vitals: H t: 64, Wt:192, BMI:32.95, BP:126/67, HR:77, Temp:97.1, Ht-cm: 162.56, Wt-k.09. * P ast Orders: Lab:Microalbumin, Random * Collection Date 12/07/2024 06/16/2024 02/09/2024 Collection Time 11:55 AM 11:20 AM Order Date 12/07/2024 06/16/2024 02/09/2024 Creatinine Urine 138.38 (Ref Range: mg/dL) 136.46 (Ref Range: mg/dL) 145.71 (Ref Range: mg/dL) Microalbumin Urine 11.0 (Ref Range: mg/L) 16.0 (Ref Range: mg/L) 17.0 (Ref Range: mg/L) Microalbum Creatinine Ratio Ur 7.9 (Ref Range: <30 ug/mg cr) 11.7 (Ref Range: <30 ug/mg cr) 11.6 (Ref Range: <30 ug/mg cr) Clinical Info: Please fast for 12-14 hours prior to having this labwork done. You may have black coffee or tea with no milk or sugar. May have water,PLEASE FAX COMPLETED RESULTS TO [phone] Please have this testing 1 week prior to your next appointment * Lab:Hemoglobin A1c * Collection Date 12/07/2024 06/16/2024 02/09/2024 Collection Time 09:10 AM 11:59 AM 11:20 AM Order Date 12/07/2024 06/16/2024 02/09/2024 Hemoglobin A1c % 7.2 H (Ref Range: <6.0 %) 5.8 (Ref Range: <6.0 %) 6.8 H (Ref Range: <6.0 %) Estimated Average Glucose 160 (Ref Range: mg/dL) 120 (Ref Range: mg/dL) 148 (Ref Range: mg/dL) Clinical Info: Please fast for 12-14 hours prior to having this labwork done. You may have black coffee or tea with no milk or sugar. May have water,PLEASE FAX COMPLETED RESULTS TO [phone] Please have this testing 1 week prior to your next appointment * Lab:Complete Blood Count Aut o Diff * Collection Date 12/07/2024 06/16/2024 02/09/2024 Collection Time 09:10 AM 11:59 AM 11:20 AM Order Date 12/07/2024 06/16/202402/09/2024 White Blood Count 10.5 (Ref Range: 4.8-10.8 X10*3/uL) 11.6 H (Ref Range: 4.8-10.8 X10*3/uL) 9.6 (Ref Range: 4.8-10.8 X10*3/uL) Red Blood Count 5.16 (Ref Range: 4.60-5.80 X10*6/uL) 5.65 (Ref Range: 4.60-5.80 X10*6/uL) 5.18 (Ref Range: 4.60-5.80 X10*6/uL) Hemoglobin 15.2 (Ref Range: 14.0-18.0 g/dl) 16.5 (Ref Range: 14.0-18.0 g/dl) 15.4 (Ref Range: 14.0-18.0 g/dl) Hematocrit 42.6 (Ref Range: 42.0-52.0 %) 48.3 (Ref Range: 42.0-52.0 %) 45.0 (Ref Range: 42.0-52.0 %) Mean Corpuscular Volume 82.6 (Ref Range: 80.0-98.0 fL) 85.5 (Ref Range: 80.0-98.0 fL) 86.9 (Ref Range: 80.0-98.0 fL) Mean Corpuscular Hemoglobin 29.5 (Ref Range: 27.0-33.0 pg) 29.2 (Ref Range: 27.0-33.0 pg) 29.7 (Ref Range: 27.0-33.0 pg) Mean Corpuscular HGB Conc 35.7 (Ref Range: 31.0-36.0 g/dl) 34.2 (Ref Range: 31.0-36.0 g/dl) 34.2 (Ref Range: 31.0-36.0 g/dl) Red Cell Distribution Width 14.6 (Ref Range: 11.0-16.0 %) 14.4 (Ref Range: 11.0-16.0 %) 14.3 (Ref Range: 11.0-16.0 %) Platelet Count 325 (Ref Range: 160-400 X10*3/uL) 366 (Ref Range: 160-400 X10*3/uL) 328 (Ref Range: 160-400 X10*3/uL) Mean Platelet Volume 9.5 (Ref Range: 9.4-12.4 fL) 9.8 (Ref Range: 9.4-12.4 fL) 9.9 (Ref Range: 9.4-12.4 fL) Neutrophils Percent Auto 54.2 (Ref Range: 45-73 %) 62.8 (Ref Range: 45-73 %) 66.1 (Ref Range: 45-73 %) Imm Gran Pct Auto 0.3 (Ref Range: 0.0-0.4 %) 0.4 (Ref Range: 0.0-0.4 %) 0.4 (Ref Range: 0.0-0.4 %) Lymphocytes Percent Auto 30.6 (Ref Range: 20-40 %) 25.3 (Ref Range: 20-40 %) 22.8 (Ref Range: 20-40 %) Monocytes Percent Auto 9.8 (Ref Range: 2-11 %) 8.0 (Ref Range: 2-11 %) 7.3 (Ref Range: 2-11 %) Eosinophils Percent Auto 4.7 H (Ref Range: 0-4 %) 2.8 (Ref Range: 0-4 %) 3.0 (Ref Range: 0-4 %) Basophils Percent Auto 0.4 (Ref Range: 0-2 %) 0.7 (Ref Range: 0-2 %) 0.4 (Ref Range: 0-2 %) NRBC Pct Auto 0.0 (Ref Range: 0.0-0.2 /100WBC) 0.0 (Ref Range: 0.0-0.2 /100WBC) 0.0 (Ref Range: 0.0-0.2 /100WBC) Neutrophils Absolute Auto 5.7 (Ref Range: 2.0-8.3 x10*3/uL) 7.3 (Ref Range: 2.0-8.3 x10*3/uL) 6.4 (Ref Range: 2.0-8.3 x10*3/uL) Imm Gran Abs Auto 0.03 (Ref Range: 0.00-0.03 X10*3/uL) 0.05 H (Ref Range: 0.00-0.03 X10*3/uL) 0.04 H (Ref Range: 0.00-0.03 X10*3/uL) Lymphocytes Absolute Auto 3.2 (Ref Range: 1.2-4.9 X10*3/uL) 2.9 (Ref Range: 1.2-4.9 X10*3/uL) 2.2 (Ref Range: 1.2-4.9 X10*3/uL) Monocytes Absolute Auto 1.0 (Ref Range: 0.1-1.2 X10*3/uL) 0.9 (Ref Range: 0.1-1.2 X10*3/uL) 0.7 (Ref Range: 0.1-1.2 X10*3/uL) Eosinophils Absolute Auto 0.5 H (Ref Range: 0.0-0.4 X10*3/uL) 0.3 (Ref Range: 0.0-0.4 X10*3/uL) 0.3 (Ref Range: 0.0-0.4 X10*3/uL) Basophils Absolute Auto 0.0 (Ref Range: 0.0-0.2 X10*3/uL) 0.1 (Ref Range: 0.0-0.2 X10*3/uL) 0.0 (Ref Range: 0.0-0.2 X10*3/uL) NRBC Abs Auto 0.000 (Ref Range: 0.0-0.012 X10*3/uL) 0.000 (Ref Range: 0.0-0.012 X10*3/uL) 0.000 (Ref Range: 0.0-0.012 X10*3/uL) * Lab:Amy Spivey. [place] l Fast * Collection Date 12/07/2024 06/16/2024 02/09/2024 Collection Time 09:10 AM 11:59 AM 11:20 AM Order Date 12/07/2024 06/16/2024 02/09/2024 Sodium 141 (Ref Range: 135-145 mmol/L) 142 (Ref Range: 135-145 mmol/L) 140 (Ref Range: 135-145 mmol/L) Bilirubin Total 1.0 (Ref Range: 0.0-1.0 mg/dL) 0.8 (Ref Range: 0.0-1.0 mg/dL) 0.5 (Ref Range: 0.0-1.0 mg/dL) Aspartate Amino Transferase 58 H (Ref Range: 5-37 U/L) 63 H (Ref Range: 5-37 U/L) 27 (Ref Range: 5-37 U/L) Alanine Aminotransferase 65 H (Ref Range: 0-40 U/L) 63 H (Ref Range: 0-40 U/L) 35 (Ref Range: 0-40 U/L) Total Protein 7.8 (Ref Range: 6.5-8.0 g/dL) 8.0 (Ref Range: 6.5-8.0 g/dL) 7.7 (Ref Range: 6.5-8.0 g/dL) Albumin Level 4.2 (Ref Range: 3.5-5.0 g/dL) 4.1 (Ref Range: 3.5-5.0 g/dL) 4.1 (Ref Range: 3.5-5.0 g/dL) Alkaline Phosphatase 85 (Ref Range: 39-117 U/L) 87 (Ref Range: 39-117 U/L) 83 (Ref Range: 39-117 U/L) Potassium 4.3 (Ref Range: 3.3-5.1 mmol/L) 4.5 (Ref Range: 3.3-5.1 mmol/L) 4.4 (Ref Range: 3.3-5.1 mmol/L) Chloride 105 (Ref Range: 96-108 mmol/L) 105 (Ref Range: 96-108 mmol/L) 102 (Ref Range: 96-108 mmol/L) Carbon Dioxide 28 (Ref Range: 22-29 mmol/L) 29 (Ref Range: 22-29 mmol/L) 29 (Ref Range: 22-29 mmol/L) Anion Gap 12 (Ref Range: 12-20) 13 (Ref Range: 12-20) 13 (Ref Range: 12-20) Blood Urea Nitrogen 14 (Ref Range: 9-16 mg/dL) 13 (Ref Range: 9-16 mg/dL) 11 (Ref Range: 9-16 mg/dL) Creatinine 0.98 (Ref Range: 0.5-1.4 mg/dL) 1.04 (Ref Range: 0.5-1.4 mg/dL) 1.07 (Ref Range: 0.5-1.4 mg/dL) Estimated Glomerular Filt Rate > 60 > 60 > 60 Glucose Fasting 96 (Ref Range: 60-99 mg/dL) 90 (Ref Range: 60-99 mg/dL) 176 H (Ref Range: 60-99 mg/dL) Calcium 9.5 (Ref Range: 8.4-10.2 mg/dL) 10.1 (Ref Range: 8.4-10.2 mg/dL) 9.6 (Ref Range: 8.4-10.2 mg/dL) * Lab:Lipid Panel * Collection Date 12/07/2024 06/16/2024 02/09/2024 Collection Time 09:10 AM 11:59 AM 11:20 AM Order Date 12/07/2024 06/16/2024 02/09/2024 Triglycerides 122 (Ref Range: <150 mg/dL) 116 (Ref Range: <150 mg/dL) 153 H (Ref Range: <150 mg/dL) Cholesterol 212 H (Ref Range: <200 mg/dL) 207 H (Ref Range: <200 mg/dL) 217 H (Ref Range: <200 mg/dL) LDL Cholesterol Calculated 152 H (Ref Range: <100 mg/dL) 147 H (Ref Range: <100 mg/dL) 149 H (Ref Range: <100 mg/dL) HDL Cholesterol 36 L (Ref Range: >40 mg/dL) 37 L (Ref Range: >40 mg/dL) 38 L (Ref Range: >40 mg/dL) Clinical Info: Please fast for 12-14 hours prior to having this labwork done. You may have black coffee or tea with no milk or sugar. May have water,PLEASE FAX COMPLETED RESULTS TO [phone] Please have this testing 1 week prior to your next appointment ???Imaging:Diabetic Eye Exam (Order Date - 10/25/2024) (Performed Date - 10/25/2024)?Result: undefined * Lab:URINE DIP STICK * Collection Date 12/28/2024 11/09/2023 Order Date 12/28/2024 11/09/2023 SG 1.025 (Ref Range: 1.005 - 1.025) 1.020 (Ref Range: 1.005 - 1.025) pH 5.0 (Ref Range: 5.0 - 9.0) 5.0 (Ref Range: 5.0 - 9.0) HI 15 (+) (-) (Ref Range: Negative -) Negative (Ref Range: Negative -) NIT Negative (Ref Range: Negative -) Negative (Ref Range: Negative -) PRO 15 (Ref Range: Negative - Trace) 15 (Ref Range: Negative - Trace) GLU Negative (Ref Range: Negative -) Negative (Ref Range: Negative -) KET 5 (Ref Range: Negative -) Negative (Ref Range: Negative -) UBG 0.2 (Ref Range: 0.1 - 1.8) 0.2 (Ref Range: 0.1 - 1.8) ZACHARY 1 (Ref Range: 0.2 - 1.3) Negative (Ref Range: 0.2 - 1.3) BLD Negative (Ref Range: Negative -) Negative (Ref Range: Negative -) * Examination: G eneral Examination: GENERAL APPEARANCE: [...] bruits. LUNGS: , diminished breath sounds throughout, no wheezes, rales, rhonchi, good air movement. BREASTS: no masses palpable bilaterally. ABDOMEN: b [...] a lert, oriented. Assessment: * Assessment: 1. S leep apnea in adult - G47.30 (Primary) N otes :He no longer uses his CPAP machine as he is not convinced it is working. I recommended he take it back to his crop specialist for calibration. 2 . H yperlipidemia type II - E78.01 N otes :His fasting lipid profile shows cholesterol 212 In June 2024.. No change in his medication was made today.Strongly recommended adherence to a diabetic diet and aggressive weight loss. 3 . O kal (BMI 30.0-34.9) - E66.9 N otes :He has lost 12 pounds on the Ozempic, No change in the dose was made today. We have discussed diet and nutrition and lifestyle modification. We made a plan to lose weight at a rate of one half of a pound per week.He has gained 2 pounds since his last visit so we reviewed how to use this a pound .? We reviewed his diet and is eating habits. 4 . L umbago with sciatica, unspecified side - M54.40 N otes :His back pain is still present but has diminished and he is able to walk without difficulty. He does not require narcotic analgesics at this time. 5 . I ntermittent asthma without complication, unspecified asthma severity - J45.20 N otes :2. Wheezing is improved but still present. He was advised to avoid exposure to pollen and tobacco smoke. He will take the prednisone another 7 days. 6 . I nsomnia, unspecified type - G47.00 N otes :He reports that he is sleeping somewhat better lately. 7 . D M (diabetes mellitus) - E11.9 N otes :His hemoglobin A1c is now 7.2. We reviewed his diabetic diet and his weight loss strategy. No change in his medication was made. He was continued on the Ozempic. 8 . L feroz term (current) use of insulin - Z79.4 Plan: * Treatment: 2. O kal (BMI 30.0-34.9) L AB: PROFILE, FASTING (COMPREHENSIVE METABOLIC) L AB: PSA, TOTAL L AB: CBC w DIFF L AB: Lipid Panel L AB: Microalbumin, Random L AB: Hemoglobin A1c 3. O thers Continue Albuterol Sulfate HFA Aerosol Solution, 108 (90 Base) MCG/ACT, [...] needed, Inhalation, every 4 hrs; C ontinue Januvia Tablet, 100 MG, 1 tablet, Orally, Once a day; C ontinue Melatonin Tablet, 5 MG, 1 tablet in the evening, Orally, Once a day; C ontinue Atorvastatin Calcium Tablet, 10 MG, 1 tablet, Orally, Once a day; C ontinue Albuterol Sulfate Nebulization Solution, (2.5 MG/3ML) 0.083%, 3 ml as needed, Inhalation, every 4 hrs; C ontinue Pantoprazole Sodium Tablet Delayed Release, 40 MG, 1 tablet, Orally, Once a day; C ontinue Wixela Inhub Aerosol Powder Breath Activated, 500-50 MCG/DOSE, INHALE 1 PUFF TWICE A DAY, Inhalation; C ontinue FreeStyle Lite Device, -, as directed, as directed, to use to test blood sugars three a day; C ontinue Triamcinolone Acetonide Cream, 0.1 %, 1 application, Externally, Twice a day; C ontinue Tadalafil Tablet, 20 MG, 1 tablet as needed, Orally, Once a day; C ontinue traZODone HCl Tablet, 50 MG, 1 tablet at bedtime as needed, Orally, Once a day; C ontinue Lantus Solution, 100 UNIT/ML, as directed, Subcutaneous, 35 Units once a day, Notes to Pharmacist: E11.9 DM (diabetes mellitus); C ontinue Gabapentin Tablet, 600 MG, 1 tablet, Orally, three times a day; C ontinue FreeStyle Lancets Miscellaneous, -, as directed, as directed, use to check blood sugars three times a day; C ontinue FreeStyle Lite Test Strip, -, as directed, In Vitro, 3 times a day; C ontinue Alcohol Prep Pads Miscellaneous, 70 %, as directed, Externally, 3 times a day; C ontinue Ozempic (0.25 or 0.5 MG/DOSE) Solution Pen-injector, 2 MG/3ML, 0.25 mg as directed, Subcutaneous, weekly; C ontinue Triamcinolone Acetonide Cream, 0.1 %, 1 application, Externally, Two times a day; C ontinue Senna Tablet, 8.6 MG, 1 tablet at bedtime as needed, Orally, Once a day; C ontinue Basaglar KwikPen Solution Pen-injector, 100 UNIT/ML, 35 units, Subcutaneous, daily. * Labs: * L ab: URINE DIP STICK (Collection Date & Time - 12/28/2024) Value Reference Range S G 1.025 1.005 - 1.025 * p H 5.0 5.0 - 9.0 * L EU 15 (+) (-) Negative - * N IT Negative Negative - * P RO 15 Negative - Trace * G CHRISSY Negative Negative - * K ET 5 Negative - * U BG 0.2 0.1 - 1.8 * B IL 1 0.2 - 1.3 * B LD Negative Negative - * Procedure Codes: 8 1002 URINE-NO MICRO * Preventive Medicine: Counseling: C are goal [...] tobacco use and urged to quit. 0 12/29/2024 DM Care Plan: P atient Lifestyle Goals P atient wants to be able to manage diabetes without too much effort. T reatment Goals B lood Sugars less than < 115, HbA1C < 7.0. B arriers n o barriers. S elf-Managment Goals W ork on weight loss, with a goal of losing 1 lb per week. * Follow Up: 3 Months (Reason: OV) * Images: * Sign off status: Completed true * Provider: Yousif Zepeda MD Date: 0 12/28/2024 Generated for Bennyi lizzette/Miguel A/eTransmitting on: 1 07/26/2024 12:05 PM EST History and Physical Notes * HPI (History of Present Illness) Category Sub-Category Detail Notes Depression Screening PHQ-9 Little inte rest or pleasure in doing things: More than half the days Feeling down, depressed, or hopeless: Mo re than half the days Trouble falling or staying asleep, or sl eeping too much: Nearly every day Feeling tired or having little energy: N early every day Poor appetite or overeating: More than h aury the days Feeling bad about yourself o r that you are a failure, or have let yourself or your family down: Not at all Trouble concentrating on thi ngs, such as reading the newspaper or watching television: Not at all Moving or speaking so slowly that other people could have noticed; or the opposite, being so fidgety or restless that you have been moving around a lot more than usual: Not at all Thoughts that you would be b tana off or of hurting yourself in some way: Not at all Total Score: 12 Interpretation: Moderate Depression Fall Risk Screening Fall History Have you had any falls with injury in the past year?: No Have you had two or more falls in the year?: No Fall Risk Assessment:: No falls in the year COVID-19 Screening Questions Have you had any new onset fever, chills, cough, congestion, sore throat, shortness of breath, muscle aches?: No SDOH Questions SDOH Questions In the past year have you been worried about losing your housing?: No In the past year have you or any family members you live with been unable to get any of the following when it was really needed? Check all that apply:: Utilities Examination Category Sub-Category Detail Notes General Examination [...] bruits LUNGS: , diminished breath sounds throughout, no wheezes, rales, rhonchi, good air movement ABDOMEN: bowel sounds normal, no ascites, no [...]
--- OUTSIDE RECORDS SUMMARY | 2025-01-11 10:00 | XMS_ITS ---
Author Organization Chin Zepeda III, MD Address [address] [place] [address] [place] [id number] Care Team Providers Care Manager Bridge Name Role Phone Dr. Chin Zepeda III Primary Care Provider [phone] Allergies Allergen (clinical drug ingredient) Drug/Non Drug Allergy documented on EMR Reaction Allergy Type Onset Date Status No Known Drug Allergy Unknown Drug Allergy Active No Known Food Allergy Unknown Drug Allergy Active REASON FOR VISIT Acute bacterial bronchitis, COPD, Sleep apnea, Obesity, Low back pain, Depression Medications Medication SIG (Take, Route, Frequency, Duration) Notes Start Date End Date Status Alcohol Prep Pads 70 % as directed Externally 3 times a day 05/16/2021 Active Ozempic (0.25 or 0.5 MG/DOSE) 2 MG/3ML 0.25 mg as directed Subcutaneous weekly 02/16/2024 Active Triamcinolone Acetonide 0.1 % 1 application Externally Two times a day 06/16/2024 Active Senna 8.6 MG 1 tablet at bedtime as needed Orally Once a day 09/20/2024 Active FreeStyle Lite Test - as directed In Vit ro 3 times a day Active Azithromycin 250 MG like directed Orally 2 Tablets on the first day, one tablet the rest of the days for 5 days 01/11/2025 Active traZODone HCl 50 MG 1 tablet at bedtime as needed Orally Once a day 08/04/2023 Active Lantus 100 UNIT/ML as directed Subcutaneous 35 Units once a day E11.9 DM (diabetes mellitus) Active Gabapentin 600 MG 1 tablet Orally three times a day 05/27/2022 Active FreeStyle Lancets - as directed as directed use to check blood sugars three times a day 05/01/2021 Active Pantoprazole Sodium 40 MG 1 tablet Orally Once a day Active Wixela Inhub 500-50 MCG/DOSE INHALE 1 PUFF TWICE A DAY Inhalation Active FreeStyle Lite - as directed as directed to use to test blood sugars three a day 05/01/2021 Active Tadalafil 20 MG 1 tablet as needed Orally Once a day Active predniSONE 20 MG 1 tablet with food or milk Orally Once a day for 10 days 01/11/2025 01/31/2025 Active Proventil HFA 108 (90 Base) MCG/ACT 1 puff as needed Inhalation every 4 hrs 08/03/2023 Active Januvia 100 MG 1 tablet Orally Once a day 05/27/2022 Active Melatonin 5 MG 1 tablet in the evening Orally Once a day 11/19/2022 Active Atorvastatin Calcium 10 MG 1 tablet Orally Once a day 11/19/2022 Active Albuterol Sulfate (2.5 MG/3ML) 0.083% 3 ml as needed Inhalation every 4 hrs 11/05/2022 Active buPROPion HCl ER (SR) 100 MG 1 tablet Orally Once a day Active metFORMIN HCl 850 MG TAKE 1 TABLET BY MOUTH TWICE A DAY Active Basaglar KwikPen 100 UNIT/ML 35 units daily Subcutaneous use 35 units daily DX: Diabetes E11.9 08/08/2024 Active Lisinopril 2.5 MG TAKE 1 TABLET BY MOUTH EVERY DAY Active buPROPion HCl ER (SR) 200 MG TAKE 1 TABLET BY MOUTH EVERY DAY FOR 30 DAYS Active Triamcinolone Acetonide 0.1 % 1 application Externally Twice a day 04/01/2022 Active Albuterol Sulfate HFA 108 (90 Base) [...] Additional Findings: Tobacco non-user Ex-cigaret te smoker Vital Signs Height 64 in 01/11/2025 Weight 192 lbs 01/11/2025 BMI 32.95 kg/m2 01/11/2025 Encounters Encounter Location Date Provider Diagnosis Chin Zepeda III, MD [address] [place] [address] [place] [id number] 01/11/2025 Chin Zepeda Chronic obstructive pulmonary disease, unspecified COPD type J44.9 ; Obesity (BMI 30.0-34.9) E66.9 ; Hyperlipidemia type II E78.01 ; Benign prostatic hyperplasia with lower urinary tract symptoms N40.1 and Sleep apnea in adult G47.30 Assessments Encounter Date Diagnosis (ICD Code) Assessment Notes Treat ment Notes Treatment Clinical Notes 01/11/2025 Chronic obstructive pulmonary disease, unspecified COPD type (ICD-10 - J44.9) He is no longer smoking. He is having an exacerbation of wheezing and acute bacterial bronchitis productive of thick yellow phlegm. He is comfortable at home with the activities of daily living but short of breath with exertion. He was given an antibiotic and prednisone in a follow-up visit to the office. 01/11/2025 Obesity (BMI 30.0-34.9) (ICD-10 - E66.9) He [...] reviewed his diet and is eating habits. 01/11/2025 Hyperlipidemia type II (ICD-10 - E78.01) His fasting lipid profile shows cholesterol 212 In June 2024.. No change in his medication was made today.Strongly recommended adherence to a diabetic diet and aggressive weight loss. 01/11/2025 Benign prostatic hyperplasia with lower urinary tract symptoms (ICD-10 - N40.1) He rises from sleep twice a night to urinate. We discussed lifestyle modification as a way to reduce nocturia. He did not wish to take additional medication. 01/11/2025 Sleep apnea in adult (ICD-10 - G47.30) He no longer uses his CPAP machine as he is not convinced it is working. I recommended he take it back to his security specialist for calibration. Plan Of Treatment Medication Medication Name Sig Start Date Stop Date Notes Alcohol Prep Pads 70 % as directed Exter christine 3 times a day 05/16/2021 Ozempic (0.25 or 0.5 MG/DOSE) 2 MG/3ML 0.25 mg as directed Subcutaneous weekly 02/16/2024 Triamcinolone Acetonide 0.1 % 1 application Externally Two times a day 06/16/2024 Senna 8.6 MG 1 tablet at bedtime as needed Orally Once a day 09/20/2024 FreeStyle Lite Test - as directed In Vit ro 3 times a day Azithromycin 250 MG like directed Orally 2 Tablets on the first day, one tablet the rest of the days for 5 days 01/11/2025 traZODone HCl 50 MG 1 tablet at bedtime as needed Orally Once a day 08/04/2023 Lantus 100 UNIT/ML as directed Subcutaneous 35 Units once a day E11.9 DM (diabetes mellitus) Gabapentin 600 MG 1 tablet Orally thre e times a day 05/27/2022 FreeStyle Lancets - as directed as directed use to check blood sugars three times a day 05/01/2021 Pantoprazole Sodium 40 MG 1 tablet Orally Once a day Wixela Inhub 500-50 MCG/DOSE INHALE 1 PUFF TWICE A DAY Inhalation FreeStyle Lite - as directed as directed to use to test blood sugars three a day 05/01/2021 Tadalafil 20 MG 1 tablet as needed Orally Once a day predniSONE 20 MG 1 tablet with food o r milk Orally Once a day for 10 days 01/11/2025 01/31/2025 Proventil HFA 108 (90 Base) MCG/ACT 1 puff as needed Inhalation every 4 hrs 08/03/2023 Januvia 100 MG 1 tablet Orally Once a day 05/27/2022 Melatonin 5 MG 1 tablet in the evening Orally Once a day 11/19/2022 Atorvastatin Calcium 10 MG 1 tablet Orally Once a day 11/19/2022 Albuterol Sulfate (2.5 MG/3ML) 0.083% 3 ml as needed Inhalation every 4 hrs 11/05/2022 buPROPion HCl ER (SR) 100 MG 1 tablet Orally Once a day metFORMIN HCl 850 MG TAKE 1 TABLET BY MO [facility] TWICE A DAY Basaglar KwikPen 100 UNIT/ML 35 units daily Subcutaneous use 35 units daily 08/08/2024 DX: Diabetes E11.9 Lisinopril 2.5 MG TAKE 1 TABLET BY RON TH EVERY DAY buPROPion HCl ER (SR) 200 MG TAKE 1 TABLET BY MOUTH EVERY DAY FOR 30 DAYS Triamcinolone Acetonide 0.1 % 1 application Externally Twice a day 04/01/2022 Albuterol Sulfate HFA 108 (90 Base) MCG/ACT 1 puff as needed Inhalation every 4 hrs Next Appt Details Follow Up: as scheduled, Joyce son: as scheduled Provider Name:Chin Zepeda , 07/17/2025 02:00:00 PM, [address] [place] [address] [address], [place], [id number], Provider Name:Chin Zepeda , 12/29/2025 02:00:00 PM, [address] [place] [address] [address], [place], [id number], Progress Notes * LINO Juan Diego ADOB:[birth year] (69 yo M)Acc No.[id number]:01/11/2025 Patient: Duncan MANDELJuan Diego Provider: Yousif Zepeda MD :[id number] A ge:69 Y S ex:Male Date:01/11/2025 Address:[address] [place] [address] [place], [id number] Subjective: * Chief Complaints: * A cute bacterial bronchitisCOPDSleep apneaObesityLow back painDepression * HPI: * : This telehealth visit took place over 15 minutes with the patient at home and me in my office. He gave consent for billing. He called because for 48 hours he has had a low-grade fever a cough productive of yellowish phlegm and shortness of breath.? Given a prescription for an antibiotic and prednisone. He will call me on a daily basis until he recovers. He was given an appointment to return to the office. Telehealth L ocation of provider rendering services: { ...} [address] [facility] [address] L ocation of patient: yevgeniy ddress listed in demographics for today's visit P atient identification confirmed using: LYLY Dunne ame T elehealth method: T elephone only. Patient not visible to care provider. C onsent: P atient verbally consented to treatment, Patient verbally consented to billing insurance company, Patient informed of any privacy concerns related to method of visit T naty time spent with patient (mins) 1 5 * ROS: G eneral/Constitutional: pain o nly normal aches and pains. C hills d enies.?Fatigue a dmits. F ever d enies. E NT: Decreased hearing d enies. R espiratory: Cough F or the last 48 hours productive of thick yellow phlegm. C ardiovascular: Chest pain with exertion d enies. D yspnea on exertion?with moderate activity. S hortness of breath w ith exertion. [...] dditional Findings: Tobacco non-user E x-cigarette smoker * Medications: T akingAlbuterol Sulfate HFA 108 [...] FOR 30 DAYS Basaglar KwikPen 100 UNIT/ML Solution Pen-injector 35 [...] bedtime as needed Orally Once a day Lantus [...] MOUTH EVERY DAY FOR 30 DAYS Taking Basaglar KwikPen 100 UNIT/ML Solution Pen-injector [...] * Vitals: H t: 64, Wt:192, BMI:32.95, Ht-cm: 162.56, Wt-k.09. * P ast Orders: [...] May have water,PLEASE FAX COMPLETED RESULTS TO [phone] Please have this testing 1 week prior [...] May have water,PLEASE FAX COMPLETED RESULTS TO [phone] Please have this testing 1 week prior to your next appointment * Lab:Complete Blood Count Aut o Diff * Collection Date 12/07/2024 06/16/2024 02/09/2024 Collection Time 09:10 AM 11:59 AM 11:20 AM Order Date 12/07/2024 06/16/2024 02/09/2024 White Blood Count 10.5 (Ref Range: 4.8-10.8 [...] 0.000 (Ref Range: 0.0-0.012 X10*3/uL) * Lab:Amy Quintanilla l Fast * Collection Date 12/07/2024 06/16/2024 [...] May have water,PLEASE FAX COMPLETED RESULTS TO [phone] Please have this testing 1 week prior to your next appointment * Lab:URINE DIP STICK * Collection Date [...] Negative -) Negative (Ref Range: Negative -) ???Imaging:Diabetic Eye Exam (Order Date - 10/25/2024) (Performed Date - 10/25/2024)?Result: undefined Assessment: * Assessment: 1. C hronic obstructive pulmonary disease, unspecified COPD type - J44.9 (Primary) ?Notes :He is no longer smoking. He is having an exacerbation of wheezing and acute bacterial bronchitis productive of thick yellow phlegm. He is comfortable at home with the activities of daily living but short of breath with exertion. He was given an antibiotic and prednisone in a follow-up visit to the office. 2 . O besity (BMI 30.0-34.9) - [...] reviewed his diet and is eating habits. 3 . H yperlipidemia type II - [...] recommended he take it back to his security specialist for calibration. Plan: * Treatment: 2. O thers Continue Albuterol Sulfate HFA Aerosol Solution, 108 (90 Base) MCG/ACT, 1 puff as needed, Inhalation, every 4 hrs; C ontinue buPROPion HCl ER (SR) Tablet Extended Release 12 Hour, 100 MG, 1 tablet, Orally, Once a day; C ontinue metFORMIN HCl Tablet, 850 MG, TAKE 1 TABLET BY MOUTH TWICE A DAY; C ontinue Basaglar KwikPen Solution Pen-injector, 100 [...] in the evening, Orally, Once a day; Continue Atorvastatin Calcium Tablet, 10 MG, 1 tablet, [...] blood sugars three a day; C ontinue Tadalafil Tablet, 20 [...] bedtime as needed, Orally, Once a day; S tart predniSONE Tablet, 20 MG, 1 tablet with food or milk, Orally, Once a day, 10 days, 10 Tablet, Refills 1; S tart Azithromycin Tablet, 250 MG, like directed, Orally, 2 Tablets on the first day, one tablet the rest of the days, 5 days, 6, Refills 0. * Procedure Codes: 9 8012 SYNCH AUDIO-ONLY EST SF 10 * Preventive Medicine: Counseling: C are goal [...] tobacco use and urged to quit. 0 01/11/2025 DM Care Plan: P atient Lifestyle Goals P atient wants to be able to manage diabetes without too much effort. T reatment Goals D iabetic Diet to support management, HbA1C < 7.0. B arriers n o barriers. S elf-Managment Goals W ork on weight loss, with a goal of losing 1 lb per week, Increase exercise to 3 times a week for 30 mins. COPD Care Plan: P atient Lifestyle Goals R elieve symptoms and improve quality of life, Reduce number of ED and hospitalizations, Be able to be more active with friends and family. T reatment Goals E xercise to help whole body, including lungs, Eat a nutritious diet and increase water consumption to 6-8 glasses a day, Eat 4-5 small meals throughout the day. B arriers n o barriers. S elf-Managment Goals G et an air purifier for the rooms you are in the most, Eat a healthy diet. * Follow Up: a s scheduled (Reason: as scheduled) * Images: * Sign off status: Completed true * Provider: Yousif Zepeda MD Date: 0 01/11/2025 Generated for Alex crocker/Miguel A/Jacquelynsmitting on: 07/26/2024 12:06 PM EST History and Physical Notes * HPI (History of Present Illness) Category Sub-Category Detail Notes Telehealth Location of [facility]:: {...} [address] [facility] [address] Location of patient:: address listed in demographics [...]
--- OUTSIDE RECORDS SUMMARY | 2025-03-30 12:00 | XMS_ITS ---
Author Organization Chin Zepeda III, MD Address [address] [place] [address] [place] [address] Care Team Providers Care Shank Cementer Hand Name Role Phone Dr. Chin Zepeda III Primary Care Provider Allergies Allergen (clinical drug ingredient) Drug/Non Drug Allergy documented on EMR Reaction Allergy Type Onset Date Status No Known Drug Allergy Unknown Drug Allergy Active No Known Food Allergy Unknown Drug Allergy Active REASON FOR VISIT Follow up Medications Medication SIG (Take, Route, Frequency, Duration) Notes Start Date End Date Status Triamcinolone Acetonide 0.1 % 1 application Externally Two times a day 06/16/2024 Active Senna 8.6 MG 1 tablet at bedtime as needed Orally Once a day 09/20/2024 Active buPROPion HCl ER (SR) 200 MG TAKE 1 TABLET BY MOUTH EVERY DAY FOR 30 DAYS Active Azithromycin 250 MG like directed Orally 2 Tablets on the first day, one tablet the rest of the days 01/11/2025 Active Triamcinolone Acetonide 0.1 % 1 application Externally Twice a day 04/01/2022 Active Alcohol Prep Pads 70 % as directed Externally 3 times a day 05/16/2021 Active Lantus 100 UNIT/ML as directed Subcutaneous 35 Units once a day E11.9 DM (diabetes mellitus) Active Gabapentin 600 MG 1 tablet Orally three times a day 05/27/2022 Active FreeStyle Lancets - as directed as directed use to check blood sugars three times a day 05/01/2021 Active FreeStyle Lite Test - as directed In Vit ro 3 times a day Active Pantoprazole Sodium 40 MG 1 tablet Orally Once a day Active Wixela Inhub 500-50 MCG/DOSE INHALE 1 PUFF TWICE A DAY Inhalation Active traZODone HCl 50 MG 1 tablet at bedtime as needed Orally Once a day 08/04/2023 Active FreeStyle Lite - as directed as directed to use to test blood sugars three a day 05/01/2021 Active Tadalafil 20 MG 1 tablet as needed Orally Once a day Active Atorvastatin Calcium 10 MG 1 tablet Orally Once a day 11/19/2022 Active Albuterol Sulfate (2.5 MG/3ML) 0.083% 3 ml as needed Inhalation every 4 hrs 11/05/2022 Active Proventil HFA 108 (90 Base) MCG/ACT 1 puff as needed Inhalation every 4 hrs 08/03/2023 Active Januvia 100 MG 1 tablet Orally Once a day 05/27/2022 Active Melatonin 5 MG 1 tablet in the evening Orally Once a day 11/19/2022 Active Albuterol Sulfate HFA 108 (90 Base) MCG/ACT 1 puff as needed Inhalation every 4 hrs Active Lisinopril 2.5 MG TAKE 1 TABLET BY MOUTH EVERY DAY Active buPROPion HCl ER (SR) 100 MG 1 tablet Orally Once a day Active metFORMIN HCl 850 MG TAKE 1 TABLET BY MOUTH TWICE A DAY Active Basaglar KwikPen 100 UNIT/ML 35 units daily Subcutaneous use 35 units daily DX: Diabetes E11.9 08/08/2024 Active Ozempic (0.25 or 0.5 MG/DOSE) 2 MG/3ML 0.25 mg like directed Subcutaneous weekly Active Social History Tobacco Use: Social History Observation Description Date Details (start date - stop date) Former Smoker NA - NA Sex Assigned At : Social History Observation Description Sex Assigned At Male Tobacco Control (Standard) Question Answer Notes Tobacco use: Former smoker How long has it been since you last smoked? 1-5 years Additional Findings: Tobacco non-user Ex-cigaret te smoker Encounters Encounter Location Date Provider Diagnosis Chin Zepeda III, MD [address] [place] [address] [place] [address] 03/30/2025 Chin Zepeda Chronic obstructive pulmonary disease, unspecified COPD type J44.9 Assessments Encounter Date Diagnosis (ICD Code) Assessment Notes Treatment Notes Treatment Clinical Notes 03/30/2025 Chronic obstructive pulmonary disease, unspecified COPD type (ICD-10 - J44.9) He is no longer smoking. He is having an exacerbation of wheezing and acute bacterial bronchitis productive of thick yellow phlegm. He is comfortable at home with the activities of daily living but short of breath with exertion. He was given an antibiotic and prednisone in a follow-up visit to the office. Plan Of Treatment Medication Medication Name Sig Start Date Stop Date Notes Triamcinolone Acetonide 0.1 % 1 application Externally Two times a day 06/16/2024 Senna 8.6 MG 1 tablet at bedtime as needed Orally Once a day 09/20/2024 buPROPion HCl ER (SR) 200 MG TAKE 1 TABLET BY MOUTH EVERY DAY FOR 30 DAYS Azithromycin 250 MG like directed Orally 2 Tablets on the first day, one tablet the rest of the days 01/11/2025 Triamcinolone Acetonide 0.1 % 1 application Externally Twice a day 04/01/2022 Alcohol Prep Pads 70 % as directed Exter christine 3 times a day 05/16/2021 Lantus 100 UNIT/ML as directed Subcutaneous 35 Units once a day E11.9 DM (diabetes mellitus) Gabapentin 600 MG 1 tablet Orally thre e times a day 05/27/2022 FreeStyle Lancets - as directed as directed use to check blood sugars three times a day 05/01/2021 FreeStyle Lite Test - as directed In Vit ro 3 times a day Pantoprazole Sodium 40 MG 1 tablet Orally Once a day Wixela Inhub 500-50 MCG/DOSE INHALE 1 PUFF TWICE A DAY Inhalation traZODone HCl 50 MG 1 tablet at bedtime as needed Orally Once a day 08/04/2023 FreeStyle Lite - as directed as directed to use to test blood sugars three a day 05/01/2021 Tadalafil 20 MG 1 tablet as needed Orally Once a day Atorvastatin Calcium 10 MG 1 tablet Orally Once a day 11/19/2022 Albuterol Sulfate (2.5 MG/3ML) 0.083% 3 ml as needed Inhalation every 4 hrs 11/05/2022 Proventil HFA 108 (90 Base) MCG/ACT 1 puff as needed Inhalation every 4 hrs 08/03/2023 Januvia 100 MG 1 tablet Orally Once a day 05/27/2022 Melatonin 5 MG 1 tablet in the evening Orally Once a day 11/19/2022 Albuterol Sulfate HFA 108 (90 Base) MCG/ACT 1 puff as needed Inhalation every 4 hrs Lisinopril 2.5 MG TAKE 1 TABLET BY RON TH EVERY DAY buPROPion HCl ER (SR) 100 MG 1 tablet Orally Once a day metFORMIN HCl 850 MG TAKE 1 TABLET BY MO UTH TWICE A DAY Basaglar KwikPen 100 UNIT/ML 35 units daily Subcutaneous use 35 units daily 08/08/2024 DX: Diabetes E11.9 Ozempic (0.25 or 0.5 MG/DOSE) 2 MG/3ML 0.25 mg like directed Subcutaneous weekly Next Appt Details Provider Name:Chin Claros Katelyn , 07/17/2025 02:00:00 PM, [address] [place] [address] [address], [place], [id number], Provider Name:Chin Hyacinth Katelyn , 12/29/2025 02:00:00 PM, [address] [place] [address] [address], [place], [phone], Progress Notes * Juan Diego BARRAZA ADOB:[birth year] (70 yo M)Acc No.[id number]:03/30/2025 Progress Notes Patient: Juan Diego PALOMARES Provider: Yousif Zepeda MD :1955 A ge:70 Y S ex:Male Date:03/30/2025 Address:[address] [place], [place] [id number] Subjective: * Chief Complaints: * 1 . Follow up. * HPI: C OVID-19 Screening: Questions H [...] sciatica presence unspecified, Sleep apnea, unspecified type, Mkd-endgnsg-[id number] diabetes mellitus, History of hydroureter on the right, Erectile dysfunction, Former smoker. * Surgical History: b roken right leg , left shoulder . * Hospitalization/Major Diagno stic Procedure: a sthma 06/2018, headache,body pain and bronchitis 10/2020. * Family History: F ather: alive 80 [...] non-user E x-cigarette smoker * Medications: T aking Albuterol Sulfate HFA 108 (90 Base) MCG/ACT Aerosol Solution 1 puff as needed Inhalation every 4 hrs , Taking buPROPion HCl ER (SR) 100 MG Tablet Extended Release 12 Hour 1 tablet Orally Once a day , Taking metFORMIN HCl 850 MG Tablet TAKE 1 TABLET BY MOUTH TWICE A DAY , Taking Basaglar KwikPen 100 UNIT/ML Solution [...] blood sugars three a day , Taking Tadalafil 20 MG [...] Externally 3 times a day , Taking Triamcinolone Acetonide 0.1 % Cream 1 application Externally Two times a day , Taking Senna 8.6 MG Tablet 1 tablet at bedtime as needed Orally Once a day , Taking Azithromycin 250 MG Tablet like directed Orally 2 Tablets on the first day, one tablet the rest of the days , Taking buPROPion HCl ER (SR) 200 MG Tablet Extended Release 12 Hour TAKE 1 TABLET BY MOUTH EVERY DAY FOR 30 DAYS , Taking Triamcinolone Acetonide 0.1 % Cream 1 application Externally Twice a day , Taking Ozempic (0.25 or 0.5 MG/DOSE) 2 MG/3ML Solution Pen-injector 0.25 mg like directed Subcutaneous weekly , Medication List reviewed and reconciled with the patient * Allergies: N o Known Drug Allergy, No Known Food Allergy. Objective: * Vitals: * Examination: G [...] pulmonary disease, unspecified COPD type - J44.9 N otes :He is no longer smoking. He is having an exacerbation of wheezing and acute bacterial bronchitis productive of thick yellow phlegm. He is comfortable at home with the activities of daily living but short of breath with exertion. He was given an antibiotic and prednisone in a follow-up visit to the office. Plan: * Treatment: 2. O thers Continue Ozempic (0.25 or 0.5 MG/DOSE) Solution Pen-injector, 2 MG/3ML, 0.25 mg like directed, Subcutaneous, weekly; C ontinue Albuterol Sulfate HFA Aerosol Solution, 108 (90 [...] MG, 1 tablet, Orally, Once a day; Continue Albuterol Sulfate Nebulization Solution, (2.5 MG/3ML) 0.083%, [...] Externally, 3 times a day; C ontinue Triamcinolone Acetonide Cream, 0.1 %, 1 application, Externally, Two times a day; C ontinue Senna Tablet, 8.6 MG, 1 tablet at bedtime as needed, Orally, Once a day; C ontinue Azithromycin Tablet, 250 MG, like directed, Orally, 2 Tablets on the first day, one tablet the rest of the days. * Images: * The named appointment provid er may or may not be the originator of this progress note, and it is not deemed complete until electronically signed by the appointment provider. Sign off status: Pending * Provider: Yousif Zepeda MD Date: 0 03/30/2025 Generated for Alex crocker/Miguel A/Juliusitting on: 07/26/2024 12:07 PM EST History and Physical [...]
--- OUTSIDE RECORDS SUMMARY | 2025-04-07 07:59 | XMS_ITS ---
Author Organization Chin Zepeda III, MD Address [address] [place] [address] [place] [address] Care Team Providers Care Speed Reading Teacher Name Role Phone Dr. Chin Zepeda III Primary Care Provider REASON FOR VISIT Patient Balance Social History Sex Assigned At : Social History Observation Description Sex Assigned At Male Encounters Encounter Location Date Provider Diagnosis Chin Zepeda III, MD [address] [place] [address] [place] [address] 04/07/2025 Chin Zepeda Plan Of Treatment Next Appt Details Provider Name:Chin Zepeda , 07/17/2025 02:00:00 PM, [address] [place] [address] [place], [address], Provider Name:Chin Zepeda , 12/29/2025 02:00:00 PM, [address] [place] [address] [place], [phone], Progress Notes * Juan Diego BARRAZA ADOB:[birth year] (70 yo M)Acc No.[id number]:04/07/2025 Patient: Juan Diego PALOMARES :1955 A ge:70 Y S ex:Male Address:[address] [place] [address], [phone] * true * Date: Generated for Bennyi lizzette/Miguel A/eTransmitting on: 07/26/2024 12:06 PM EST
--- OUTSIDE RECORDS SUMMARY | 2025-04-07 08:00 | XMS_ITS ---
Author Organization Chin Zepeda III, MD Address [address] [place] [address] [place] [id number] Care Team Providers Care Bus Person Name Role Phone Dr. Chin Zepeda III Primary Care Provider Allergies Allergen (clinical drug ingredient) Drug/Non Drug Allergy documented on EMR Reaction Allergy Type Onset Date Status No Known Drug Allergy Unknown Drug Allergy Active No Known Food Allergy Unknown Drug Allergy Active REASON FOR VISIT copd, bph, sleep anea, Obesity, Hyperlipidemia, Depression, Chronic pain, Asthma, Schatzki ring Medications Medication SIG (Take, Route, Frequency, Duration) Notes Start Date End Date Status Basaglar KwikPen 100 UNIT/ML 35 units daily Subcutaneous use 35 units daily DX: Diabetes E11.9 08/08/2024 Active metFORMIN HCl 850 MG TAKE 1 TABLET BY MOUTH TWICE A DAY Active Lisinopril 2.5 MG TAKE 1 TABLET BY MOUTH EVERY DAY Active Januvia 100 MG 1 tablet Orally Once a day 05/27/2022 Active Proventil HFA 108 (90 Base) MCG/ACT 1 puff as needed Inhalation every 4 hrs 08/03/2023 Active Ozempic (0.25 or 0.5 MG/DOSE) 2 MG/3ML 0.25 mg like directed Subcutaneous weekly Active buPROPion HCl ER (SR) 100 MG 1 tablet Orally Once a day Active Triamcinolone Acetonide 0.1 % 1 application Externally Twice a day 04/01/2022 Active Albuterol Sulfate HFA 108 (90 Base) MCG/ACT 1 puff as needed Inhalation every 4 hrs Active buPROPion HCl ER (SR) 200 MG TAKE 1 TABLET BY MOUTH EVERY DAY FOR 30 DAYS Active Senna 8.6 MG 1 tablet at bedtime as needed Orally Once a day 09/20/2024 Active Triamcinolone Acetonide 0.1 % 1 application Externally Two times a day 06/16/2024 Active Alcohol Prep Pads 70 % as directed Externally 3 times a day 05/16/2021 Active Lantus 100 UNIT/ML as directed Subcutaneous 35 Units once a day E11.9 DM (diabetes mellitus) Active traZODone HCl 50 MG 1 tablet at bedtime as needed Orally Once a day 08/04/2023 Active FreeStyle Lancets - as directed as directed use to check blood sugars three times a day 05/01/2021 Active Gabapentin 600 MG 1 tablet Orally three times a day 05/27/2022 Active FreeStyle Lite Test - as directed In Vit ro 3 times a day Active Tadalafil 20 MG 1 tablet as needed Orally Once a day Active Pantoprazole Sodium 40 MG 1 tablet Orally Once a day Active Albuterol Sulfate (2.5 MG/3ML) 0.083% 3 ml as needed Inhalation every 4 hrs 11/05/2022 Active FreeStyle Lite - as directed as directed to use to test blood sugars three a day 05/01/2021 Active Wixela Inhub 500-50 MCG/DOSE INHALE 1 PUFF TWICE A DAY Inhalation Active Atorvastatin Calcium 10 MG 1 tablet Orally Once a day 11/19/2022 Active Melatonin 5 MG 1 tablet in the evening Orally Once a day 11/19/2022 Active Social History Tobacco Use: Social History Observation Description Date Details (start date - stop date) Former Smoker NA - NA Sex Assigned At : Social History Observation Description Sex Assigned At Male Tobacco Control (Standard) Question Answer Notes Tobacco use: Former smoker How long has it been since you last smoked? 1-5 years Additional Findings: Tobacco non-user Ex-cigaret te smoker Problems Problem Type SNOMED Code ICD Code Onset Dates Problem Status W/U Status Risk Notes Problem Right lower quadrant pain ([id number]) Right lower quadrant abdominal pain (R10.31) Active confirmed We have ordered an ultrasound of his abdomen to evaluate the right lower quadrant abdominal pain. His examination was unremarkable. Vital Signs Temperature 97.2 degrees Fahrenheit 04/07/20 25 Blood pressure systolic 131 mm Hg 04/07/20 25 Blood pressure diastolic 79 mm Hg 025 Heart Rate 73 /min 04/07/2025 Height 64 in 04/07/2025 Weight 197 lbs 04/07/2025 BMI 33.81 kg/m2 04/07/2025 Encounters Encounter Location Date Provider Diagnosis Chin Zepeda III, MD [address] [place] [address] [place] [id number] 04/07/2025 Chin Zepeda Chronic obstructive pulmonary disease, unspecified COPD type J44.9 ; Type 2 diabetes mellitus without complications E11.9 ; Obesity (BMI 30.0-34.9) E66.9 ; Hyperlipidemia type II E78.01 ; Benign prostatic hyperplasia with lower urinary tract symptoms N40.1 ; Right lower quadrant abdominal pain R10.31 ; Sleep apnea in adult G47.30 ; Former smoker Z87.891 and Other depression F32.89 Assessments Encounter Date Diagnosis (ICD Code) Assessment Notes Treat ment Notes Treatment Clinical Notes 04/07/2025 Chronic obstructive pulmonary disease, unspecified COPD type (ICD-10 - J44.9) He is no longer smoking. He is having an exacerbation of wheezing and acute bacterial bronchitis productive of thick yellow phlegm. He is comfortable at home with the activities of daily living but short of breath with exertion. He was given an antibiotic and prednisone in a follow-up visit to the office. 04/07/2025 Type 2 diabetes mellitus without complications (ICD-10 - E11.9) Comprehensive blood work with a hemoglobin A1c fasting glucose fasting lipids and a microalbumin has been ordered. 04/07/2025 Obesity (BMI 30.0-34.9) (ICD-10 - E66.9) He has gained 5 pounds and his body mass index is 33. He has recently started the Ozempic which was continued. He will return in 4 weeks to weigh himself. He may need an increase in the drug. We made a plan to lose weight at a rate of one half of a pound per week through a diet restricted in calories. 04/07/2025 Hyperlipidemia type II (ICD-10 - E78.01) Comprehensive blood work with a fasting lipid profile will be done in the near future. No change in his regimen was made today. 04/07/2025 Benign prostatic hyperplasia with lower urinary tract symptoms (ICD-10 - N40.1) He rises from sleep once a night to urinate. We have discussed lifestyle modifications he could make to reduce this. 04/07/2025 Right lower quadrant abdominal pain (ICD-10 - R10.31) We have ordered an ultrasound of his abdomen to evaluate the right lower quadrant abdominal pain. His examination was unremarkable. 04/07/2025 Sleep apnea in adult (ICD-10 - G47.30) He no longer uses his CPAP machine as he is not convinced it is working. I recommended he take it back to his revenue specialist for calibration. 04/07/2025 Former smoker (ICD-1 0 - Z87.891) We discussed a plan to prevent relapse in times of illness or stress 04/07/2025 Other depression (ICD-10 - F32.89) His depression is currently low-grade and stable and chronic. No change in his regimen was needed. Plan Of Treatment Medication Medication Name Sig Start Date Stop Date Notes Basaglar KwikPen 100 UNIT/ML 35 units daily Subcutaneous use 35 units daily 08/08/2024 DX: Diabetes E11.9 metFORMIN HCl 850 MG TAKE 1 TABLET BY MO UTH TWICE A DAY Lisinopril 2.5 MG TAKE 1 TABLET BY RON TH EVERY DAY Januvia 100 MG 1 tablet Orally Once a day 05/27/2022 Proventil HFA 108 (90 Base) MCG/ACT 1 puff as needed Inhalation every 4 hrs 08/03/2023 Ozempic (0.25 or 0.5 MG/DOSE) 2 MG/3ML 0.25 mg like directed Subcutaneous weekly buPROPion HCl ER (SR) 100 MG 1 tablet Orally Once a day Triamcinolone Acetonide 0.1 % 1 application Externally Twice a day 04/01/2022 Albuterol Sulfate HFA 108 (90 Base) MCG/ACT 1 puff as needed Inhalation every 4 hrs buPROPion HCl ER (SR) 200 MG TAKE 1 TABLET BY MOUTH EVERY DAY FOR 30 DAYS Senna 8.6 MG 1 tablet at bedtime as needed Orally Once a day 09/20/2024 Triamcinolone Acetonide 0.1 % 1 application Externally Two times a day 06/16/2024 Alcohol Prep Pads 70 % as directed Exter christine 3 times a day 05/16/2021 Lantus 100 UNIT/ML as directed Subcutaneous 35 Units once a day E11.9 DM (diabetes mellitus) traZODone HCl 50 MG 1 tablet at bedtime as needed Orally Once a day 08/04/2023 FreeStyle Lancets - as directed as directed use to check blood sugars three times a day 05/01/2021 Gabapentin 600 MG 1 tablet Orally thre e times a day 05/27/2022 FreeStyle Lite Test - as directed In Vit ro 3 times a day Tadalafil 20 MG 1 tablet as needed Orally Once a day Pantoprazole Sodium 40 MG 1 tablet Orally Once a day Albuterol Sulfate (2.5 MG/3ML) 0.083% 3 ml as needed Inhalation every 4 hrs 11/05/2022 FreeStyle Lite - as directed as directed to use to test blood sugars three a day 05/01/2021 Wixela Inhub 500-50 MCG/DOSE INHALE 1 PUFF TWICE A DAY Inhalation Atorvastatin Calcium 10 MG 1 tablet Orally Once a day 11/19/2022 Melatonin 5 MG 1 tablet in the evening Orally Once a day 11/19/2022 Pending Test Test Name Order Date PROFILE, FASTING (COMPREHENSIVE METABOLI C) 04/07/2025 CBC w DIFF 04/07/2025 US ABD 04/07/2025 Lipid Panel 04/07/2025 Testosterone, Total 04/07/2025 Microalbumin, Random 04/07/2025 Hemoglobin A1c 04/07/2025 Next Appt Details Follow Up: 2.5 Months, Reaso n: OV Provider Name:Chin Zepeda , 07/17/2025 02:00:00 PM, [address] [place] [address] [address], [place], [id number], Provider Name:Chin Zepeda , 12/29/2025 02:00:00 PM, [address] [place] [address] [address], [place], [id number], Progress Notes * Juan Diego BARRAZA ADOB:[birth year] (70 yo M)Acc No.[id number]:04/07/2025 Progress Notes Patient: Juan Diego PALOMARES Provider: Yousif Zepeda MD :1955 A ge:70 Y S ex:Male Date:04/07/2025 Address:[address] [place] [address] [address], [id number] Subjective: * Chief Complaints: * C opdBphSleep aneaObesityHyperlipidemiaDepressionChronic painAsthmaSchatzki ring * HPI: C OVID-19 Screening: Duncan humphrey returns for a scheduled visit for medical management. He reports that his breathing is adequate and he does not have any distress. He has sleep apnea and he does not use his CPAP machine as he finds it uncomfortable. Was referred back to the pulmonary department to find a more comfortable device. He is using insulin for his diabetes and his compliant with all of his medications. We will try to obtain a Dexon sensor for him. He denies any chest pain or bleeding or new pain. His back pain remains the same but is moderate lately.He is up-to-date with his diabetic eye exams.He has gained 5 pounds and his body mass index is 33. This Ozempic was continued in the hopes of weight loss. Need to increase the dose on his next visit. Questions H ave you had any new onset fever, chills, cough, congestion, sore throat, shortness of breath, muscle aches? N o * ROS: G eneral/Constitutional: pain C hronic low back pain. C hills d enies. F atigue a dmits. F ever d enies. E NT: Decreased hearing m ild. R espiratory: Cough d enies. C ardiovascular: Chest pain with exertion d enies. D yspnea on exertion?with prolonged activity. S hortness of breath w ith [...] non-user E x-cigarette smoker * Medications: T akingOzempic (0.25 or 0.5 MG/DOSE) 2 MG/3ML Solution Pen-injector 0.25 mg like directed Subcutaneous weekly Albuterol Sulfate HFA 108 (90 Base) MCG/ACT Aerosol Solution 1 puff as needed Inhalation every 4 hrs metFORMIN HCl 850 MG Tablet TAKE 1 TABLET BY MOUTH TWICE A DAY Basaglar KwikPen 100 UNIT/ML Solution Pen-injector [...] to test blood sugars three a day Tadalafil 20 MG Tablet 1 [...] as directed Externally 3 times a day Triamcinolone Acetonide 0.1 % Cream 1 application Externally Two times a day Senna 8.6 MG Tablet 1 tablet at bedtime as needed Orally Once a day buPROPion HCl ER (SR) 200 MG Tablet Extended Release 12 Hour TAKE 1 TABLET BY MOUTH EVERY DAY FOR 30 DAYS Triamcinolone Acetonide 0.1 % Cream 1 application Externally Twice a day Taking Ozempic (0.25 or 0.5 MG/DOSE) 2 MG/3ML Solution Pen-injector 0.25 mg like directed Subcutaneous weekly Taking Albuterol Sulfate HFA 108 (90 Base) MCG/ACT Aerosol Solution 1 puff as needed Inhalation every 4 hrs Taking metFORMIN HCl 850 MG Tablet TAKE 1 TABLET BY MOUTH TWICE A DAY Taking Basaglar KwikPen 100 UNIT/ML Solution [...] test blood sugars three a day Taking Tadalafil 20 MG Tablet [...] directed Externally 3 times a day Taking Triamcinolone Acetonide 0.1 % Cream 1 application Externally Two times a day Taking Senna 8.6 MG Tablet 1 tablet at bedtime as needed Orally Once a day Taking buPROPion HCl ER (SR) 200 MG Tablet Extended Release 12 Hour TAKE 1 TABLET BY MOUTH EVERY DAY FOR 30 DAYS Taking Triamcinolone Acetonide 0.1 % Cream 1 application Externally Twice a day DiscontinuedbuPROPion HCl ER (SR) 100 MG Tablet Extended Release 12 Hour 1 tablet Orally Once a day Azithromycin 250 MG Tablet like directed Orally 2 Tablets on the first day, one tablet the rest of the days Medication List reviewed and reconciled with the patientDiscontinued buPROPion HCl ER (SR) 100 MG Tablet Extended Release 12 Hour 1 tablet Orally Once a day Discontinued Azithromycin 250 MG Tablet like directed Orally 2 Tablets on the first day, one tablet the rest of the days Medication List reviewed and reconciled with the patient * Allergies: N o Known Drug AllergyNo Known Food Allergyno[Allergies Verified] Objective: * Vitals: H t: 64, Wt:197, BMI:33.81, BP:131/79, HR:73, Temp:97.2, Ht-cm: 162.56, Wt-k.36. * Examination: G eneral Examination: GENERAL APPEARANCE: p leasant, well nourished, well developed, in no acute distress, calm and relaxed: obese: man. HEAD: a traumatic, normocephalic. EYES: e [...] normal, no s3, or vascular bruits. LUNGS: : diminished breath sounds throughout. BREASTS: no masses palpable bilaterally. ABDOMEN: b owel sounds normal, no ascites, no organomegaly, no mass: centripital obesity. RECTAL EXAM: n ot examined. MUSCULOSKELETAL: e xtremities unremarkable, no clubbing, cyanosis or edema. PERIPHERAL PULSES: n ormal. NEUROLOGIC: a lert and oriented, cranial nerves 2-12 grossly intact, deep tendon reflexes 2+ symmetrical, motor strength normal upper and lower extremities, sensory exam intact. PSYCH: a lert, oriented. Assessment: * Assessment: 1. T ype 2 diabetes mellitus without complications - E11.9 (Primary) N otes :Comprehensive blood work with a hemoglobin A1c fasting glucose fasting lipids and a microalbumin has been ordered. 2 . C hronic obstructive pulmonary disease, unspecified COPD [...] in a follow-up visit to the office. 3 . O besity (BMI 30.0-34.9) - E66.9 N otes :He has gained 5 pounds and his body mass index is 33. He has recently started the Ozempic which was continued. He will return in 4 weeks to weigh himself. He may need an increase in the drug. We made a plan to lose weight at a rate of one half of a pound per week through a diet restricted in calories. 4 . H yperlipidemia type II - E78.01 N otes :Comprehensive blood work with a fasting lipid profile will be done in the near future. No change in his regimen was made today. 5 . B enign prostatic hyperplasia with lower urinary tract symptoms - N40.1? Notes :He rises from sleep once a night to urinate. We have discussed lifestyle modifications he could make to reduce this. 6 . R ight lower quadrant abdominal pain - R10.31 N otes :We have ordered an ultrasound of his abdomen to evaluate the right lower quadrant abdominal pain.? His examination was unremarkable. 7 . S leep apnea in adult - G47.30 N otes :He no longer uses his CPAP machine as he is not convinced it is working. I recommended he take it back to his revenue specialist for calibration. 8 . F ormer smoker - Z87.891 N otes :We discussed a plan to prevent relapse in times of illness or stress 9 . O ther depression - F32.89 N otes :His depression is currently low-grade and stable and chronic. No change in his regimen was needed. Plan: * Treatment: 2. O besity (BMI 30.0-34.9) L AB: PROFILE, FASTING (COMPREHENSIVE METABOLIC) L AB: CBC w DIFF L AB: Lipid Panel L AB: Testosterone, Total L AB: Microalbumin, Random L AB: Hemoglobin A1c 3. H yperlipidemia type II L AB: PROFILE, FASTING (COMPREHENSIVE METABOLIC) L AB: CBC w DIFF L AB: Lipid Panel L AB: Testosterone, Total L AB: Microalbumin, Random L AB: Hemoglobin A1c 4. B enign prostatic hyperplasia with lower urinary tract symptoms L AB: PROFILE, FASTING (COMPREHENSIVE METABOLIC) L AB: CBC w DIFF L AB: Lipid Panel L AB: Testosterone, Total L AB: Microalbumin, Random L AB: Hemoglobin A1c 5. R ight lower quadrant abdominal pain I maging: US ABD 6. O thers Continue Ozempic (0.25 or 0.5 [...] at bedtime as needed, Orally, Once a day. * Procedure Codes: * Preventive Medicine: DM Care Plan: P atient Lifestyle Goals P atient wants to be able to manage diabetes without too much effort. T reatment Goals H bA1C < 7.0, Blood Sugars less than < 115. B arriers n o barriers. S elf-Managment [...] E xercise to help whole body, including lungs. B arriers n o barriers. S elf-Managment Goals E at a healthy diet. Counseling: C are goal follow-up plan: Counseling [...] of tobacco use and urged to quit. 1 * Follow Up: 2 .5 Months (Reason: OV) * Images: * Sign off status: Completed true * Provider: Yousif Zepeda MD Date: 1 Generated for Alex crocker/Miguel A/Juliusitting on: 07/26/2024 [...] developed, in no acute distress, calm and relaxed: obese: man HEAD: atraumatic, normocep halic EYES: eomi, perrla, anicte dalton, conjugate EARS: normal NOSE: septum intact NECK/THYROID: no jugular venous di stention, no carotid bruit, thyroid normal HEART: no clicks, gallops, murmurs, or rubs, regular rhythm, S1, S2 normal, no s3, or vascular bruits LUNGS: : diminished breath sounds throughout ABDOMEN: bowel sounds normal, no ascites, no organomegaly, no mass: centripital obesity NEUROLOGIC: alert and oriented, cranial [...]
--- NOTE | ~2025-05-26 | XR_ITS ---
EXAMINATION: XR CHEST CLINICAL INFORMATION: chest pain COMPARISON: 05/20/2023 TECHNIQUE: Frontal view of the chest was obtained. FINDINGS: Cardiac silhouette width is upper limits of normal.. The lungs are grossly clear. No pleural effusion is evident. No pneumothorax is identified. XR/XR chest 1V IMPRESSION: Stable chest x-ray, no acute disease. Electronically signed by: Andrés Troncoso MD 05/26/2025 12:21 PM [facility]
--- NOTE | ~2025-05-26 | XR_ITS ---
EXAMINATION: XR HIP, RIGHT CLINICAL INFORMATION: hip pain COMPARISON: July 28, 2022 CT abdomen and pelvis TECHNIQUE: AP upright, AP supine and frog-leg lateral views of the right hip. FINDINGS: The hips are externally rotated limiting visualization of the femoral necks. There is sclerosis and subchondral bone of the right greater than left hip consistent with avascular necrosis , clearly evident on the prior CT. There is no subchondral lucency or loss of sphericity. Hip joint spaces are preserved. SI joints are unremarkable. No fracture lines are identified. 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 The hips are externally rotated limiting visualization of the femoral necks. No fracture is identified. Electronically signed by: Andrés Troncoso MD 05/26/2025 12:19 PM [facility]
--- NOTE | 2025-05-26 10:29 | ECG_ITS ---
Test Reason : cp Blood Pressure : */* mmHG Vent. Rate : 66 BPM Atrial Rate : 66 BPM P-R Int : 160 ms QRS Dur : 94 ms QT Int : 394 ms P-R-T Axes : 43 39 58 degrees QTcB Int : 413 ms Normal sinus rhythm Normal ECG When compared with ECG of 19-Apr-2021 18:27, Vent. rate has decreased by 43 bpm Referred By: Kamaljit Anne Electronically Signed By: LISA IBRAHIM
[2025-05-26 10:55] VITALS: BP 141/64; PULSE 67; RESP 18; TEMP 36.4; O2SAT 96; BMI 33.9
--- NOTE | 2025-05-26 11:34 | ED.GENADULT ---
HPI - General Adult General Chief complaint: Extremity Injury, Lower Stated complaint: CP, R side leg pain Time Seen by Provider: 05/26/25 11:34 History of Present Illness ED Provider: Melissa GOMEZ narrative: The patient is a 70-year-old male who presents with 4 days of worsening pain in the region of his right hip. He says that there was no trauma or injury that seemed to initiate this pain syndrome. He says that in his possible he had done some lifting in the days before the pain began but he cannot think of anything specific. He has not felt ill and does not feel like he has any fevers, sweats or chills. He has a history of type 2 diabetes. Related Data Home Medications ?Medication ?Instructions ?Recorded ?Confirmed sitagliptin phosphate 100 mg tablet 100 mg PO DAILY 03/31/20 11/30/24 tamsulosin 0.4 mg capsule 0.8 mg PO DAILY 03/31/20 11/30/24 lisinopril 2.5 mg tablet 2.5 mg PO DAILY 05/28/21 11/30/24 metformin 850 mg tablet 850 mg PO BID 05/28/21 11/30/24 propranolol 20 mg tablet 20 mg PO BID 05/28/21 11/30/24 bupropion HCl 100 mg tablet,12 hr 100 mg PO QAM 06/26/22 11/30/24 sustained-release Previous Rx's ?Medication ?Instructions ?Recorded ipratropium 0.5 mg-albuterol 3 mg 3 ml inhalation TID PRN for 03/07/21 (2.5 mg base)/3 mL nebulization wheezing #180 mL soln pantoprazole 40 mg tablet,delayed 40 mg PO BID #60 tabs 01/18/22 release diclofenac sodium 1 % topical gel 4 g topical QID #100 grams 06/26/22 sucralfate 100 mg/mL oral 10 ml PO BID #420 mL 01/26/23 suspension gabapentin 600 mg tablet 600 mg PO TID pain 30 days #90 tabs 08/20/23 lidocaine 5 % topical patch 2 patch topical DAILY pain 30 days 08/20/23 #60 ea albuterol sulfate 90 mcg/actuation 2 puff PO Q6H PRN for wheezing 09/30/24 aerosol inhaler #8.5 ea fluticasone 250 mcg-salmeterol 50 1 inh inhalation Q12H #60 ea 03/27/25 mcg/dose blistr powdr for inhalation (Wixela Inhub) acetaminophen 500 mg capsule 1,000 mg (2 x 500 mg) PO Q8H PRN 05/26/25 fever or pain #14 caps oxycodone 5 mg tablet 5 mg PO Q6H PRN pain #14 tabs 05/26/25 Allergies Allergy/AdvReac Type Severity Reaction Status Date / Time No Known Allergies (No Known Allergy Verified 05/26/25 10:57 Allergies*) Review of Systems Review of Systems: Yes all other systems are reviewed and are negative [facility] Past Medical History Medical History Current non-smoker but past smoking history unknown Asthma-COPD overlap syndrome Left elbow pain Right tennis elbow Diabetes mellitus GERD (gastroesophageal reflux disease) Anxiety and depression Elevated cholesterol Disc degeneration, lumbosacral Chronic pain syndrome Radiculopathy of lumbosacral region Spondylosis, lumbar, with myelopathy Asthma Bronchitis TITUS (obstructive sleep apnea) COPD (chronic obstructive pulmonary disease) Surgical History History of cystoscopy History of prostate surgery Hx of colonoscopy History of esophagogastroduodenoscopy (EGD) Family History Family History Mother Hypertension Father Medical history unknown Social History Social History Are you a primary patient care provider to a significant other at home: No Do you presently have visiting nurse or other home services: No Alcohol intake: current Alcohol intake frequency: a few times a month Alcohol type: beer Comment: medicated in pacu Patient Tobacco Use Status: Former Tobacco user Tobacco use type: Cigarette Cigarette Packs Per Day: 2 Cigarettes Per Day: 40 Years Smoked: 50 years Advance Directives Date on File: 10/13/16 Current occupational status: retired Current occupation: [employer] Physical Exam ED Vital Signs: Vital Signs - 24 hr 05/26/25 10:55 05/26/25 14:14 Temperature 97.6 F 97.6 F Pulse Rate 67 67 Respiratory Rate 18 18 Blood Pressure 141/64 H 141/64 H Pulse Oximetry 96 96 Oxygen Delivery Method Room Air Room Air BMI result Body Mass Index 33.9 Const Other: The patient is awake and alert, pleasant cooperative. He does not appear in any distress at rest. HENMT Other: The face is symmetrical. ?Mucous membranes moist. Eyes Other: Pupils are round equal, conjunctivae are clear, extraocular movements intact Neck Neck: Yes normal visual inspection and Yes full ROM Resp Effort & Inspection: normal respiratory effort Auscultation: clear to auscultation bilaterally Cardio Rate: regular rate Rhythm: regular rhythm Heart sounds: S1 normal heart sound present and S2 normal heart sound present GI Other: Abdomen is soft and nontender Back/Spine/Pelvis Other: No midline vertebral tenderness in the back. Skin Other: Skin is dry and unremarkable Neuro Other: The patient is awake and alert with a normal mental status. Cranial nerves are grossly intact. He has normal strength and sensation in his extremities although the movement of the right leg is limited by pain in the region of the right hip. Extrem Other: The patient has good dorsalis pedis and posterior tibialis pulses in the left foot. He has a good posterior tibialis pulse in the right foot and possibly a palpable dorsalis pedis. Both feet are well-perfused and unremarkable. He seems to have pain with manipulation of the right hip. He is very tender with palpation over the greater trochanter. Medications Administered Discontinued Medications Generic Name Dose Route Start Last Admin Trade Name Freq PRN Reason Stop Dose Admin Bupivacaine HCl 10 ml 05/26/25 12:57 05/26/25 13:11 Bupivacaine Mpf 0.25 % 10 Ml Vial INFILTRATI 05/26/25 12:58 10 ml ONCE ONE Administration Acetaminophen 1,000 mg in 100 mls @ 400 mls/hr 05/26/25 12:22 05/26/25 13:12 Ofirmev IV 05/26/25 12:36 Infused ONCE ONE Infusion Ketorolac Tromethamine 15 mg 05/26/25 12:22 05/26/25 12:27 Ketorolac Tromethamine 15 Mg/Ml Vial IVPUSH 05/26/25 12:23 15 mg ONCE ONE Administration Medical Decision Making Medical Decision Making [facility] Narrative: The patient seems to have very focal pain over the right greater trochanter. He has an an x-ray of the right hip and pelvis that exhibit some degree of avascular necrosis but I do not think there are any definite acute findings. No suggestive of an infectious process. Clinically the patient seemed to have pain suggestive of a trochanteric bursitis syndrome. The patient did not experience much relief from a dose of ketorolac and ibuprofen IV. Ultimately I gave the patient a localized injection of bupivacaine. This was under sterile conditions injected into the region of the right greater trochanter. I injected 5 mL of 0.25% bupivacaine with a 21 gauge needle. The patient seemed to get fairly significant relief of his pain following this injection. I explained to the patient that the relief of this medication will only last a few hours. I have prescribed some oxycodone for the patient. I contacted the patient's PCP, Dr. Zepeda, regarding the patient's presentation today. The patient will be referred to outpatient Orthopedics for further evaluation. Possibly a steroid injection might be helpful. The patient had also mentioned some chest discomfort at triage. He did not really mention these symptoms with me. He has a an unremarkable chest x-ray, EKG, and an undetectable troponin and a normal pro BNP. I do not have any significant suspicion for any acute coronary syndrome or similar cardiovascular condition. Lab Data 05/26/25 11:41 05/26/25 11:41 Labs: Lab Results 05/26/25 Range/Units 11:41 WBC 10.9 H (4.8-10.8) X10*3/uL RBC 5.35 (4.60-5.80) X10*6/uL Hgb 15.8 (14.0-18.0) g/dl Hct 46.0 (42.0-52.0) % MCV 86.0 (80.0-98.0) fL MCH 29.5 (27.0-33.0) pg MCHC 34.3 (31.0-36.0) g/dl RDW 13.8 (11.0-16.0) % Plt Count 331 (160-400) X10*3/uL MPV 10.0 (9.4-12.4) fL Immature Gran % (Auto) 0.3 (0.0-0.4) % Neut % (Auto) 63.8 (45-73) % Lymph % (Auto) 23.1 (20-40) % Brooks % (Auto) 9.5 (2-11) % Eos % (Auto) 2.9 (0-4) % Baso % (Auto) 0.4 (0-2) % Lymph # (Auto) 2.5 (1.2-4.9) X10*3/uL Brooks # (Auto) 1.0 (0.1-1.2) X10*3/uL Eos # (Auto) 0.3 (0.0-0.4) X10*3/uL Baso # (Auto) 0.0 (0.0-0.2) X10*3/uL Abs Immat Gran (auto) 0.03 (0.00-0.03) X10*3/uL Absolute Neuts (auto) 6.9 (2.0-8.3) x10*3/uL Absolute Nucleated RBC 0.000 (0.0-0.012) X10*3/uL Nucleated RBC % (auto) 0.0 (0.0-0.2) /100WBC Sodium 139 (135-145) mmol/L Potassium 4.1 (3.3-5.1) mmol/L Chloride 109 H (96-108) mmol/L Carbon Dioxide 24 (22-29) mmol/L Anion Gap 10 L (12-20) BUN 13 (9-16) mg/dL Creatinine 1.00 (0.5-1.4) mg/dL Estim Creat Clear Calc 68.8 Estimated GFR > 60 Random Glucose 114 (60-115) mg/dL Calcium 9.1 (8.4-10.2) mg/dL Total Bilirubin 0.7 (0.0-1.0) mg/dL AST 53 H (5-37) U/L ALT 55 H (0-40) U/L Alkaline Phosphatase 101 (39-117) U/L Troponin I High Sens < 2.7 (<3.5-35.0) ng/L NT-Pro-B Natriuret Pep 47.3 (<300) pg/mL Total Protein 7.7 (6.5-8.0) g/dL Albumin 4.2 (3.5-5.0) g/dL Independent Interpretation Interpretation: EKG at 10:28 shows normal sinus rhythm at 66 beats per minute, it is a normal EKG. Discharge Plan Discharge Clinical Impression: Acute pain of right hip Patient Disposition: Home, Self-Care Instructions: Hip Pain (ED) Additional Instructions: Your pain may be being caused by a condition called trochanteric bursitis. You received an injection of some local anesthetic that may give you some relief for at most a couple of hours. It may be good for you to get a steroid injection to help with this pain. Please contact the orthopedic office to see if you can arrange an appointment with them for further evaluation. In the meantime I have sent a prescription for oxycodone that you may use as needed for pain. I have also sent a prescription for acetaminophen which you should also use. In addition to following up with the orthopedic office please also follow up with your regular doctor and stay in touch with your regular doctor regarding your symptoms. Return to the emergency room if significantly worse. Prescriptions: New acetaminophen 500 mg capsule 1,000 mg PO Q8H PRN (Reason: fever or pain) Qty: 14 0RF oxycodone 5 mg tablet 5 mg PO Q6H PRN (Reason: pain) Qty: 14 0RF Rx Instructions: Partial Fill upon patient request. No Action ipratropium-albuterol 0.5 mg-3 mg(2.5 mg base)/3 mL solution for nebulization 3 ml inhalation TID PRN (Reason: for wheezing) Qty: 180 2RF sucralfate 100 mg/mL suspension 10 ml PO BID Qty: 420 0RF albuterol sulfate 90 mcg/actuation HFA aerosol inhaler 2 puff PO Q6H PRN (Reason: for wheezing) Qty: 8.5 0RF fluticasone propion-salmeterol [Wixela Inhub] 250-50 mcg/dose blister with device 1 inh inhalation Q12H Qty: 60 3RF pantoprazole 40 mg tablet,delayed release (DR/EC) 40 mg PO BID Qty: 60 2RF Januvia 100 mg tablet 100 mg PO DAILY tamsulosin 0.4 mg capsule 0.8 mg PO DAILY bupropion HCl 100 mg tablet sustained-release 12 hr 100 mg PO QAM diclofenac sodium 1 % gel 4 g topical QID Qty: 100 2RF Rx Instructions: apply to both knees 4 times a day metformin 850 mg tablet 850 mg PO BID lisinopril 2.5 mg tablet 2.5 mg PO DAILY propranolol 20 mg tablet 20 mg PO BID lidocaine 5 % adhesive patch,medicated 2 patch topical DAILY 30 Days Qty: 60 3RF gabapentin 600 mg tablet 600 mg PO TID 30 Days Qty: 90 0RF [place] [facility] [place] [facility] [Provider Group] Chin Zepeda MD [Primary Care Provider, Internal Medicine] Interventions: ED Discharge Assessment Last Done: 05/26/25 14:14 Discharge Date/Time: 05/26/25 14:14 Print Language: Lithuanian
[2025-05-26 11:48] LABS: MANUAL DIFF FLAG NO
[2025-05-26 11:50] LABS: Hematocrit 46.0 % (42.0-52.0); Hemoglobin 15.8 g/dl (14.0-18.0); Imm Gran Abs Auto 0.03 X10*3/uL (0.00-0.03); Imm Gran Pct Auto 0.3 % (0.0-0.4); Lymphocytes Absolute Auto 2.5 X10*3/uL (1.2-4.9); Mean Corpuscular HGB Conc 34.3 g/dl (31.0-36.0); Mean Corpuscular Hemoglobin 29.5 pg (27.0-33.0); Mean Corpuscular Volume 86.0 fL (80.0-98.0); NRBC Abs Auto 0.000 X10*3/uL (0.0-0.012); NRBC Pct Auto 0.0 /100WBC (0.0-0.2); Platelet Count 331 X10*3/uL (160-400); Red Blood Count 5.35 X10*6/uL (4.60-5.80); White Blood Count 10.9 X10*3/uL (4.8-10.8)
[2025-05-26 12:05] LABS: Alanine Aminotransferase 55 U/L (0-40); Albumin Level 4.2 g/dL (3.5-5.0); Alkaline Phosphatase 101 U/L (39-117); Anion Gap 10 (12-20); Aspartate Amino Transferase 53 U/L (5-37); Blood Urea Nitrogen 13 mg/dL (9-16); Calcium 9.1 mg/dL (8.4-10.2); Carbon Dioxide 24 mmol/L (22-29); Chloride 109 mmol/L (96-108); Creatinine Clr Calc Pharmacy 68.8; Estimated Glomerular Filt Rate > 60; Potassium 4.1 mmol/L (3.3-5.1); Sodium 139 mmol/L (135-145); Total Protein 7.7 g/dL (6.5-8.0)
--- OUTSIDE RECORDS SUMMARY | 2025-05-26 12:07 | XMS_ITS | Clinical Summary ---
Author Organization [employer] Address [address] [place] [address] [address] [place] [address] Care Team Providers Care Director Check Name Role Phone Unavailable Primary Care Provider [...] 1975 DTaP/Tdap/Td Vaccines (1 - Tdap) 1976 Dental Oral Exam 10/01/2021 04/02/2021 Tobacco Screening 02/21/2024 02/20/2023 Dental X-Ray: Full Mouth 04/03/2024 04/02/2021 COVID-19 Vaccine ( season) 2025 04/26/2024, 07/22/2022, 09/06/2021, Additional history exists Pneumococcal Vaccine: 50+ Years Completed 07/28/2024, 06/24/2016 RSV Patients and Patients Aged 60 years or older Completed 07/28/2024 Zoster Vaccines Completed 07/28/2024, 03/09/2020 Influenza Vaccine Completed 03/01/2025, , 02/20/2023, Additional history exists HIB Vaccines Aged Out No longer eligi [...] Most Recently Relevant to Health Maintenance Insurance [employer] (HMO D-SNP) [facility] [place] AD[place]
--- OUTSIDE RECORDS SUMMARY | 2025-05-26 12:08 | XMS_ITS | Patient Health Record ---
Author Organization Chin Zepeda III, MD Address [address] [place] [address] [address] [place] [address] Care Team Providers Care Life Skills Trainer Name Role Phone Dr. Chin Zepeda III Primary Care Provider [phone] Allergies Allergen (clinical drug ingredient) Drug/Non Drug Allergy documented on EMR Reaction Allergy Type Onset Date Status No Known Drug Allergy Unknown Drug Allergy Active No Known Food Allergy Unknown Drug Allergy Active Results Component Value Reference Range Notes Lipid Panel Reviewed date:06/27/2024 10:44:25 AM Interpretation: Performing Lab:[facility], [address] [place] [phone] Notes/Report: Triglycerides 116 <150 mg/dL Desirable Triglyceride: less than 150 mg/dL Borderline High Triglyceride 150-199 mg/dL High Triglyceride: 200-499 mg/dL Very High Triglyceride: greater than or equal to 5OO mg/dL Cholesterol 207 <200 mg/dL Desirable Cholesterol: less than 200 mg/dL Borderline High Cholesterol: 200-239 mg/dL High Cholesterol: greater than 239 mg/dL LDL Cholesterol Calculated 147 <100 mg/dL Desirable LDL: less than 100 mg/dL Near Optimal/Above Optimal LDL: 110-129 mg/dL Borderline High LDL: 130-159 mg/dL High LDL: 160-189 mg/dL Very High LDL: greater than or equal to 190 mg/dL HDL Cholesterol 37 >40 mg/dL Desirable HDL: greater than 40 mg/dL Note: This HDL assay may give artificially low results in patients with liver disease. Microalbumin, Random Reviewed date:06/27/2024 10:44:25 AM Interpretation: Performing Lab:[facility], [address] [place] [phone] Notes/Report: Creatinine Urine 136.46 Microalbumin Urine 16.0 Microalbum/Creatinine Ratio Ur 11.7 <30 ug/mg cr Albumin/Creatinine Ratio Reference Ranges: Normal: < 30 ug/mg creatinine Microalbuminuria: 30 - 300 ug/mg creatinine Clinical Albuminuria: > 300 ug/mg creatinine Hemoglobin A1c Reviewed date:06/27/2024 10:44:25 AM Interpretation: Performing Lab:[facility], [address] [place] [phone] Notes/Report: Hemoglobin A1c % 5.8 <6.0 % Hemoglobin A1C Reference Range Adults: 4.8 - 6.0 % Non diabetic: < 6.0 % Goal: < 7.0 % Additional Action Suggested: > 8.0 % Note: Hemoglobin A1c results are invalid for patients with abnormal amounts of HbF. Blood transfusions may impact the HbA1c concentration in the patient sample. Estimated Average Glucose 120 eAG = Estimated average glucose which is %A1C expressed as average glucose, using the formula of the I3C-[id number] Average Glucose study (ADAG), Diabetes Care, Vol.31,#8, Feb. 2007 URINE DIP STICK Reviewed date:12/28/2024 01:15:40 PM Interpretation: Performing Lab: Notes/Report: SG 1.025 1.005 - 1.025 pH 5.0 5.0 - 9.0 HI 15 (+) (-) Negative - NIT Negative Negative - PRO 15 Negative - Trace GLU Negative Negative - KET 5 Negative - UBG 0.2 0.1 - 1.8 ZACHARY 1 0.2 - 1.3 BLD Negative Negative - Complete Blood Count Auto Di ff Reviewed date:06/27/2024 10:44:25 AM Interpretation: Performing Lab:[facility], [address] [place] [phone] Notes/Report: White Blood Count 11.6 4.8-10.8 X10*3/uL Red Blood Count 5.65 4.60-5.80 X10*6/uL Hemoglobin 16.5 14.0-18.0 g/dl Hematocrit 48.3 42.0-52.0 % Mean Corpuscular Volume 85.5 80.0-98.0 fL Mean Corpuscular Hemoglobin 29.2 27.0-33.0 pg Mean Corpuscular HGB Conc 34.2 31.0-36.0 g/dl Red Cell Distribution Width 14.4 11.0-16.0 % Platelet Count 366 160-400 X10*3/uL Mean Platelet Volume 9.8 9.4-12.4 fL Neutrophils Percent Auto 62.8 45-73 % Imm Gran Pct Auto 0.4 0.0-0.4 % Lymphocytes Percent Auto 25.3 20-40 % Monocytes Percent Auto 8.0 2-11 % Eosinophils Percent Auto 2.8 0-4 % Basophils Percent Auto 0.7 0-2 % NRBC Pct Auto 0.0 0.0-0.2 /100WBC Neutrophils Absolute Auto 7.3 2.0-8.3 x10*3/u L Imm Gran Abs Auto 0.05 0.00-0.03 X10*3/uL Lymphocytes Absolute Auto 2.9 1.2-4.9 X10*3/u L Monocytes Absolute Auto 0.9 0.1-1.2 X10*3/uL Eosinophils Absolute Auto 0.3 0.0-0.4 X10*3/u L Basophils Absolute Auto 0.1 0.0-0.2 X10*3/uL NRBC Abs Auto 0.000 0.0-0.012 X10*3/uL Comprehensive [place]. Panel Fa st Reviewed date:06/27/2024 10:44:25 AM Interpretation: Performing Lab:[facility], [address] [place] [phone] Notes/Report: Sodium 142 135-145 mmol/L Potassium 4.5 3.3-5.1 mmol/L Chloride 105 96-108 mmol/L Carbon Dioxide 29 22-29 mmol/L Anion Gap 13 12-20 Blood Urea Nitrogen 13 9-16 mg/dL Creatinine 1.04 0.5-1.4 mg/dL Estimated Glomerular Filt Rate > 60 Chronic Kidney Disease: Estimated GFR < 60 mL/min/1.73m2 Severe Kidney Disease: Estimated GFR < 15 mL/min/1.73m2 Glucose Fasting 90 60-99 mg/dL Calcium 10.1 8.4-10.2 mg/dL Bilirubin Total 0.8 0.0-1.0 mg/dL Aspartate Amino Transferase 63 5-37 U/L Alanine Aminotransferase 63 0-40 U/L Total Protein 8.0 6.5-8.0 g/dL Albumin Level 4.1 3.5-5.0 g/dL Alkaline Phosphatase 87 39-117 U/L Diabetic Eye Exam Reviewed date:11/01/2024 09:41:19 AM Interpretation:undefined Performing Lab: Notes/Report: undefined Complete Blood Count Auto Di ff Reviewed date:12/28/2024 10:35:24 AM Interpretation: Performing Lab:[facility], [address] [place] [phone] Notes/Report: White Blood Count 10.5 4.8-10.8 X10*3/uL Red Blood Count 5.16 4.60-5.80 X10*6/uL Hemoglobin 15.2 14.0-18.0 g/dl Hematocrit 42.6 42.0-52.0 % Mean Corpuscular Volume 82.6 80.0-98.0 fL Mean Corpuscular Hemoglobin 29.5 27.0-33.0 pg Mean Corpuscular HGB Conc 35.7 31.0-36.0 g/dl Red Cell Distribution Width 14.6 11.0-16.0 % Platelet Count 325 160-400 X10*3/uL Mean Platelet Volume 9.5 9.4-12.4 fL Neutrophils Percent Auto 54.2 45-73 % Imm Gran Pct Auto 0.3 0.0-0.4 % Lymphocytes Percent Auto 30.6 20-40 % Monocytes Percent Auto 9.8 2-11 % Eosinophils Percent Auto 4.7 0-4 % Basophils Percent Auto 0.4 0-2 % NRBC Pct Auto 0.0 0.0-0.2 /100WBC Neutrophils Absolute Auto 5.7 2.0-8.3 x10*3/u L Imm Gran Abs Auto 0.03 0.00-0.03 X10*3/uL Lymphocytes Absolute Auto 3.2 1.2-4.9 X10*3/u L Monocytes Absolute Auto 1.0 0.1-1.2 X10*3/uL Eosinophils Absolute Auto 0.5 0.0-0.4 X10*3/u L Basophils Absolute Auto 0.0 0.0-0.2 X10*3/uL NRBC Abs Auto 0.000 0.0-0.012 X10*3/uL Comprehensive [place]. Panel Fa st Reviewed date:12/28/2024 10:35:24 AM Interpretation: Performing Lab:[facility], [address] [place] [phone] Notes/Report: Sodium 141 135-145 mmol/L Potassium 4.3 3.3-5.1 mmol/L Chloride 105 96-108 mmol/L Carbon Dioxide 28 22-29 mmol/L Anion Gap 12 12-20 Blood Urea Nitrogen 14 9-16 mg/dL Creatinine 0.98 0.5-1.4 mg/dL Estimated Glomerular Filt Rate > 60 Chronic Kidney Disease: Estimated GFR < 60 mL/min/1.73m2 Severe Kidney Disease: Estimated GFR < 15 mL/min/1.73m2 Glucose Fasting 96 60-99 mg/dL Calcium 9.5 8.4-10.2 mg/dL Bilirubin Total 1.0 0.0-1.0 mg/dL Aspartate Amino Transferase 58 5-37 U/L Alanine Aminotransferase 65 0-40 U/L Total Protein 7.8 6.5-8.0 g/dL Albumin Level 4.2 3.5-5.0 g/dL Alkaline Phosphatase 85 39-117 U/L Lipid Panel Reviewed date:12/28/2024 10:35:24 AM Interpretation: Performing Lab:[facility], [address] [place] [phone] Notes/Report: Triglycerides 122 <150 mg/dL Desirable Triglyceride: less than 150 mg/dL Borderline High Triglyceride 150-199 mg/dL High Triglyceride: 200-499 mg/dL Very High Triglyceride: greater than or equal to 5OO mg/dL Cholesterol 212 <200 mg/dL Desirable Cholesterol: less than 200 mg/dL Borderline High Cholesterol: 200-239 mg/dL High Cholesterol: greater than 239 mg/dL LDL Cholesterol Calculated 152 <100 mg/dL Desirable LDL: less than 100 mg/dL Near Optimal/Above Optimal LDL: 110-129 mg/dL Borderline High LDL: 130-159 mg/dL High LDL: 160-189 mg/dL Very High LDL: greater than or equal to 190 mg/dL HDL Cholesterol 36 >40 mg/dL Desirable HDL: greater than 40 mg/dL Note: This HDL assay may give artificially low results in patients with liver disease. Microalbumin, Random Reviewed date:12/28/2024 10:35:24 AM Interpretation: Performing Lab:[facility], [address] [place] [phone] Notes/Report: Creatinine Urine 138.38 Microalbumin Urine 11.0 Microalbum/Creatinine Ratio Ur 7.9 <30 ug/mg cr Albumin/Creatinine Ratio Reference Ranges: Normal: < 30 ug/mg creatinine Microalbuminuria: 30 - 300 ug/mg creatinine Clinical Albuminuria: > 300 ug/mg creatinine Hemoglobin A1c Reviewed date:12/28/2024 10:35:24 AM Interpretation: Performing Lab:[facility], [address] [place] [phone] Notes/Report: Hemoglobin A1c % 7.2 <6.0 % Hemoglobin A1C Reference Range Adults: 4.8 - 6.0 % Non diabetic: < 6.0 % Goal: < 7.0 % Additional Action Suggested: > 8.0 % Note: Hemoglobin A1c results are invalid for patients with abnormal amounts of HbF. Blood transfusions may impact the HbA1c concentration in the patient sample. Estimated Average Glucose 160 eAG = Estimated average glucose which is %A1C expressed as average glucose, using the formula of the [id number]-[id number] Average Glucose study (ADAG), Diabetes Care, Vol.31,#8, 2007 Complete Blood Count Auto Di ff (Not yet reviewed by provider) Interpretation: Performing Lab:[facility], [address] [place] [phone] Notes/Report: White Blood Count 10.9 4.8-10.8 X10*3/uL Red Blood Count 5.35 4.60-5.80 X10*6/uL Hemoglobin 15.8 14.0-18.0 g/dl Hematocrit 46.0 42.0-52.0 % Mean Corpuscular Volume 86.0 80.0-98.0 fL Mean Corpuscular Hemoglobin 29.5 27.0-33.0 pg Mean Corpuscular HGB Conc 34.3 31.0-36.0 g/dl Red Cell Distribution Width 13.8 11.0-16.0 % Platelet Count 331 160-400 X10*3/uL Mean Platelet Volume 10.0 9.4-12.4 fL Neutrophils Percent Auto 63.8 45-73 % Imm Gran Pct Auto 0.3 0.0-0.4 % Lymphocytes Percent Auto 23.1 20-40 % Monocytes Percent Auto 9.5 2-11 % Eosinophils Percent Auto 2.9 0-4 % Basophils Percent Auto 0.4 0-2 % NRBC Pct Auto 0.0 0.0-0.2 /100WBC Neutrophils Absolute Auto 6.9 2.0-8.3 x10*3/u L Imm Gran Abs Auto 0.03 0.00-0.03 X10*3/uL Lymphocytes Absolute Auto 2.5 1.2-4.9 X10*3/u L Monocytes Absolute Auto 1.0 0.1-1.2 X10*3/uL Eosinophils Absolute Auto 0.3 0.0-0.4 X10*3/u L Basophils Absolute Auto 0.0 0.0-0.2 X10*3/uL NRBC Abs Auto 0.000 0.0-0.012 X10*3/uL Reason For Referral Reason Diabetic Eye Exam Diagnosis 1 Type 2 diabetes coral itus without complications (E11.9) Referral Organization Chin Zepeda III, MD Referring Provider First Name Chin Referring Provider Last Name Katelyn Referring Provider Speciality [facility] Referred Provider [facility] , [facility] ([place]) Referred Provider Specialty Ophthalmolog y General Notes 06/20/2024 03:50:22 PM > Eyesight and surgery does not take [facility]. Patient was advised to call his insurance company and ask for a listing of providers., 10/13/2024 09:49:35 AM > patient has not found anyone at this time and would like to close the referral. 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 Referral sent, 10/19/2024 02:45:24 PM > [facility] appointment [facility] with Dr. Flynn on 10/25/24 @ 2pm Referral Priority Routine Referral Appointment Date 10/25/2024 Medications Medication SIG (Take, Route, Frequency, Duration) Notes Start Date End Date Status Manny IniguezPen 100 UNIT/ML 35 units daily Subcutaneous use 35 units daily DX: Diabetes E11.9 08/08/2024 Active metFORMIN HCl 850 MG TAKE 1 TABLET BY MOUTH TWICE A DAY Active Lisinopril 2.5 MG TAKE 1 TABLET BY MOUTH EVERY DAY Active Lantus 100 UNIT/ML as directed Subcutaneous 35 Units once a day E11.9 DM (diabetes mellitus) Active Ozempic (0.25 or 0.5 MG/DOSE) 2 MG/3ML 0.25 mg like directed Subcutaneous weekly Active Senna 8.6 MG 1 tablet at bedtime as needed Orally Once a day 09/20/2024 Active Triamcinolone Acetonide 0.1 % 1 application Externally Two times a day 06/16/2024 Active buPROPion HCl ER (SR) 100 MG 1 tablet Orally Once a day Active Albuterol Sulfate HFA 108 (90 Base) MCG/ACT 1 puff as needed Inhalation every 4 hrs Active FreeStyle Lancets - as directed as directed use to check blood sugars three times a day 05/01/2021 Active Gabapentin 600 MG 1 tablet Orally three times a day 05/27/2022 Active Alcohol Prep Pads 70 % as directed Externally 3 times a day 05/16/2021 Active FreeStyle Lite Test - as directed In Vit ro 3 times a day Active traZODone HCl 50 MG 1 tablet at bedtime as needed Orally Once a day 08/04/2023 Active Tadalafil 20 MG 1 tablet as [...] 1 PUFF TWICE A DAY Inhalation Active buPROPion HCl ER (SR) 200 MG TAKE 1 TABLET BY MOUTH EVERY DAY FOR 30 DAYS Active Januvia 100 MG 1 tablet Orally Once a day 05/27/2022 Active Proventil HFA 108 (90 Base) MCG/ACT 1 puff as needed Inhalation every 4 hrs 08/03/2023 Active Atorvastatin Calcium 10 MG 1 tablet Orally Once a day 11/19/2022 Active Melatonin 5 MG 1 tablet in the evening Orally Once a day 11/19/2022 Active Immunizations Vaccine Route Administration Date Status Comme nts SHINGRIX Unknown 03/09/2020 Administered COVID PFIZER Unknown 10/02/2020 Administered COVID PFIZER Unknown 09/11/2020 Administered COVID PFIZER Unknown 09/06/2021 Administered Influenza, quad Unknown 03/08/2021 Administered Influenza, quad Unknown 03/09/2020 Administered FLuzone HD PF Unknown 03/28/2022 Administered Pneumococcal Unknown 06/24/2016 Administered COVID Pfizer Bivalent Unknown 07/22/2022 Administered Fluzone High-Dose (HD-IIV3) Unknown 04/26/2024 Administ ered Influenza no Preserv 3 and > Unknown 04/15/2016 Adminis tered Influenza no Preserv 3 and > Unknown 03/10/2017 Adminis tered COVID-19 Comirnaty Pfizer-BioNTech Unknown 04/26/2024 A dministered RSV vaccine, bivalent, prote in subunit RSV prefusion F Unknown 07/28/2024 Administered PCV20 Unknown 07/28/2024 Administered Comirnaty Pfizer COVID-19 12+ Unknown 04/26/2024 Admini stered SHINGRIX Unknown 07/28/2024 Administered Fluzone High-Dose (HD-IIV3) Unknown 03/01/2025 Administ ered Social History Tobacco Use: Social History Observation [...] Never (0 point) Points 4 Interpretation Positive Problems Problem Type SNOMED Code ICD Code Onset Dates Problem Status W/U Status Risk Notes Problem 2477520 Former smoker (Z87.891) Active confirmed We discussed a plan to prevent relapse in times of illness or stress Problem 251866435260791 Obesity (BMI 30.0-34.9) (E66.9) Active confirmed He has gained 5 pounds and his body mass index is 33. He has recently started the Ozempic which was continued. He will return in 4 weeks to weigh himself. He may need an increase in the drug. We made a plan to lose weight at a rate of one half of a pound per week through a diet restricted in calories. Problem [id number] Type 2 diabetes mellitus without complications (E11.9) Active confirmed Comprehensive blood work with a hemoglobin A1c fasting glucose fasting lipids and a microalbumin has been ordered. Problem 75831951 Other chronic pain (G89.29) Active confirmed His current regimen was continued without change. He will see pain management in the near future to Problem 799756998 Lumbago with sciatica, unspecified side (M54.40) Active confirmed His back pain is still present but has diminished and he is able to walk without difficulty. He does not require narcotic analgesics at this time. 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 He is having an exacerbation of wheezing and acute bacterial bronchitis productive of thick yellow phlegm. He is comfortable at home with the activities of daily living but short of breath with exertion. He was given an antibiotic and prednisone in a follow-up visit to the office. Problem 560733201 Schatzki's ring (K22.2) Active confirmed He denies any dysphagia at this time. Problem Right lower quadrant pain (267803341) Right lower quadrant abdominal pain (R10.31) Active confirmed We have ordered an ultrasound of his abdomen to evaluate the right lower quadrant abdominal pain. His examination was unremarkable. Problem 769570641 Benign prostatic hyperplasia with lower urinary tract symptoms (N40.1) Active confirmed He rises from sleep once a night to urinate. We have discussed lifestyle modifications he could make to reduce this. Problem 097801584 Hyperlipidemia type II (E78.01) Active confirmed Comprehensi ve blood work with a fasting lipid profile will be done in the near future. No change in his regimen was made today. Problem 14009510 Other depression (F32.89) Active confirmed His depression is currently low-grade and stable and chronic. No change in his regimen was needed. Problem 56922077 Sleep apnea in adult (G47.30) Active confirmed He no longer uses his CPAP machine as he is not convinced it is working. 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 Problem 745563933 Insomnia, unspecified type (G47.00) Active confirmed He reports that he is sleeping somewhat better lately. Problem 244645610 Intermittent asthma without complication, unspecified asthma severity (J45.20) Active confirmed 2. Wheezing is improved but still present. He was advised to avoid exposure to pollen and tobacco smoke. He will take the prednisone another 7 days. Problem 887936309 Acute constipation (K59.00) Active confirmed I recommended her regimen of MiraLAX 17 g daily with senna 6 mg twice a day. If his bowels do not move in another 48 hours he will come to the office for evaluation. He will notify me at once if he has any hematochezia. Vital Signs Heart Rate 73 /min 04/07/2025 Temperature 97.2 degrees Fahrenheit 04/07/2025 Blood pressure diastolic 79 mm Hg 04/07/2025 Height 64 in 04/07/2025 Blood pressure systolic 131 mm Hg 04/07/2025 Weight 197 lbs 04/07/2025 BMI 33.81 kg/m2 04/07/2025 Encounters Encounter Location Date Provider Diagnosis Chin Zepeda III, MD [address] [place] [address] [place] [phone] 06/16/2024 Chin Zepeda Chronic obstructive pulmonary disease, unspecified COPD type J44.9 ; DM (diabetes mellitus) E11.9 ; Obesity (BMI 30.0-34.9) E66.9 ; Sleep apnea in adult G47.30 ; Benign prostatic hyperplasia with lower urinary tract symptoms N40.1 and Hyperlipidemia type II E78.01 Chin Zepeda III, MD [address] [place] [address] [place] [address] 09/14/2024 Chin Zepeda Chronic obstructive pulmonary disease, [...] (diabetes mellitus) E11.9 and Former smoker Z87.891 Chin Zepeda III, MD [address] [place] [address] [place] [address] 09/20/2024 Chin Zepeda Chronic obstructive pulmonary disease, [...] constipation K59.00 and DM (diabetes mellitus) E11.9 Chin Zepeda III, MD [address] [place] [address] [place] [address] 12/28/2024 Chin Zepeda Hyperlipidemia type II E78.01 ; Sleep apnea in adult G47.30 ; Obesity (BMI 30.0-34.9) E66.9 ; Lumbago with sciatica, unspecified side M54.40 ; Intermittent asthma without complication, unspecified asthma severity J45.20 ; Insomnia, unspecified type G47.00 ; DM (diabetes mellitus) E11.9 and termite control service representative (current) use of insulin Z79.4 Chin Zepeda III, MD [address] [place] [address] [place] [phone] 01/11/2025 Chin Zepeda Chronic obstructive pulmonary disease, unspecified COPD type J44.9 ; Obesity (BMI 30.0-34.9) E66.9 ; Hyperlipidemia type II E78.01 ; Benign prostatic hyperplasia with lower urinary tract symptoms N40.1 and Sleep apnea in adult G47.30 Chin Zepeda III, MD [address] [place] [address] [place] [address] 04/07/2025 Chin Zepeda Chronic obstructive pulmonary disease, unspecified COPD type J44.9 ; Type 2 diabetes mellitus without complications E11.9 ; Obesity (BMI 30.0-34.9) E66.9 ; Hyperlipidemia type II E78.01 ; Benign prostatic hyperplasia with lower urinary tract symptoms N40.1 ; Right lower quadrant abdominal pain R10.31 ; Sleep apnea in adult G47.30 ; Former smoker Z87.891 and Other depression F32.89 Chin Zepeda III, MD [address] [place] [address] [place] [address] 07/12/2024 Chin Zepeda III, MD [address] [place] [address] [place] [address] 07/12/2024 Chin Zepeda III, MD [address] [place] [address] [place] [address] 07/12/2024 Chin Zepeda III, MD [address] [place] [address] [place] [address] 07/12/2024 Chin Zepeda III, MD [address] [place] [address] [place] [phone] 08/08/2024 Chin Zepeda III, MD [address] [place] [address] [place] [address] 04/07/2025 Chin Zepeda Assessments Encounter Date Diagnosis (ICD Code) Assessment Notes Treat ment Notes Treatment Clinical Notes 06/16/2024 DM (diabetes mellitus) (ICD-10 - E11.9) He has been compliant with his medication and reports his glucose levels have been about 150. A comprehensive set of labs were ordered today which will include microalbumin and hemoglobin A1c and fasting glucose and cholesterol. 06/16/2024 Chronic obstructive pulmonary disease, unspecified COPD type [...] half of a pound per week. 09/14/2024 Chronic obstructive pulmonary disease, unspecified COPD [...] half of a pound per week. 09/20/2024 Chronic obstructive pulmonary disease, unspecified COPD type (ICD-10 - J44.9) He is no longer smoking. He is comfortable at rest. He has very diminished lung sounds on examination, but he is not in respiratory distress on room air. 12/28/2024 Hyperlipidemia type II (ICD-10 - E78.01) [...] recommended he take it back to his military source operations specialist for calibration. 01/11/2025 Obesity (BMI 30.0-34.9) (ICD-10 - E66.9) [...] his diet and is eating habits. 01/11/2025 Chronic obstructive pulmonary disease, unspecified COPD [...] and a microalbumin has been ordered. 04/07/2025 Chronic obstructive pulmonary disease, unspecified COPD type (ICD-10 - J44.9) He is no longer smoking. He is having an exacerbation of wheezing and acute bacterial bronchitis productive of thick yellow phlegm. He is comfortable at home with the activities of daily living but short of breath with exertion. He was given an antibiotic and prednisone in a follow-up visit to the office. 06/16/2024 Obesity (BMI 30.0-34.9) (ICD-10 - E66.9) He [...] a diabetic diet and aggressive weight loss. 09/20/2024 Former smoker (ICD-1 0 - Z87.891) We discussed a plan to prevent relapse in times of illness or stress 12/28/2024 Obesity (BMI 30.0-34.9) (ICD-10 - E66.9) [...] a diabetic diet and aggressive weight loss. 04/07/2025 Obesity (BMI 30.0-34.9) (ICD-10 - E66.9) [...] week through a diet restricted in calories. 06/16/2024 Sleep apnea in adult (ICD-10 - G47.30) He no longer uses his CPAP machine as he is not convinced it is working. 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 09/14/2024 Benign prostatic hyperplasia with lower urinary tract symptoms (ICD-10 - N40.1) He rises from sleep twice a night to urinate. We discussed lifestyle modification as a way to reduce nocturia. He did not wish to take additional medication. 09/20/2024 Other depression (ICD-10 - F32.89) His depression is currently low-grade and stable and chronic. No change in his regimen was needed. 12/28/2024 Lumbago with sciatica, unspecified side (ICD-10 - M54.40) His back pain is still present but has diminished and he is able to walk without difficulty. He does not require narcotic analgesics at this time. 01/11/2025 Benign prostatic hyperplasia with lower urinary tract symptoms (ICD-10 - N40.1) He rises from sleep twice a night to urinate. We discussed lifestyle modification as a way to reduce nocturia. He did not wish to take additional medication. 04/07/2025 Hyperlipidemia type II (ICD-10 - E78.01) Comprehensive blood work with a fasting lipid profile will be done in the near future. No change in his regimen was made today. 06/16/2024 Benign prostatic hyperplasia with lower urinary tract [...] recommended he take it back to his military source operations specialist for calibration. 09/20/2024 Sleep apnea in adult (ICD-10 - G47.30) He no longer uses his CPAP machine as he is not convinced it is working. 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 12/28/2024 Intermittent asthma without complication, unspecified asthma severity (ICD-10 - J45.20) 2. Wheezing is improved but still present. He was advised to avoid exposure to pollen and tobacco smoke. He will take the prednisone another 7 days. 01/11/2025 Sleep apnea in adult (ICD-10 - G47.30) He no longer uses his CPAP machine as he is not convinced it is working. 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 04/07/2025 Benign prostatic hyperplasia with lower urinary tract symptoms (ICD-10 - N40.1) He rises from sleep once a night to urinate. We have discussed lifestyle modifications he could make to reduce this. 06/16/2024 Hyperlipidemia type II (ICD-10 - E78.01) His fasting lipid profile shows cholesterol 217. No change in his medication was made today.Strongly recommended adherence to a diabetic diet and aggressive weight loss. 09/14/2024 Insomnia, unspecifie d type (ICD-10 - G47.00) He reports that he is sleeping somewhat better lately. 09/20/2024 Benign prostatic hyperplasia with lower urinary tract symptoms (ICD-10 - N40.1) He rises from sleep twice a night to urinate. We discussed lifestyle modification as a way to reduce nocturia. He did not wish to take additional medication. 12/28/2024 Insomnia, unspecifie d type (ICD-10 - G47.00) He reports that he is sleeping somewhat better lately. 04/07/2025 Right lower quadrant abdominal pain (ICD-10 - R10.31) We have ordered an ultrasound of his abdomen to evaluate the right lower quadrant abdominal pain. His examination was unremarkable. 09/14/2024 Other chronic pain (ICD-10 - G89.29) His current regimen was continued without change. He will see pain management in the near future to 09/20/2024 Lumbago with sciatica, unspecified side (ICD-10 - M54.40) His back pain is still present but has diminished and he is able to walk without difficulty. He does not require narcotic analgesics at this time. 12/28/2024 DM (diabetes mellitus) (ICD-10 - E11.9) His hemoglobin A1c is now 7.2. We reviewed his diabetic diet and his weight loss strategy. No change in his medication was made. He was continued on the Ozempic. 04/07/2025 Sleep apnea in adult (ICD-10 - G47.30) He no longer uses his CPAP machine as he is not convinced it is working. 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 09/14/2024 Intermittent asthma without complication, unspecified asthma severity (ICD-10 - J45.20) 2. Wheezing is improved but still present. He was advised to avoid exposure to pollen and tobacco smoke. He will take the prednisone another 7 days. 09/20/2024 Intermittent asthma without complication, unspecified asthma severity (ICD-10 - J45.20) 2. Wheezing is improved but still present. He was advised to avoid exposure to pollen and tobacco smoke. He will take the prednisone another 7 days. 12/28/2024 halfway (current) use of insulin (ICD-10 - Z79.4) 04/07/2025 Former smoker (ICD-1 0 - Z87.891) We discussed a plan to prevent relapse in times of illness or stress 09/14/2024 Schatzki's ring (ICD-10 - K22.2) He denies any dysphagia at this time. 09/20/2024 Schatzki's ring (ICD-10 - K22.2) He denies any dysphagia at this time. 04/07/2025 Other depression (ICD-10 - F32.89) His depression is currently low-grade and stable and chronic. No change in his regimen was needed. 09/14/2024 DM (diabetes mellitus) (ICD-10 - E11.9) He has been compliant with his medication and reports his glucose levels have been about 150. A comprehensive set of labs were ordered today which will include microalbumin and hemoglobin A1c and fasting glucose and cholesterol.In June 2024 is hemoglobin A1c which had been 6.8 was 5.8. He has lost 3 pounds. 09/20/2024 Insomnia, unspecifie d type (ICD-10 - G47.00) He reports that he is sleeping somewhat better lately. 09/14/2024 Former smoker (ICD-1 0 - Z87.891) We discussed a plan to prevent relapse in times of illness or stress 09/20/2024 Acute constipation (ICD-10 - K59.00) I [...] has lost 3 pounds. Plan Of Treatment Pending Test Test Name Order Date PROFILE, FASTING (COMPREHENSIVE METABOLI C) 08/07/2021 PROFILE, FASTING (COMPREHENSIVE METABOLI C) 07/08/2019 PROFILE, FASTING (COMPREHENSIVE METABOLI C) 06/16/2024 PROFILE, FASTING (COMPREHENSIVE METABOLI C) 03/05/2020 PROFILE, FASTING (COMPREHENSIVE METABOLI C) 05/27/2022 PROFILE, FASTING (COMPREHENSIVE METABOLI C) 06/12/2021 PROFILE, FASTING (COMPREHENSIVE METABOLI C) 08/04/2023 PROFILE, FASTING (COMPREHENSIVE METABOLI C) 01/05/2019 PROFILE, FASTING (COMPREHENSIVE METABOLI C) 02/18/2023 PROFILE, FASTING (COMPREHENSIVE METABOLI C) 09/01/2022 PROFILE, FASTING (COMPREHENSIVE METABOLI C) 12/28/2024 PROFILE, FASTING (COMPREHENSIVE METABOLI C) 11/06/2020 PROFILE, FASTING (COMPREHENSIVE METABOLI C) 10/23/2020 PROFILE, FASTING (COMPREHENSIVE METABOLI C) 05/01/2021 PROFILE, FASTING (COMPREHENSIVE METABOLI C) 04/07/2025 PROFILE, FASTING (COMPREHENSIVE METABOLI C) 11/11/2021 PROFILE, FASTING (COMPREHENSIVE METABOLI C) 02/25/2022 PROFILE, RANDOM (COMPREHENSIVE METABOLIC ) 04/12/2019 PROFILE, RANDOM (COMPREHENSIVE METABOLIC ) 03/04/2021 PROFILE, RANDOM (COMPREHENSIVE METABOLIC ) 05/10/2021 PROFILE, RANDOM (COMPREHENSIVE METABOLIC ) 07/25/2020 PROFILE, RANDOM (COMPREHENSIVE METABOLIC ) 10/20/2018 PROFILE, RANDOM (COMPREHENSIVE METABOLIC ) 04/24/2020 HEMOGLOBIN A1C (GLYCOHEMOGLOBIN) 019 HEMOGLOBIN A1C (GLYCOHEMOGLOBIN) 022 HEMOGLOBIN A1C (GLYCOHEMOGLOBIN) 020 HEMOGLOBIN A1C (GLYCOHEMOGLOBIN) 022 HEMOGLOBIN A1C (GLYCOHEMOGLOBIN) 020 HEMOGLOBIN A1C (GLYCOHEMOGLOBIN) 019 HEMOGLOBIN A1C (GLYCOHEMOGLOBIN) 020 HEMOGLOBIN A1C (GLYCOHEMOGLOBIN) 022 HEMOGLOBIN A1C (GLYCOHEMOGLOBIN) 021 HEMOGLOBIN A1C (GLYCOHEMOGLOBIN) 019 HEMOGLOBIN A1C (GLYCOHEMOGLOBIN) 023 HEMOGLOBIN A1C (GLYCOHEMOGLOBIN) 023 HEMOGLOBIN A1C (GLYCOHEMOGLOBIN) 021 HEMOGLOBIN A1C (GLYCOHEMOGLOBIN) 021 HEMOGLOBIN A1C (GLYCOHEMOGLOBIN) 021 HEMOGLOBIN A1C (GLYCOHEMOGLOBIN) 021 HEMOGLOBIN A1C (GLYCOHEMOGLOBIN) 021 HEMOGLOBIN A1C (GLYCOHEMOGLOBIN) 021 LIPID PANEL 10/23/2020 LIPID PANEL 07/25/2020 LIPID PANEL 04/24/2020 LIPID PANEL 07/08/2019 LIPID PANEL 04/12/2019 LIPID PANEL 03/05/2020 LIPID PANEL 05/27/2022 LIPID PANEL 06/12/2021 LIPID PANEL 01/05/2019 LIPID PANEL 02/18/2023 LIPID PANEL 09/01/2022 LIPID PANEL 03/18/2022 LIPID PANEL 03/04/2021 LIPID PANEL 11/06/2020 GGT 03/18/2022 PSA, TOTAL 05/01/2021 PSA, TOTAL 03/04/2021 PSA, TOTAL 11/06/2020 PSA, TOTAL 10/23/2020 PSA, TOTAL 11/11/2021 PSA, TOTAL 07/25/2020 PSA, TOTAL 07/08/2019 PSA, TOTAL 12/28/2024 PSA, TOTAL 05/27/2022 PSA, TOTAL 05/10/2021 MICROALBUMIN, RANDOM 05/27/2022 MICROALBUMIN, RANDOM 03/04/2021 MICROALBUMIN, RANDOM 11/11/2021 MICROALBUMIN, RANDOM 04/12/2019 DRUGS OF ABUSE (BARONE) 07/04/2020 CBC w DIFF 09/01/2022 CBC w DIFF 02/25/2022 CBC w DIFF 05/10/2021 CBC w DIFF 05/01/2021 CBC w DIFF 10/20/2018 CBC w DIFF 05/27/2022 CBC w DIFF 11/06/2020 CBC w DIFF 10/23/2020 CBC w DIFF 03/18/2022 CBC w DIFF 07/25/2020 CBC w DIFF 03/04/2021 CBC w DIFF 08/07/2021 CBC w DIFF 04/24/2020 CBC w DIFF 11/11/2021 CBC w DIFF 03/05/2020 CBC w DIFF 07/08/2019 CBC w DIFF 04/07/2025 CBC w DIFF 06/12/2021 CBC w DIFF 04/12/2019 CBC w DIFF 12/28/2024 CBC w DIFF 01/05/2019 CBC w DIFF 02/18/2023 SED RATE (ESR) 09/01/2022 SED RATE (ESR) 02/25/2022 IMMUNOFIXATION PANEL, SERUM (IEP) 2021 PROTEIN ELECTROPHORESIS, SERUM TESTOSTERONE, TOTAL 03/18/2022 MRI LUMBAR SPINE NO CONTRAST 05/26/2018 XR CHEST 2 VIEW PA & LAT 09/12/2019 XR CHEST 2 VIEW PA & LAT 05/20/2023 XR HEEL LT 02/16/2024 XR HEEL RT 02/16/2024 XR KNEE LT 4 VIEWS 08/03/2018 US ABD 04/07/2025 Sleep Study - Diagnostic 03/18/2022 CBC WITH AUTO DIFF 06/16/2024 CBC WITH AUTO DIFF 08/04/2023 SARS COV2 RNA RT PCR 12/28/2019 SARS COV2 IGG 06/05/2020 Complete Blood Count Auto Diff Lipid Panel 04/07/2025 Lipid Panel 12/28/2024 Lipid Panel 05/01/2021 Lipid Panel 08/07/2021 Lipid Panel 08/04/2023 Lipid Panel 11/11/2021 Testosterone, Total 04/07/2025 Microalbumin, Random 12/28/2024 Microalbumin, Random 04/07/2025 Microalbumin, Random 02/25/2022 Microalbumin, Random 08/04/2023 XR foot RT min 3V 02/16/2024 XR foot LT min 3V 02/16/2024 Hemoglobin A1c 08/04/2023 Hemoglobin A1c 11/09/2023 Hemoglobin A1c 12/28/2024 Hemoglobin A1c 04/07/2025 Hemoglobin A1c 02/25/2022 Next Appt Details Provider Name:Chin Kam Zepeda , 07/17/2025 02:00:00 PM, [address] [place] [address] [address], [place], [address], Provider Name:Chin Zepeda , 12/29/2025 02:00:00 PM, [address] [place] [address] [address], [place], [address], Insurance Providers Payer Name Payer Address Payer Phone Subscriber Number Group Number Insured Name Patient Relationship to Insured Coverage Start Date Coverage End Date MEDICARE NGS [address] [place] [place] [address] [id number] NONE Jose Roberto zJuan Diego Self - patient is the insured MED[place] [address] [place], [place] [id number] [phone] [id number] Juan Diego Hogue Self - patient is the insured Medical (General) History Medical History History ICD Code Obesity, unspecified E66.9 Chronic obstructive pulmonary disease, u nspecified COPD type J44.9 Hyperlipidemia, unspecified hyperlipidem ia type E78.5 Anxiety F41.9 Knee pain, unspecified chronicity, unspe cified laterality M25.569 Depression, unspecified depression type F32.9 Asthma, unspecified asthma s everity, unspecified whether complicated, unspecified whether persistent J45.909 Prostatism N40.0 Low back pain, unspecified b ack pain laterality, unspecified chronicity, with sciatica presence unspecified M54.5 Sleep apnea, unspecified type G47.30 [id number] diabetes mellitus history of hydroureter on the right erectile dysfunction former smoker Surgical History Surgery Date(Month/Year) left shoulder broken right leg Hospitalization History Reason Date(Month/Year) headache,body pain and bronchitis asthma 06/2018
--- OUTSIDE RECORDS SUMMARY | 2025-05-26 12:08 | XMS_ITS | Patient Health Record ---
Author Organization [facility] Address [address] [place] [address] Care Team Providers Care Event Attendant Name Role Phone Chin Zepeda MD Primary Care Provider Unavailab Mauro Church Unavailable [phone] Allergies No Known Allergies Reason For Referral [...] Problem Acquired hammer toe of right foot ([id number] ) Other hammer toe(s) (acquired), right foot (M20.41) Active confirmed Problem Acquired hammer toe of left foot ([id number] ) Other hammer toe(s) (acquired), left foot (M20.42) Active confirmed Problem Polyneuropathy due to type 2 diabetes mellitus (414630851) Type 2 diabetes mellitus with diabetic polyneuropathy (E11.42) Active confirmed Plan Of Treatment Pending Test Test Name Order Date [id number] NAIL, 1-5 02/08/2024 [id number] Plate 02/08/2024 [id number] SKIN LESIONS, OVER 4 02/08/20 24 [id number] DYSTROPHIC NAILS ANY # Insurance Providers Payer Name Payer Address Payer Phone Subscriber Number Group Number Insured Name Patient Relationship to Insured Coverage Start Date Coverage End Date Medicare National [employer] [address] [place] [address] [id number] Juan Diego Houge Self - patient is the insured Medical (General) History Medical History History ICD Code Anxiety Arthritis asthma Back,Hip,and Knee pain Chicken pox covid-19 Depression Diabetes mellitus Numbness Hypertension Reflux ( GERD) Warts COPD Plantar fasciitis Prostate conditions Esophageal obstruction
[2025-05-26 12:13] LABS: NT Pro B Type Natriuretic Pept 47.3 pg/mL (<300)
[2025-05-26 12:25] LABS: Troponin-I High Sensitivity < 2.7 ng/L (<3.5-35.0)
[2025-05-26] MEDS: BUPivacaine MPF 0.25 % 10 ML VIAL INFILTRATI (13:11)
[2025-05-26 14:14] VITALS: BP 141/64; PULSE 67; RESP 18; TEMP 36.4; O2SAT 96
== END 2025-05-26 14:14 | disposition home or self-care (01) ==
PROVIDERS: Physician Assistant; Emergency Provider Emergency Medicine; PCP Internal Medicine Medical Oncology
DX: R07.89 Other chest pain (principal); R06.02 Shortness of breath; M79.604 Pain in right leg; M25.551 Pain in right hip; E11.9 Type 2 diabetes mellitus without complications; Z79.84 Long term (current) use of oral hypoglycemic drugs; Z79.899 Other long term (current) drug therapy; Z87.891 Personal history of nicotine dependence
CPT/HCPCS: 36415; 71045; 73502; 80053; 83880; 84484; 85025; 93005; 96365; 96366; 96375; 99284; J0131; J0665; J1885

== ENCOUNTER → 2025-05-26 10:29 | Outpatient (BNV) | payer MEDICARE, MEDICAID, SELFPAY | PROVIDERS: Emergency Provider Emergency Medicine; PCP Internal Medicine Medical Oncology; Visit Provider Internal Medicine | DX: R07.9 Chest pain, unspecified (principal) | CPT/HCPCS: 93010 ==

== ENCOUNTER → 2025-05-26 11:26 | Outpatient (BNV) | payer MEDICARE, MEDICAID, SELFPAY | PROVIDERS: Emergency Provider Emergency Medicine; PCP Internal Medicine Medical Oncology; Visit Provider Radiology Diagnostic Radiology | DX: M25.551 Pain in right hip (principal); R07.9 Chest pain, unspecified | CPT/HCPCS: 71045; 73502 ==